=== PATIENT | female | born 1990 | race Caucasian/White ===

== ENCOUNTER → 2018-10-06 09:34 | Outpatient (CLI) | payer BC, SELFPAY ==
[2018-10-06 08:41] VITALS: BMI 18.1
[2018-10-06 10:00] LABS: Absolute Lymphocyte Count 1.51 X10^3/ul (0.83-4.51); Absolute Neutrophil Count 3.8 X10^3/uL (2.0-7.7); Basophil# 0.02 X10^3/uL; Basophil% 0.3 % (0-1); Eosinophil# 0.12 X10^3/uL; Hematocrit 39.3 % (37-47); Hemoglobin 13.3 g/dl (12.0-15.0); Lymphocyte # 1.51 X10^3/ul (4.0); Lymphocyte % 25.2 % (19-41); Mean Corp Hgb Conc 33.8 g/gl (32-36); Mean Corpuscular Hgb 31.4 pg (27.0-32.0); Mean Corpuscular Volume 92.7 fL (81-99); Mean Platelet Vol. 11.1 fl (6.2-12.0); Monocyte# 0.51 X10^3/uL; Monocyte% 8.5 % (0-10); Neutrophil # 3.82 X10^3/uL (2.7-7.7); Neutrophil % 63.8 % (47-70); Platelet Count 200 K/mm3 (150-450); RBC Distribution Width CV 13.1 % (11.6-14.6); RBC Distribution Width SD 44.1 fl (35.1-43.9); Red Blood Count 4.24 M/mm3 (4.2-5.4)
[2018-10-06 10:01] LABS: POSITIVE COUNT NO; POSITIVE DIFFERENTIAL NO; POSITIVE MORPHOLOGY NO
[2018-10-06 11:27] LABS: HIV - WCH Non-Reactive (Nonreactive); Rubella IgG 47.3 IU/mL
[2018-10-06 16:56] LABS: Chlamydia Trachomatis by PCR Negative (Negative); Neisserai gonorrhoeae by PCR Negative (Negative); Probe Check PASS; Sample Adequacy Control PASS; Specimen Processing Control PASS
[2018-10-07 11:26] LABS: HEPATITIS B SURFACE AG Negative (Negative)
[2018-10-08 13:01] LABS: HPV Reflexed? NOT INDICATED
[2018-10-09 04:55] LABS: Rapid Plasmin Reagin (RPR) NONREACTIVE (NONREACTIVE)
== END ==
PROVIDERS: Family Provider Internal Medicine; PCP Internal Medicine; Referring Provider Obstetrics & Gynecology; Visit Provider Obstetrics & Gynecology
DX: Z34.80 Encounter for supervision of other normal pregnancy, unspecified trimester (principal)
CPT/HCPCS: 36415; 85025; 86592; 86703; 86762; 86850; 86900; 87086; 87340; 87491; 87591; 87624; 88175; G0145

== ENCOUNTER → 2019-02-05 10:42 | Outpatient (CLI) | payer BC, SELFPAY ==
[2019-02-05 09:47] VITALS: BMI 19.3
[2019-02-05 11:05] LABS: Absolute Lymphocyte Count 2.01 X10^3/uL (0.83-4.51); Absolute Neutrophil Count 6.4 X10^3/uL (2.0-7.7); Basophil# 0.04 X10^3/uL; Basophil% 0.4 % (0-1); Eosinophil# 0.12 X10^3/uL; Eosinophils% 1.3 % (0-5); Hematocrit 35.2 % (37-47); Hemoglobin 12.3 g/dL (12.0-15.0); Lymphocyte # 2.01 X10^3/ul (4.0); Mean Corp Hgb Conc 34.9 g/dL (32-36); Mean Corpuscular Hgb 34.3 pg (27.0-32.0); Mean Corpuscular Volume 98.1 fL (81-99); Mean Platelet Vol. 11.9 fl (6.2-12.0); Monocyte# 0.48 X10^3/uL; Monocyte% 5.3 % (0-10); NRBC Flagged by Analyzer 0 % (0-5); Neutrophil # 6.39 X10^3/uL (2.7-7.7); Platelet Count 168 K/mm3 (150-450); RBC Distribution Width CV 12.8 % (11.6-14.6); RBC Distribution Width SD 45.3 fl (35.1-43.9); Red Blood Count 3.59 M/mm3 (4.2-5.4); White Blood Count 9.1 K/mm3 (4.4-11.0)
[2019-02-05 11:13] LABS: Glucose Challenge Gest 1H 50g 80 mg/dL (70-140)
== END ==
PROVIDERS: Family Provider Internal Medicine; PCP Internal Medicine; Referring Provider Obstetrics & Gynecology; Visit Provider Obstetrics & Gynecology
DX: Z34.92 Encounter for supervision of normal pregnancy, unspecified, second trimester (principal); Z3A.26 26 weeks gestation of pregnancy
CPT/HCPCS: 36415; 82950; 85025

== ENCOUNTER → 2019-04-16 07:50 | Outpatient (CLI) | payer BC, SELFPAY ==
[2019-04-02 09:21] VITALS: BMI 19.3
--- NOTE | 2019-04-16 07:52 | US_ITS ---
STUDY: SECOND AND THIRD TRIMESTER OBSTETRICAL ULTRASOUND REASON FOR EXAM: Female, 29 years old growth. LMP: August 03, 2018. TECHNIQUE: Transabdominal TECHNICAL QUALITY: Adequate. PRIOR ULTRASOUND: None. FINDINGS: There is a single intrauterine fetus. The fetus is in a cephalic presentation. There is demonstrated cardiac activity with a heart rate of 121 bpm. There is a normal amniotic fluid volume. The largest amniotic fluid pocket measures 4.4 cm. The amniotic fluid index (DIEGO) is 12.9 cm. The placenta is posterior and fundal in location and is not low lying. There are Grade 2 placental changes. The cervix measures 4.0 cm in length. The adnexal regions are not visualized. BIOMETRY: BPD: 9.13 cm: 37 weeks, 0 days HC: 32.19 cm: 37 weeks, 3 days AC: 34.73 cm: 38 weeks, 4 days FL: 6.49 cm: 33 weeks, 3 days CI: 84% FL/BPD: 71% FL/HC: FL/AC: 19% HC/AC: 0.95 age by current US: 36 weeks, 2 days. KATH by current US: May 12, 2019. Estimated weight: 3129 grams, +/- 463 grams, 69 %. Age by LMP: 36 weeks, 4 days. KATH by LMP: May 10, 2019. US/OB Limited With Biometrics IMPRESSION: Single live intrauterine gestation with a mean gestational age of 36 weeks and 2 days. Electronically Signed: Jerson Banda, at 9:50 EDT , Service support ,
== END ==
PROVIDERS: Family Provider Internal Medicine; PCP Internal Medicine; Referring Provider Obstetrics & Gynecology; Visit Provider Obstetrics & Gynecology
DX: Z34.93 Encounter for supervision of normal pregnancy, unspecified, third trimester (principal); Z3A.36 36 weeks gestation of pregnancy; Z87.59 Personal history of other complications of pregnancy, childbirth and the puerperium
CPT/HCPCS: 76816; 87081

== ENCOUNTER 2019-05-05 05:10 | Inpatient (IN) | payer BC, SELFPAY ==
[2019-04-23 09:05] VITALS: BMI 25.1
[2019-04-30 09:03] VITALS: BMI 25.1
--- NOTE | 2019-05-01 04:44 | HP.PCM_ITS ---
- Problem List (1) Choroid plexus cyst Status: Acute Comment: declines genetic testing (2) H/O anorexia nervosa Status: Acute Comment: discussed healthy weight gain, patient denies symptoms (3) History of shoulder dystocia in prior Status: Acute Comment: discussed risks and patient now requesting primary for delivery. schedul 05/03 (4) Influenza vaccination declined Status: Acute Comment: 04/02/2019 (5) Periurethral trauma during delivery Status: Acute Comment: discussed recurrence likelihood. (6) Status: Acute Qualifiers: Comment: Declines carrier, NT, genetic. anatomy us reviewed. 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 Required: No Accompanied by: Is patient in pain?: No Allergies No Known Allergies Allergy (Verified 04/30/19 09:03) Medications Vits [Prenatabs FA ] 1 tab PO DAILY 05/21/17 [History Confirmed 04/30/19] Last Menstral Period: 08/03/18 Zika: Zika virus screening: Negative : No PFSH PFSH Medical History History of anorexia nervosa (Resolved) Surgical History No significant past surgical history (Acute) Family History Grandfather Colon cancer Social History (Updated 04/30/19 @ 09:37 by Ira Caal MD) adopted: No household members: family housing: house number of children: 1 current occupational status: employed current occupation: [employer] current occupational exposures/hazards: No pets and animals: Yes history of recent travel: No sexually active: Yes Smoking Status: Former smoker second hand exposure: Yes (not in the house) alcohol intake: current alcohol intake frequency: a few times a month details: not while substance use type: does not use seatbelt use: always do you feel safe at home: Yes additional social history: Spouse- Bc- [employer] History 2 Elective abortions Hx Para 1 Spontaneous abortions Hx # Term Pregnancies 1 Ectopic pregnancies Hx # Pregnancies Multiple births # of living children 1 Past Pregnancies Del. Date Name GA/Weeks Outcome Route Bth Weight Infant Gen Labor Lgth Anesthesia Del Locatn Provider FOB 10/19/16 Mitchelshantier 40 live - full term 8pounds 7oz Femal e 14 hours none [facility] Celina Key/Dr. Timmy Yancey Delivery Date: 10/19/16 On 10/06/18 @ 08:56 Debbie Olmstead Shoulder dystocia, 3rd or 4th degree tear vaginal- tore up HPI 38 WEEK OB: Details: MOHIT KERN is a 29 year old who presents for routine OB visit. OB Visit KATH Calculator Estimated Delivery Date Method Current WG Current Estimate 05/10/19 LMP (Certain) 38w 4d Expected Delivery Route/Plan after discussion patient prefer ltcs for history of shoulder dystocia Labor Preferences- labor support person: Bc pain management: spinal cut cord/dad catch: yes : yes PP control planned: none discussed possible routes of delivery and associated risks: yes and plan LTCS special requests: [] Specific Issue/Plans flu vaccine: no tdap vaccine: declined rhogam: na LARC form signed: declines Problem list reviewed and updated with the most current plan of care details and appropriate orders placed. Relevant counseling for the gestational age provided. Continue routine care and follow up unless otherwise noted in visit notes/problem list details Initial Weight: 116 lb Date EGA Weight BP Urine Prot Glucose FHR FuHt Pres Mov CTX Dilation Effaced St Visit Note 11/02/18 13w 0d 123 lb 8 oz (+7 lb 8 oz) 98/62 Negative Negative 150 no vb cramping doing well, declines genetic and ntd screening 12/03/18 17w 3d 128 lb (+12 lb) 102/72 Negative Negative 153 No VB, LOF. Doing well. 01/08/19 22w 4d 136 lb (+20 lb) 118/62 Negative Negative 150 23 no vb lof cramping on right side sometimes. 02/05/19 26w 4d 140 lb (+24 lb) 94/62 Negative Negative 150 27 no vb cbc gct today declined tdap 03/05/19 30w 4d 144 lb 4 oz (+28 lb 4 oz) 100/58 Negative Negative 140 32 Active absent no vb lof 03/18/19 32w 3d 145 lb 6 oz (+29 lb 6 oz) 100/58 Negative Negative 129 32 Active absent No Vb, LOF. No issues with anxiety over food. 04/02/19 34w 4d 149 lb 4 oz (+33 lb 4 oz) 100/58 Negative Negative 140 35 no vb lof good fm no reg ctx get growth scan 04/16/19 36w 4d 151 lb (+35 lb) 94/56 Negative Negative 128 36 Cephalic 1.50 nO VB, LOF. Good FM. US for growth today. GBS 04/23/19 37w 4d 151 lb (+35 lb) 100/82 Negative Negative 120 37 Cephalic no vb lof good fm n oregular ctx- patient now wnating to proceed with primary due to shoulder dystocia history 04/30/19 38w 4d 154 lb (+38 lb) 110/72 Negative Negative 135 39 Cephalic no vb lof good fm no reg ctx Visit Notes Visit Date: 04/30/19 ??no vb lof good fm no reg ctx ??Ira Caal MD on 04/30/19 Visit Date: 04/23/19 ??no vb lof good fm n oregular ctx- patient now wnating to proceed with primary due to shoulder dystocia history ??Ira Caal MD on 04/23/19 Visit Date: 04/16/19 ??nO VB, LOF. Good FM. US for growth today. GBS ??LILLY Gillette on 04/16/19 Visit Date: 04/02/19 ??no vb lof good fm no reg ctx get growth scan ??Ira Caal MD on 04/02/19 Visit Date: 03/18/19 ??No Vb, LOF. No issues with anxiety over food. ??LILLY Gillette on 03/18/19 Visit Date: 03/05/19 ??no vb lof ??Ira Caal MD on 03/05/19 Visit Date: 02/05/19 ??no vb cbc gct today declined tdap ??Ira Caal MD on 02/05/19 Visit Date: 01/08/19 ??no vb lof cramping on right side sometimes. ??Ira Caal MD on 01/08/19 Visit Date: 12/03/18 ??No VB, LOF. Doing well. ??Ruthann You NP-Kerline on 12/03/18 Visit Date: 11/02/18 ??no vb cramping doing well, declines genetic and ntd screening ??Ira Caal MD on 11/03/18 ACOG First Trimester First Trimester: Desire for , Alcohol, Tobacco Cessation, Illicit/Recreational Drug/Substance Use, Intimate Partner Violence, Barriers to care, Unstable Housing, Communication Barriers, Environmental/Work Hazards, Anticipated Course of Care, Toxoplasmosis Precations, Use of Any medications, Sexual activity, Exercise, Dental Care, Sauna/Hot tub use, Seat Belt use, Childbirth classes/Hospital facilities, , Travel, Indications for US and Screening for Aneuploidy Second Trimester Second Trimester: Signs and Symptoms of Labor, Selecting a care provider, Reproductive Life Planning, Care Planning, Tobacco Cessation, Depression/Anxiety and Intimate Partner Violence Third Trimester Third Trimester: Pain Management Plans, Labor support person(s), Immediate Larc, Movement Monitoring and Infant Feeding Yes ; discussed Trial of Labor after Counseling or discussed Circumcision preference Diagnostics Diagnostics Diagnostics Blood Type A POSITIVE 10/06/18 Antibody Screen NEGATIVE 10/06/18 Glucose 1 Hr 50 gm 80 mg/dL (70-140) 02/05/19 HIV 1&2 Antibody Non-Reactive (Nonreactive) 10/06/18 Rubella IgG Antibody 47.3 IU/mL 10/06/18 Hgb 12.3 g/dL (12.0-15.0) 02/05/19 Hct 35.2 % (37-47) L 02/05/19 RPR NONREACTIVE (NONREACTIVE) 10/06/18 Details: HIV: Urine Culture: Sequential Screen: NIPT Screen: ROS Const Reports system reviewed and no additional complaints, except as docu Card Reports system reviewed and no additional complaints, except as docu Resp Reports system reviewed and no additional complaints, except as docu GI Reports system reviewed and no additional complaints, except as docu, Reports nausea Reports system reviewed and no additional complaints, except as docu Musc Reports system reviewed and no additional complaints, except as docu Exam Const General: cooperative, healthy appearing, comfortable, anxious HENMT Head: normal to inspection Nose: external nose normal Face and sinus: normal facial exam Neck Neck: normal visual inspection, full ROM, no lymphadenopathy Thyroid: thyroid normal Chest Chest palpation & inspection: normal inspection of the chest Resp Effort & Inspection: normal respiratory effort GI Inspection: normal to inspection Palpation: soft, other (gravid uterus) Other: vertex and appropriate size for gestational age Other: Cervical Exam: Extrem General: pedal edema Results [id number] Office Urine Glucose Negative Last Edit by Yajaira Navarrete on 04/30/19 09:02 Office Urine Protein Negative Last Edit by Yajaira Navarrete on 04/30/19 09:02 Assessment & Plan Problems 1. Influenza vaccination declined Z28.21 04/02/2019 2. Choroid plexus cyst G93.0 declines genetic testing 3. History of shoulder dystocia in prior Z87.59 discussed risks and patient now requesting primary for delivery. schedul 05/03 4. Periurethral trauma during delivery O71.89 discussed recurrence likelihood. proceed with 5. H/O anorexia nervosa Z86.59 discussed healthy weight gain, patient denies symptoms 6. Supervision of other normal Z34.80 PRR KATH 05/10/19 boy Amaris DELORES Nir Spouse Bc 7. Z34.90 Declines carrier, NT, genetic. anatomy us reviewed. Plan plan Primary LTCS Orders Orders: POC Urinalysis 2 Dip (Clinic) Today Coding Level of Care Code OB Routine Diagnoses Influenza vaccination declined Z28.21 Choroid plexus cyst G93.0 History of shoulder dystocia in prior Z87.59 Periurethral trauma during delivery O71.89 H/O anorexia nervosa Z86.59 Supervision of other normal Z34.80 Z34.90
[2019-05-05] VITALS (18 sets, daily range): BP systolic 86–103; BP diastolic 42–61; PULSE 58–79; RESP 15–18; TEMP 36.2–37.1; O2SAT 96–100; BMI 24.1
[2019-05-05] MEDS: Lactated Ringers 1,000 ML 999 ML IV (05:38)
[2019-05-05 06:03] LABS: Absolute Lymphocyte Count 2.79 X10^3/uL (0.83-4.51); Absolute Neutrophil Count 4.2 X10^3/uL (2.0-7.7); Basophil# 0.04 X10^3/uL; Basophil% 0.5 % (0-1); Eosinophil# 0.18 X10^3/uL; Eosinophils% 2.3 % (0-5); Hematocrit 35.4 % (37-47); Hemoglobin 12.2 g/dL (12.0-15.0); Lymphocyte # 2.79 X10^3/ul (4.0); Lymphocyte % 35.9 % (19-41); Mean Corp Hgb Conc 34.5 g/dL (32-36); Mean Corpuscular Hgb 33.4 pg (27.0-32.0); Monocyte# 0.55 X10^3/uL; Monocyte% 7.1 % (0-10); NRBC Flagged by Analyzer 0 % (0-5); Neutrophil # 4.15 X10^3/uL (2.7-7.7); Neutrophil % 53.4 % (47-70); Platelet Count 129 K/mm3 (150-450); RBC Distribution Width CV 12.6 % (11.6-14.6); RBC Distribution Width SD 44.6 fl (35.1-43.9); Red Blood Count 3.65 M/mm3 (4.2-5.4); White Blood Count 7.8 K/mm3 (4.4-11.0)
[2019-05-05] MEDS: Lactated Ringers 1,000 ML 150 ML IV (06:45)
[2019-05-05] MEDS: Sodium Citrate/Citric Acid 30 ML UDC PO (07:12)
[2019-05-05] MEDS: Cefazolin 2 GM in 0.9% Normal Saline 100 ML IV (07:13)
--- NOTE | 2019-05-05 07:26 | PCM.OPRPT ---
Problem List (1) Choroid plexus cyst Status: Acute Comment: declines genetic testing (2) H/O anorexia nervosa Status: Acute Comment: discussed healthy weight gain, patient denies symptoms (3) History of shoulder dystocia in prior Status: Acute Comment: discussed risks and patient now requesting primary for delivery. schedul 05/05 (4) Influenza vaccination declined Status: Acute Comment: 04/02/2019 (5) Periurethral trauma during delivery Status: Acute Comment: discussed recurrence likelihood. (6) Status: Acute Qualifiers: Comment: Declines carrier, NT, genetic. anatomy us reviewed. (7) Supervision of other normal Status: Acute Comment: PRR KATH 05/10/19 boy Amaris Loyola Spouse Bc Delivery Classification: Scheduled Final KATH: 05/10/19 Gestational age: 39 Weeks and 2 Days space studies faculty member: Bouchra Laughlin Type of Anesthesia:: Spinal Special Medications: none Implants Used: none Date of Procedure: 05/05/19 Pre-Operative Diagnosis: previous shoulder dystocia Post-Operative Diagnosis: same Description of Procedure: The patient is a 29 yo @ 39 weeks history of shoulder dystocia here for primary . Spinal anesthesia was placed without difficulty. Lance catheter was placed. The patient was placed in the dorsal supine position with leftward tilt. Patient was prepped and draped in the normal sterile fashion. Pfannenstiel skin incision was made with the scalpel and carried through to the underlying layer of fascia with the scalpel. Fascia was nicked in the midline and the incision extended laterally. The rectus bellies were dissected off superiorly and inferiorly with out complication both sharply and bluntly. The peritoneum was entered digitally. The incision was stretched and a low transverse uterine incision was made with the scalpel. The infant's head was delivered atraumatically followed by the anterior and posterior shoulders without complication the rest of the infant delivered. The cord was clamped and cut and the infant was handed off to awaiting nurse. The placenta was delivered spontaneously immediately following and was noted to be intact and have a three-vessel cord. The uterus was exteriorized cleared of all clots and debris, and the incision was closed in a double layer closure using #1 Monocryl. The ovaries and fallopian tubes were noted to be within normal limits. The uterus was returned to the maternal abdomen and gutters were cleared of all clots and debris. The peritoneum was closed with 3-0 Monocryl in a running fashion. Gloves were changed prior to fascial closure. Fascia was closed with 0 PDS in a running fashion. Subcutaneous tissue was copiously irrigated and the skin was closed with 3-0 Monocryl in a subcuticular fashion. Mepilex dressing was applied without complication. Patient was taken to recovery in stable condition. It was discussed with the patient that based on the clinical information obtained during this encounter, combined with her history, at this time I would recommend [ ] for future deliveries if further pregnancies are desired. Amniotic Membrane Rupture Type: Artificial Amniotic Fluid Description: Clear Placenta Disposition: [facility] Cord Entanglement: None Esitmated Blood Loss (ml): 900 Gender: Male Delayed cord clamping: Yes Antibiotic Given: Ancef 2 grams IV x1 Pt instructed on risks of surgery: Bleeding, Anesthesia Risks, Infection, Injury to surrounding structure(s) including bowel and bladder Complications: None - Admit VTE Documentation VTE Present on Admission: No Multi Select Codes - Urinary/Genital Urinary/Genital CPT Codes: 63930 [facility]
[2019-05-05] MEDS: Oxytocin 30 units/NS 500 ml 30 UNITS/500 ML IV.SOLN 167 UNITS IV (08:38)
[2019-05-05] MEDS: Lactated Ringers 1,000 ML 100 ML IV ×2 (12:02→17:35)
[2019-05-05] MEDS: Ondansetron 4 MG/2 ML Vial IV (12:17)
[2019-05-05] MEDS: Ketorolac 30 MG/ML Syringe IV ×2 (15:16→22:11)
[2019-05-05] MEDS: Lactated Ringers 500 ML IV (18:55)
[2019-05-06] VITALS (7 sets, daily range): BP systolic 81–96; BP diastolic 49–58; PULSE 62–71; RESP 15–16; TEMP 36.1–37.2; O2SAT 97–99
--- NOTE | 2019-05-06 05:05 | NURSING ---
Indwelling ellsworth catheter present, wnl.
[2019-05-06] MEDS: Ketorolac 30 MG/ML Syringe IV ×4 (05:12→22:41)
[2019-05-06] MEDS: 0.9% Saline Lock 10 ML Syringe IV ×4 (05:13→22:44)
[2019-05-06 05:42] LABS: Hematocrit 25.6 % (37-47); Mean Corp Hgb Conc 35.2 g/dL (32-36); Mean Corpuscular Hgb 34.6 pg (27.0-32.0); Mean Corpuscular Volume 98.5 fL (81-99); Mean Platelet Vol. 13.4 fl (6.2-12.0); POSITIVE COUNT YES; Platelet Count 96 K/mm3 (150-450); RBC Distribution Width SD 46.5 fl (35.1-43.9); White Blood Count 10.2 K/mm3 (4.4-11.0)
[2019-05-06 05:45] LABS: Scan Indicated on CBC? Y/N NO
--- NOTE | 2019-05-06 05:45 | NURSING ---
0545 Attempted to remove patient's ellsworth catheter. Only 1 mL of saline was withdrawn. Resistance felt when catheter gently tugged. Attempted to remove more saline with syringe. No other amounts of saline were able to be removed. Notified Dr. Caal that there was complications with saline removal. Ellsworth catheter in place and still draining urine to ellsworth bag. Verbal order received to cut ellsworth catheter tubing. However, to be done by oncoming shift.
--- NOTE | 2019-05-06 05:45 | NURSING ---
Patient ambulated to sit in chair. States that she had ambulated earlier as well. Tolerated well.
--- NOTE | 2019-05-06 08:13 | NURSING ---
Lance bulb will not deflate. Dr Blair called to assess.
--- NOTE | 2019-05-06 08:16 | NURSING ---
Lesley Alberto aware of blood pressure of 81/49.
--- NOTE | 2019-05-06 09:08 | CON.PCM_ITS ---
Problem List (1) Ellsworth catheter problem Status: Acute (2) Status: Acute Qualifiers: Comment: Declines carrier, NT, genetic. anatomy us reviewed. Reason for Consult Date of Consultation: 05/06/19 Reason for Consultation: ellsworth catheter stuck in bladder History of Present Illness: The patient is a 29 year old F who had a section for delivery of her baby yesterday. At that time a Ellsworth catheter had been inserted. Upon attempted removal of the Ellsworth catheter this morning, the balloon would not deflate. Instructions were given to insert a guidewire through the port site for deflation of the balloon. This did not work and I was called in for assistance. The patient is never had any urologic conditions in the past and has not seen a urologist. The urine has been clear yellow. Past Medical History Medical History: Medical History (Last Reviewed 05/06/19 @ 09:09 by Karma Ball MD) History of anorexia nervosa Z86.59 Allergies No Known Allergies Allergy (Verified 05/05/19 05:31) Home Medications: Ambulatory Orders Medication Instructions Recorded Vits [Prenatabs FA ] 1 tab PO DAILY 05/21/17 Surgical History: Surgical History (Last Reviewed 05/06/19 @ 09:09 by Karma Ball MD) No significant past surgical history Smoking Status: Former smoker Review of Systems Constitutional: Denies: Anorexia Eyes: Denies: Vision Change HEENT: Denies: Visual Changes Cardiovascular: Denies: Chest Pain Respiratory: Denies: Shortness of Breath Genitourinary: Denies: Dysuria, Hematuria Musculoskeletal: Denies: Muscle pain Skin: Denies: Skin Changes Neurological: Denies: Balance problems Patient Problems: Active and Suspected Problems (Last Reviewed 04/30/19 @ 09:03 by Yajaira Navarrete) Ellsworth catheter problem (Acute) - Physical Exam Vitals/I&O's: Vital Signs Temp Pulse Resp BP Pulse Ox 98.0 F 65 15 81/49 L 98 05/06/19 07:30 05/06/19 07:30 05/06/19 07:30 05/06/19 07:30 05/06/19 07:30 Oxygen Delivery Method Room Air Weight: 69.853 kg Body Mass Index (BMI) 24.1 Intake and Output for Last 24 Hours 05/04/19 05/05/1905/06/19 23:59 23:59 23:59 Intake Total 4900 / 4900 1415 / 1415 Output Total 1010 / 1010 2200 / 2200 Balance 3890 / 3890 -785 / -785 General: Alert, Oriented x3, Cooperative HEENT: Atraumatic, Normocephalic Oral: Moist Mucosa Neck: Supple, Trachea Midline Lungs: Normal air movement Cardiovascular: Regular rate Abdomen: Soft Skin: No rashes Neurological: Cranial nerves II-XII grossly intact Psych/Mental Status: Normal Affect, Anxious Laboratory Results 05/06/19 05:30: WBC 10.2, RBC 2.60 L, Hgb 9.0 L, Hct 25.6 L, MCV 98.5, MCH 34.6 H, MCHC 35.2, RDW Std Deviation 46.5 H, RDW Coeff of Emilio 13.0, Plt Count 96 L, MPV 13.4 H Current Medications Acetaminophen (Tylenol) 1,000 mg PO Q8H PRN PRN Reason: Pain Score 1-3/10 Bisacodyl (Dulcolax) 10 mg RECTAL UD PRN PRN Reason: If no BM Hydrocortisone (Hytone) 1 applic TOPICAL TID PRN PRN; Protocol PRN Reason: Discomfort Lactated Ringer's () 1,000 mls @ 100 mls/hr IV .Q10H [facility] Last Admin: 05/06/19 06:32 Dose: Not Given Documented by: Naloxone HCl 4 mg/ Dextrose 504 mls @ 0 mls/hr IV .Q0M PRN; Protocol PRN Reason: Respiratory depression Ketorolac Tromethamine (Toradol) 30 mg IV Q6H [facility] Stop: 05/07/19 08:01 Last Admin: 05/06/19 05:12 Dose: 30 mg Documented by: Methylergonovine Maleate (Methergine) 0.2 mg IM X1 PRN PRN Reason: Uterine Atony Nalbuphine HCl (Nubain) 5 mg IV Q3H PRN PRN PRN Reason: ITCHING Stop: 05/06/19 10:23 Naloxone HCl (Narcan) 0.02 mg IV Q1M PRN PRN Reason: RR <10 and pt unresponsive Naproxen (Naprosyn) 250 - 500 mg PO Q8H PRN PRN PRN Reason: Pain Score 1-3/10 Ondansetron HCl (Zofran) 4 mg IV Q4H PRN PRN PRN Reason: Nausea Last Admin: 05/05/19 12:17 Dose: 4 mg Documented by: Ondansetron HCl (Zofran Odt) 4 mg PO Q4H PRN PRN PRN Reason: ITCHING Stop: 05/06/19 10:23 Oxycodone HCl (Oxyir) 5 - 10 mg PO Q4H PRN PRN PRN Reason: Pain Score 4-10/10 Prochlorperazine Edisylate (Compazine Iv) 10 mg IV Q6H PRN PRN PRN Reason: NAUSEA Senna/Docusate Sodium (Senokot-S, Trang-Colace) 0 tablet PO DAILY PRN PRN Reason: Constipation Simethicone (Mylicon) 80 mg PO PCHS PRN PRN Reason: Indigestion/stomach pain Sodium Chloride () 5 - 15 ml IV UD PRN PRN Reason: SALINE FLUSH Last Admin: 05/06/19 05:13 Dose: 10 ml Documented by: Assessment/Plan All Active Problems (Last Reviewed 04/30/19 @ 09:03 by Yajaira Navarrete) Ellsworth catheter problem (Acute) Influenza vaccination declined (Acute) Choroid plexus cyst (Acute) History of shoulder dystocia in prior (Acute) Periurethral trauma during delivery (Acute) H/O anorexia nervosa (Acute) Supervision of other normal (Acute) (Acute) (spontaneous vaginal delivery) (Resolved) Shoulder dystocia, delivered (Resolved) The balloon port of the Ellsworth catheter was entered with the 0.035 Glidewire covered and lubricant and with concomitant pressure from the vagina into the balloon, the balloon deflated and the Ellsworth catheter was removed. Patient tolerated the procedure with minimal discomfort. Urine from the catheter was clear yellow. No urologic follow-up needed at this time. Thank you for consultation.
--- NOTE | 2019-05-06 09:30 | NURSING ---
Reviewed student's documentation for completeness. Student did the assessment with the primary nurse LCoe RN
[2019-05-06] MEDS: oxyCODONE 5 MG Tablet PO (09:59)
[2019-05-06] MEDS: Senna/Docusate Sodium 1 Tablet PO (09:59)
--- NOTE | 2019-05-06 10:18 | NURSING ---
Urologist visited and removed ellsworth cath. See Doctor note.
--- NOTE | 2019-05-06 14:27 | NURSING ---
Pt stated pain at 4/10. Declined needing anything for the pain.
[2019-05-06] MEDS: Bisacodyl 10 MG Suppository RECTAL (17:11)
--- NOTE | 2019-05-06 21:52 | PCM.PN.OB ---
Patient Problems: Active and Suspected Problems (Last Reviewed 05/06/19 @ 09:09 by Karma Ball MD) Ellsworth catheter problem (Acute) Subjective: doing well no complaints pain controlled no CP SOB N V ambulating well tolerating po lochia moderate, going well early today at 8 am- difficulty removing ellsworth bulb and urogyn was consulted for removal - Physical Exam Vitals/I&O's: Vital Signs Temp Pulse Resp BP Pulse Ox 99.0 F 68 16 96/54 L 97 05/06/19 19:50 05/06/19 19:50 05/06/19 19:50 05/06/19 19:50 05/06/19 14:00 Oxygen Delivery Method Room Air Weight: 154 lb Body Mass Index (BMI) 24.1 Intake and Output for Last 24 Hours 05/04/19 05/05/19 05/06/19 23:59 23:59 23:59 Intake Total 4900 / 4900 1415 / 1415 Output Total 1010 / 1010 2700 / 2700 Balance 3890 / 3890 -1285 / -1285 General: Alert, Oriented x3 Laboratory Results 05/06/19 05:30: WBC 10.2, RBC 2.60 L, Hgb 9.0 L, Hct 25.6 L, MCV 98.5, MCH 34.6 H, MCHC 35.2, RDW Std Deviation 46.5 H, RDW Coeff of Emilio 13.0, Plt Count 96 L, MPV 13.4 H Current Medications Acetaminophen (Tylenol) 1,000 mg PO Q8H PRN PRN Reason: Pain Score 1-3/10 Bisacodyl (Dulcolax) 10 mg RECTAL UD PRN PRN Reason: If no BM Last Admin: 05/06/19 17:11 Dose: 10 mg Documented by: Hydrocortisone (Hytone) 1 applic TOPICAL TID PRN PRN; Protocol PRN Reason: Discomfort Naloxone HCl 4 mg/ Dextrose 504 mls @ 0 mls/hr IV .Q0M PRN; Protocol PRN Reason: Respiratory depression Ketorolac Tromethamine (Toradol) 30 mg IV Q6H FELICIANO Stop: 05/07/19 08:01 Last Admin: 05/06/19 17:06 Dose: 30 mg Documented by: Methylergonovine Maleate (Methergine) 0.2 mg IM X1 PRN PRN Reason: Uterine Atony Naloxone HCl (Narcan) 0.02 mg IV Q1M PRN PRN Reason: RR <10 and pt unresponsive Naproxen (Naprosyn) 250 - 500 mg PO Q8H PRN PRN PRN Reason: Pain Score 1-3/10 Ondansetron HCl (Zofran) 4 mg IV Q4H PRN PRN PRN Reason: Nausea Last Admin: 05/05/19 12:17 Dose: 4 mg Documented by: Oxycodone HCl (Oxyir) 5 - 10 mg PO Q4H PRN PRN PRN Reason: Pain Score 4-10/10 Last Admin: 05/06/19 09:59 Dose: 10 mg Documented by: Prochlorperazine Edisylate (Compazine Iv) 10 mg IV Q6H PRN PRN PRN Reason: NAUSEA Senna/Docusate Sodium (Senokot-S, Trang-Colace) 0 tablet PO DAILY PRN PRN Reason: Constipation Last Admin: 05/06/19 09:59 Dose: 2 tablet Documented by: Simethicone (Mylicon) 80 mg PO PCHS PRN PRN Reason: Indigestion/stomach pain Sodium Chloride () 5 - 15 ml IV UD PRN PRN Reason: SALINE FLUSH Last Admin: 05/06/19 17:05 Dose: 10 ml Documented by: Medical Necessity - Tobacco Use Smoking Status: Former smoker Assessment/Plan All Active Problems (Last Reviewed 05/06/19 @ 09:09 by Karma Ball MD) Ellsworth catheter problem (Acute) Influenza vaccination declined (Acute) Choroid plexus cyst (Acute) History of shoulder dystocia in prior (Acute) Periurethral trauma during delivery (Acute) H/O anorexia nervosa (Acute) Supervision of other normal (Acute) (Acute) (spontaneous vaginal delivery) (Resolved) Shoulder dystocia, delivered (Resolved) s/p LTCS PPD # 1 1. routine post care 2. breast feeding- support given 3. rh positive 4. rubella immune
--- NOTE | 2019-05-06 22:26 | DCINST_ITS ---
Discharge Diet: No Restrictions Discharge Activity: May Not Drive - for 2 weeks, May not drive while taking narcotic pain medications., May Shower, May Take a Tub Bath - in 7 days May resume sexual activity in: 4-6 weeks Lifting Restrictions: 20 pounds Additional Activity Instructions:: Nothing in the vagina for 4-6 weeks. You may return to work/school in 6 weeks. Call your doctor if your incision/area has: Continuous Slow Oozing, Sudden Increased Bleeding, Increased Pain/ Swelling, Increased Redness, Foul Smelling Discharge Call your doctor if you observe: Fever of 101 or Higher, Using more than one pad per hour - for 2 hours Suture Line Care: Avoid Pulling/Pushing, Avoid Pinching/Bending Cleanse incision/area with: Keep Dressing Clean & Dry Additional Instructions: If you experience any of the following, contact your healthcare provider. * Bleeding that soaks a pad every hour for 2 hours * Fever 100.4 or higher * Unrelieved incision or abdominal pain * Swelling, redness, discharge or bleeding from your incision or episiotomy site * Your incision begins to separate * Problems urinating (including inability to urinate or burning while urinating). * Visual changes * Severe headache * Flu-like symptoms * Pain or redness in one of both of your breasts * Pain, warmth, tenderness or swelling in your legs, especially the calf area * Frequent nausea and vomiting * Symptoms of depression or anxiety If you experience any of the following, call 911 or go to the nearest Emergency Room. * Chest pain * Problems breathing * Seizure activity * Partial or complete paralysis of a body part, slurred speech, weakness or drooping of the face, or a sudden inability to walk or hold your balance Allergies/Adverse Reactions: Allergies No Known Allergies Allergy (Verified 05/05/19 05:31) Medications to take at Discharge Vits [Prenatabs FA ] 1 tab PO DAILY 05/21/17 Naproxen [Naprosyn] 250 - 500 mg PO Q8H PRN PRN #30 tab 05/06/19 Oxycodone HCl/Acetaminophen [Percocet 5-325] 1 - 2 tab PO Q6H PRN PRN 7 Days #15 tab 05/06/19 The following prescriptions were given: Naproxen [Naprosyn] 250 - 500 mg PO Q8H PRN PRN #30 tab PRN Reason: MILD PAIN Transmission Status: Sent to [facility] Oxycodone HCl/Acetaminophen [Percocet 5-325] 1 - 2 tab PO Q6H PRN PRN 7 Days #15 tab PRN Reason: Pain Transmission Status: Sent to [facility] Follow-Up: Call to make an appointment with your doctor for an incision check in 1-2 weeks. You will also need a 6 week post- follow up appointment. Test results from this visit will be discussed in further detail at your follow- up appointment, if applicable. Please Follow Up With: Ira Caal MD - Call to make an appointment for an incision check in 1-2 [phone] When: You will need a post- check in 6 weeks. Primary Care Physician: Brooke Brown DO [Primary Care Provider] -
[2019-05-07 01:10] VITALS: BP 96/47; PULSE 70; RESP 16; TEMP 36.9
[2019-05-07] MEDS: Acetaminophen 500 MG Tablet 1000 MG PO ×2 (03:20→13:14)
[2019-05-07] MEDS: Ketorolac 30 MG/ML Syringe IV (04:48)
[2019-05-07] MEDS: 0.9% Saline Lock 10 ML Syringe IV ×2 (04:51)
--- NOTE | 2019-05-07 08:24 | PCM.PN.OB ---
Patient Problems: Active and Suspected Problems (Last Reviewed 05/06/19 @ 09:09 by Karma Ball MD) Lance catheter problem (Acute) Subjective: doing well no complaints pain controlled no CP SOB N V ambulating well tolerating po lochia moderate, going well - Physical Exam Vitals/I&O's: Vital Signs Temp Pulse Resp BP Pulse Ox 98.5 F 70 16 96/47 L 97 05/07/19 01:10 05/07/19 01:10 05/07/19 01:10 05/07/19 01:10 05/06/19 14:00 Oxygen Delivery Method Room Air Weight: 154 lb Body Mass Index (BMI) 24.1 Intake and Output for Last 24 Hours 05/05/19 05/06/19 05/07/19 23:59 23:59 23:59 Intake Total 4900 / 4900 1415 / 1415 Output Total 1010 / 1010 2700 / 2700 Balance 3890 / 3890 -1285 / -1285 General: Alert, Oriented x3 Abdomen: Soft, Non-Distended, - - FF below U, dressing dry and intact Current Medications Acetaminophen (Tylenol) 1,000 mg PO Q8H PRN PRN Reason: Pain Score 1-3/10 Last Admin: 05/07/19 03:20 Dose: 1,000 mg Documented by: Bisacodyl (Dulcolax) 10 mg RECTAL UD PRN PRN Reason: If no BM Last Admin: 05/06/19 17:11 Dose: 10 mg Documented by: Hydrocortisone (Hytone) 1 applic TOPICAL TID PRN PRN; Protocol PRN Reason: Discomfort Naloxone HCl 4 mg/ Dextrose 504 mls @ 0 mls/hr IV .Q0M PRN; Protocol PRN Reason: Respiratory depression Methylergonovine Maleate (Methergine) 0.2 mg IM X1 PRN PRN Reason: Uterine Atony Naloxone HCl (Narcan) 0.02 mg IV Q1M PRN PRN Reason: RR <10 and pt unresponsive Naproxen (Naprosyn) 250 - 500 mg PO Q8H PRN PRN PRN Reason: Pain Score 1-3/10 Ondansetron HCl (Zofran) 4 mg IV Q4H PRN PRN PRN Reason: Nausea Last Admin: 05/05/19 12:17 Dose: 4 mg Documented by: Oxycodone HCl (Oxyir) 5 - 10 mg PO Q4H PRN PRN PRN Reason: Pain Score 4-10/10 Last Admin: 05/06/19 09:59 Dose: 10 mg Documented by: Prochlorperazine Edisylate (Compazine Iv) 10 mg IV Q6H PRN PRN PRN Reason: NAUSEA Senna/Docusate Sodium (Senokot-S, Trang-Colace) 0 tablet PO DAILY PRN PRN Reason: Constipation Last Admin: 05/06/19 09:59 Dose: 2 tablet Documented by: Simethicone (Mylicon) 80 mg PO PCHS PRN PRN Reason: Indigestion/stomach pain Sodium Chloride () 5 - 15 ml IV UD PRN PRN Reason: SALINE FLUSH Last Admin: 05/07/19 04:51 Dose: 10 ml Documented by: Medical Necessity - Tobacco Use Smoking Status: Former smoker Assessment/Plan All Active Problems (Last Reviewed 05/06/19 @ 09:09 by Karma Ball MD) Lance catheter problem (Acute) Influenza vaccination declined (Acute) Choroid plexus cyst (Acute) History of shoulder dystocia in prior (Acute) Periurethral trauma during delivery (Acute) H/O anorexia nervosa (Acute) Supervision of other normal (Acute) (Acute) (spontaneous vaginal delivery) (Resolved) Shoulder dystocia, delivered (Resolved) s/p LTCS PPD # 2 1. routine post care 2. breast feeding- support given 3. rh positive 4. rubella immune 5. home today
[2019-05-07 08:26] VITALS: BP 103/65; PULSE 67; RESP 18; TEMP 37.3; O2SAT 98
[2019-05-07 08:30] VITALS: BP 96/49; PULSE 84; RESP 18; TEMP 37.8; O2SAT 98
[2019-05-07] MEDS: Naproxen 250 MG Tablet PO (09:42)
== END 2019-05-07 13:55 | disposition home or self-care (01) | DRG 787 ==
PROVIDERS: Admitting Provider Obstetrics & Gynecology; Family Provider Internal Medicine; PCP Internal Medicine; Referring Provider Obstetrics & Gynecology; Visit Provider Obstetrics & Gynecology
PROC: 10D00Z1 Extraction of Products of Conception, Low, Open Approach (ICD-10-PCS; CPT 59514; principal; 2019-05-05 07:15)
DX: O75.82 Onset (spontaneous) of labor after 37 completed weeks of gestation but before 39 completed weeks gestation, with delivery by (planned) cesarean section (principal); O99.354 Diseases of the nervous system complicating childbirth; G93.0 Cerebral cysts; T83.9XXA Unspecified complication of genitourinary prosthetic device, implant and graft, initial encounter; O90.89 Other complications of the puerperium, not elsewhere classified; Z87.59 Personal history of other complications of pregnancy, childbirth and the puerperium; Z86.59 Personal history of other mental and behavioral disorders; Z28.21 Immunization not carried out because of patient refusal; Z37.0 Single live birth; Z3A.39 39 weeks gestation of pregnancy; Z87.891 Personal history of nicotine dependence
CPT/HCPCS: 85025; 85027; 86850; 86900; 86901; 99218; 99251; J7120; A4216; C1769; G0378; G0463; J2405

== ENCOUNTER → 2021-03-15 15:23 | Outpatient (CLI) | payer BC, SELFPAY ==
[2021-03-15 15:41] LABS: Amphetamine Urine VISTA NEGATIVE (<1000 ng/mL); Barbiturate Urine VISTA NEGATIVE (< 200 ng/mL); Benzodiazepine Urine VISTA NEGATIVE (< 200 ng/mL); Cocaine Urine VISTA NEGATIVE (< 300 ng/mL); Ecstacy Urine VISTA NEGATIVE (< 500 ng/mL); Methadone Urine VISTA NEGATIVE (< 300 ng/mL); PCP Urine VISTA NEGATIVE (< 25 ng/mL); THC Urine VISTA NEGATIVE (< 50 ng/mL); Vista UDS pH Range 5
[2021-03-20 03:07] LABS: Chlamydia By Nucleic Acid AMP Negative (Negative)
[2021-03-20 14:02] LABS: Gonococcus By Nucleic Acid AMP Negative (Negative)
[2021-03-20 17:38] LABS: HPV APTIMA, High Risk Negative (Negative)
== END ==
PROVIDERS: PCP Internal Medicine; Referring Provider Obstetrics & Gynecology; Visit Provider Obstetrics & Gynecology
DX: Z34.80 Encounter for supervision of other normal pregnancy, unspecified trimester (principal); Z12.4 Encounter for screening for malignant neoplasm of cervix
CPT/HCPCS: 80307; 87086; 87491; 87591; 87624; 88175; G0145

== ENCOUNTER → 2021-04-13 11:50 | Outpatient (CLI) | payer BC, SELFPAY ==
[2021-04-13 13:22] LABS: Absolute Lymphocyte Count 2.13 X10^3/uL (0.83-4.51); Basophil# 0.03 X10^3/uL; Basophil% 0.4 % (0-1); Eosinophil# 0.25 X10^3/uL; Eosinophils% 3.2 % (0-5); Hematocrit 37.3 % (37-47); Hemoglobin 12.9 g/dL (12.0-15.0); Lymphocyte # 2.13 X10^3/ul (0.83-4.51); Lymphocyte % 26.9 % (19-41); Mean Corp Hgb Conc 34.6 g/dL (32-36); Mean Corpuscular Hgb 31.8 pg (27.0-32.0); Mean Corpuscular Volume 91.9 fL (81-99); Monocyte# 0.48 X10^3/uL; Monocyte% 6.1 % (0-10); NRBC Flagged by Analyzer 0 % (0-5); Neutrophil # 4.98 X10^3/uL (2.7-7.7); Neutrophil % 62.9 % (47-70); Platelet Count 210 K/mm3 (150-450); RBC Distribution Width CV 14.2 % (11.6-14.6); RBC Distribution Width SD 48.1 fl (35.1-43.9); Red Blood Count 4.06 M/mm3 (4.2-5.4); White Blood Count 7.9 K/mm3 (4.4-11.0)
[2021-04-13 14:27] LABS: HIV - WCH Non-Reactive (Nonreactive); Hepatitis B Surface Antigen Non-Reactive (Nonreactive); Hepatitis C Antibody Non-Reactive (Nonreactive); Rubella IgG Reactive (Nonreactive); Syphilis Antibodies Non-reactive
== END ==
PROVIDERS: PCP Internal Medicine; Referring Provider Obstetrics & Gynecology; Visit Provider Obstetrics & Gynecology
DX: Z34.80 Encounter for supervision of other normal pregnancy, unspecified trimester (principal)
CPT/HCPCS: 36415; 85025; 86703; 86762; 86780; 86803; 86850; 86900; 86901; 87340

== ENCOUNTER 2021-07-04 08:02 | Outpatient (CLI) | payer BC, SELFPAY ==
[2021-07-04 08:21] LABS: Absolute Lymphocyte Count 1.88 X10^3/uL (0.83-4.51); Absolute Neutrophil Count 5.8 X10^3/uL (2.0-7.7); Basophil# 0.03 X10^3/uL; Basophil% 0.3 % (0-1); Eosinophil# 0.27 X10^3/uL; Eosinophils% 3.1 % (0-5); Hematocrit 33.6 % (37-47); Hemoglobin 11.6 g/dL (12.0-15.0); Lymphocyte # 1.88 X10^3/ul (0.83-4.51); Lymphocyte % 21.7 % (19-41); Mean Corp Hgb Conc 34.5 g/dL (32-36); Mean Corpuscular Volume 95.5 fL (81-99); Mean Platelet Vol. 11.9 fl (6.2-12.0); Monocyte# 0.61 X10^3/uL; NRBC Flagged by Analyzer 0 % (0-5); Neutrophil # 5.77 X10^3/uL (2.7-7.7); Neutrophil % 66.5 % (47-70); Platelet Count 193 K/mm3 (150-450); RBC Distribution Width CV 12.9 % (11.6-14.6); RBC Distribution Width SD 44.5 fl (35.1-43.9); Red Blood Count 3.52 M/mm3 (4.2-5.4); White Blood Count 8.7 K/mm3 (4.4-11.0)
[2021-07-04 08:33] LABS: Glucose Challenge Gest 1H 50g 57 mg/dL (70-140)
== END 2021-07-04 23:59 | disposition short-term general hospital (02) ==
LOC: PAVLAB 08:03
PROVIDERS: PCP Internal Medicine; Referring Provider Obstetrics & Gynecology; Visit Provider Obstetrics & Gynecology
DX: Z34.92 Encounter for supervision of normal pregnancy, unspecified, second trimester (principal); Z13.1 Encounter for screening for diabetes mellitus
CPT/HCPCS: 36415; 82950; 85025

== ENCOUNTER 2021-09-07 13:25 | Outpatient (CLI) | payer BC, SELFPAY | END 2021-09-07 23:59 | disposition home or self-care (01) | LOC: LABSPEC 09-25 13:25 | PROVIDERS: PCP Internal Medicine; Visit Provider Obstetrics & Gynecology | DX: Z34.93 Encounter for supervision of normal pregnancy, unspecified, third trimester (principal) | CPT/HCPCS: 87081 ==

== ENCOUNTER 2021-09-27 05:08 | Inpatient (IN) | payer BC, SELFPAY ==
[2021-09-27] VITALS (20 sets, daily range): BP systolic 86–112; BP diastolic 40–63; PULSE 56–95; RESP 10–18; TEMP 36.3–36.8; O2SAT 93–99; BMI 26.6
[2021-09-27] MEDS: Lactated Ringers 1,000 ML 999 ML IV (05:30)
[2021-09-27] MEDS: Acetaminophen 500 MG Tablet 1000 MG PO ×4 (05:49→23:48)
[2021-09-27 05:53] LABS: Absolute Lymphocyte Count 2.51 X10^3/uL (0.83-4.51); Basophil# 0.03 X10^3/uL; Basophil% 0.4 % (0-1); Eosinophils% 2.7 % (0-5); Hematocrit 33.5 % (37-47); Hemoglobin 12.2 g/dL (12.0-15.0); Lymphocyte # 2.51 X10^3/ul (0.83-4.51); Lymphocyte % 34.1 % (19-41); Mean Corp Hgb Conc 36.4 g/dL (32-36); Mean Corpuscular Hgb 34.3 pg (27.0-32.0); Mean Corpuscular Volume 94.1 fL (81-99); Mean Platelet Vol. 13.6 fl (6.2-12.0); Monocyte# 0.53 X10^3/uL; Monocyte% 7.2 % (0-10); NRBC Flagged by Analyzer 0 % (0-5); Neutrophil # 4.02 X10^3/uL (2.7-7.7); Neutrophil % 54.6 % (47-70); Platelet Count 134 K/mm3 (150-450); RBC Distribution Width CV 12.9 % (11.6-14.6); Red Blood Count 3.56 M/mm3 (4.2-5.4); White Blood Count 7.4 K/mm3 (4.4-11.0)
[2021-09-27] MEDS: Lactated Ringers 1,000 ML 150 ML IV (06:40)
[2021-09-27] MEDS: Sodium Citrate/Citric Acid 30 ML UDC PO (07:15)
[2021-09-27] MEDS: Cefazolin 2 GM in 0.9% Normal Saline 100 ML IV (07:23)
--- NOTE | 2021-09-27 08:29 | HP.PCM.OB_ITS ---
HPI - General General Date of Admission: 09/27/21 HPI Narrative MOHIT KERN, is a 31 F who presents for RLTCS. Maternal Data Information KATH Calculator Estimated Delivery Date Method Current WG Current Estimate 10/02/21 Ultrasound #1 39w 2d Other Estimates 10/12/21 LMP (Certain) 37w 6d PFSH PFSH Medical History History of anorexia nervosa Low-lying placenta in second trimester Home Medications vit,[id number] 1 tab PO DAILY 05/21/17 [History Last Taken 04/26/19 1 tab] Allergy/AdvReac Type Severity Reaction Status Date / Time No Known Allergies Allergy Verified 09/12/21 11:44 Family History Grandfather Colon cancer Surgical History H/O section No significant past surgical history Social History adopted: No household members: family housing: house number of children: 2 current occupational status: employed current occupation: [employer] current occupational exposures/hazards: No pets and animals: Yes history of recent travel: No sexually active: Yes Smoking Status: Former smoker second hand exposure: Yes (not in the house) alcohol intake: current alcohol intake frequency: a few times a month details: not while substance use type: does not use seatbelt use: always do you feel safe at home: Yes additional social history: Spouse- Bc- [employer] History 3 Elective abortions Hx Para 2 Spontaneous abortions Hx # Term Pregnancies 2 Ectopic pregnancies Hx # Pregnancies Multiple births # of living children 2 Past Pregnancies Del. Date Name GA/Weeks Outcome Route Bth Weight Infant Gen Labor Lgth Anesthesia Del Locatn Provider FOB 10/19/16 Nir 40 live - full term 8pounds 7oz Female 1 4 hours none [facility] [place]/Dr. Timmy Yancey 05/05/19 Amaris 39 live - full term 7lbs 15oz Male spinal [facility] Delivery Date: 10/19/16 Shoulder dystocia, 3rd or 4th degree tear vaginal- tore up Debbie Olmstead Delivery Date: 05/05/19 c/s d/t h/o shoulder dystocia [facility] Visit Details Expected Delivery Route/Plan RLTCS with SM Plans Covid status: non immune, counseled regarding risk of covid in vs vaccination and considering vaccination Flu vaccine: declines Tdap vaccine: decline Rhogam: na LARC form signed: yes movement and labor precautions reviewed. Problem list reviewed and updated with the most current plan of care details and appropriate orders placed. Relevant counseling for the gestational age provided. Continue routine care and follow up unless otherwise noted in visit notes/problem list details OB Flowsheet Initial Weight: 128 lb Date -?-?-?-?-?-?-?-?-?-?-?-?- EGA Weight BP Urine Prot -?-?-?-?-?-?-?-?-?-?-?-?- Glucose FHR FuHt Pres Dilation -?-?-?-?-?-?-?-?-?-?-?-?- Effaced St Visit Note 03/15/21 -?-?-?-?-?-?-?-?-?-?-?-?- 11w 2d 128 lb 4 oz (+4 oz) 100/72 -?-?-?-?-?-?-?-?-?-?-?-?- 170 -?-?-?-?-?-?-?-?-?-?-?-?- SM- CRL 4 cm con s with LMP SM- CRL 4 cm NOT cons with L MP 04/13/21 -?-?-?-?-?-?-?-?-?-?-?-?- 15w 3d 136 lb 4 oz (+8 lb 4 oz) 110/66 Negative -?-?-?-?-?-?-?-?-?-?-?-?- Negative 160 -?-?-?-?-?-?-?-?-?-?-?-?- SM- no vb lof cr amping 05/07/21 -?-?-?-?-?-?-?-?-?-?-?-?- 18w 6d 143 lb (+15 lb) 110/66 Negative -?-?-?-?-?-?-?-?-?-?-?-?- Negative 154 -?-?-?-?-?-?-?-?-?-?-?-?- -No Vb, LOF. D eclines flu vaccine. [facility] anatomy US today Boy! 06/08/21 -?-?-?-?-?-?-?-?-?-?-?-?- 23w 3d 102/64 Negative -?-?-?-?-?-?-?-?-?-?-?-?- Negative 145 -?-?-?-?-?-?-?-?-?-?-?-?- SM- no vb lof go od fm no regular ctx 07/04/21 -?-?-?-?-?-?-?-?-?-?-?-?- 27w 1d 153 lb (+25 lb) 110/70 Negative -?-?-?-?-?-?-?-?-?-?-?-?- Negative 152 27 -?-?-?-?-?-?-?-?-?-?-?-?- -No VB, LOF. G ood FM. Declines tdap. Larc signed. 28 wk labs WNL 07/25/21 -?-?-?-?-?-?-?-?-?-?-?-?- 30w 1d 158 lb (+30 lb) 120/2 -?-?-?-?-?-?-?-?-?-?-?-?- 122 31 -?-?-?-?-?-?-?-?-?-?-?-?- JV- no lof, vagi nal bleeding, or dec. fm. planning for rpt. 08/08/21 -?-?-?-?-?-?-?-?-?-?-?-?- 32w 1d 158 lb 4 oz (+30 lb 4 oz) 100/68 Negative -?-?-?-?-?-?-?-?-?-?-?-?- Negative 143 33 -?-?-?-?-?-?-?-?-?-?-?-?- JV- no lof, vagi nal bleeding or dec fm, low lying placenta resolved. rpt section scheduled for @7:30 08/22/21 -?-?-?-?-?-?-?-?-?-?-?-?- 34w 1d 161 lb 2 oz (+33 lb 2 oz) 118/72 Negative -?-?-?-?-?-?-?-?-?-?-?-?- Negative 134 35 Cephalic -?-?-?-?-?-?-?-?-?-?-?-?- JV- no lof ,vagi nal bleeding, or dec fm. no complaints 09/07/21 -?-?-?-?-?-?-?-?-?-?-?-?- 36w 3d 163 lb (+35 lb) 114/72 Negative -?-?-?-?-?-?-?-?-?-?-?-?- Negative 135 38 Cephalic -?-?-?-?-?-?-?-?-?-?-?-?- SM- no vb lof go od fm no regular ctx gbs done 09/12/21 -?-?-?-?-?-?-?-?-?-?-?-?- 37w 1d 164 lb 6 oz (+36 lb 6 oz) 128/86 Negative -?-?-?-?--?-?-?-?-?-?-?-?- Negative 133 39 Cephalic 1 -?-?-?-?-?-?-?-?-?-?-?-?- 30 -2 JV- no lof ,vaginal bleeding, or dec fm. planning for rpt section 09/17/21 -?-?-?-?-?-?-?-?-?-?-?-?- 37w 6d 166 lb (+38 lb) 102/70 Negative -?-?-?-?-?-?-?-?-?-?-?-?- Negative 120 39 Cephalic 1 -?-?-?-?-?-?-?-?-?-?-?-?- SM- no vb lof go od fm no reuglar ctx 09/25/21 -?-?-?-?-?-?-?-?-?-?-?-?- 39w 0d 166 lb (+38 lb) 108/70 Negative -?-?-?-?-?-?-?-?-?-?-?-?- Negative 120 Cephalic 1 -?-?-?-?-?-?-?-?-?-?-?-?- 70 JV- nst for dec fm was reactive. DIEGO is 23 09/27/21 -?-?-?-?--?-?-?-?-?-?-?-?- 39w 2d 170 lb 4 oz (+42 lb 4 oz) 112/61 -?-?-?-?-?-?-?-?-?-?-?-?- -?-?-?-?-?-?-?-?-?-?-?-?- NST FHR Rate Baby A Baseline: 130 ROS Constitutional Constitutional: Reports systems reviewed and no addt'l complaints, except as documented Eyes Eyes: Denies change in vision ENT HEENT: Reports systems reviewed and no addt'l complaints, except as documented; Denies headache(s) Cardiovascular Cardiovascular: Reports systems reviewed and no addt'l complaints, except as documented; Denies chest pain or dyspnea Respiratory/Chest Respiratory/Chest: Reports systems reviewed and no addt'l complaints, except as documented Gastrointestinal Gastrointestinal: Reports systems reviewed and no addt'l complaints, except as documented; Denies abdominal pain Genitourinary Genitourinary: Reports systems reviewed and no addt'l complaints, except as documented, contractions Details: present (irregular) and movement Details: present; Denies dysuria or genital lesions Musculoskeletal Musculoskeletal: Reports systems reviewed and no addt'l complaints, except as documented Neurologic Neurologic: Reports systems reviewed and no addt'l complaints, except as documented Endocrine Endocrinology: Reports systems reviewed and no addt'l complaints, except as documented Vital Signs Vital Signs Vital Signs: 09/27/21 05:34 Temperature 98.1 F Temperature Source Temporal Pulse Rate 90 Respiratory Rate 18 Blood Pressure 112/61 Blood Pressure Mean 78 Blood Pressure Source Monitor Blood Pressure Position Semi-Fowlers Blood Pressure Location Left Arm Pulse Ox 97 Oxygen Delivery Method Room Air Weight Weight: 170 lb 4 oz Body Mass Index (BMI) 26.6 Physical Exam Const alert, oriented x3, no apparent distress and healthy appearing HEENT normocephalic and moist oral mucous membranes Head and Scalp: atraumatic Neck full ROM, no lymphadenopathy, supple and thyroid normal General: trachea midline Lymph Lymphatic: no lymphadenopathy noted Chest inspection of chest normal Resp normal respiratory effort Cardio regular rate GI normal to inspection, nondistended, normoactive bowel sounds, soft to palpation and non-tender Inspection: gravid external exam normal Manual OB Exam: estimated gestational size appropriate, presentation cephalic, dilated, effaced and station Extremity normal to inspection General Extremity: Negative for edema Skin no rashes or lesions noted Neuro no focal motor deficits and deep tendon reflexes 2+ bilaterally Motor Exam: strength 5/5 throughout and clonus absent Psych mental status grossly normal Labs Labs Labs: Blood Type A POSITIVE Antibody Screen NEGATIVE Hct 33.5 % (37-47) L Hgb 12.2 g/dL (12.0-15.0) Obstetrics US Syphilis Total Ab Non-reactive Rubella IgG Antibody Reactive (Nonreactive) Hep Bs Antigen Non-Reactive (Nonreactive) Chlamydia DNA (BARB) Negative (Negative) Neisseria gonorrhoeae DNA (BARB) Negative (Negative) HIV 1&2 Antibody Non-Reactive (Nonreactive) Glucose 1 Hr 50 gm 57 mg/dL (70-140) L Rhogam given: No Assessment & Plan (1) H/O section: COMMENT: repeat c/s at 39 weeks, scheduled 09/27 @ 7:30am with (2) Supervision of other normal : COMMENT: PRR KATH: 10/02/21 deepali Lester PC: Amaris Loyola Spouse: Bc (3) : QUALIFIERS: Weeks of gestation: 39 weeks Qualified Code(s): Z3A.39 - 39 weeks gestation of COMMENT: declines genetic, carrier and NTD. GBS neg (4) Periurethral trauma during delivery: COMMENT: discussed recurrence likelihood. (5) History of shoulder dystocia in prior : COMMENT: discussed risks and patient now requesting primary for delivery. schedul 05/05 (6) H/O anorexia nervosa: COMMENT: discussed healthy weight gain, patient denies symptoms (7) delivery delivered: COMMENT: LARRY López
[2021-09-27] MEDS: Oxytocin 30 units/NS 500 ml 30 UNITS/500 ML IV.SOLN 167 UNITS IV (08:30)
--- NOTE | 2021-09-27 08:30 | OP.PCM_ITS ---
Assessment & Plan (1) H/O anorexia nervosa: COMMENT: discussed healthy weight gain, patient denies symptoms (2) History of shoulder dystocia in prior : COMMENT: discussed risks and patient now requesting primary for delivery. schedul 05/05 (3) Periurethral trauma during delivery: COMMENT: discussed recurrence likelihood. (4) : QUALIFIERS: Weeks of gestation: 39 weeks Qualified Code(s): Z3A.39 - 39 weeks gestation of COMMENT: declines genetic, carrier and NTD. GBS neg (5) Supervision of other normal : COMMENT: PRR KATH: 10/02/21 deepali Lester PC: Amaris Loyola Spouse: Bc (6) H/O section: COMMENT: repeat c/s at 39 weeks, scheduled 09/27 @ 7:30am with (7) delivery delivered: COMMENT: LARRY RLTCS deepali López Maternal Data Information KATH Calculator Estimated Delivery Date Method Current WG Current Estimate 10/02/21 Ultrasound #1 39w 2d Other Estimates 10/12/21 LMP (Certain) 37w 6d Final KATH Source: LMP Details Operative Information Date of Procedure: 09/27/21 Pre-Operative Diagnosis: Previous Post-Operative Diagnosis: same Indications for : Repeat Elective Classification: Scheduled Procedure Type: low transverse supervisor instant potato processing #1: Albert Xie Type of Anesthesia: Spinal Special Medications: none Antibiotic Given: Ancef 2 grams IV x1 Drain: Lance to straight drain Estimated Blood Loss: 600 Fluids Replaced: crystalloid Findings Description of Procedure: Spinal anesthesia was placed without difficulty. Lance catheter was placed. The patient was placed in the dorsal supine position with leftward tilt. Patient was prepped and draped in the normal sterile fashion. Pfannenstiel skin incision was made with the scalpel and carried through to the underlying layer of fascia with the scalpel. Fascia was nicked in the midline and the incision extended laterally. The rectus bellies were dissected off superiorly and inferiorly with out complication both sharply and bluntly. The peritoneum was entered digitally. The incision was stretched and a low transverse uterine incision was made with the scalpel. The 's head was delivered atraumatically followed by the anterior and posterior shoulders without complication the rest of the infant delivered. The cord was clamped and cut and the infant was handed off to awaiting nurse. The placenta was delivered spontaneously immediately following and was noted to be intact and have a three- vessel cord. The uterus was exteriorized cleared of all clots and debris, and the incision was closed in a double layer closure using #1 Monocryl. The ovaries and fallopian tubes were noted to be within normal limits. The uterus was returned to the maternal abdomen and gutters were cleared of all clots and debris. The peritoneum was closed with 3-0 Monocryl in a running fashion. Gloves were changed prior to fascial closure. Fascia was closed with 0 PDS in a running fashion. Subcutaneous tissue was copiously irrigated and the skin was closed with 3-0 Monocryl in a subcuticular fashion. Mepilex dressing was applied without complication. Patient was taken to recovery in stable condition. It was discussed with the patient that based on the clinical information obtained during this encounter, combined with her history, at this time I would recommend cesareans for future deliveries if further pregnancies are desired. Amniotic Membrane Rupture Type: Artificial Amniotic Fluid Description: Clear Placenta Disposition: [facility] Cord Vessel Description: 3 Vessels Cord Entanglement: None Delayed Cord Clamping: Yes Complications Risks of Surgery Discussed w/Patient: Bleeding, Infection, Need for Future C- Sections and Injury to surrounding structure(s) including bowel and bladder Vaginal Delivery Complication Complications: None Admit VTE Documentation VTE Present on Admission: No VTE Mechan Device Prophylaxis: SCD's Procedures Urinary/Genital [id number]: 20443 Delivery [facility]
--- NOTE | 2021-09-27 08:31 | PCM.DC ---
Discharge Instructions Diet Discharge Diet: No restrictions Activity Discharge Activity: May Not Drive (for 2 weeks or while taking narcotic pain medications.), May Shower and May Take a Tub Bath (in 7 days) May shower in (days): 0 May resume sexual activity in: 4-6 weeks Weight Bearing Status: Full weight bearing Lifting Restrictions: 20 pounds Dressing / Incision Call your doctor if your incision/area has: Continuous Slow Oozing, Sudden Increased Bleeding, Increased Pain/ Swelling, Increased Redness and Foul Smelling Discharge Call your doctor if you observe: Fever of 101 or Higher and Using more than 1 pad per hour (for 2 hours) Suture Line Care: Avoid Pulling/Pushing and Avoid Pinching/Bending Cleanse incision/area with: Soap & Water and Keep Dressing Clean & Dry Follow Up Care Please Follow Up With: Ira Caal MD When: Call [phone] to make an appointment for an incision check in 1-2 weeks. Test Results: Test results from this visit will be discussed in further detail at your follow-up appointment, if applicable. Discharge Plan Admission Admit Date/Time: 09/27/21 05:08 Attending Provider: Ira Caal Primary Care Provider: Brooke Brown Discharge Orders/Prescriptions Prescriptions: New oxycodone-acetaminophen [Percocet] 5-325 mg tablet 1 tab PO Q6H PRN (Reason: pain) 7 Days Qty: 20 RF: 0 naproxen [naproxen] 500 MG tablet 500 mg PO BID PRN PRN (Reason: Pain) Qty: 30 RF: 1 No Action vit,[id number] 1 TABLET tablet 1 tab PO DAILY RF: 0 Referrals / Follow Up: Brooke Brown DO [Primary Care Provider] - Disposition Disposition (needs filled in before D/C Order can be placed): Home, Self Care
[2021-09-27] MEDS: Ketorolac 30 MG/ML Syringe IV ×3 (09:03→20:53)
[2021-09-27] MEDS: Lactated Ringers 1,000 ML 100 ML IV ×2 (10:58→21:12)
[2021-09-27] MEDS: Ondansetron 4 MG/2 ML Vial IV (12:31)
[2021-09-27] MEDS: 0.9% Saline Lock 10 ML Syringe IV ×3 (12:31→20:53)
--- NOTE | 2021-09-27 14:26 | NURSING ---
Patient not feeling well at this time. Intermittently vomiting and has not been able to eat since delivery. Patient does not feel well enough to attempt to ambulate at this time. Will continue to monitor for opportunities to safely ambulate.
[2021-09-27] MEDS: proCHLORPERazine 10 MG/2 ML Vial IV (14:39)
--- NOTE | 2021-09-27 16:33 | NURSING ---
Patient reports feeling unwell at this time with rigors and intermittent nausea. Food ordered. patient does not feel well enough at this time to ambulate or stand bedside. SCDs remain on and functional. This RN will continue to assess for a time to safely ambulate patient.
[2021-09-27] MEDS: oxyCODONE 5 MG Tablet PO (17:11)
--- NOTE | 2021-09-27 19:02 | NURSING ---
see nursing notes. patient not feeling well with vomiting and rigors. was able to stand at bedside for short time.
--- NOTE | 2021-09-27 19:29 | NURSING ---
this RN has reviewed and agrees with charting by Edyta Flores RN
[2021-09-28] MEDS: Ketorolac 30 MG/ML Syringe IV (03:30)
[2021-09-28] MEDS: 0.9% Saline Lock 10 ML Syringe IV (03:30)
[2021-09-28 03:33] VITALS: BP 94/55; PULSE 68; RESP 16; TEMP 36.4
[2021-09-28] MEDS: Acetaminophen 500 MG Tablet 1000 MG PO ×2 (05:14→13:49)
[2021-09-28 05:22] LABS: Hematocrit 29.3 % (37-47); Hemoglobin 10.3 g/dL (12.0-15.0); Mean Corp Hgb Conc 35.2 g/dL (32-36); Mean Corpuscular Hgb 33.6 pg (27.0-32.0); Mean Corpuscular Volume 95.4 fL (81-99); Mean Platelet Vol. 13.2 fl (6.2-12.0); Platelet Count 114 K/mm3 (150-450); RBC Distribution Width CV 13.2 % (11.6-14.6); RBC Distribution Width SD 46.2 fl (35.1-43.9); Red Blood Count 3.07 M/mm3 (4.2-5.4); White Blood Count 8.9 K/mm3 (4.4-11.0)
[2021-09-28 07:59] VITALS: BP 102/61; PULSE 70; RESP 16; TEMP 36.4; O2SAT 97
--- NOTE | 2021-09-28 08:17 | PCM.PN.OB ---
Subjective Subjective Patient doing well without complaints. Tolerating PO. Ambulating and voiding without difficulty. feeding well. Denies chest pain, shortness of breath, calf pain/swelling, fevers, chills, lightheadedness. Objective Data Objective Data Vital Signs: Vital Signs Temp Pulse Resp BP Pulse Ox 97.5 F L 70 16 102/61 97 09/28/21 07:59 09/28/21 07:59 09/28/21 07:59 09/28/21 07:59 09/28/21 07:59 Oxygen Delivery Method Room Air Weight: 170 lb 4 oz Body Mass Index (BMI) 26.6 Intake & Output: Intake and Output for Last 24 Hours 09/26/21 09/27/21 09/28/21 23:59 23:59 23:59 Intake Total 3110 / 3390 280 / 280 Output Total 1650 / 1650 Balance 1460 / 1740 280 / 280 Lab / Micro Data Result Diagrams: 09/28/21 05:12 Labs: Laboratory Results - last 24 hr 09/28/21 05:12: WBC 8.9, RBC 3.07 L, Hgb 10.3 L, Hct 29.3 L, MCV 95.4, MCH 33.6 H, MCHC 35.2, RDW Std Deviation 46.2 H, RDW Coeff of Emilio 13.2, Plt Count 114 L, MPV 13.2 H Micro: Microbiology 09/27/21 05:30 Nasal Secretion SARS-CoV-2 Antigen (Rapid) - Final ROS Constitutional Constitutional: Reports systems reviewed and no addt'l complaints, except as documented Cardiovascular Cardiovascular: Reports systems reviewed and no addt'l complaints, except as documented Respiratory/Chest Respiratory/Chest: Reports systems reviewed and no addt'l complaints, except as documented Gastrointestinal Gastrointestinal: Reports systems reviewed and no addt'l complaints, except as documented Physical Exam Const alert, oriented x3 and no apparent distress HEENT Head and Scalp: atraumatic Resp normal respiratory effort GI soft to palpation and non-tender Inspection: incision intact, healing well and drainage (none) Bimanual Exam - Vag & Uterus: uterus non-tender Uterus Palpation: uterus fundus firm (below Umbilicus) Assessment & Plan (1) delivery delivered: COMMENT: LARRY López PLAN: s/p LTCS PPD # 1 1. routine post care 2. breast feeding- support given 3. rh positive 4. rubella immune
[2021-09-28] MEDS: Senna/Docusate Sodium 1 Tablet PO (11:30)
[2021-09-28] MEDS: Naproxen 500 MG Tablet PO ×2 (11:30→17:14)
[2021-09-28 13:51] VITALS: BP 101/66; PULSE 71; RESP 18; TEMP 36.9; O2SAT 97
== END 2021-09-28 17:20 | disposition home or self-care (01) | DRG 788 ==
PROVIDERS: Admitting Provider Obstetrics & Gynecology; PCP Internal Medicine; Referring Provider Obstetrics & Gynecology; Visit Provider Obstetrics & Gynecology
PROC: 10D00Z1 Extraction of Products of Conception, Low, Open Approach (ICD-10-PCS; CPT 59514; principal; 2021-09-27 07:15)
DX: O34.219 Maternal care for unspecified type scar from previous cesarean delivery (principal); Z37.0 Single live birth; Z3A.39 39 weeks gestation of pregnancy; Z87.891 Personal history of nicotine dependence; Z86.59 Personal history of other mental and behavioral disorders; Z87.59 Personal history of other complications of pregnancy, childbirth and the puerperium
CPT/HCPCS: 59025; 85025; 85027; 86850; 86900; 86901; 87426; 99218; 99251; J7120; A4216; G0378; G0463; J2405

== ENCOUNTER → 2023-10-29 | Outpatient (CLI) | payer OTHER, SELFPAY ==
[2023-10-29 13:20] LABS: Absolute Lymphocyte Count 2.41 X10^3/uL (0.83-4.51); Absolute Neutrophil Count 2.8 X10^3/uL (2.0-7.7); Basophil# 0.05 X10^3/uL; Basophil% 0.9 % (0-1); Eosinophil# 0.16 X10^3/uL; Eosinophils% 2.7 % (0-5); Hematocrit 36.9 % (37-47); Lymphocyte # 2.41 X10^3/ul (0.83-4.51); Lymphocyte % 41.3 % (19-41); Mean Corp Hgb Conc 32.5 g/dL (32-36); Mean Corpuscular Hgb 28.6 pg (27.0-32.0); Mean Corpuscular Volume 87.9 fL (81-99); Mean Platelet Vol. 11.9 fl (6.2-12.0); Monocyte# 0.39 X10^3/uL; Monocyte% 6.7 % (0-10); NRBC Flagged by Analyzer 0 % (0-5); Neutrophil # 2.82 X10^3/uL (2.7-7.7); Neutrophil % 48.2 % (47-70); Platelet Count 277 K/mm3 (150-450); RBC Distribution Width SD 44.8 fl (35.1-43.9); White Blood Count 5.8 K/mm3 (4.4-11.0)
[2023-10-29 13:53] LABS: T4 Free Direct 1.03 ng/dL (0.76-1.46); Thyroid Stim Hormone (TSH) 1.11 uIU/mL (0.358-3.74)
[2023-10-31 04:07] LABS: Thyroid Peroxidase AB 11 IU/mL (0-34)
== END | disposition home or self-care (01) ==
LOC: LAB 12:01
PROVIDERS: PCP Internal Medicine; Referring Provider Nurse Practitioner Women's Health; Visit Provider Nurse Practitioner Women's Health
DX: Z13.29 Encounter for screening for other suspected endocrine disorder (principal); N93.9 Abnormal uterine and vaginal bleeding, unspecified
CPT/HCPCS: 36415; 84439; 84443; 85025; 86376

== ENCOUNTER → 2024-10-22 | Outpatient (CLI) | payer BC, SELFPAY ==
[2024-10-22 12:16] LABS: Absolute Lymphocyte Count 2.44 X10^3/uL (0.83-4.51); Absolute Neutrophil Count 3.7 X10^3/uL (2.0-7.7); Basophil# 0.05 X10^3/uL; Basophil% 0.7 % (0-1); Eosinophil# 0.15 X10^3/uL; Eosinophils% 2.2 % (0-5); Hematocrit 35.9 % (37-47); Hemoglobin 12.3 g/dL (12.0-15.0); Lymphocyte # 2.44 X10^3/ul (0.83-4.51); Lymphocyte % 36.4 % (19-41); Mean Corp Hgb Conc 34.3 g/dL (32-36); Mean Corpuscular Hgb 30.7 pg (27.0-32.0); Mean Corpuscular Volume 89.5 fL (81-99); Monocyte# 0.34 X10^3/uL; Monocyte% 5.1 % (0-10); NRBC Flagged by Analyzer 0 % (0-5); Neutrophil # 3.71 X10^3/uL (2.7-7.7); Neutrophil % 55.3 % (47-70); Platelet Count 237 K/mm3 (150-450); RBC Distribution Width SD 45.6 fl (35.1-43.9); Red Blood Count 4.01 M/mm3 (4.2-5.4); White Blood Count 6.7 K/mm3 (4.4-11.0)
[2024-10-22 12:52] LABS: HIV Nonreactive (Nonreactive); Hepatitis B Surface Antigen Nonreactive (Nonreactive); Hepatitis C Antibody Nonreactive (Nonreactive); Syphilis Antibodies Nonreactive (Nonreactive)
[2024-10-22 12:59] LABS: Rubella IgG REAC (Nonreactive)
[2024-10-25 21:07] LABS: Chlamydia By Nucleic Acid AMP Negative (Negative); Gonococcus By Nucleic Acid AMP Negative (Negative)
== END | disposition home or self-care (01) ==
PROVIDERS: PCP Internal Medicine; Referring Provider Advanced Practice Midwife; Visit Provider Advanced Practice Midwife
DX: O09.90 Supervision of high risk pregnancy, unspecified, unspecified trimester (principal); Z3A.00 Weeks of gestation of pregnancy not specified
CPT/HCPCS: 36415; 85025; 86703; 86762; 86780; 86803; 86850; 86900; 86901; 87086; 87340; 87491; 87591; 87624; 88175; G0145

== ENCOUNTER → 2025-03-10 | Outpatient (CLI) | payer BC, SELFPAY ==
[2025-03-10 10:52] LABS: Hematocrit 32.7 % (37-47); Hemoglobin 11.4 g/dL (12.0-15.0); Immature Granulocytes Count 0.090 X10^3/uL (0.0-0.0); Mean Corp Hgb Conc 34.9 g/dL (32-36); Mean Corpuscular Volume 94.2 fL (81-99); Mean Platelet Vol. 12.3 fl (6.2-12.0); NRBC Flagged by Analyzer 0 % (0-5); Platelet Count 167 K/mm3 (150-450); RBC Distribution Width CV 13.6 % (11.6-14.6); RBC Distribution Width SD 46.6 fl (35.1-43.9); Red Blood Count 3.47 M/mm3 (4.2-5.4); White Blood Count 7.2 K/mm3 (4.4-11.0)
[2025-03-10 11:50] LABS: Glucose Challenge Gest 1H 50g 117 mg/dL (70-140); HIV Nonreactive (Nonreactive); Syphilis Antibodies Nonreactive (Nonreactive)
== END | disposition home or self-care (01) ==
LOC: BWCLAB 10:07
PROVIDERS: Advanced Practice Midwife; PCP Internal Medicine; Referring Provider Obstetrics & Gynecology; Visit Provider Obstetrics & Gynecology
DX: O09.92 Supervision of high risk pregnancy, unspecified, second trimester (principal); Z3A.24 24 weeks gestation of pregnancy
CPT/HCPCS: 36415; 82950; 85025; 86703; 86780

== ENCOUNTER → 2025-05-06 | Outpatient (CLI) | payer BC, SELFPAY | END | disposition home or self-care (01) | LOC: LABSPEC 16:22 | PROVIDERS: PCP Internal Medicine; Visit Provider Advanced Practice Midwife | DX: O09.93 Supervision of high risk pregnancy, unspecified, third trimester (principal); Z3A.00 Weeks of gestation of pregnancy not specified | CPT/HCPCS: 87081 ==

== ENCOUNTER → 2025-05-10 | Outpatient (CLI) | payer BC, SELFPAY ==
--- NOTE | 2025-05-10 16:09 | US_ITS ---
PROCEDURE: OB LIMITED WITH BIOMETRICS 05/10/2025 REASON FOR EXAM: GROWTH SCAN TECHNIQUE: Procedure Code: [id number] Modality: US Procedure: OB LIMITED WITH BIOMETRICS COMPARISON: 21 October 2024. FINDINGS Number: 1 Position: cephalic Placental Position: anterior Placental Abnormalities: Grade 3 DIMENSIONS: Biparietal Diameter: 8.8 cm / 35 weeks and 3 days Head Circumference: 32.3 cm / 36 weeks and 3 days Abdominal Circumference: 36.9 cm / 40 weeks and 6 days Femur Length: 6.4 cm / 33 weeks and 1 day ESTIMATED WEIGHT: 3425 g (7 lbs 9 oz) ESTIMATED WEIGHT PERCENTILE (24+ weeks): 82% ESTIMATED GESTATIONAL AGE: Baseline: 37 weeks and 1 day By Ultrasound: 37 weeks and 0 days ESTIMATED DATE OF DELIVERY: Baseline: May 30. 2024. By Ultrasound: May 31, 2025. BIOPHYSICAL ASSESSMENT: Amniotic Fluid Volume: adequate Amniotic Fluid Index: 19.1 cm (8-24 cm normal range) Cardiac Motion: 140 beats per minute (average) US/OB Limited With Biometrics IMPRESSION: 1. Single living intrauterine gestation at 37 weeks and 1 day in the cephalic presentation. 2. heart rate of 140 bpm. 3. Anterior placenta. Grade 3. 4. Estimated weight 3423 g. (82%) Reading Location: [id number]
--- OUTSIDE RECORDS SUMMARY | 2025-05-10 17:25 | XMS RPT_ITS | CCD ---
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 Name Role Phone VINEET HSU Unavailable Unavailable NEOSWALD CHIU, JOSE Unavailable Unavail able DAVION CHIU, JOSE Unavailable Unavail able IRA YEE Unavailable Unavailable FELICIA CRUZ (CNM) Unavailable Unavailabl FELICIA Ivey (CNM) Unavailable Unavailabl e IRA YEE Unavailable Unavailable DUNCAN, KARMON Unavailable Unavailable DUNCAN, KARMON Unavailable Unavailable DUNCAN, KARMON Unavailable Unavailable NEYHART CHIU, JOSE Unavailable Unavail able DUNCAN, KARMON Unavailable Unavailable KEY, CELINA (CNM) Unavailable Unavailable KEY, CELINA (CNM) Unavailable Unavailable KEY, CELINA (CNM) Unavailable Unavailable KEY, CELINA (CNM) Unavailable Unavailable KEY, CELINA (CNM) Unavailable Unavailable KEY, CELINA (CNM) Unavailable Unavailable KEY, CELINA (CNM) Unavailable Unavailable KEY, CELINA (CNM) Unavailable Unavailable KEY, CELINA (CNM) Unavailable Unavailable Dr. Brokoe Brown Primary Care Provider [phone] Dr. Brooke Brown Referring Provider [phone] Ira Yee Attending Provider [phone] Kenyatta LIFT ELECTRICIAN, LIFT ELECTRICIAN-C Ruthann Attending Provider [phone] Dr. Effie Petit Attending Provider [phone] Dr. Brooke Brown Primary Care Provider [phone] Dr. Brooke Brown Referring Provider [phone] JOHN Perez Attending Provider [phone] Kenyatta LIFT ELECTRICIAN, JANNETTE-C Ruthann Attending Provider [phone] JOSE LUIS PENNINGTON Attending Unavailable EFFIE JENSEN Referring Unavailab le DAI, BROOKE Primary Care Unavailable Dai DOWELL, Dr. Cox Primary Care Provider [phone] Dai DOWELL, Dr. Cox Referring Provider [phone] Chris FLORES, Mandy Attending Provider [phone] Chris FLORES, Mandy Referring Provider [phone] Nataliya Michael DO, Dr. Chou Attending Provider Afua ALVAREZ, Dr. Roth Attending Provider [phone] Dai DOWELL, Dr. Cox Primary Care Provider Dai DOWELL, Dr. Cox Referring Provider [phone] Chris FLORES, Mandy Attending Provider [phone] Kenyatta LIFT ELECTRICIAN-CRuthann Attending Provider [phone] Afua ALVAREZ, Dr. Roth Referring Provider [phone] Dai DOWELL, Dr. Cox Primary Care Physician Dai DOWELL, Dr. Cox Referring Provider [phone] Afua ALVAREZ, Dr. Roth Attending Physician Chris FLORES, Mandy Attending Physician [phone] [place] LIFT ELECTRICIAN-CRuthann Attending Physician [phone] Nataliya Michael DO, Dr. Chou Attending Physician Dai, Brooke Primary Care Unavailable Ira Yee Referring Unavailable Ira Yee Attending Unavailable Dai, Brooke Primary Care Unavailable Mandy Perez Attending Unavailable Mandy Perez Referring Unavailable Dai, Brooke Referring Unavailable Mandy Perez Attending Unavailable Dai, Brooke Primary Care Unavailable Dai, Brooke Primary Care Unavailable Dai, Brooke Referring Unavailable Effie Petit Attending Unavailabl e Dai, Brooke Primary Care Unavailable Dai, Brooke Referring Unavailable Ira Yee Attending Unavailable Dai, Brooke Primary Care Unavailable Dai, Brooke Referring Unavailable Mandy Perez Attending Unavailable Dai, Brooke Primary Care Unavailable Raciel, Yvan Attending Unavailable Dai, Brooke Primary Care Unavailable Dai, Brooke Referring Unavailable Ira Yee Attending Unavailable Dai, Brooke Primary Care Unavailable Dai, Brooke Referring Unavailable Mandy Perez Attending Unavailable Dai, Brooke Primary Care Unavailable Dai, Brooke Referring Unavailable Kenyatta BHATIA, Ruthann Attending Unavailable Dai, Brooke Primary Care Unavailable Dai, Brooke Referring Unavailable Ira Yee Attending Unavailable Dai, Brooke Referring Unavailable Dai, Brooke Primary Care Unavailable Mandy Perez Attending Unavailable Dai, Brooke Referring Unavailable Dai, Brooke Primary Care Unavailable Effie Petit Attending Unavailabl e Dai, Brooke Referring Unavailable Vande Effie Michael Attending Unavailabl e Dai, Brooke Primary Care Unavailable Dai, Brooke Primary Care Unavailable rIa Yee Attending Unavailable Ira Yee Admitting Unavailable Dai, Brooke Primary Care Unavailable Mandy Perez Attending Unavailable Dai, Brooke Primary Care Unavailable Mandy Perez Attending Unavailable Mandy Perez Referring Unavailable Dai, Brooke Attending Unavailable Dai, Brooke Primary Care Unavailable Dai, Brooke Referring Unavailable Medications Current Medications Medication Drug Class(es) Dates Sig (Normalized) Sig (Original) docosahexaenoic acid 200 mg oral capsule (6 sources) Start: 10-07-2024 Docosahexaenoic Acid (Algal Calhoun-3 Dha) 200 mg capsule Active mg PO October 07, 2024 12:00am Complies with drug therapy Magnesium (6 sources) Start: 10-07-2024 take 2 tablets by mouth once daily Magnesium 200 mg tablet Active 400 mg PO daily October 07, 2024 12:00am Complies with drug therapy Start: 10-07-2024 take 2 tablets by mo uth once daily Magnesium 200 mg tablet Active 400 mg PO daily October 07, 2024 12:00am Vit 995-Gncx-Byoeix 6 ( Pnv) 6 mg iron- 833.5 mcg DFE tablet (6 sources) Start: 10-07-2024 Vit 1 16-Zozv-Hvwlhw 6 (Maria Esther Pnv) 6 mg iron- 833.5 mcg DFE tablet Active {tbl} PO October 07, 2024 12:00am Complies with drug therapy Start: 10-07-2024 Vit 1 38-Yhah-Wouwpd 6 ( Pnv) 6 mg iron- 833.5 mcg DFE tablet Active {tbl} PO October 07, 2024 12:00am Vit,Wdrg82-Xpwy-Vdqzz (2 sources) Start: 05-21-2017 take 1 tablet by mouth once daily Vit,Pima60-Wtjq-Jyzlt Active 1 TABLET PO DAILY May 21, 2017 6:44am Start: 05-21-2017 End: 08-29-2023 take 1 tablet by mouth once daily Vit,Vddu47-Scut-Yioll Discontinued 1 TABLET PO DAILY May 21, 2017 1:00am August 29, 2023 10:22am Completed/Discontinued Medications Medication Drug Class(es) Dates Sig (Normalized) Sig (Original) acetaminophen 500 mg oral tablet (8 sources) Start: 05-23-2017 End: 10-06-2018 take 2 tablets by mouth every eight hours as needed for pain Acetaminophen 500 MG tablet Discontinued 1000 mg PO EVERY 8 HOURS NEEDED as needed for MILD PAIN (1-3/10)/Temp>99.6F 0 May 23, 2017 1:00am October 06, 2018 8:42am Start: 05-23-2017 End: 10-06-2018 take 1000 mg by mouth every eight hours as needed Acetaminophen Discontinued 1000 MG PO EVERY 8 HOURS NEEDED May 23, 2017 9:40am October 06, 2018 8:42am acetaminophen 325 mg / oxyCODONE hydrochloride 5 mg oral tablet (15 sources) Opioid Agonist Start: 09-27-2021 End: 10-11-2021 Oxycodone-Acetaminophen (Percocet) 5-325 mg tablet Discontinued 1 {tbl} PO EVERY 6 HOURS as needed for pain 20 7 0 September 27, 2021 October 11, 2021 10:59am delivery delivered Encounter for delivery without indication Start: 05-06-2019 End: 05-14-2019 Oxycodone-Acetaminophen 1 TA BLET tablet Discontinued 1 - 2 {tbl} PO EVERY 6 HOURS NEEDED as needed for Pain 15 7 0 May 06, 2019 May 12, 2019 1:00am May 14, 2019 1:09am Other acute postprocedural pain Start: 05-06-2019 End: 05-14-2019 take 1 tablet by mouth every six hours as needed Oxycodone-Acetaminophen Discontinued 1 - 2 TABLET PO EVERY 6 HOURS NEEDED 15 May 06, 2019 11:22pm May 14, 2019 1:09am naproxen 500 mg oral tablet (20 sources) Nonsteroidal Anti-inflammatory Drug Start: 09-27-2021 End: 11-12-2021 take 1 tablet by mouth twice daily as needed for pain Naproxen 500 MG tablet Discontinued 500 mg PO TWICE DAILY NEEDED as needed for Pain 30 September 27, 2021 12:00am November 12, 2021 2:04pm Start: 05-06-2019 End: 05-21-2019 take 250-500 mg by mouth every eight hours as needed for pain Naproxen 250 MG tablet Discontinued 250 - 500 mg PO EVERY 8 HOURS NEEDED as needed for MILD PAIN 30 May 06, 2019 1:00am May 21, 2019 9:42am Start: 05-23-2017 End: 10-06-2018 take 250-500 mg by mouth every eight hours as needed for pain Naproxen 250 MG tablet Discontinued 250 - 500 mg PO EVERY 8 HOURS NEEDED as needed for Mild Pain (-09/06) 0 May 23, 2017 1:00am October 06, 2018 8:42am Start: 05-21-2017 End: 10-06-2018 take 1 tablet by mouth every eight hours as needed for pain Naproxen 375 MG tablet,delayed release (DR/EC) Discontinued 375 mg PO EVERY 8 HOURS NEEDED as needed for Pain 30 0 May 21, 2017 1:00am October 06, 2018 8:42am norethindrone acetate 5 mg oral tablet (7 sources) Start: 10-29-2023 End: 10-07-2024 take 1 tablet by mouth three times daily, then take 1 tablet by mouth twice daily Norethindrone Acetate (Aygestin) 5 mg tablet Discontinued 5 mg PO .COMPLEX 45 0 October 29, 2023 12:00am October 07, 2024 9:56am 5 mg PO tid until bleeding stops X 24 hr then bid to finish Rx Vit,Nadira 51-Qdxz-Uheha 1 TABLET tablet (4 sources) Start: 05-21-2017 End: 08-29-2023 Vit,Nadira 76-Rbhv-Upbhl 1 TABLET tablet Discontinued 1 {tbl} PO DAILY May 21, 2017 1:00am August 29, 2023 10:22am Vit,Qgqs18-Mclv-Jdmvk 1 TABLET tablet (2 sources) Start: 05-21-2017 End: 08-29-2023 take 1 tablet by mouth once daily Vit,Wsfh88-Decs-Vtqrv 1 TABLET tablet Discontinued 1 {tbl} PO DAILY May 21, 2017 1:00am August 29, 2023 10:22am Problems Active Problems Problem Classification Problem Date Documented Date Episodic/Chronic Complication of device; implant or graft (8 sources) Complication of urinary catheter; Translations: [Unspecified complication of genitourinary prosthetic device, implant and graft, initial encounter] 05-21-2019 Episodic Fetopelvic disproportion; obstruction (8 sources) Shoulder dystocia - delivered; Translations: [Obstructed labor due to shoulder dystocia] 05-01-2019 Episodic Hemorrhage during ; abruptio placenta; placenta previa (14 sources) Low lying placenta; Translations: [Low lying placenta NOS or without hemorrhage, second trimester] Episodic Comment on above: resolved on 07/12 US at 28 weekshas marginal insertion OB-related trauma to perineum and vulva (1 source) Trauma to perineum during delivery; Translations: [Other specified trauma to perineum and vulva] 09-27-2021 Episodic Comment on above: discussed recurrence likelihood. Other complications of ; puerperium affecting management of mother (7 sources) Trauma to perineum and/or vulva during delivery; Translations: [Other specified obstetric trauma] 09-27-2021 Episodic Comment on above: discussed recurrence likelihood. Other complications of ; puerperium affecting management of mother (8 sources) Other specified obstetric trauma; Translations: [Other specified trauma to perineum and vulva, delivered, with or without mention of antepartum condition] Episodic Other complications of ; puerperium affecting management of mother (7 sources) Deliveries by ; Translations: [Encounter for delivery without indication] 10-02-2021 Episodic Comment on above: ALBANIA López Other complications of (20 sources) Multigravida of advanced maternal age; Translations: [Supervision of elderly multigravida, unspecified trimester] 10-22-2024 Episodic Comment on above: growth US at 36 week s Other complications of (20 sources) High risk ; Translations: [Supervision of high risk , unspecified, unspecified trimester] 01-14-2025 Episodic Comment on above: PRR , KATH 5, girl PC Sylvia López, Nir Bc Other complications of (2 sources) Supervision of elderly multigravida, third trimester; Translations: [Supervision of elderly multigravida, third trimester] Onset: 05-06-2025 Episodic Other complications of (1 source) Supervision of high risk , unspecified, third trimester; Translations: [Supervision of high risk , unspecified, third trimester] Onset: 05-06-2025 Episodic Other complications of (1 source) Supervision of high risk , unspecified, unspecified trimester; Translations: [Supervision of high risk , unspecified, unspecified trimester] Onset: 03-23-2025 Episodic Other female genital disorders (7 sources) Abnormal uterine bleeding; Translations: [Abnormal uterine and vaginal bleeding, unspecified] 10-29-2023 Chronic Comment on above: labs, aygestin Other female genital disorders (1 source) Abnormal uterine and vaginal bleeding, unspecified; Translations: [Unspecified disorders of menstruation and other abnormal bleeding from female genital tract] 10-29-2023 Chronic Residual codes; unclassified (8 sources) History of shoulder dystocia; Translations: [Personal history of other complications of , childbirth and the puerperium] 09-27-2021 Episodic Comment on above: discussed risks and patient now requesting primary for delivery. schedul 05/05 Residual codes; unclassified (9 sources) History of uterine scar from previous surgery; Translations: [Other postprocedural status] Onset: 05-06-2025 Episodic Residual codes; unclassified (8 sources) Personal history of other complications of , childbirth and the puerperium; Translations: [Personal history of other genital system and obstetric disorders] Episodic Residual codes; unclassified (1 source) 36 weeks gestation of ; Translations: [36 weeks gestation of ] Onset: 05-06-2025 Episodic Residual codes; unclassified (1 source) 30 weeks gestation of ; Translations: [30 weeks gestation of ] Onset: 03-25-2025 Episodic Residual codes; unclassified (1 source) 24 weeks gestation of ; Translations: [24 weeks gestation of ] Onset: 02-11-2025 Episodic Screening and history of mental health and substance abuse codes (16 sources) H/O: anorexia nervosa; Translations: [Personal history of other mental and behavioral disorders] Episodic Comment on above: discussed healthy we ight gain, patient denies symptoms Unclassified (5 sources) 40 weeks gestation of ; Translations: [36 weeks gestation of ] Onset: 01-27-2017 Unclassified (1 source) Unknown / UNK(Unknown) Onset: 01-02-2017 Past or Other Problems Problem Classification Problem Date Documented Da te Episodic/Chronic Normal and/or delivery (20 sources) Encounter for supervision of normal first , third trimester; Translations: [Encounter for supervision of normal first , second trimester] Onset: 01-27-2017 Episodic Comment on above: PRR KATH: 10/02/21 deepali Lester PC: Amaris Loyola Spouse: Bc SPAINMaye w gender/ashley r-declines afp declines. nl anatomy declines genetic, ca rrier and NTD. GBS neg Other complications of (1 source) Supervision of elderly multigravida, unspecified trimester; Translations: [Supervision of elderly multigravida, unspecified trimester] Onset: 12-15-2024 Episodic Other non-traumatic joint disorders (2 sources) Pain in right knee; Translations: [Pain in right knee] Onset: 05-12-2024 Episodic Other non-traumatic joint disorders (1 source) Pain in right hip; Translations: [Pain in right hip] Onset: 05-12-2024 Episodic Other screening for suspected conditions (not mental disorders or infectious disease) (1 source) Encounter for screening for malignant neoplasm of cervix; Translations: [Encounter for screening for malignant neoplasm of cervix] Onset: 10-22-2024 Episodic Residual codes; unclassified (1 source) 16 weeks gestation of ; Translations: [16 weeks gestation of ] Onset: 12-15-2024 Episodic Residual codes; unclassified (1 source) 8 weeks gestation of ; Translations: [8 weeks gestation of ] Onset: 10-22-2024 Episodic Results Test Name Value Interpretation Reference Range Facility Rule out Beta Strep (Grp. B) on 05-08-2025 FRANCO Group B Beta Streptococcus is not isolated. [facility] Comment on above: Performed By: #### L 3890.6006, L509.8002, L100.0100, L3890.6301, BTS, L509.4006, L3890.6102 #### [facility] [address] [place], [address] Custom Bow Maker Office Visit Reporton 05-06-2025 Custom Bow Maker Office Visit Report [facility] [address], [address] [place] [address] OFFICE VISIT Date of Service: 05/06/25 MR#: [id number] Acct: [id number] Name: KRUNAL KERN Rep #: [id number] 3 : 1990 Provider: JOHN Woo ams Age/Sex: 35/F Location: [facility] [place] Status: Signed Intake Vital Signs 03/25/25 11:25 04/22/25 09:41 05/06/25 11:43 Height 5 ft 6 in 5 ft 6 in 5 ft 6 in Weight: 158 lb 8 oz 163 lb 7 oz BMI 25.5 26.4 BP 99/64 114/76 Intake Visit Reasons: 36w 4d ob *csection Percolator Operator Required: No Is patient in pain?: No Allergies No Known Allergies Allergy (Verified 05/06/25 11:46) Medications ???Medication ???Instructions ???Recorded ???Confirmed ???Type docosahexaenoic acid 200 mg mg PO 10/07/24 05/06/25 History capsule (Algal Calhoun-3 DHA) magnesium 200 mg tablet 400 mg PO QDAY 10/07/24 05/06/25 H istory vit no.164-ferrous tab PO 10/07/24 05/06/25 History gluconate 6 mg-folate 833.5 mcg DFE tablet ( PNV) Last Menstrual Period: 08/23/24 Zika: Zika virus screening: Negative : No PFSH PFSH Medical History Abnormal uterine bleeding (AUB) delivery delivered Low-lying placenta in second trimester History of anorexia nervosa Surgical History H/O section No significant past surgical history Family History Grandfather Colon cancer Social History adopted: No household members: significant other and children housing: house number of children: 3 current occupational status: employed current occupation: [employer] current occupational exposures/hazards: No pets and animals: Yes (outside dog) pets and animals: dog(s) history of recent travel: No sexually active: Yes Smoking Status: Former smoker second hand exposure: No (not in the house) alcohol intake: former details: quit 2022, not while substance use type: does not use caffeine: Yes (green tea) Type: tea what type of physical activity do you participate in: walking and weight training frequency: 3-4 times per week 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 Date Name GA/Weeks Outcome Route Bth Weight Gen Labor Lgth Anesthesia Del Locatn Provider FOB 10/19/16 [place] 40 live - full term 8pounds 7oz Female 14 hours none [facility] [place]/Dr. Timmy Yancey 05/05/19 [place] 39 live - full term 7lbs 15oz Male spinal [facility] [place] 09/27/21 [facility] 39 live - full term Male [facility] M arcanthony Delivery Date: 10/19/16 Last Updated by: Debbie Olmstead Shoulder dystocia, 3rd or 4th degree tear vaginal- tore up Delivery Date: 05/05/19 Last Updated by: Holly Weaver c/s d/t h/o shoulder dystocia Delivery Date: 09/27/21 Last Updated by: Yajaira Navarrete RLTCS HPI 36w 4d ob *csection Details: KRUNAL KERN is a 35 year old who presents for routine OB visit. OB Visit KATH Calculator Estimated Delivery Date Method Current WG Current Estimate 05/30/25 LMP (Certain) 36w 4d Other Estimates 05/26/25 Ultrasound #1 37w 1d Expected Delivery Route/Plan repeat c/s with SM- patient prefers exparel injection in the facia and muscle. Specific Issue/Plans Covid status: [] Flu vaccine: [] Tdap vaccine: declines Rhogam: na LARC form signed: yes Problem list reviewed and updated with the most current plan of care details and appropriate orders placed. Relevant counseling for the gestational age provided. Continue routine care and follow up unless otherwise noted in visit notes/problem list details Initial Weight: 125 lb Date -???-???-???-???-???-??? -???-???-???-???-???-??? - EGA Weight BP Urine Prot -???-???-???-???-???-??? -???-???-???-???-???-??? - Glucose FHR FuHt Pres Dilation -???-???-???-???-???-??? -???-???-???-???-???-??? - Effaced St Visit Note 10/22/24 -???-???-???-???-???-??? -???-???-???-???-???-??? - 8w 4d 125 lb 4 oz (+4 oz) 116/74 -???-???-???-???-???-??? -???-???-???-???-???-??? - 171 -???-???-???-???-???-??? -???-???-???-???-???-??? - KW- CRL cons with dates. Declines NIPT. requesting R C/S 11/19/24 -???-???-???-???-???-??? -???-???-???-???-???-??? - 12w 4d 128 lb (+3 lb) (more content not included)... Normal [facility] Custom Bow Maker Office Visit Reporton 04-22-2025 Custom Bow Maker Office Visit Report [facility]'s [address], [address] [place] [address] OFFICE VISIT Date of Service: 04/22/25 MR#: [id number] Acct: [id number] Name: KRUNAL KERN Rep #: [id number] 6 : 1990 Provider: Dr. Effie Steven, Age/Sex: 35/F Location: [facility] [place] Status: Signed Intake Vital Signs 02/11/25 10:34 04/05/25 09:24 04/22/25 09:41 Height 5 ft 6 in 5 ft 6 in 5 ft 6 in Weight: 158 lb 8 oz BMI 25.5 BP 99/64 Intake Visit Reasons: 34 wk ob *csection Percolator Operator Required: No Is patient in pain?: No Allergies No Known Allergies Allergy (Verified 04/22/25 09:43) Medications ???Medication ???Instructions ???Recorded ???Confirmed ???Type docosahexaenoic acid 200 mg mg PO 10/07/24 04/22/25 History capsule (Algal Calhoun-3 DHA) magnesium 200 mg tablet 400 mg PO QDAY 10/07/24 04/22/25 H istory vit no.164-ferrous tab PO 10/07/24 04/22/25 History gluconate 6 mg-folate 833.5 mcg DFE tablet ( PNV) Last Menstrual Period: 08/23/24 Zika: Zika virus screening: Negative : No Have you fallen in the past year?: No PFSH PFSH Medical History Abnormal uterine bleeding (AUB) delivery delivered Low-lying placenta in second trimester History of anorexia nervosa Surgical History H/O section No significant past surgical history Family History Grandfather Colon cancer Social History adopted: No household members: significant other and children housing: house number of children: 3 current occupational status: employed current occupation: [employer] current occupational exposures/hazards: No pets and animals: Yes (outside dog) pets and animals: dog(s) history of recent travel: No sexually active: Yes Smoking Status: Former smoker second hand exposure: No (not in the house) alcohol intake: former details: quit 2022, not while substance use type: does not use caffeine: Yes (green tea) Type: tea what type of physical activity do you participate in: walking and weight training frequency: 3-4 times per week 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 Date Name GA/Weeks Outcome Route Bth Weight Gen Labor Lgth Anesthesia Del Locatn Provider FOB 10/19/16 [place] 40 live - full term 8pounds 7oz Female 14 hours none [facility] [place]/Dr. Timmy Yancey 05/05/19 [place] 39 live - full term 7lbs 15oz Male spinal [facility] [place] 09/27/21 [facility] 39 live - full term Male [facility] M arcanthony Delivery Date: 10/19/16 Last Updated by: Debbie Olmstead Shoulder dystocia, 3rd or 4th degree tear vaginal- tore up Delivery Date: 05/05/19 Last Updated by: Holly Weaver c/s d/t h/o shoulder dystocia Delivery Date: 09/27/21 Last Updated by: Yajaira Navarrete RLTCS HPI 34 wk ob *csection Details: KRUNAL KERN is a 35 year old who presents for routine OB visit. OB Visit KATH Calculator Estimated Delivery Date Method Current WG Current Estimate 05/30/25 LMP (Certain) 34w 4d Other Estimates 05/26/25 Ultrasound #1 35w 1d Expected Delivery Route/Plan repeat c/s with SM- patient prefers exparel injection in the facia and muscle. Specific Issue/Plans Covid status: [] Flu vaccine: [] Tdap vaccine: declines Rhogam: na LARC form signed: yes Problem list reviewed and updated with the most current plan of care details and appropriate orders placed. Relevant counseling for the gestational age provided. Continue routine care and follow up unless otherwise noted in visit notes/problem list details Initial Weight: 125 lb Date -???-???-???-???-???-??? -???-???-???-???-???-??? - EGA Weight BP Urine Prot -???-???-???-???-???-??? -???-???-???-???-???-??? - Glucose FHR FuHt Pres Dilation -???-???-???-???-???-??? -???-???-???-???-???-??? - Effaced St Visit Note 10/22/24 -???-???-???-???-???-??? -???-???-???-???-???-??? - 8w 4d 125 lb 4 oz (+4 oz) 116/74 -???-???-???-???-???-??? -???-???-???-???-???-??? - 171 -???-???-???-???-???-??? -???-???-???-???-???-??? - KW- CRL cons with dates. Declines NIPT. requesting R C/S 11/19/24 -???-???-???-???-???-??? -???-???-???-???-???-??? - 12w 4d 128 lb (+3 (more content not included)... Normal [facility] Custom Bow Maker Office Visit Reporton 04-05-2025 Custom Bow Maker Office Visit Report [facility] [address] [place] [address], [address] [place] [address] OFFICE VISIT Date of Service: 04/05/25 MR#: [id number] Acct: [id number] Name: KRUNAL KERN Rep #: [id number] : 1990 Provider: Dr. Effie Steven, Age/Sex: 35/F Location: [facility] [place] Status: Signed Intake Vital Signs 02/11/25 10:34 03/25/25 11:25 04/05/25 09:24 04/05/25 09:24 Height 5 ft 6 in 5 ft 6 in 5 ft 6 in 5 ft 6 in Weight: 152 lb 6 oz 157 lb 3 oz BMI 24.5 25.3 BP 103/66 116/68 Intake Visit Reasons: 32 wk ob *csection Percolator Operator Required: No Is patient in pain?: No Allergies No Known Allergies Allergy (Verified 04/05/25 09:24) Medications ???Medication ???Instructions ???Recorded ???Confirmed ???Type docosahexaenoic acid 200 mg mg PO 10/07/24 04/05/25 History capsule (Algal Calhoun-3 DHA) magnesium 200 mg tablet 400 mg PO QDAY 10/07/24 04/05/25 H istory vit no.164-ferrous tab PO 10/07/24 04/05/25 History gluconate 6 mg-folate 833.5 mcg DFE tablet ( PNV) Last Menstrual Period: 08/23/24 Zika: Zika virus screening: Negative : No PFSH PFSH Medical History Abnormal uterine bleeding (AUB) delivery delivered Low-lying placenta in second trimester History of anorexia nervosa Surgical History H/O section No significant past surgical history Family History Grandfather Colon cancer Social History adopted: No household members: significant other and children housing: house number of children: 3 current occupational status: employed current occupation: [employer] current occupational exposures/hazards: No pets and animals: Yes (outside dog) pets and animals: dog(s) history of recent travel: No sexually active: Yes Smoking Status: Former smoker second hand exposure: No (not in the house) alcohol intake: former details: quit 2022, not while substance use type: does not use caffeine: Yes (green tea) Type: tea what type of physical activity do you participate in: walking and weight training frequency: 3-4 times per week 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 Date Name GA/Weeks Outcome Route Bth Weight Gen Labor Lgth Anesthesia Del Locatn Provider FOB 10/19/16 Nir 40 live - full term 8pounds 7oz Female 14 hours none [facility] [place]/Dr. Timmy Yancey 05/05/19 Amaris 39 live - full term 7lbs 15oz Male spinal [facility] [place] 09/27/21 Maribel 39 live - full term Male [facility] M arcanthony Delivery Date: 10/19/16 Last Updated by: Debbie Olmstead Shoulder dystocia, 3rd or 4th degree tear vaginal- tore up Delivery Date: 05/05/19 Last Updated by: Holly Weaver c/s d/t h/o shoulder dystocia Delivery Date: 09/27/21 Last Updated by: Yajaira Navarrete TCS HPI 32 wk ob *csection Details: KRUNAL KERN is a 35 year old who presents for routine OB visit. OB Visit KATH Calculator Estimated Delivery Date Method Current WG Current Estimate 05/30/25 LMP (Certain) 32w 1d Other Estimates 05/26/25 Ultrasound #1 32w 5d Expected Delivery Route/Plan repeat c/s with SM- patient prefers exparel injection in the facia and muscle. Specific Issue/Plans Covid status: [] Flu vaccine: [] Tdap vaccine: declines Rhogam: na LARC form signed: yes Problem list reviewed and updated with the most current plan of care details and appropriate orders placed. Relevant counseling for the gestational age provided. Continue routine care and follow up unless otherwise noted in visit notes/problem list details Initial Weight: 125 lb Date -???-???-???-???-???-??? -???-???-???-???-???-??? - EGA Weight BP Urine Prot -???-???-???-???-???-??? -???-???-???-???-???-??? - Glucose FHR FuHt Pres Dilation -???-???-???-???-???-??? -???-???-???-???-???-??? - Effaced St Visit Note 10/22/24 -???-???-???-???-???-??? -???-???-???-???-???-??? - 8w 4d 125 lb 4 oz (+4 oz) 116/74 -???-???-???-???-???-??? -???-???-???-???-???-??? - 171 -???-???-???-???-???-??? -???-???-???-???-???-??? - KW- CRL cons with dates. Declines NIPT. requesting R C/S 11/19/24 -???-???-???-???-???-??? -???-???-???-???-??? (more content not included)... Normal [facility] - Chemistry and C hemistry - challengeOrdered By: Mandy Perez on 03-25-2025 Glucose Ql (U) Negative [facility] - UrinalysisOrder ed By: Mandy Perez on 03-25-2025 Protein Ql (U) Negative [facility] Custom Bow Maker Office Visit Reporton 03-25-2025 Custom Bow Maker Office Visit Report [facility]'[address], [address] [place] [address] OFFICE VISIT Date of Service: 03/25/25 MR#: [id number] Acct: [id number] Name: KRUNAL KERN Rep #: [id number] : 1990 Provider: JOHN Woo ams Age/Sex: 34/F Location: [facility] [place] Status: Signed Intake Vital Signs 02/11/25 10:34 03/10/25 10:11 03/25/25 11:25 Height 5 ft 6 in 5 ft 6 in 5 ft 6 in Weight: 152 lb 6 oz BMI 24.5 BP 103/66 Intake Visit Reasons: 30 wk ob Chief Complaint: 30wk OB Percolator Operator Required: No Is patient in pain?: No Allergies No Known Allergies Allergy (Verified 03/25/25 11:23) Medications ???Medication ???Instructions ???Recorded ???Confirmed ???Type docosahexaenoic acid 200 mg mg PO 10/07/24 03/25/25 History capsule (Algal Calhoun-3 DHA) magnesium 200 mg tablet 400 mg PO QDAY 10/07/24 03/25/25 H istory vit no.164-ferrous tab PO 10/07/24 03/25/25 History gluconate 6 mg-folate 833.5 mcg DFE tablet ( PNV) Last Menstrual Period: 08/23/24 PFSH PFSH Medical History Abnormal uterine bleeding (AUB) delivery delivered Low-lying placenta in second trimester History of anorexia nervosa Surgical History H/O section No significant past surgical history Family History Grandfather Colon cancer Social History adopted: No household members: significant other and children housing: house number of children: 3 current occupational status: employed current occupation: [employer] current occupational exposures/hazards: No pets and animals: Yes (outside dog) pets and animals: dog(s) history of recent travel: No sexually active: Yes Smoking Status: Former smoker second hand exposure: No (not in the house) alcohol intake: former details: quit 2022, not while substance use type: does not use caffeine: Yes (green tea) Type: tea what type of physical activity do you participate in: walking and weight training frequency: 3-4 times per week 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 Date Name GA/Weeks Outcome Route Bth Weight Infant Gen Labor Lgth Anesthesia Del Locatn Provider FOB 10/19/16 Nir 40 live - full term 8pounds 7oz Female 14 hours none [facility] [place]/Dr. Timmy Yancey 05/05/19 [place] 39 live - full term 7lbs 15oz Male spinal [facility] [place] [facility] M arcanthony Delivery Date: 10/19/16 Last Updated by: Debbie Olmstead Shoulder dystocia, 3rd or 4th degree tear vaginal- tore up Delivery Date: 05/05/19 Last Updated by: Holly Weaver c/s d/t h/o shoulder dystocia Delivery Date: 09/27/21 Last Updated by: Yajaira Navarrete RLTCS HPI 30 wk ob Details: KRUNAL KERN is a 34 year old who presents for routine OB visit. OB Visit KATH Calculator Estimated Delivery Date Method Current WG Current Estimate 05/30/25 LMP (Certain) 30w 4d Other Estimates 05/26/25 Ultrasound #1 31w 1d Expected Delivery Route/Plan repeat c/s with SM Specific Issue/Plans Covid status: [] Flu vaccine: [] Tdap vaccine: declines Rhogam: na LARC form signed: yes Problem list reviewed and updated with the most current plan of care details and appropriate orders placed. Relevant counseling for the gestational age provided. Continue routine care and follow up unless otherwise noted in visit notes/problem list details Initial Weight: 125 lb Date -???-???-???-???-???-??? -???-???-???-???-???-??? - EGA Weight BP Urine Prot -???-???-???-???-???-??? -???-???-???-???-???-??? - Glucose FHR FuHt Pres Dilation -???-???-???-???-???-??? -???-???-???-???-???-??? - Effaced St Visit Note 10/22/24 -???-???-???-???-???-??? -???-???-???-???-???-??? - 8w 4d 125 lb 4 oz (+4 oz) 116/74 -???-???-???-???-???-??? -???-???-???-???-???-??? - 171 -???-???-???-???-???-??? -???-???-???-???-???-??? - KW- CRL cons with dates. Declines NIPT. requesting R C/S 11/19/24 -???-???-???-???-???-??? -???-???-???-???-???-??? - 12w 4d 128 lb (+3 lb) 99/63 Negative -???-???-???-???-???-??? -???-???-???-???-???-??? - Negative 154 -???-???-???-???-???-??? -???-???-???-???-???-??? - JV- CRL denisse uring 13 w (more content not included)... Normal [facility] Absolute lymphocyte countOrd ered By: Mandy Perez on 03-10-2025 Lymphocytes Auto (Unsp spec) [#/Vol] 1.42 10*3/uL 0.83-4.51 [facility] Absolute neutrophil countOrd ered By: Mandy Perez on 03-10-2025 Neutrophils (Bld) [#/Vol] 5.1 10*3/uL 2.0-7.7 [facility] Automated lymphocyte count a s percentage of total leukocytesOrdered By: Mandy Chris on 03-10-2025 Lymphocytes/100 WBC Auto (Unsp spec) 19.8 % 19-41 [facility] Basophil percentageOrdered B y: Mandy Chris on 03-10-2025 Basophils/100 WBC (Bld) 0.4 % 0-1 [facility] CBC W/Diff, Automatedon 02-28 Absolute Lymph 1.42 X10 3/uL Normal 0.83-4.51 [facility] Comment on above: Performed By: #### L 501.0250, L509.8002, L3890.6006, L100.0100 #### [facility] [address] [place], [address] Absolute Neut 5.1 X10 3/uL Normal 2.0-7.7 [facility] Comment on above: Performed By: #### L 501.0250, L509.8002, L3890.6006, L100.0100 #### [facility] [address] [place], [address] Basophils/100 WBC (Bld) 0.4 % Normal 0-1 [facility] Comment on above: Performed By: #### L 501.0250, L509.8002, L3890.6006, L100.0100 #### [facility] [address] [place], [address] Eosinophils/100 WBC (Bld) 1.7 % Normal 0-5 [facility] Comment on above: Performed By: #### L 501.0250, L509.8002, L3890.6006, L100.0100 #### [facility] [address] [place], [address] Erythrocyte distribution width (RBC) [Ratio] 13.6 % Normal 11.6-14.6 [facility] Comment on above: Performed By: #### L 501.0250, L509.8002, L3890.6006, L100.0100 #### [facility] [address] [place], [address] Hematocrit (Bld) [Volume fraction] 32.7 % Low 37-47 [facility] Comment on above: Performed By: #### L 501.0250, L509.8002, L3890.6006, L100.0100 #### [facility] [address] [place], [address] Hemoglobin (Bld) [Mass/Vol] 11.4 g/dL Low 12.0-15.0 [facility] Comment on above: Performed By: #### L 501.0250, L509.8002, L3890.6006, L100.0100 #### [facility] [address] [place], [address] IG% 1.300 High 0.0-0.9 [facility] Comment on above: Result Comment: IG% - Immature Granulocytes (promyelocytes, myelocytes and metamyelocytes) > 1% indicates that a LEFT SHIFT is Present. Performed By: #### L 501.0250, L509.8002, L3890.6006, L100.0100 #### [facility] [address] [place], [address] Lymphocytes/100 WBC (Bld) 19.8 % Normal 19-41 [facility] Comment on above: Performed By: #### L 501.0250, L509.8002, L3890.6006, L100.0100 #### [facility] [address] [place], [address] MCH (RBC) [Entitic mass] 32.9 pg High 27.0-32.0 [facility] Comment on above: Performed By: #### L 501.0250, L509.8002, L3890.6006, L100.0100 #### [facility] [address] [place], [address] MCHC (RBC) [Mass/Vol] 34.9 g/dL Normal 32-36 [facility] Comment on above: Performed By: #### L 501.0250, L509.8002, L3890.6006, L100.0100 #### [facility] [address] [place], [address] MCV (RBC) [Entitic vol] 94.2 fL Normal 81-[address] [facility] Comment on above: Performed By: #### L 501.0250, L509.8002, L3890.6006, L100.0100 #### [facility] [address] [place], [address] Monocytes/100 WBC (Bld) 5.6 % Normal 0-10 [facility] Comment on above: Performed By: #### L 501.0250, L509.8002, L3890.6006, L100.0100 #### [facility] [address] [place], [address] Neutrophils/100 WBC (Bld) 71.2 % High 47-70 [facility] Comment on above: Performed By: #### L 501.0250, L509.8002, L3890.6006, L100.0100 #### [facility] [address] [place], [address] Nucleated RBC (Bld) [#/Vol] 0 10*3/uL Normal 0-5 [facility] Comment on above: Performed By: #### L 501.0250, L509.8002, L3890.6006, L100.0100 #### [facility] [address] [place], [address] Platelet mean volume (Bld) [Entitic vol] 12.3 fL High 6.2-12.0 [facility] Comment on above: Performed By: #### L 501.0250, L509.8002, L3890.6006, L100.0100 #### [facility] [address] [place], [address] Platelets (Bld) [#/Vol] 167 10*3/uL Normal 150-450 [facility] Comment on above: Performed By: #### L 501.0250, L509.8002, L3890.6006, L100.0100 #### [facility] [address] [place], [address] RBC (Bld) [#/Vol] 3.47 10*6/uL Low 4.2-5.4 [facility] Comment on above: Performed By: #### L 501.0250, L509.8002, L3890.6006, L100.0100 #### [facility] [address] [place], [address] RDW SD 46.6 fl High 35.1-43.9 [facility] Comment on above: Performed By: #### L 501.0250, L509.8002, L3890.6006, L100.0100 #### [facility] [address] [place], [address] WBC (Bld) [#/Vol] 7.2 10*3/uL Normal 4.4-11.0 [facility] Comment on above: Performed By: #### L 501.0250, L509.8002, L3890.6006, L100.0100 #### [facility] [address] [place], [place], [address] Eosinophil percentageOrdered By: Mandy Perez on 03-10-2025 Eosinophils/100 WBC (Bld) 1.7 % 0-5 [facility] Erythrocyte distribution wid th ratioOrdered By: Mandy Perez on 03-10-2025 Erythrocyte distribution width (RBC) [Ratio] 13.6 % 11.6-14.6 [facility] Erythrocyte distribution wid th standard deviationOrdered By: Mandy Perez on 03-10-2025 Erythrocyte distribution width (RBC) [Ratio] 46.6 fl High 35.1-43.9 [facility] Glucose Challenge Gest 1H 50 gallito 03-10-2025 GLU GEST 50g 1H 117 mg/dL Normal 70-140 [facility] Comment on above: Performed By: #### L 501.0250, L509.8002, L3890.6006, L100.0100 ####[facility] [address] [place], [place], [id number] Glucose measurement at 2 sabrina rs post-dose gestational glucose tolerance testOrdered By: Mandy Perez on 03-10-2025 Glucose [Mass/Vol] 117 mg/dL 70-140 [facility] HIVon 03-10-2025 HIV Non-Reactive Normal Nonreactive [facility] Comment on above: Result Comment: Non- Reactive Reactive Repeatedly reactive samples must be confirmed according to CDC recommended confirmatory algorithms. The subresults for either HIVAG or AHIV can be used as an aid in the selection of the confirmation algorithm for reactive samples. Send out specimens with Reactive results to [facility] for confirmation. Order the HIV antibody detection and differentiation: lc#[id number] Performed By: #### L 501.0250, L509.8002, L3890.6006, L100.0100 ####[facility] [address] [place], [address] Hematocrit Auto (Bld) [Volum e fraction]Ordered By: Mandy Perez on 03-10-2025 Hematocrit (Bld) [Volume fraction] 32.7 % Low 37-47 [facility] Hemoglobin measurementOrdere d By: Mandy Perez on 03-10-2025 Hemoglobin (Bld) [Mass/Vol] 11.4 g/dL Low 12.0-15.0 [facility] Immature granulocytes/100 WB C Auto (Bld)Ordered By: Mandy Perez on 03-10-2025 Immature granulocytes/100 WBC (Bld) 1.300 % High 0.0-0.9 [facility] Comment on above: IG% - Immature Granu locytes (promyelocytes, myelocytes and metamyelocytes) > 1% indicates that a LEFT SHIFT is Present. Laboratory - Chemistry and C hemistry - challengeOrdered By: Ruthann You on 03-10-2025 Glucose Ql (U) Negative [facility] - UrinalysisOrder ed By: Ruthann You on 03-10-2025 Protein Ql (U) Negative [facility] MCV (mean corpuscular volume ) determinationOrdered By: Mandy Perez on 03-10-2025 MCV (RBC) [Entitic vol] 94.2 fL 81-99 [facility] Mean corpuscular hemoglobin (MCH) determinationOrdered By: Mandy Perez on 03-10-2025 MCH (RBC) [Entitic mass] 32.9 pg High 27.0-32.0 [facility] Mean corpuscular hemoglobin concentration (MCHC) determinationOrdered By: Mandy Perez on 03-10-2025 MCHC (RBC) [Mass/Vol] 34.9 g/dL 32-36 [facility] Mean platelet volume determi nationOrdered By: Mandy Perez on 03-10-2025 Platelet mean volume (Bld) [Entitic vol] 12.3 fL High 6.2-12.0 [facility] Monocyte percentageOrdered B y: Mandy Perez on 03-10-2025 Monocytes/100 WBC (Bld) 5.6 % 0-10 [facility] Neutrophil percentageOrdered By: Mandy Perez on 03-10-2025 Neutrophils/100 WBC (Bld) 71.2 % High 47-70 [facility] No Panel InformationOrdered By: Mandy Perez on 03-10-2025 HIV (1&2) Antibody Non-Reactive Nonreactive [facility] Comment on above: Non-ReactiveReactive Repeatedly reactive samples must be confirmed according to CDC recommended confirmatory algorithms. The subresults for either HIVAG or AHIV can be used as an aid in the selection of the confirmation algorithm for reactive samples.Send out specimens with Reactive results to [facility] for confirmation.Order the HIV antibody detection and differentiation: #[id number] Nucleated red blood cell per centageOrdered By: Mandy Perez on 03-10-2025 Nucleated RBC/100 WBC (Bld) [Ratio] 0 % 0-5 [facility] Custom Bow Maker Office Visit Reporton 03-10-2025 Custom Bow Maker Office Visit Report [facility]'s [address], [address] [place] [address] OFFICE VISIT Date of Service: 03/10/25 MR#: [id number] Acct: [id number] Name: KRUNAL KERN Radha Rep #: [id number] 1 : 1990 Provider: LILLY coello Age/Sex: 34/F Location: [facility] Status: Signed Intake Vital Signs 12/15/24 10:19 02/11/25 10:34 03/10/25 10:02 03/10/25 10:11 Height 5 ft 6 in 5 ft 6 in 5 ft 6 in 5 ft 6 in Weight: 152 lb 5 oz BMI 24.5 BP 94/62 Intake Visit Reasons: 28wk ob/glucose Chief Complaint: 28 Week OB/Glucose Percolator Operator Required: No Is patient in pain?: No Allergies No Known Allergies Allergy (Verified 03/10/25 10:01) Medications ???Medication ???Instructions ???Recorded ???Confirmed ???Type docosahexaenoic acid 200 mg mg PO 10/07/24 03/10/25 History capsule (Algal Calhoun-3 DHA) magnesium 200 mg tablet 400 mg PO QDAY 10/07/24 03/10/25 H istory vit no.164-ferrous tab PO 04/10/25 09/11/25 History gluconate 6 mg-folate 833.5 mcg DFE tablet (Maria Esther PNV) Last Menstrual Period: 08/23/24 Zika: Zika virus screening: Negative : Yes [facility] Medical History Abnormal uterine bleeding (AUB) delivery delivered Low-lying placenta in second trimester History of anorexia nervosa Surgical History H/O section No significant past surgical history Family History Grandfather Colon cancer Social History adopted: No household members: significant other and children housing: house number of children: 3 current occupational status: employed current occupation: [employer] current occupational exposures/hazards: No pets and animals: Yes (outside dog) pets and animals: dog(s) history of recent travel: No sexually active: Yes Smoking Status: Former smoker second hand exposure: No (not in the house) alcohol intake: former details: quit 2022, not while substance use type: does not use caffeine: Yes (green tea) Type: tea what type of physical activity do you participate in: walking and weight training frequency: 3-4 times per week 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 Date Name GA/Weeks Outcome Route Bth Weight Infant Gen Labor Lgth Anesthesia Del Locatn Provider FOB 10/19/16 [place] 40 live - full term 8pounds 7oz Female 14 hours none [facility] [place]/Dr. Timmy Yancey 05/05/19 [place] 39 live - full term 7lbs 15oz Male spinal [facility] [place] 09/27/21 [place] 39 live - full term Male [facility] M arcanthony Delivery Date: 10/19/16 Last Updated by: Debbie Olmstead Shoulder dystocia, 3rd or 4th degree tear vaginal- tore up Delivery Date: 05/05/19 Last Updated by: Holly Weaver c/s d/t h/o shoulder dystocia Delivery Date: 09/27/21 Last Updated by: Yajaira Navarrete RLTCS HPI 28wk ob/glucose Details: KRUNAL KERN is a 34 year old who presents for routine OB visit. OB Visit KATH Calculator Estimated Delivery Date Method Current WG Current Estimate 05/30/25 LMP (Certain) 28w 3d Other Estimates 05/26/25 Ultrasound #1 29w 0d Expected Delivery Route/Plan repeat c/s with SM Specific Issue/Plans Covid status: [] Flu vaccine: [] Tdap vaccine: declines Rhogam: na LARC form signed: yes Problem list reviewed and updated with the most current plan of care details and appropriate orders placed. Relevant counseling for the gestational age provided. Continue routine care and follow up unless otherwise noted in visit notes/problem list details Initial Weight: 125 lb Date -???-???-???-???-???-??? -???-???-???-???-???-??? - EGA Weight BP Urine Prot -???-???-???-???-???-??? -???-???-???-???-???-??? - Glucose FHR FuHt Pres Dilation -???-???-???-???-???-??? -???-???-???-???-???-??? - Effaced St Visit Note 10/22/24 -???-???-???-???-???-??? -???-???-???-???-???-??? - 8w 4d 125 lb 4 oz (+4 oz) 116/74 -???-???-???-???-???-??? -???-???-???-???-???-??? - 171 -???-???-???-???-???-??? -???-???-???-???-???-??? - KW- CRL cons with dates. Declines NIPT. requesting R C/S 11/19/24 -???-???-???-???-???-??? -???-???-???-???-???-??? - 12w 4d 128 lb (+3 lb) 99/63 Negative -???-??? (more content not included)... Normal [facility] Platelet countOrdered By: Mitchel Perez on 03-10-2025 Platelets (Bld) [#/Vol] 167 10*3/uL 150-450 [facility] RBC Auto (Bld) [#/Vol]Ordere d By: Mandy Perez on 03-10-2025 RBC (Bld) [#/Vol] 3.47 10*6/uL Low 4.2-5.4 [facility] Syphilis Antibodieson 2024 Syphilis Abs Non-Reactive Normal Nonreactive [facility] Comment on above: Performed By: #### L 501.0250, L509.8002, L3890.6006, L100.0100 ####[facility] [id number] [place], [address] White blood cell (WBC) count Ordered By: Mandy Perez on 03-10-2025 WBC (Bld) [#/Vol] 7.2 10*3/uL 4.4-11.0 [facility] Laboratory - Chemistry and C hemistry - challengeOrdered By: Mandy Perez on 02-11-2025 Glucose Ql (U) Negative [facility] Laboratory - UrinalysisOrder ed By: Mandy Perez on 02-11-2025 Protein Ql (U) Negative [facility] Office Visit Reporton 02-11-2025 Custom Bow Maker Office Visit Report [facility]'s [address], [address] [place] [address] OFFICE VISIT Date of Service: 02/11/25 MR#: [id number] Acct: [id number] Name: KRUNAL KERN Rep #: [id number] 7 : 1990 Provider: JOHN Woo ams Age/Sex: 34/F Location: [facility] Status: Signed Intake Vital Signs 12/15/24 10:19 01/14/25 08:51 02/11/25 10:34 Height 5 ft 6 in 5 ft 6 in 5 ft 6 in Weight: 145 lb 5 oz BMI 23.4 BP 101/67 Intake Visit Reasons: 24wk ob Chief Complaint: 24wk OB Percolator Operator Required: No Is patient in pain?: No Allergies No Known Allergies Allergy (Verified 02/11/25 10:32) Medications ???Medication ???Instructions ???Recorded ???Confirmed ???Type docosahexaenoic acid 200 mg mg PO 10/07/24 02/11/25 History capsule (Algal Calhoun-3 DHA) magnesium 200 mg tablet 400 mg PO QDAY 10/07/24 02/11/25 H istory vit no.164-ferrous tab PO 10/07/24 02/11/25 History gluconate 6 mg-folate 833.5 mcg DFE tablet (Maria Esther PNV) Last Menstrual Period: 08/23/24 : No PFSH PFSH Medical History Abnormal uterine bleeding (AUB) delivery delivered Low-lying placenta in second trimester History of anorexia nervosa Surgical History H/O section No significant past surgical history Family History Grandfather Colon cancer Social History adopted: No household members: significant other and children housing: house number of children: 3 current occupational status: employed current occupation: [employer] current occupational exposures/hazards: No pets and animals: Yes (outside dog) pets and animals: dog(s) history of recent travel: No sexually active: Yes Smoking Status: Former smoker second hand exposure: No (not in the house) alcohol intake: former details: quit 2022, not while substance use type: does not use caffeine: Yes (green tea) Type: tea what type of physical activity do you participate in: walking and weight training frequency: 3-4 times per week 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 Date Name GA/Weeks Outcome Route Bth Weight Gen Labor Lgth Anesthesia Del Locatn Provider FOB 10/19/16 Nir 40 live - full term 8pounds 7oz Female 14 hours none [facility] [place]/Dr. Timmy Yancey 05/05/19 Am[place] 39 live - full term 7lbs 15oz Male spinal [facility] [place] 09/27/21 Maribel 39 live - full term Male [facility] M arcanthony Delivery Date: 10/19/16 Last Updated by: Debbie Olmstead Shoulder dystocia, 3rd or 4th degree tear vaginal- tore up Delivery Date: 05/05/19 Last Updated by: Holly Weaver c/s d/t h/o shoulder dystocia Delivery Date: 09/27/21 Last Updated by: Yajaira Navarrete RLTCS HPI 24wk ob Details: KRUNAL KERN is a 34 year old who presents for routine OB visit. OB Visit KATH Calculator Estimated Delivery Date Method Current WG Current Estimate 05/30/25 LMP (Certain) 24w 4d Other Estimates 05/26/25 Ultrasound #1 25w 1d Expected Delivery Route/Plan repeat c/s with Specific Issue/Plans Covid status: [] Flu vaccine: [] Tdap vaccine: [] Rhogam: [] LARC form signed: [] Problem list reviewed and updated with the most current plan of care details and appropriate orders placed. Relevant counseling for the gestational age provided. Continue routine care and follow up unless otherwise noted in visit notes/problem list details Initial Weight: 125 lb Date -???-???-???-???-???-??? -???-???-???-???-???-??? - EGA Weight BP Urine Prot -???-???-???-???-???-??? -???-???-???-???-???-??? - Glucose FHR FuHt Pres Dilation -???-???-???-???-???-??? -???-???-???-???-???-??? - Effaced St Visit Note 10/22/24 -???-???-???-???-???-??? -???-???-???-???-???-??? - 8w 4d 125 lb 4 oz (+4 oz) 116/74 -???-???-???-???-???-??? -???-???-???-???-???-??? - 171 -???-???-???-???-???-??? -???-???-???-???-???-??? - KW- CRL cons with dates. Declines NIPT. requesting R C/S 11/19/24 -???-???-???-???-???-??? -???-???-???-???-???-??? - 12w 4d 128 lb (+3 lb) 99/63 Negative -???-???-???-???-???-??? -???-???-???-???-???-??? - Negative 154 -???-???-???-???-???-??? -???-???-???-???-???-??? - JV- CRL denisse (more content not included)... Normal [facility] - Chemistry and C hemistry - challengeOrdered By: Ira Yee on 01-14-2025 Glucose Ql (U) Negative [facility] Laboratory - UrinalysisOrder ed By: Ira Yee on 01-14-2025 Protein Ql (U) Negative [facility] Custom Bow Maker Office Visit Reporton 01-14-2025 Custom Bow Maker Office Visit Report [facility]'s [address], [address] [place] [address] OFFICE VISIT Date of Service: 01/14/25 MR#: [id number] Acct: [id number] Name: KRUNAL KERN Rep #: [id number] 1 : 1990 Provider: Dr. Ira ruelas MD Age/Sex: 34/F Location: [facility] Status: Signed Intake Vital Signs 11/19/24 10:24 12/15/24 10:19 01/14/25 08:51 Height 5 ft 6 in 5 ft 6 in 5 ft 6 in Weight: 136 lb 138 lb 6 oz BMI 21.9 22.3 BP 112/71 103/67 Intake Visit Reasons: 20wk ob Percolator Operator Required: No Is patient in pain?: No Feel stressed/tense/nervous/a nxious/difficulty sleeping: not at all Allergies No Known Allergies Allergy (Verified 01/14/25 08:55) Medications ???Medication ???Instructions ???Recorded ???Confirmed ???Type docosahexaenoic acid 200 mg mg PO 10/07/24 01/14/25 History capsule (Algal Calhoun-3 DHA) magnesium 200 mg tablet 400 mg PO QDAY 10/07/24 01/14/25 H istory vit no.164-ferrous tab PO 10/07/24 01/14/25 History gluconate 6 mg-folate 833.5 mcg DFE tablet ( PNV) Last Menstrual Period: 08/23/24 Zika: Zika virus screening: Negative : No PFSH PFSH Medical History Abnormal uterine bleeding (AUB) delivery delivered Low-lying placenta in second trimester History of anorexia nervosa Surgical History H/O section No significant past surgical history Family History Grandfather Colon cancer Social History adopted: No household members: significant other and children housing: house number of children: 3 current occupational status: employed current occupation: [employer] current occupational exposures/hazards: No pets and animals: Yes (outside dog) pets and animals: dog(s) history of recent travel: No sexually active: Yes Smoking Status: Former smoker second hand exposure: No (not in the house) alcohol intake: former details: quit 2022, not while substance use type: does not use caffeine: Yes (green tea) Type: tea what type of physical activity do you participate in: walking and weight training frequency: 3-4 times per week 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 Date Name GA/Weeks Outcome Route Bth Weight Infant Gen Labor Lgth Anesthesia Del Locatn Provider FOB 10/19/16 Nir 40 live - full term 8pounds 7oz Female 14 hours none [facility] [place]/Dr. Timmy Yancey 05/05/19 [place] 39 live - full term 7lbs 15oz Male spinal [facility] [facility] Male [facility] M arcanthony Delivery Date: 10/19/16 Last Updated by: Debbie Olmstead Shoulder dystocia, 3rd or 4th degree tear vaginal- tore up Delivery Date: 05/05/19 Last Updated by: Holly Weaver c/s d/t h/o shoulder dystocia Delivery Date: 09/27/21 Last Updated by: Yajaira Navarrete TCS HPI 20wk ob Details: KRUNAL KERN is a 34 year old who presents for routine OB visit. OB Visit KATH Calculator Estimated Delivery Date Method Current WG Current Estimate 05/30/25 LMP (Certain) 20w 4d Other Estimates 05/26/25 Ultrasound #1 21w 1d Expected Delivery Route/Plan repeat c/s with Specific Issue/Plans Covid status: [] Flu vaccine: [] Tdap vaccine: [] Rhogam: [] LARC form signed: [] Problem list reviewed and updated with the most current plan of care details and appropriate orders placed. Relevant counseling for the gestational age provided. Continue routine care and follow up unless otherwise noted in visit notes/problem list details Initial Weight: 125 lb Date -???-???-???-???-???-??? -???-???-???-???-???-??? - EGA Weight BP Urine Prot -???-???-???-???-???-??? -???-???-???-???-???-??? - Glucose FHR FuHt Pres Dilation -???-???-???-???-???-??? -???-???-???-???-???-??? - Effaced St Visit Note 10/22/24 -???-???-???-???-???-??? -???-???-???-???-???-??? - 8w 4d 125 lb 4 oz (+4 oz) 116/74 -???-???-???-???-???-??? -???-???-???-???-???-??? - 171 -???-???-???-???-???-??? -???-???-???-???-???-??? - KW- CRL cons with dates. Declines NIPT. requesting R C/S 11/19/24 -???-???-???-???-???-??? -???-???-???-???-???-??? - 12w 4d 128 lb (+3 lb) 99/63 Negative -???-???-??? (more content not included)... Normal [facility] - Chemistry and C hemistry - challengeOrdered By: Ira Brittneyhansa on 12-15-2024 Glucose Ql (U) Negative [facility] Laboratory - UrinalysisOrder ed By: Ira Yee on 12-15-2024 Protein Ql (U) Negative [facility] Custom Bow Maker Office Visit Reporton 12-15-2024 Custom Bow Maker Office Visit Report [facility]'s [address], [address] [place] [address] OFFICE VISIT Date of Service: 12/15/24 MR#: [id number] Acct: [id number] Name: KRUNAL KERN Rep #: [id number] 0 : 1990 Provider: Dr. Ira ruelas MD Age/Sex: 34/F Location: [facility] Status: Signed Intake Vital Signs 10/22/24 10:45 11/19/24 10:24 12/15/24 10:19 Height 5 ft 6 in 5 ft 6 in 5 ft 6 in Weight: 136 lb BMI 21.9 BP 112/71 Intake Visit Reasons: 16 wk ob Percolator Operator Required: No Is patient in pain?: No Allergies No Known Allergies Allergy (Verified 12/15/24 10:22) Medications ???Medication ???Instructions ???Recorded ???Confirmed ???Type docosahexaenoic acid 200 mg mg PO 10/07/24 12/15/24 History capsule (Algal Calhoun-3 DHA) magnesium 200 mg tablet 400 mg PO QDAY 10/07/24 12/15/24 H istory vit no.164-ferrous tab PO 10/07/24 12/15/24 History gluconate 6 mg-folate 833.5 mcg DFE tablet ( PNV) Last Menstrual Period: 08/23/24 Zika: Zika virus screening: Negative : No PFSH PFSH Medical History Abnormal uterine bleeding (AUB) delivery delivered Low-lying placenta in second trimester History of anorexia nervosa Surgical History H/O section No significant past surgical history Family History Grandfather Colon cancer Social History adopted: No household members: significant other and children housing: house number of children: 3 current occupational status: employed current occupation: [employer] current occupational exposures/hazards: No pets and animals: Yes (outside dog) pets and animals: dog(s) history of recent travel: No sexually active: Yes Smoking Status: Former smoker second hand exposure: No (not in the house) alcohol intake: former details: quit 2022, not while substance use type: does not use caffeine: Yes (green tea) Type: tea what type of physical activity do you participate in: walking and weight training frequency: 3-4 times per week 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 Date Name GA/Weeks Outcome Route Bth Weight Infant Gen Labor Lgth Anesthesia Del Locatn Provider FOB 10/19/16 Nir 40 live - full term 8pounds 7oz Female 14 hours none [facility] [place]/Dr. Timmy Yancey 05/05/19 [place] 39 live - full term 7lbs 15oz Male spinal [facility] [place] 09/27/21 Maribel 39 live - full term Male [facility] M arcanthony Delivery Date: 10/19/16 Last Updated by: Debbie Olmstead Shoulder dystocia, 3rd or 4th degree tear vaginal- tore up Delivery Date: 05/05/19 Last Updated by: Holly Weaver c/s d/t h/o shoulder dystocia Delivery Date: 09/27/21 Last Updated by: Yajaira Navarrete RLTCS HPI 16 wk ob Details: KRUNAL KERN is a 34 year old who presents for routine OB visit. OB Visit KATH Calculator Estimated Delivery Date Method Current WG Current Estimate 05/30/25 LMP (Certain) 16w 2d Other Estimates 05/26/25 Ultrasound #1 16w 6d Expected Delivery Route/Plan repeat c/s with Specific Issue/Plans Covid status: [] Flu vaccine: [] Tdap vaccine: [] Rhogam: [] LARC form signed: [] Problem list reviewed and updated with the most current plan of care details and appropriate orders placed. Relevant counseling for the gestational age provided. Continue routine care and follow up unless otherwise noted in visit notes/problem list details Initial Weight: 125 lb Date -???-???-???-???-???-??? -???-???-???-???-???-??? - EGA Weight BP Urine Prot -???-???-???-???-???-??? -???-???-???-???-???-??? - Glucose FHR FuHt Pres Dilation -???-???-???-???-???-??? -???-???-???-???-???-??? - Effaced St Visit Note 10/22/24 -???-???-???-???-???-??? -???-???-???-???-???-??? - 8w 4d 125 lb 4 oz (+4 oz) 116/74 -???-???-???-???-???-??? -???-???-???-???-???-??? - 171 -???-???-???-???-???-??? -???-???-???-???-???-??? - KW- CRL cons with dates. Declines NIPT. requesting R C/S 11/19/24 -???-???-???-???-???-??? -???-???-???-???-???-??? - 12w 4d 128 lb (+3 lb) 99/63 Negative -???-???-???-???-???-??? -???-???-???-???-???-??? - Negative 154 -???-???-???-???-???-??? -???-???-???- (more content not included)... Normal [facility] - Chemistry and C hemistry - challengeOrdered By: Effie Michael on 11-19-2024 Glucose Ql (U) Negative [facility] Laboratory - UrinalysisOrder ed By: Effie Michael on 11-19-2024 Protein Ql (U) Negative [facility] Custom Bow Maker Office Visit Reporton 11-19-2024 Custom Bow Maker Office Visit Report [facility]'s [address], [address] [place] [address] OFFICE VISIT Date of Service: 11/19/24 MR#: [id number] Acct: [id number] Name: KRUNAL KERN Rep #: [id number] 7 : 1990 Provider: Dr. Effie Steven DO Age/Sex: 34/F Location: [facility] Status: Signed Intake Vital Signs 09/27/24 08:12 10/22/24 10:45 11/19/24 10:24 11/19/24 10:24 Height 5 ft 6 in 5 ft 6 in 5 ft 6 in 5 ft 6 in Weight: 128 lb BMI 20.6 BP 99/63 Intake Visit Reasons: 12WK OB Percolator Operator Required: No Is patient in pain?: No Allergies No Known Allergies Allergy (Verified 11/19/24 10:23) Medications ???Medication ???Instructions ???Recorded ???Confirmed ???Type docosahexaenoic acid 200 mg mg PO 10/07/24 11/19/24 History capsule (Algal Calhoun-3 DHA) magnesium 200 mg tablet 400 mg PO QDAY 10/07/24 11/19/24 H istory vit no.164-ferrous tab PO 10/07/24 11/19/24 History gluconate 6 mg-folate 833.5 mcg DFE tablet (Maria Esther PNV) Last Menstrual Period: 08/23/24 Zika: Zika virus screening: Negative : No PFSH [facility] Medical History Abnormal uterine bleeding (AUB) delivery delivered Low-lying placenta in second trimester History of anorexia nervosa Surgical History H/O section No significant past surgical history Family History Grandfather Colon cancer Social History adopted: No household members: significant other and children housing: house number of children: 3 current occupational status: employed current occupation: [employer] current occupational exposures/hazards: No pets and animals: Yes (outside dog) pets and animals: dog(s) history of recent travel: No sexually active: Yes Smoking Status: Former smoker second hand exposure: No (not in the house) alcohol intake: former details: quit 2022, not while substance use type: does not use caffeine: Yes (green tea) Type: tea what type of physical activity do you participate in: walking and weight training frequency: 3-4 times per week 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 Date Name GA/Weeks Outcome Route Bth Weight Infant Gen Labor Lgth Anesthesia Del Locatn Provider FOB 10/19/16 Nir 40 live - full term 8pounds 7oz Female 14 hours none [facility] [place]/Dr. Timmy Yancey 05/05/19 [place] 39 live - full term 7lbs 15oz Male spinal [facility] [place] 09/27/21 [facility] 39 live - full term Male [facility] M arcanthony Delivery Date: 10/19/16 Last Updated by: Debbie Olmstead Shoulder dystocia, 3rd or 4th degree tear vaginal- tore up Delivery Date: 05/05/19 Last Updated by: Holly Weaver c/s d/t h/o shoulder dystocia Delivery Date: 09/27/21 Last Updated by: Yajaira Navarrete RLTCS HPI 12WK OB Details: KRUNAL KERN is a 34 year old who presents for routine OB visit. OB Visit KATH Calculator Estimated Delivery Date Method Current WG Current Estimate 05/30/25 LMP (Certain) 12w 4d Other Estimates 05/26/25 Ultrasound #1 13w 1d Expected Delivery Route/Plan repeat c/s Specific Issue/Plans Covid status: [] Flu vaccine: [] Tdap vaccine: [] Rhogam: [] LARC form signed: [] Problem list reviewed and updated with the most current plan of care details and appropriate orders placed. Relevant counseling for the gestational age provided. Continue routine care and follow up unless otherwise noted in visit notes/problem list details Initial Weight: 125 lb Date -???-???-???-???-???-??? -???-???-???-???-???-??? - EGA Weight BP Urine Prot -???-???-???-???-???-??? -???-???-???-???-???-??? - Glucose FHR FuHt Pres Dilation -???-???-???-???-???-??? -???-???-???-???-???-??? - Effaced St Visit Note 10/22/24 -???-???-???-???-???-??? -???-???-???-???-???-??? - 8w 4d 125 lb 4 oz (+4 oz) 116/74 -???-???-???-???-???-??? -???-???-???-???-???-??? - 171 -???-???-???-???-???-??? -???-???-???-???-???-??? - KW- CRL cons with dates. Declines NIPT. requesting R C/S 11/19/24 -???-???-???-???-???-??? -???-???-???-???-???-??? - 12w 4d 128 lb (+3 lb) 99/63 -???-???-???-???-???-??? -???-???-???-???-???-??? - 154 -???-???-???-???-???-??? -???- (more content not included)... Normal [facility] PAP IG HPV APTIMA 16/18,45on 10-27-2024 ADEQ Comment Normal . [facility] Comment on above: Order Comment: Tonya charlton Comment: [id number] Comment: Source.............Cervix;EndocervixSpecimen Comment: Other..............Specimen Comment: No. of containers..01 ThinPrep Vial Result Comment: Sati sfactory for evaluation. No endocervical component is identified. An endocervical component is not commonly seen in the patient. Performed By: #### L 3890.6006, L509.8002, L100.0100, L3890.6301, BTS, L509.4006, L3890.6102 #### [facility] [address] [place], [address] COMM . Normal . [facility] Comment on above: Order Comment: Tonya charlton Comment: [id number] Comment: Source.............Cervix;EndocervixSpecimen Comment: Other..............Specimen Comment: No. of containers..01 ThinPrep Vial Performed By: #### L 3890.6006, L509.8002, L100.0100, L3890.6301, BTS, L509.4006, L3890.6102 #### [facility] [address] [place], [place], [id number] COMMENT Comment Normal . [facility] Comment on above: Order Comment: Speci men Comment: [id number] Comment: Source.............Cervix;EndocervixSpecimen Comment: Other..............Specimen Comment: No. of containers..01 ThinPrep Vial Result Comment: This liquid based ThinPrep(R) pap test was screened with the use of an image guided system. Performed By: #### L 3890.6006, L509.8002, L100.0100, L3890.6301, BTS, L509.4006, L3890.6102 #### [facility] [address] [place], [place], [id number] DIAG Comment Normal . [facility] Comment on above: Order Comment: Speci men Comment: [id number] Comment: Source.............Cervix;EndocervixSpecimen Comment: Other..............Specimen Comment: No. of containers..01 ThinPrep Vial Result Comment: NEGA TIVE FOR INTRAEPITHELIAL LESION OR MALIGNANCY. Performed By: #### L 3890.6006, L509.8002, L100.0100, L3890.6301, BTS, L509.4006, L3890.6102 #### [facility] [address] [place], [place], [address] HPV APTIMA, HR Negative Normal Negative [facility] Comment on above: Order Comment: Speci men Comment: [id number] Comment: Source.............Cervix;EndocervixSpecimen Comment: Other..............Specimen Comment: No. of containers..01 ThinPrep Vial Result Comment: This nucleic acid amplification test detects fourteen high- risk HPV types (16,18,31,33,35,39,45,51,52,56,58,59,66,68) without differentiation. Performed By: #### L 3890.6006, L509.8002, L100.0100, L3890.6301, BTS, L509.4006, L3890.6102 #### [facility] [address] [place], [address] HPV Asya Rfx Comment Normal . [facility] Comment on above: Order Comment: Speci men Comment: [id number] Comment: Source.............Cervix;EndocervixSpecimen Comment: Other..............Specimen Comment: No. of containers..01 ThinPrep Vial Result Comment: Crit eria not met, HPV Genotype not performed. Performed at: [address] [id number] Supply Chain Buyer: Abbi Vee MD, Phone: [phone] Performed at: [address] [id number] Supply Chain Buyer: Jaquelin Celis MD, Phone: [phone] Performed at: =[address] [id number] Supply Chain Buyer: Jaquelin Celis MD, Phone: [phone] Performed By: #### L 3890.6006, L509.8002, L100.0100, L3890.6301, BTS, L509.4006, L3890.6102 #### [facility] [address] [place], [place], [id number] PAPSMR Comment Normal . [facility] Comment on above: Order Comment: Speci men Comment: [id number] Comment: Source.............Cervix;EndocervixSpecimen Comment: Other..............Specimen Comment: No. of containers..01 ThinPrep Vial Result Comment: The Pap smear is a screening test designed to aid in the detection of premalignant and malignant conditions of the uterine cervix. It is not a diagnostic procedure and should not be used as the sole means of detecting cervical cancer. Both false-positive and false-negative reports do occur. Performed By: #### L 3890.6006, L509.8002, L100.0100, L3890.6301, BTS, L509.4006, L3890.6102 #### [facility] [address] [place], [place], [id number] PERFORM Comment Normal . [facility] Comment on above: Order Comment: Speci men Comment: [id number] Comment: Source.............Cervix;EndocervixSpecimen Comment: Other..............Specimen Comment: No. of containers..01 ThinPrep Vial Result Comment: Radu Campbell, Supervisory Motor Polarizer (ASCP) Performed By: #### L 3890.6006, L509.8002, L100.0100, L3890.6301, BTS, L509.4006, L3890.6102 #### [facility] [address] [place], [address] Chlamydia/GC BARB aptimaon CHLAMY,NUC ACID Negative Normal Negative [facility] Comment on above: Performed By: #### L 3890.6006, L509.8002, L100.0100, L3890.6301, BTS, L509.4006, L3890.6102 #### [facility] [address] [place], [address] GC BY NUC ACID Negative Normal Negative [facility] Comment on above: Result Comment: Perf ormed at: =G - [facility] [address] [id number] Supply Chain Buyer: Jaquelin Celis MD, Phone: [phone] Performed By: #### L 3890.6006, L509.8002, L100.0100, L3890.6301, BTS, L509.4006, L3890.6102 #### [facility] [address] [place], [place], [id number] Urine Cultureon 10-23-2024 URC Culture exhibits no growth. Normal [facility] Comment on above: Performed By: #### L 3890.6006, L509.8002, L100.0100, L3890.6301, BTS, L509.4006, L3890.6102 #### [facility] [address] [place], [address] Absolute lymphocyte countOrd ered By: Mandy Perez on 10-22-2024 Lymphocytes Auto (Unsp spec) [#/Vol] 2.44 10*3/uL 0.83-4.51 [facility] Absolute neutrophil countOrd ered By: Mandy Perez on 10-22-2024 Neutrophils (Bld) [#/Vol] 3.7 10*3/uL 2.0-7.7 [facility] Automated lymphocyte count a s percentage of total leukocytesOrdered By: Mandy Perez on 10-22-2024 Lymphocytes/100 WBC Auto (Unsp spec) 36.4 % 19-41 [facility] Basophil percentageOrdered B y: Mandy Perez on 10-22-2024 Basophils/100 WBC (Bld) 0.7 % 0-1 [facility] CBC W/Diff, Automatedon 09-295 Absolute Lymph 2.44 X10 3/uL Normal 0.83-4.51 [facility] Comment on above: Performed By: #### L 3890.6006, L509.8002, L100.0100, L3890.6301, BTS, L509.4006, L3890.6102 #### [facility] [address] [place], [address] Absolute Neut 3.7 X10 3/uL Normal 2.0-7.7 [facility] Comment on above: Performed By: #### L 3890.6006, L509.8002, L100.0100, L3890.6301, BTS, L509.4006, L3890.6102 #### [facility] [address] [place], [address] Basophils/100 WBC (Bld) 0.7 % Normal 0-1 [facility] Comment on above: Performed By: #### L 3890.6006, L509.8002, L100.0100, L3890.6301, BTS, L509.4006, L3890.6102 #### [facility] [address] [place], [address] Eosinophils/100 WBC (Bld) 2.2 % Normal 0-5 [facility] Comment on above: Performed By: #### L 3890.6006, L509.8002, L100.0100, L3890.6301, BTS, L509.4006, L3890.6102 #### [facility] [address] [place], [address] Erythrocyte distribution width (RBC) [Ratio] 14.0 % Normal 11.6-14.6 [facility] Comment on above: Performed By: #### L 3890.6006, L509.8002, L100.0100, L3890.6301, BTS, L509.4006, L3890.6102 #### [facility] [address] [place], [address] Hematocrit (Bld) [Volume fraction] 35.9 % Low 37-47 [facility] Comment on above: Performed By: #### L 3890.6006, L509.8002, L100.0100, L3890.6301, BTS, L509.4006, L3890.6102 #### [facility] [address] [place], [address] Hemoglobin (Bld) [Mass/Vol] 12.3 g/dL Normal 12.0-15.0 [facility] Comment on above: Performed By: #### L 3890.6006, L509.8002, L100.0100, L3890.6301, BTS, L509.4006, L3890.6102 #### [facility] [address] [place], [address] IG% 0.300 Normal 0.0-0.9 [facility] Comment on above: Result Comment: IG% - Immature Granulocytes (promyelocytes, myelocytes and metamyelocytes) > 1% indicates that a LEFT SHIFT is Present. Performed By: #### L 3890.6006, L509.8002, L100.0100, L3890.6301, BTS, L509.4006, L3890.6102 #### [facility] [address] [place], [address] Lymphocytes/100 WBC (Bld) 36.4 % Normal 19-41 [facility] Comment on above: Performed By: #### L 3890.6006, L509.8002, L100.0100, L3890.6301, BTS, L509.4006, L3890.6102 #### [facility] [address] [place], [address] MCH (RBC) [Entitic mass] 30.7 pg Normal 27.0-32.0 [facility] Comment on above: Performed By: #### L 3890.6006, L509.8002, L100.0100, L3890.6301, BTS, L509.4006, L3890.6102 #### [facility] [address] [place], [address] MCHC (RBC) [Mass/Vol] 34.3 g/dL Normal 32-36 [facility] Comment on above: Performed By: #### L 3890.6006, L509.8002, L100.0100, L3890.6301, BTS, L509.4006, L3890.6102 #### [facility] [address] [place], [address] MCV (RBC) [Entitic vol] 89.5 fL Normal 81-99 [facility] Comment on above: Performed By: #### L 3890.6006, L509.8002, L100.0100, L3890.6301, BTS, L509.4006, L3890.6102 #### [facility] [address] [place], [address] Monocytes/100 WBC (Bld) 5.1 % Normal 0-[address] [facility] Comment on above: Performed By: #### L 3890.6006, L509.8002, L100.0100, L3890.6301, BTS, L509.4006, L3890.6102 #### [facility] [address] [place], [address] Neutrophils/100 WBC (Bld) 55.3 % Normal 47-70 [facility] Comment on above: Performed By: #### L 3890.6006, L509.8002, L100.0100, L3890.6301, BTS, L509.4006, L3890.6102 #### [facility] [address] [place], [address] Nucleated RBC (Bld) [#/Vol] 0 10*3/uL Normal 0-5 [facility] Comment on above: Performed By: #### L 3890.6006, L509.8002, L100.0100, L3890.6301, BTS, L509.4006, L3890.6102 #### [facility] [address] [place], [address] Platelet mean volume (Bld) [Entitic vol] 12.0 fL Normal 6.2-12.0 [facility] Comment on above: Performed By: #### L 3890.6006, L509.8002, L100.0100, L3890.6301, BTS, L509.4006, L3890.6102 #### [facility] [address] [place], [address] Platelets (Bld) [#/Vol] 237 10*3/uL Normal 150-450 [facility] Comment on above: Performed By: #### L 3890.6006, L509.8002, L100.0100, L3890.6301, BTS, L509.4006, L3890.6102 #### [facility] [address] [place], [address] RBC (Bld) [#/Vol] 4.01 10*6/uL Low 4.2-5.4 [facility] Comment on above: Performed By: #### L 3890.6006, L509.8002, L100.0100, L3890.6301, BTS, L509.4006, L3890.6102 #### [facility] [address] [place], [address] RDW SD 45.6 fl High 35.1-43.9 [facility] Comment on above: Performed By: #### L 3890.6006, L509.8002, L100.0100, L3890.6301, BTS, L509.4006, L3890.6102 #### [facility] [address] [place], [address] WBC (Bld) [#/Vol] 6.7 10*3/uL Normal 4.4-11.0 [facility] Comment on above: Performed By: #### L 3890.6006, L509.8002, L100.0100, L3890.6301, BTS, L509.4006, L3890.6102 #### [facility] [address] [place], [address] Cervical or vaginal specimen microscopic examination by liquid based cytology (reportOrdered By: Mandy Perez on 10-22-2024 Cytology report Cyto stain.thin prep Doc (Cvx/Vag) Comment . [facility] Comment on above: Criteria not met, HP V Genotype not performed.Performed at: [address] [id number] Director: Abbi Vee MD, Phone: [phone] at: [address] [id number] Director: Jaquelin Celis MD, Phone: [phone] at: [address] [id number] Director: Jaquelin Celis MD, Phone: [phone] Cervical or vagninal specime n microscopic examination by cytology stain (reported asOrdered By: Mandy Perez on 10-22-2024 Cytology report Cyto stain Doc (Cvx/Vag) Comment . [facility] Comment on above: The Pap smear is a s creening test designed to aid in thedetection of premalignant and malignant conditions of theuterine cervix. It is not a diagnostic procedure andshould not be used as the sole means of detecting cervicalcancer. Both false-positive and false-negative reports dooccur. Chlamydia trachomatis rRNA d etection by probe and target amplification methodOrdered By: Mandy Perez on 10-22-2024 C. trachomatis rRNA BARB+probe Ql (Unsp spec) Negative Negative [facility] Detection in cervical specim en of any of human papilloma virus (HPV) 16, 18, 31, 33,Ordered By: Mandy Perez on 10-22-2024 HPV 16+18+31+33+35+39+45+51 +52+56+58+59+66+68 DNA Probe+sig amp Ql (Cvx) Negative Negative [facility] Comment on above: This nucleic acid am plification test detects fourteen high-risk HPV types (16,18,31,33,35,39,45,51,52,56,58,59,66,68)without differentiation. Eosinophil percentageOrdered By: Mandy Perez on 10-22-2024 Eosinophils/100 WBC (Bld) 2.2 % 0-5 [facility] Erythrocyte distribution wid th ratioOrdered By: Mandy Perez on 10-22-2024 Erythrocyte distribution width (RBC) [Ratio] 14.0 % 11.6-14.6 [facility] Erythrocyte distribution wid th standard deviationOrdered By: Mandy Perez on 10-22-2024 Erythrocyte distribution width (RBC) [Ratio] 45.6 fl High 35.1-43.9 [facility] HIVon 10-22-2024 HIV Non-Reactive Normal Nonreactive [facility] Comment on above: Result Comment: Non- Reactive Reactive Repeatedly reactive samples must be confirmed according to CDC recommended confirmatory algorithms. The subresults for either HIVAG or AHIV can be used as an aid in the selection of the confirmation algorithm for reactive samples. Send out specimens with Reactive results to [facility] for confirmation. Order the HIV antibody detection and differentiation: lc#[id number] Performed By: #### L 3890.6006, L509.8002, L100.0100, L3890.6301, BTS, L509.4006, L3890.6102 #### [facility] [address] [place], [address] Hematocrit Auto (Bld) [Volum e fraction]Ordered By: Mandy Perez on 10-22-2024 Hematocrit (Bld) [Volume fraction] 35.9 % Low 37-47 [facility] Hemoglobin measurementOrdere d By: Mandy Perez on 10-22-2024 Hemoglobin (Bld) [Mass/Vol] 12.3 g/dL 12.0-15.0 [facility] Hepatitis C Antibodyon 10-22 Hepatitis C Ab Non-Reactive Normal Nonreactive [facility] Comment on above: Result Comment: Reac tive: Presumptive evidence of antibodies to HCV. Follow CDC recommendations for supplemental testing. Non-Reactive: Antibodies to HCV were not detected; does not exclude the possibility of exposure to HCV Reactive Results are presumptive evidence of antibodies to HCV. Follow CDC recommendations for supplemental testing. Order confirmation testing: HCV Quant by PCR testing - HCVPCR #[id number] Non Reactive: < 0.8 Equivocal: >/= 0.8 to < 1.0 Reactive: >/= 1.0 The [facility] requires that a reactive/equivocal HCV antibody result be sent out for confirmation. HCV Quant by PCR testing. Performed By: #### L 3890.6006, L509.8002, L100.0100, L3890.6301, BTS, L509.4006, L3890.6102 #### [facility] [address] [place], [place], [address] Immature granulocytes/100 WB C Auto (Bld)Ordered By: Mandy Perez on 10-22-2024 Immature granulocytes/100 WBC (Bld) 0.300 % 0.0-0.9 [facility] Comment on above: IG% - Immature Granu locytes (promyelocytes, myelocytes and metamyelocytes) > 1% indicates that a LEFT SHIFT is Present. L3890.6102on 10-22-2024 HEP B Surf Ag Non-Reactive Normal Nonreactive [facility] Comment on above: Result Comment: Reac tive: Presumptive evidence of HBV. Repeatedly reactive samples must be confirmed using a neutralization test ([employer] HBsAg Confirmatory Test) Non-Reactive: HBsAg not detected; does not exclude the possibility of exposure to HBV Performed By: #### L 3890.6006, L509.8002, L100.0100, L3890.6301, BTS, L509.4006, L3890.6102 #### [facility] [address] [place], [place], [address] L509.4006on 10-22-2024 Rubella IgG REAC Normal Nonreactive [facility] Comment on above: Result Comment: Anti body Result: Interpretation Non-Reactive: Non-Immune Reactive: Immune The following results were obtained with the [employer] Rubella IgG assay. Results from assays of other manufacturers cannot be used interchangeably. Performed By: #### L 3890.6006, L509.8002, L100.0100, L3890.6301, BTS, L509.4006, L3890.6102 #### [facility] [address] [place], [address] Laboratory - CytologyOrdered By: Mandy Perez on 10-22-2024 Motor Polarizer Cyto stain Nom (Cvx/Vag) [ID] Comment . [facility] Comment on above: Horacio Mack Motor Polarizer (ASCP) Laboratory - Microbiology an d Antimicrobial susceptibilityOrdered By: Mandy Perez on 10-22-2024 HBV surface Ag Ql (S) Non-Reactive Nonreactive [facility] Comment on above: Reactive: Presumptiv e evidence of HBV. Repeatedly reactive samples must be confirmed using a neutralization test ([employer] HBsAg Confirmatory Test)Non-Reactive: HBsAg not detected; does not exclude the possibility of exposure to HBV Laboratory - Miscellaneous t estsOrdered By: Mandy Perez on 10-22-2024 Service comment (Unsp spec) [Interp] . . [facility] MCV (mean corpuscular volume ) determinationOrdered By: Mandy Perez on 10-22-2024 MCV (RBC) [Entitic vol] 89.5 fL 81-99 [facility] Mean corpuscular hemoglobin (MCH) determinationOrdered By: Mandy Perez on 10-22-2024 MCH (RBC) [Entitic mass] 30.7 pg 27.0-32.0 [facility] Mean corpuscular hemoglobin concentration (MCHC) determinationOrdered By: Mandy Perez on 10-22-2024 MCHC (RBC) [Mass/Vol] 34.3 g/dL 32-36 [facility] Mean platelet volume determi nationOrdered By: Mandy Perez on 10-22-2024 Platelet mean volume (Bld) [Entitic vol] 12.0 fL 6.2-12.0 [facility] Monocyte percentageOrdered B y: Mandy Perez on 10-22-2024 Monocytes/100 WBC (Bld) 5.1 % 0-10 [facility] Neisseria gonorrhoeae nuclei c acid detection by amplified probe techniqueOrdered By: Mandy Perez on 10-22-2024 N. gonorrhoeae DNA BARB+probe Ql (Unsp spec) Negative Negative [facility] Comment on above: Performed at: =[address] [id number] Director: Jaquelin Celis MD, Phone: [phone] Neutrophil percentageOrdered By: Mandy Perez on 10-22-2024 Neutrophils/100 WBC (Bld) 55.3 % 47-70 [facility] No Panel InformationOrdered By: Mandy Perez on 10-22-2024 Pap Smear Specimen Adequacy Comment . [facility] Comment on above: Satisfactory for ken luation. No endocervical component is identified.An endocervical component is not commonly seen in the patient. HIV (1&2) Antibody Non-Reactive Nonreactive [facility] Comment on above: Non-ReactiveReactive Repeatedly reactive samples must be confirmed according to CDC recommended confirmatory algorithms. The subresults for either HIVAG or AHIV can be used as an aid in the selection of the confirmation algorithm for reactive samples.Send out specimens with Reactive results to [facility] for confirmation.Order the HIV antibody detection and differentiation: #[id number] Nucleated red blood cell per centageOrdered By: Mandy Perez on 10-22-2024 Nucleated RBC/100 WBC (Bld) [Ratio] 0 % 0-5 [facility] Custom Bow Maker Office Visit Reporton 10-22-2024 Custom Bow Maker Office Visit Report [facility] [address], [address] [place] [address] OFFICE VISIT Date of Service: 10/22/24 MR#: [id number] Acct: [id number] Name: ERLINMITCHELCLEO Garcia Rep #: [id number] : 1990 Provider: JOHN Woo ams Age/Sex: 34/F Location: [facility] [place] Status: Signed Intake Vital Signs 10/29/23 11:39 09/27/24 08:12 10/22/24 10:45 Height 5 ft 6 in 5 ft 6 in 5 ft 6 in Weight: 125 lb 4 oz BMI 20.2 BP 116/74 Intake Visit Reasons: 8WK NOB LMP 08/23 KATH 05/30 Chief Complaint: New OB Percolator Operator Required: No Is patient in pain?: No Allergies No Known Allergies Allergy (Verified 10/22/24 10:44) Medications ???Medication ???Instructions ???Recorded ???Confirmed ???Type docosahexaenoic acid 200 mg mg PO 10/07/24 10/22/24 History capsule (Algal Calhoun-3 DHA) magnesium 200 mg tablet 400 mg PO QDAY 10/07/24 10/22/24 H istory vit no.164-ferrous tab PO 10/07/24 10/22/24 History gluconate 6 mg-folate 833.5 mcg DFE tablet (Maria Esther PNV) Last Menstrual Period: 08/23/24 : No PFSH PFSH Medical History (Updated 10/22/24 @ 11:06 by Mandy Perez CNM) Abnormal uterine bleeding (AUB) delivery delivered Low-lying placenta in second trimester History of anorexia nervosa Surgical History (Updated 10/22/24 @ 11:06 by Mandy Perez CNM) H/O section No significant past surgical history Family History Grandfather Colon cancer Social History adopted: No household members: significant other and children housing: house number of children: 3 service: No current occupational status: employed current occupation: [employer] current occupational exposures/hazards: No pets and animals: Yes (outside dog) pets and animals: dog(s) history of recent travel: No sexually active: Yes Smoking Status: Former smoker smoking status stop date: 06/30/16 second hand exposure: No (not in the house) alcohol intake: former details: quit 2022, not while substance use type: does not use caffeine: Yes (green tea) Type: tea what type of physical activity do you participate in: walking and weight training frequency: 3-4 times per week 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 Date Name GA/Weeks Outcome Route Bth Weight Gen Labor Lgth Anesthesia Del Locatn Provider FOB 10/19/16 Nir 40 live - full term 8pounds 7oz Female 14 hours none [facility] Celina Key/Dr. Warner Bc 05/05/19 Amaris 39 live - full term 7lbs 15oz Male spinal [facility] [place] 09/27/21 Maribel 39 live - full term Male [facility] M arcanthony Delivery Date: 10/19/16 Last Updated by: Debbie Olmstead Shoulder dystocia, 3rd or 4th degree tear vaginal- tore up Delivery Date: 05/05/19 Last Updated by: Holly Weaver c/s d/t h/o shoulder dystocia Delivery Date: 09/27/21 Last Updated by: Yajaira Navarrete RLTCS HPI 8WK NOB LMP 08/23 KATH 05/30 Details: KRUNAL KERN is a 34 year old who presents for New OB visit. OB Visit KATH Calculator Estimated Delivery Date Method Current WG Current Estimate 05/30/25 LMP (Certain) 8w 4d Other Estimates 05/26/25 Ultrasound #1 9w 1d Comments: HIV: Urine Culture: Sequential Screen: NIPT Screen: Estimated Due Date: 05/30/22 Expected Delivery Route/Plan repeat c/s Specific Issue/Plans Covid status: [] Flu vaccine: [] Tdap vaccine: [] Rhogam: [] LARC form signed: [] Problem list reviewed and updated with the most current plan of care details and appropriate orders placed. Relevant counseling for the gestational age provided. Continue routine care and follow up unless otherwise noted in visit notes/problem list details Initial Weight: 125 lb Date -???-???-???-???-???-??? -???-???-???-???-???-??? - EGA Weight BP Urine Prot -???-???-???-???-???-??? -???-???-???-???-???-??? - Glucose FHR FuHt Pres Dilation -???-???-???-???-???-??? -???-???-???-???-???-??? - Effaced St Visit Note 10/22/24 -???-???-???-???-???-??? -???-???-???-???-???-??? - 8w 4d 125 lb 4 oz (+4 oz) 116/74 -???-???-???-???-???-??? -???-???-???-???-???-??? - 171 -???-???-???-???-???-??? -???-???-???-???-???-??? - KW- CRL cons with dates. Declines NIPT. requesting R C/S Menstrual History Last Menstrual (more content not included)... Normal [facility] Platelet countOrdered By: Mitchel Perez on 10-22-2024 Platelets (Bld) [#/Vol] 237 10*3/uL 150-450 [facility] RBC Auto (Bld) [#/Vol]Ordere d By: Mandy Perez on 10-22-2024 RBC (Bld) [#/Vol] 4.01 10*6/uL Low 4.2-5.4 [facility] Syphilis Antibodieson 2024 Syphilis Abs Non-Reactive Normal Nonreactive [facility] Comment on above: Performed By: #### L 3890.6006, L509.8002, L100.0100, L3890.6301, BTS, L509.4006, L3890.6102 #### [facility] [address] [place], [place], [id number] Type AND Screenon 10-22-2024 ABO and Rh group Nom (Bld) Blood group A Rh(D) positive Normal [facility] Comment on above: Order Comment: PN Performed By: #### L 3890.6006, L509.8002, L100.0100, L3890.6301, BTS, L509.4006, L3890.6102 #### [facility] [address] [place], [address] Urine cultureOrdered By: Dilan Perez on 10-22-2024 Bacteria identified Cx Nom (U) Culture exhibits no growth. [facility] White blood cell (WBC) count Ordered By: Mandy Perez on 10-22-2024 WBC (Bld) [#/Vol] 6.7 10*3/uL 4.4-11.0 [facility] HIP, UNI W/ Pelvis 2-3 Views on 05-12-2024 HIP, UNI W/ Pelvis 2-3 Views [facility] [address] [place] [address] HIP, UNI W/ Pelvis 2-3 Views MR#: [id number] Acct: [id number] Name: KRUNAL KERN Rep #: [id number] : 1990 F 34 From: Jun Guadalupe MD PCP: Dr. Brooke Brown, Status: DEP AMB Study: HIP, UNI W/ Pelvis 2-3 Views Date of Exam: Exam# [id number] Ordering Dr: Brooke Brown DO [id number] STUDY: X-RAY - PELVIS AND RIGHT HIP REASON FOR EXAM: Female, 34 years old. HIP PAIN TECHNIQUE: 3 views of the pelvis and right hip. COMPARISON: None. FINDINGS: There is a non-specific bowel gas pattern. Normal visualized soft tissue structures. Normal bilateral iliac wings, sacroiliac joints and visualized sacrum. Normal bilateral superior and inferior pubic rami. Normal pubic symphysis. Normal bilateral ischial tuberosities. There are mild osteoarthritic changes of the femoral head with suspected small subchondral cysts and tiny marginal osteophyte formation. Normal acetabulum. Intact right hip joint. There is no demonstrated acute fracture. RAD/HIP, UNI W/ Pelvis 2-3 Views IMPRESSION: Mild degenerative arthrosis of the right hip joint. No demonstrated acute fracture. Electronically Signed: Jun Guadalupe MD at 14:48 EST Reading Location ID and State: [address] [place] [address] , Service support , CC: Dr. Brooke Brown DO Surfacing Machine Operator: Signed Normal [facility] Knee 3 Viewson 05-12-2024 Knee 3 Views [facility] [address] [place] [address] Knee 3 Views MR#: [id number] Acct: [id number] Name: KRUNAL KERN Rep #: [id number] : 1990 F 34 From: Jun Guadalupe MD PCP: Dr. Brooke Brown DO Status: DEP AMB Study: Knee 3 Views Date of Exam: 05/12/24 Exam# [id number] Ordering Dr: Brooke Brown DO [id number] STUDY: X-RAY - RIGHT KNEE REASON FOR EXAM: Female, 34 years old. Knee pain, right. TECHNIQUE: 3 views of the right knee. COMPARISON: None. FINDINGS: Normal visualized distal femur. Normal visualized proximal tibia and fibula. Normal proximal tibiofibular articulation. There is no demonstrated fracture. Normal medial femorotibial compartment. Normal lateral femorotibial compartment. Normal patellofemoral articulation. There is no significant demonstrated joint effusion. The soft tissue structures are unremarkable. RAD/Knee 3 Views IMPRESSION: Normal x-ray examination of the right knee. Electronically Signed: Jun Guadalupe MD at 15:08 EST , CC: Dr. Brooke Brown, Surfacing Machine Operator: Signed Normal [facility] Absolute lymphocyte countOrd ered By: Ruthannchloe You on 10-29-2023 Lymphocytes Auto (Unsp spec) [#/Vol] 2.41 10*3/uL 0.83-4.51 [facility] Automated lymphocyte count a s percentage of total leukocytesOrdered By: Ruthann You on 10-29-2023 Lymphocytes/100 WBC Auto (Unsp spec) 41.3 % 19-41 [facility] Basophil percentageOrdered B y: Ruthannchloe You on 10-29-2023 Basophils/100 WBC (Bld) 0.9 % 0-1 [facility] Eosinophils/100 WBC (Bld) 2.7 % 0-5 [facility] Hemoglobin (Bld) [Mass/Vol] 12.0 g/dL 12.0-15.0 [facility] Monocytes/100 WBC (Bld) 6.7 % 0-[address] [facility] Neutrophils (Bld) [#/Vol] 2.8 10*3/uL 2.0-7.7 [facility] Neutrophils/100 WBC (Bld) 48.2 % 47-70 [facility] WBC (Bld) [#/Vol] 5.8 10*3/uL 4.4-11.0 [facility] Determination of erythrocyte mean corpuscular volume (MCV)Ordered By: Ruthann You on 10-29-2023 MCV (RBC) [Entitic vol] 87.9 fL 81-[address] [facility] Erythrocyte distribution wid th ratioOrdered By: Ruthannchloe You on 10-29-2023 Erythrocyte distribution width (RBC) [Ratio] 14.0 % 11.6-14.6 [facility] Erythrocyte distribution wid th standard deviationOrdered By: Ruthannchloe You on 10-29-2023 Erythrocyte distribution width (RBC) [Entitic vol] 44.8 fL 35.1-43.9 [facility] Hematocrit Auto (Bld) [Volum e fraction]Ordered By: Ruthann You on 10-29-2023 Hematocrit (Bld) [Volume fraction] 36.9 % 37-47 [facility] Immature granulocytes/100 WB C Auto (Bld)Ordered By: Ruthann You on 10-29-2023 Immature granulocytes/100 WBC (Bld) 0.200 % 0.0-0.9 [facility] Comment on above: IG% - Immature Granu locytes (promyelocytes, myelocytes and metamyelocytes) > 1% indicates that a LEFT SHIFT is Present. Laboratory - Chemistry and C hemistry - challengeon 10-29-2023 HCG ( test) Ql (U) Negative [facility] Laboratory - Hematology and Cell countsOrdered By: Ruthann You on 10-29-2023 MCH (RBC) [Entitic mass] 28.6 pg 27.0-32.0 [facility] MCHC (RBC) [Mass/Vol] 32.5 g/dL 32-36 [facility] Nucleated RBC/100 WBC (Bld) [Ratio] 0 % 0-5 [facility] Platelet mean volume (Bld) [Entitic vol] 11.9 fL 6.2-12.0 [facility] Platelets (Bld) [#/Vol] 277 10*3/uL 150-450 [facility] RBC Auto (Bld) [#/Vol]Ordere d By: Ruthann You on 10-29-2023 RBC (Bld) [#/Vol] 4.20 10*6/uL 4.2-5.4 [facility] Serum or plasma thyroid stim ulating hormone (TSH) measurement (units/volume)Ordered By: Ruthann You on 10-29-2023 TSH Qn 1.11 uIU/mL 0.358-3.74 [facility] Serum or plasma thyroperoxid ase antibody assay (units/volume)Ordered By: Ruthann You on 10-29-2023 TPO Ab Qn 11 [IU]/mL 0-34 [facility] Comment on above: Performed at: [address] [id number] Director: Manuel Mcintyre PhD, Phone: [phone] Thin prep Papanicolaou smear with manual screeningOrdered By: Ruthann You on 10-29-2023 Thin prep Papanicolaou smear with manual screening 1.03 ng/dL 0.76-1.46 [facility] Laboratory - Chemistry and C hemistry - challengeon 09-25-2021 Glucose Ql (U) Negative [facility] Work Phone: Laboratory - Urinalysison Protein Ql (U) Negative [facility] Work Phone: Laboratory - Chemistry and C hemistry - challengeon 09-17-2021 Glucose Ql (U) Negative [facility] Work Phone: Laboratory - Urinalysison Protein Ql (U) Negative [facility] Work Phone: Laboratory - Chemistry and C hemistry - challengeon 09-12-2021 Glucose Ql (U) Negative [facility] Work Phone: Laboratory - Urinalysison Protein Ql (U) Negative [facility] Work Phone: Laboratory - Chemistry and C hemistry - challengeon 09-07-2021 Glucose Ql (U) Negative [facility] Work Phone: Laboratory - Urinalysison Protein Ql (U) Negative [facility] Work Phone: No Panel Informationon 09-07 Group B Streptococcus Culture Group B Beta Streptococcus is not isolated. [facility] Work Phone: Laboratory - Chemistry and C hemistry - challengeon 08-22-2021 Glucose Ql (U) Negative [facility] Work Phone: Laboratory - Urinalysison Protein Ql (U) Negative [facility] Work Phone: Laboratory - Chemistry and C hemistry - challengeon 08-08-2021 Glucose Ql (U) Negative [facility] Work Phone: Laboratory - Urinalysison Protein Ql (U) Negative [facility] Work Phone: Absolute lymphocyte counton 07-04-2021 Lymphocytes Auto (Unsp spec) [#/Vol] 1.88 10*3/uL 0.83-4.51 [facility] Work Phone: Basophil percentageon 2021 Basophils/100 WBC (Bld) 0.3 % 0-1 [facility] Work Phone: Eosinophils/100 WBC (Bld) 3.1 % 0-5 [facility] Work Phone: Neutrophils (Bld) [#/Vol] 5.8 10*3/uL 2.0-7.7 [facility] Work Phone: Neutrophils/100 WBC (Bld) 66.5 % 47-70 [facility] Work Phone: WBC (Bld) [#/Vol] 8.7 10*3/uL 4.4-11.0 [facility] Work Phone: Blood erythrocytes count (nu mber/volume)on 07-04-2021 RBC (Bld) [#/Vol] 3.52 10*6/uL 4.2-5.4 [facility] Work Phone: Blood hemoglobin measurement (mass/volume)on 07-04-2021 Hemoglobin (Bld) [Mass/Vol] 11.6 g/dL 12.0-15.0 [facility] Work Phone: Blood lymphocytes/100 leukoc yteson 07-04-2021 Lymphocytes/100 WBC (Bld) 21.7 % 19-41 [facility] Work Phone: Blood monocytes/100 leukocyt eson 07-04-2021 Monocytes/100 WBC (Bld) 7.0 % 0-10 [facility] Work Phone: Blood platelet mean volumeon 07-04-2021 Platelet mean volume (Bld) [Entitic vol] 11.9 fL 6.2-12.0 [facility] Work Phone: Determination of erythrocyte mean corpuscular volume (MCV)on 07-04-2021 MCV (RBC) [Entitic vol] 95.5 fL 81-99 [facility] Work Phone: Gestational diabetes screen 1-hour screen with 50g oral glucose loadon 07-04-2021 Glucose 1 Hr post 50 g glucose PO [Mass/Vol] 57 mg/dL 70-140 [facility] Work Phone: Hematocrit Auto (Bld) [Volum e fraction]on 07-04-2021 Hematocrit (Bld) [Volume fraction] 33.6 % 37-47 [facility] Work Phone: Laboratory - Chemistry and C hemistry - challengeon 07-04-2021 Glucose Ql (U) Negative [facility] Work Phone: Laboratory - Hematology and Cell countson 07-04-2021 Erythrocyte distribution width (RBC) [Entitic vol] 44.5 fL 35.1-43.9 [facility] Work Phone: Erythrocyte distribution width (RBC) [Ratio] 12.9 % 11.6-14.6 [facility] Work Phone: Immature granulocytes/100 WBC (Bld) 1.400 % 0.0-0.9 [facility] Work Phone: Comment on above: IG% - Immature Granu locytes (promyelocytes, myelocytes and metamyelocytes) > 1% indicates that a LEFT SHIFT is Present. MCH (RBC) [Entitic mass] 33.0 pg 27.0-32.0 [facility] Work Phone: Nucleated RBC/100 WBC (Bld) [Ratio] 0 % 0-5 [facility] Work Phone: Laboratory - Urinalysison Protein Ql (U) Negative [facility] Work Phone: MCHC Auto (RBC) [Mass/Vol]on 07-04-2021 MCHC (RBC) [Mass/Vol] 34.5 g/dL 32-36 [facility] Work Phone: Platelets bldon 07-04-2021 Platelets (Bld) [#/Vol] 193 10*3/uL 150-450 [facility] Work Phone: Laboratory - Chemistry and C hemistry - challengeon 06-08-2021 Glucose Ql (U) Negative [facility] Work Phone: Laboratory - Urinalysison Protein Ql (U) Negative [facility] Work Phone: PROGRESSon 07-21-2017 PROGRESS HNO ID: [id number] Author: Kathleen Wolff Psr Service: (none) Author Type: (none) Type: Progress Notes Filed: 07/21/2017 9:10 AM Note Text: pap logged. letter sent. Kathleen Wolff Psr Normal [facility] CYTOLOGYon 07-09-2017 [facility]Y [facility]: [id number] Physician: ARMANDO CROCKERPECIMEPratik SUBMITTEDA: CERVICAL, DIAGNOSTIC, FLUID FINAL DIAGNOSISA. CERVICAL, DIAGNOSTIC, FLUIDSatisfactory for interpretation.Negative for intraepithelial lesion or malignancy.This specimen has been analyzed by the ThinPrep Imaging System, anautPlaceFulled imaging and review system, which assists the laboratory inevaluating cells on ThinPrep Pap tests. Following automated imaging,selected santos from every slide are reviewed by a biopsychologist.Suhail David M.D. (Electronic Signature) CLINI NADIRA DATA ABNORMAL PAP, HPV Testing: Yes, Reflex HPV for ASCUSDate of Last Menstrual Period:PostpartumClinica l History:H/O LGSIL: 02/2016Additional Testing:Reflex HPV testing for ASCUSSTAINSA: CERVICAL, DIAGNOSTIC, FLUID THIN PREP GYNPatient ID #: [id number] of Report: 07/18/2017Date of Procedure: 07/09/2017Date of Receipt: 07/11/2017Submitted by: SARAH CROCKERocation: WOREFDiagnostic interpretation performed at [facility], [address] [place] [id number].The Pap Smear is a screening test for cervical cancer. False negativeresults occur with all screening tests, emphasizing the need forrescreening at recommended intervals, and clinical correlation. Normal [facility] HOSPon 07-09-2017 HOSP Office Vi sit (WOOB) FERNANDOKELI PHILLIP ([id number]) 1990 FDate Time Provider Department07/09/17 3:15 PM CELINA KEY (JOHN) WOOB During your visit today, we recorded the following information about you: Blood pressure Weight 110/70 64 kgCelina Key CNM 07/09/2017 4:39 PM SignedPOSTPARTUM VISITKrunal Alcantar is a 27 year old year old here for visit.Delivery Summary: of female un medicated. Nitrous used throughoutlabor. Shoulder dystocia.05/21/2017Postp artum Recovery:Feeding: Breast feedingBreastfeeding problems: NoneMenses since delivery: Not resumedMenstrual pattern prior to : Irregular periodsIntercourse since delivery: Not resumedDepression: denies symptoms of depression. See depression screeningtab.Emotional support: Yes, Good supportBowel symptoms: Negative for abdominal discomfort, blood in stools or blackstools and change in bowel habitsBladder symptoms: No dysuria, gross hematuria, urinary frequency, urinaryurgency, or incontinenceLast Pap: 2016 abnormal, LGSIL HPV: N/APAST MEDICAL HISTORYDiagnosis Date- NEGATIVE MEDICAL HISTORYPAST SURGICAL HISTORYProcedure Laterality Date- EXTRACTION ERUPTED TOOTH/EXR wisdom teeth- PAST SURGICAL HISTORY OF 03/29/16 oral surgery on gumsFAMILY HISTORYProblem Relation Age of Onset- Cancer Paternal Grandfather colon cancerSOCIAL HISTORY Social History Marital status: Single Spouse name: Years of education: Number of children:Social History Main Topics Smoking status: Former Smoker Packs/day: 0.25 Years: 6.00 Smokeless status: Never Used Alcohol use: Yes Comment: weekly Drug use: No Sexual activity: Yes Partners with: Male control/protection: NonePHYSICAL EXAMINATION:BP 110/70 Wt 141 lb (64.0kg)GENERAL: pleasant, female in no apparent distressHEENT: Normocephalic, atraumatic, mucus membranes moist and no lesionsNECK: Supple, full range of motion, no adenopathy and thyroid normalDERMATOLOGY: Normal, without lesions, non-icteric and non-hirsuteBREAST: soft, non-tender, symmetric, no dominant mass, normal nipple-areolarcomplex, no lymphadenopathy and no nipple dischargeCHEST: Clear to auscultation Normal inspiratory effort Regular rate and rhythmNo murmurs, clicks, rubs or gallopsABDOMEN: soft, non-tender and no masses.PELVIC: external genitalia normal, normal Bartholin's glands, urethra, Bienville'sglands, no vulvar lesions, no cervical lesions, good vaginal support,physiologic discharge present, normal appearing perineal body and perianalregionBIMANUAL: uterus normal size, shape and consistency, no adnexal masses andnon-tenderNEURO: alert and oriented x3,exam grossly non-focalEXTREMITIES: normalASSESSMENT AND PLAN:27 year old status post with normal course.Contraception plan: withdrawal and condoms . Reviewed different controloptions.Follow up: Pap smear done - will notify patient of results, RTC for annualexams and PRTi Mensah Psr 07/21/2017 9:10 AM Signedpap logged. letter sent. 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 #:[id number] List As Of Date 07/09/2017 Noted Resolved Anorexia nervosa, binge eating/purging type [F5*INVALID FOR* Left breast mass [N63.20] INVALID FOR*12/05/2016 Encounter for supervision of normal first pregn*INVALID FOR*Medications Discontinued During This Encounter DOCOSAHEXANOIC ACID ( DHA OR* 07/09/2017 Class: Historical Med Route: ORAL Sig: Take by mouth. Disc: Reason for discontinue is not on file.Disposition: Return in about 1 year (around 07/09/2018) for Annual or PRN.Follow-up and Disposition History RecordedLetter [facility] [place] [id number]: [phone] [address] [address]/21/2017CCF: [id number] Hector,We are pleased to inform you that your recent Pap Test was within normallimits.Because Pap tests are so effective in the early detection of cervical cancer,you are encouraged to continue having the test at regular intervals.You will be due for a 1 year Gynecological Exam after this date 07/09/2018.If you have any questions regarding the above information, do not hesitate tocall our office at between the hours of 8:00 a.m. and 5:00p.m.Sincerely,Cynthia SUTTONMEncounter Number: [id number] Status:Closed by CELINA KEY on 07/09/17 [facility] PRO[facility]ESSon 07-09-2017 PROGRESS HNO ID: [id number]: Celina ([facility]) Mack: (none)Author Type: MidwifeType: Progress NotesFiled: 07/09/2017 4:39 PMNote Text: VISITKrunal Alcantar is a 27 year old year old here for postpartumvisit.Delivery Summary: of female un medicated. Nitrous usedthroughout labor. Shoulder dystocia.05/21/2017Postp artum Recovery:Feeding: Breast feedingBreastfeeding problems: NoneMenses since delivery: Not resumedMenstrual pattern prior to : Irregular periodsIntercourse since delivery: Not resumedDepression: denies symptoms of depression. See depressionscreening tab.Emotional support: Yes, Good supportBowel symptoms: Negative for abdominal discomfort, blood in stools orblack stools and change in bowel habitsBladder symptoms: No dysuria, gross hematuria, urinary frequency, urinaryurgency, or incontinenceLast Pap: 2016 abnormal, LGSIL HPV: N/APAST MEDICAL HISTORYDiagnosis Date- NEGATIVE MEDICAL HISTORYPAST SURGICAL HISTORYProcedure Laterality Date- EXTRACTION ERUPTED TOOTH/EXR wisdom teeth- PAST SURGICAL HISTORY OF 03/29/16 oral surgery on gumsFAMILY HISTORYProblem Relation Age of Onset- Cancer Paternal Grandfather colon cancerSOCIAL HISTORY Social History Marital status: Single Spouse name: Years of education: Number of children:Social History Main Topics Smoking status: Former Smoker Packs/day: 0.25 Years: 6.00 Smokeless status: Never Used Alcohol use: Yes Comment: weekly Drug use: No Sexual activity: Yes Partners with: Male control/protection: NonePHYSICAL EXAMINATION:BP 110/70 Wt 141 lb (64.0kg)GENERAL: pleasant, female in no apparent distressHEENT: Normocephalic, atraumatic, mucus membranes moist and no lesionsNECK: Supple, full range of motion, no adenopathy and thyroid normalDERMATOLOGY: Normal, without lesions, non-icteric and non-hirsuteBREAST: soft, non-tender, symmetric, no dominant mass, normalnipple-areolar complex, no lymphadenopathy and no nipple dischargeCHEST: Clear to auscultation Normal inspiratory effort Regular rate andrhythm No murmurs, clicks, rubs or gallopsABDOMEN: soft, non-tender and no masses.PELVIC: external genitalia normal, normal Bartholin's glands, urethra,Bienville's glands, no vulvar lesions, no cervical lesions, good vaginalsupport, physiologic discharge present, normal appearing perineal body andperianal regionBIMANUAL: uterus normal size, shape and consistency, no adnexal masses andnon-tenderNEURO: alert and oriented x3,exam grossly non-focalEXTREMITIES: normalASSESSMENT AND PLAN:27 year old status post with normal course.Contraception plan: withdrawal and condoms . Reviewed different birthcontrol options.Follow up: Pap smear done - will notify patient of results, RTC for annualexams and PRNCelina Key CNM Normal [facility] HOSPon 05-23-2017 HOSP Patient Update (WOOB) KELI ALCANTAR ([id number]) 1990 FDate Time Provider Fwycdkjkez01/24/17 CELINA KEY (JOHN) WOOB During your visit today, we recorded the following information about you:Kathleen Yousif LPN 05/23/2017 11:49 AM SignedPt delivered via at [facility] on 05/21[facility]17 per Celina Key CNM. See OB Outcomenote. Kathleen Yousif LPNAllergies As of Date: 05/23/2017(No Known Allergies)Date Reviewed: 05/19/2017Reviewed by: Mary Alice Geiger Ma - Fully AssessedPrescriptions as of 05/23/2017 Sig: DHA ORAL Take by mouth.Problem List As Of Date 05/23/2017 Noted Resolved Anorexia nervosa, binge eating/purging type [F5*INVALID FOR* Left breast mass [N63.20] INVALID FOR*12/05/2016 Encounter for supervision of normal first pregn*INVALID FOR* Status:Closed by KATHLEEN YOUSIF LPN on 05/23/17 Normal [facility] PROGRESSon 05-23-2017 PROGRESS HNO ID: [id number] Author: Kathleen Yousif LPN Service: (none) Author Type: (none) Type: Progress Notes Filed: 05/23/2017 11:49 AM Note Text: Pt delivered via at [facility] on 05/21/17 per Celina Key CNM. See OB Outcome note. Kathleen Yousif LPN Normal [facility] HOSPon 05-19-2017 HOSP Routine Off ice Visit (WOOB) KELI ALCANTAR ([id number]) 1990 FDate Time Provider Vihvhachqk03/20/17 2:30 PM CELINA KEY (JOHN) WOOB During your visit today, we recorded the following information about you: Blood pressure Weight 110/64 78 kgMary Alice Geiger In 05/19/2017 2:44 PM SignedSEQUENTIAL SCREENINGSThe [facility] offers sequential screenings for women who are interestedin screenings for chromosomal abnormalities and certain defects during apregnancy. The sequential screen combines ultrasound and blood tests todetermine the risk of chromosomal abnormalities, including Down's Syndrome(Trisomy 21) and Trisomy 18, as well as open neural tube defects includingspina bifida. Ultrasound examination is performed between 11 weeks and 13 weeksgestational age. Blood tests are drawn after the ultrasound and again later inthe between 15 and 21 weeks gestational age. Please let yourphysician know if you are interested in this testing. It will require anappointment with our digital cartographic technician. This is not an ultrasound performedby a physician in our office during a routine visit.SIGNS AND SYMPTOMS OF LABOR1. Contractions every 10 minutes or more often2. Clear, pink, or brownish fluid (water) leaking from vagina3. Feeling that baby is pushing down, pressure4. Low, dull backache5. Cramps that feel like a period6. Cramps with or without diarrheaIf you notice any of the above symptoms, contact our office at [phone] andask to speak with a nurse.After hours, you can call doctors registry at [phone] OR [facility] at [phone] and ask to have the doctor donkey engine firer/fireman paged.If you consider this an emergency, dial 9-7 or go to your nearest emergencydepartment.NEED HELP? Are you dealing with a violent or abusive relationship? Are you avictim of rape or sexual assult? Call [facility] ([place]) 24 hourCrisis Hotline: 276.203.6642 or 151-643-7665. MANUALYour Guide to a Healthy manual is now on-line. [email or web address] to download your free copyReferring Provider: SELF [200]Allergies As of Date: 05/19/2017(No Known Allergies)Date Reviewed: 05/19/2017Reviewed by: Mary Alice Geiger Ma - Fully AssessedReason for Visit: Care [86]Primary Visit Diagnosis:Encounter for supervision of normal first in third trimester [Z34.03] Other Visit Diagnoses:40 weeks gestation of [Z3A.40] Post-term , 40-42 weeks of gestation [O48.0]Order(s):URINE OB DIP B/O [[id number]] Order #: [id number] OBSTETRIC ULTRASOUND WHI [[id number]] Order #: [id number]: 1 NON-STRESS TEST [[id number]] Order #: [id number] as of 05/19/2017 Sig: DHA ORAL Take by mouth.Problem List As Of Date 05/19/2017 Noted Resolved Anorexia nervosa, binge eating/purging type [F5*INVALID FOR* Left breast mass [N63.20] INVALID FOR*12/05/2016 Encounter for supervision of normal first pregn*INVALID FOR* Other instructions from your clinician: SEQUENTIAL SCREENINGS The [facility] offers sequential screenings for women who are interested in screenings for chromosomal abnormalities and certain defects during a . The sequential screen combines ultrasound and blood tests to determine the risk of chromosomal abnormalities, including Down's Syndrome (Trisomy 21) and Trisomy 18, as well as open neural tube defects including spina bifida. Ultrasound examination is performed between 11 weeks and 13 weeks gestational age. Blood tests are drawn after the ultrasound and again later in the between 15 and 21 weeks gestational age. Please let your physician know if you are interested in this testing. It will require an appointment with our digital cartographic technician. This is not an ultrasound performed by a physician in our office during a routine visit. SIGNS AND SYMPTOMS OF LABOR 1. Contractions every 10 minutes or more often 2. Clear, pink, or brownish fluid (water) leaking from vagina 3. Feeling that baby is pushing down, pressure 4. Low, dull backache 5. Cramps that feel like a period 6. Cramps with or without diarrhea If you notice any of the above symptoms, contact our office at [phone] and ask to speak with a nurse. After hours, you can call doctors registry at [phone] OR call [facility] at [phone] and ask to have the doctor donkey engine firer/fireman paged. If you consider this an emergency, dial 7-1-3 or go to your nearest emergency department. NEED HELP? Are you dealing with a violent or abusive relationship? Are you a victim of rape or sexual assult? Call [facility] ([place]) 24 hour Crisis Hotline: 517.614.2633 or 461-576-3775. MANUAL Your Guide to a Healthy manual is now on-line. Visit [email or web address] thyPregnancyGuide to download your free copyDisposition: Return if symptoms worsen or fail to improve, for Appointment with CM.Follow-up and Disposition History RecordedEncounter Number: [id number] Status:Closed by CELINA KEY on 05/19/17 [facility] 05-16-2017 [facility] Routine Off ice Visit (WOOB) KELI ALCANTAR ([id number]) 1990 [facility] Rcqvqrrene23/17/17 1:00 PM CELINA KEY (JOHN) ROSELINE During your visit today, we recorded the following information about you: Blood pressure Weight 110/64 77.7 kgHayley Piotr Velez 05/16/2017 1:01 PM SignedSEQUENTIAL SCREENINGSThe [facility] offers sequential screenings for women who are interestedin screenings for chromosomal abnormalities and certain defects during apregnancy. The sequential screen combines ultrasound and blood tests todetermine the risk of chromosomal abnormalities, including Down's Syndrome(Trisomy 21) and Trisomy 18, as well as open neural tube defects includingspina bifida. Ultrasound examination is performed between 11 weeks and 13 weeksgestational age. Blood tests are drawn after the ultrasound and again later inthe between 15 and 21 weeks gestational age. Please let yourphysician know if you are interested in this testing. It will require anappointment with our digital cartographic technician. This is not an ultrasound performedby a physician in our office during a routine visit.SIGNS AND SYMPTOMS OF LABOR1. Contractions every 10 minutes or more often2. Clear, pink, or brownish fluid (water) leaking from vagina3. Feeling that baby is pushing down, pressure4. Low, dull backache5. Cramps that feel like a period6. Cramps with or without diarrheaIf you notice any of the above symptoms, contact our office at [phone] andask to speak with a nurse.After hours, you can call doctors registry at [phone] OR call [facility] at [phone] and ask to have the doctor donkey engine firer/fireman paged.If you consider this an emergency, dial 0-2-9 or go to your nearest emergencydepartment.NEED HELP? Are you dealing with a violent or abusive relationship? Are you avictim of rape or sexual assult? Call [facility] ([place]) 24 hourCrisis Hotline: 655.475.8630 or 926-555-3231. MANUALYour Guide to a Healthy manual is now on-line. [email or web address] /HealthyPregnancyGuide to download your free copyReferring Provider: SELF [200]Allergies As of Date: 05/16/2017(No Known Allergies)Date Reviewed: 05/16/2017Reviewed by: Anjelica Saldaña Ma - Fully AssessedReason for Visit: Care [86]Primary Visit Diagnosis:Encounter for supervision of normal first in third trimester [Z34.03] Other Visit Diagnosis:39 weeks gestation of [Z3A.39]Order(s):URINE OB DIP B/O [[id number]] Order #: [id number] as of 05/16/2017 Sig: DHA ORAL Take by mouth.Problem List As Of Date 05/16/2017 Noted Resolved Anorexia nervosa, binge eating/purging type [F5*INVALID FOR* Left breast mass [N63.20] INVALID FOR*12/05/2016 Encounter for supervision of normal first pregn*INVALID FOR* Other instructions from your clinician: SEQUENTIAL SCREENINGS The [facility] offers sequential screenings for women who are interested in screenings for chromosomal abnormalities and certain defects during a . The sequential screen combines ultrasound and blood tests to determine the risk of chromosomal abnormalities, including Down's Syndrome (Trisomy 21) and Trisomy 18, as well as open neural tube defects including spina bifida. Ultrasound examination is performed between 11 weeks and 13 weeks gestational age. Blood tests are drawn after the ultrasound and again later in the between 15 and 21 weeks gestational age. Please let your physician know if you are interested in this testing. It will require an appointment with our digital cartographic technician. This is not an ultrasound performed by a physician in our office during a routine visit. SIGNS AND SYMPTOMS OF LABOR 1. Contractions every 10 minutes or more often 2. Clear, pink, or brownish fluid (water) leaking from vagina 3. Feeling that baby is pushing down, pressure 4. Low, dull backache 5. Cramps that feel like a period 6. Cramps with or without diarrhea If you notice any of the above symptoms, contact our office at [phone] and ask to speak with a nurse. After hours, you can call [employer] [facility] at [phone] OR call [facility] at [phone] and ask to have the doctor donkey engine firer/fireman paged. If you consider this an emergency, dial 9-1-2 or go to your nearest emergency department. NEED HELP? Are you dealing with a violent or abusive relationship? Are you a victim of rape or sexual assult? Call [facility] ([place]) 24 hour Crisis Hotline: 528.380.5819 or 912-380-8934. MANUAL Your Guide to a Healthy manual is now on-line. Visit [email or web address]/Heal thyPregnancyGuide to download your free copyDisposition: Return in about 1 week (around 05/23/2017), or if symptoms worsen or fail to improve, for FRANCO.Follow-up and Disposition History RecordedEncounter Number: [id number] Status:Closed by CELINA KEY on 05/16/17 [facility] 05-07-2017 [facility] Routine Off ice Visit (WOOB) KELI ALCANTAR ([id number]) 1990 [facility] Time Provider Mbsqimwymy27/8/17 8:15 AM CELINA KEY ([facility]) WOOB During your visit today, we recorded the following information about you: Blood pressure Weight 102/66 77.1 kgPoloy [facility] 8:23 AM SignedSEQUENTIAL SCREENINGSThe [facility] offers sequential screenings for women who are interestedin screenings for chromosomal abnormalities and certain defects during apregnancy. The sequential screen combines ultrasound and blood tests todetermine the risk of chromosomal abnormalities, including Down's Syndrome(Trisomy 21) and Trisomy 18, as well as open neural tube defects includingspina bifida. Ultrasound examination is performed between 11 weeks and 13 weeksgestational age. Blood tests are drawn after the ultrasound and again later inthe between 15 and 21 weeks gestational age. Please let yourphysician know if you are interested in this testing. It will require anappointment with our digital cartographic technician. This is not an ultrasound performedby a physician in our office during a routine visit.SIGNS AND SYMPTOMS OF LABOR1. Contractions every 10 minutes or more often2. Clear, pink, or brownish fluid (water) leaking from vagina3. Feeling that baby is pushing down, pressure4. Low, dull backache5. Cramps that feel like a period6. Cramps with or without diarrheaIf you notice any of the above symptoms, contact our office at [phone] andask to speak with a nurse.After hours, you can call doctors registry at [phone] OR [facility] at [phone] and ask to have the doctor donkey engine firer/fireman paged.If you consider this an emergency, dial 5-6-5 or go to your nearest emergencydepartment.NEED HELP? Are you dealing with a violent or abusive relationship? Are you avictim of rape or sexual assult? Call [facility] ([place]) 24 hourCrisis Hotline: 461.729.4568 or 179-918-9730. MANUALYour Guide to a Healthy manual is now on-line. [email or web address] /HealthyPregnancyGuide to download your free copyReferring Provider: SELF [200]Allergies As of Date: 05/07/2017(No Known Allergies)Date Reviewed: 05/07/2017Reviewed by: Celina JamesEmerson Key - Fully AssessedReason for Visit: Care [86]Primary Visit Diagnosis:Encounter for supervision of normal first in third trimester [Z34.03] Other Visit Diagnosis:38 weeks gestation of [Z3A.38]Order(s):URINE OB DIP B/O [[id number]] Order #: [id number] as of 05/07/2017 Sig: DHA ORAL Take by mouth.Problem List As Of Date 05/07/2017 Noted Resolved Anorexia nervosa, binge eating/purging type [F5*INVALID FOR* Left breast mass [N63.20] INVALID FOR*12/05/2016 Encounter for supervision of normal first pregn*INVALID FOR* Other instructions from your clinician: SEQUENTIAL SCREENINGS The [facility] offers sequential screenings for women who are interested in screenings for chromosomal abnormalities and certain defects during a . The sequential screen combines ultrasound and blood tests to determine the risk of chromosomal abnormalities, including Down's Syndrome (Trisomy 21) and Trisomy 18, as well as open neural tube defects including spina bifida. Ultrasound examination is performed between 11 weeks and 13 weeks gestational age. Blood tests are drawn after the ultrasound and again later in the between 15 and 21 weeks gestational age. Please let your physician know if you are interested in this testing. It will require an appointment with our digital cartographic technician. This is not an ultrasound performed by a physician in our office during a routine visit. SIGNS AND SYMPTOMS OF LABOR 1. Contractions every 10 minutes or more often 2. Clear, pink, or brownish fluid (water) leaking from vagina 3. Feeling that baby is pushing down, pressure 4. Low, dull backache 5. Cramps that feel like a period 6. Cramps with or without diarrhea If you notice any of the above symptoms, contact our office at [phone] and ask to speak with a nurse. After hours, you can call doctors registry at [phone] OR call [facility] at [phone] and ask to have the doctor donkey engine firer/fireman paged. If you consider this an emergency, dial 3-1-6 or go to your nearest emergency department. NEED HELP? Are you dealing with a violent or abusive relationship? Are you a victim of rape or sexual assult? Call [facility] ([place]) 24 hour Crisis Hotline: 301.600.6454 or 378-070-9416. MANUAL Your Guide to a Healthy manual is now on-line. Visit [email or web address] thyPregnancyGuide to download your free copyDisposition: Return in about 1 week (around 05/14/2017), or if symptoms worsen or fail to improve, for FRANCO.Follow-up and Disposition History RecordedEncounter Number: [id number] Status:Closed by CELINA KEY on 05/07/17 Normal [facility] Jerel 05-02-2017 Alanine aminotransferase (ALT) 12 U/L Normal 7-38 [facility] Comment on above: Performed By: #### C BC, ALT, AST, BUN, CRET1, URIC ####[facility] [place], [place] [phone] Nabeel 05-02-2017 Aspartate aminotransferase (AST) 23 U/L Normal 13-35 [facility] Comment on above: Performed By: #### C BC, ALT, AST, BUN, CRET1, URIC ####[place] [id number], [place] [phone] BUNon 05-02-2017 Urea nitrogen 14 mg/dL Normal 7-21 [facility] Comment on above: Performed By: #### C BC, ALT, AST, BUN, CRET1, URIC ####[place] [address] [address], [place] [phone] CBCon 05-02-2017 Erythrocyte distribution width Auto Ratio (RBC) 12.9 % Normal 11.5-15.0 [facility] Comment on above: Performed By: #### C BC, ALT, AST, BUN, CRET1, URIC ####[place] [address] [address], [place] [phone] Erythrocytes (RBC) 10*6/uL Normal <0.01 [facility] Comment on above: Performed By: #### C BC, ALT, AST, BUN, CRET1, URIC ####[place] [address] [address], [place] [phone] Erythrocytes (RBC) 3.76 10*6/uL Low 3.90-5.20 [facility] [place] [facility] Comment on above: Performed By: #### C BC, ALT, AST, BUN, CRET1, URIC ####[place] [address] [address], [place] [phone] Hematocrit (HCT) 36.3 % Normal 36.0-46.0 [facility] Comment on above: Performed By: #### C BC, ALT, AST, BUN, CRET1, URIC ####[place] [address] [address], [place] [phone] Hemoglobin mass conc (Bld) 11.9 g/dL Normal 11.5-15.5 [facility] Comment on above: Performed By: #### C BC, ALT, AST, BUN, CRET1, URIC ####[place] [address] [address] [place] [phone] MCH 31.6 pG Normal 26.0-34.0 [facility] Comment on above: Performed By: #### C BC, ALT, AST, BUN, CRET1, URIC ####[address] [place] [phone] MCHC mass conc (RBC) 32.8 g/dL Normal 30.5-36.0 [facility] [place] [facility] Comment on above: Performed By: #### C BC, ALT, AST, BUN, CRET1, URIC ####[place] [phone] MCV 96.5 fL Normal 80.0-100.0 [facility] Comment on above: Performed By: #### C BC, ALT, AST, BUN, CRET1, URIC ####[place] [phone] Platelet mean volume (PMV) 13.9 fL High 9.0-12.7 [facility] Comment on above: Performed By: #### C BC, ALT, AST, BUN, CRET1, URIC ####[place] [phone] Platelets 163 10*3/uL Normal 150-400 [facility] Comment on above: Result Comment: Resu lt checked and verifiedNo clot detected. Performed By: #### C BC, ALT, AST, BUN, CRET1, URIC ####[place] [phone] WBC (Leukocytes) 8.65 10*3/uL Normal 3.70-11.00 [facility] Comment on above: Performed By: #### C BC, ALT, AST, BUN, CRET1, URIC ####[address] [place], [place] [phone] Creatinineon 05-02-2017 Creatinine 0.74 mg/dL Normal 0.58-0.96 [facility] Comment on above: Performed By: #### C BC, ALT, AST, BUN, CRET1, URIC ####[facility] [place], [place] [phone] eGFR (non-black) mL/min/{1.73_m2} Normal [facility] Comment on above: Result Comment: eGFR (Estimated GFR) Units of measure: mL/min/1.73 meters squaredeGFR is derived from the reexpressed MDRD Study equation using the following parameters: serum creatinine, age, gender and race. The creatinine assay has been calibrated to be traceable to IDMS.An eGFR <60 mL/min/1.73m2 for >3 months is consistent with chronic kidney disease. Refer to KDOQI guidelines for clinical interpretation.In patients with unstable renal function, e.g. those with acute kidney injury, the eGFR may not accurately reflect actual GFR. Performed By: #### C BC, ALT, AST, BUN, CRET1, URIC ####[facility] [address] [place], [place] [phone] HOSPon 05-02-2017 HOSP Routine Off ice Visit (WOOB) [facility]CANTAR ([id number]) [facility] Rmnprxkvnn12/3/17 11:00 AM CELINA KEY ([facility]) WOOB During your visit today, we recorded the following information about you: Blood pressure Weight 100/62 76.2 kgShellmike Naik TAILOR HELPER 05/02/2017 11:00 AM SignedSEQUENTIAL SCREENINGSThe [facility] offers sequential screenings for women who are interestedin screenings for chromosomal abnormalities and certain defects during apregnancy. The sequential screen combines ultrasound and blood tests todetermine the risk of chromosomal abnormalities, including Down's Syndrome(Trisomy 21) and Trisomy 18, as well as open neural tube defects includingspina bifida. Ultrasound examination is performed between 11 weeks and 13 weeksgestational age. Blood tests are drawn after the ultrasound and again later inthe between 15 and 21 weeks gestational age. Please let yourphysician know if you are interested in this testing. It will require anappointment with our digital cartographic technician. This is not an ultrasound performedby a physician in our office during a routine visit.SIGNS AND SYMPTOMS OF LABOR1. Contractions every 10 minutes or more often2. Clear, pink, or brownish fluid (water) leaking from vagina3. Feeling that baby is pushing down, pressure4. Low, dull backache5. Cramps that feel like a period6. Cramps with or without diarrheaIf you notice any of the above symptoms, contact our office at [phone] andask to speak with a nurse.After hours, you can call doctors registry at [phone] OR call [facility] at [phone] and ask to have the doctor donkey engine firer/fireman paged.If you consider this an emergency, dial 9-1- or go to your nearest emergencydepartment.NEED HELP? Are you dealing with a violent or abusive relationship? Are you avictim of rape or sexual assult? Call [facility] ([place]) 24 hourCrisis Hotline: 296.626.9562 or 905-088-7632. MANUALYour Guide to a Healthy manual is now on-line. [email or web address] /HealthyPregnancyGuide to download your free copyReferring Provider: SELF [200]Allergies As of Date: 05/02/2017(No Known Allergies)Date Reviewed: 05/02/2017Reviewed by: Zena Naik LPN - Fully AssessedReason for Visit: Care [86]Primary Visit Diagnosis:Encounter for supervision of normal first in third trimester [Z34.03]Order(s):URINE OB DIP B/O [[id number]] Order #: [id number] ALT/SGPT [SQALT] Order #: [id number] FUTURE AST/SGOT BLD [SQAST] Order #: [id number] FUTURE BUN BLOOD [SQBUN] Order #: [id number] FUTURE URIC ACID BLOOD [SQURIC] Order #: [id number] FUTURE CREATININE BLD [SQCRET] Order #: [id number] FUTURE CBC [SQCBC] Order #: [id number] FUTURE PROTEIN CREATININE RATIO [SQPRATIO] Order #: [id number] FUTUREPrescriptions as of 05/02/2017 Sig: DHA ORAL Take by mouth.Problem List As Of Date 05/02/2017 Noted Resolved Anorexia nervosa, binge eating/purging type [F5*INVALID FOR* Left breast mass [N63.20] INVALID FOR*12/05/2016 Encounter for supervision of normal first pregn*INVALID FOR* Other instructions from your clinician: SEQUENTIAL SCREENINGS The [facility] offers sequential screenings for women who are interested in screenings for chromosomal abnormalities and certain defects during a . The sequential screen combines ultrasound and blood tests to determine the risk of chromosomal abnormalities, including Down's Syndrome (Trisomy 21) and Trisomy 18, as well as open neural tube defects including spina bifida. Ultrasound examination is performed between 11 weeks and 13 weeks gestational age. Blood tests are drawn after the ultrasound and again later in the between 15 and 21 weeks gestational age. Please let your physician know if you are interested in this testing. It will require an appointment with our digital cartographic technician. This is not an ultrasound performed by a physician in our office during a routine visit. SIGNS AND SYMPTOMS OF LABOR 1. Contractions every 10 minutes or more often 2. Clear, pink, or brownish fluid (water) leaking from vagina 3. Feeling that baby is pushing down, pressure 4. Low, dull backache 5. Cramps that feel like a period 6. Cramps with or without diarrhea If you notice any of the above symptoms, contact our office at [phone] and ask to speak with a nurse. After hours, you can call doctors registry at [phone] OR call [facility] at [phone] and ask to have the doctor donkey engine firer/fireman paged. If you consider this an emergency, dial 02-28- or go to your nearest emergency department. NEED HELP? Are you dealing with a violent or abusive relationship? Are you a victim of rape or sexual assult? Call [facility] ([place]) 24 hour Crisis Hotline: 960.404.3156 or 684-117-4994. MANUAL Your Guide to a Healthy manual is now on-line. Visit [email or web address] thyPregnancyGuide to download your free copyDisposition: Return in about 1 week (around 05/09/2017), or if symptoms worsen or fail to improve.Follow-up and Disposition History RecordedEncounter Number: [id number] Status:Closed by CELINA KEY on 05/02/17 Normal [facility] Protein/Creatinine Ratioon 1 07-02-2016 Creatinine,Urine,Ran 79.9 mg/dL Normal 20-300 [facility] [place] [facility] Comment on above: Performed By: #### P RATIO ####[address] [phone] Protein Urine Random 21 mg/dL High 0-20 [facility] [place] [facility] Comment on above: Performed By: #### P RATIO ####[address] [phone] Protein/Creatinine Ratio 0.3 High <0.2 [facility] Comment on above: Performed By: #### P RATIO ####[address] [phone] Uric Acidon 05-02-2017 Urate 3.7 mg/dL Normal 2.5-6.6 [facility] Comment on above: Performed By: #### C BC, ALT, AST, BUN, CRET1, URIC ####[address] [phone] HIV 12 Combo (Ag/Ab)on 04-24 HIV 12 Ag/Ab Non Reactive Normal Non Reactive [facility] Comment on above: Result Comment: (NOT E)HIV Information: [place] Rev. Code 3701.243(E):This information has been disclosed to you from confidential recordsprotected from disclosure by state law. You shall make no furtherdisclosure of this information without the specific, written, andinformed release of the individual to whom it pertains, or asotherwise permitted by state law. A general authorization for therelease of medical or other information is not sufficient for thepurpose of the release of HIV test results or diagnoses. Performed By: #### S YPHGX, RUBIGG, HBSAG, HIV12C ####[place] [phone] Hepatitis B Surf. Agon 04-24 Hepatitis B Surf. Ag Negative Normal Negative [facility] [place] [facility] Comment on above: Performed By: #### S YPHGX, RUBIGG, HBSAG, HIV12C ####[place] [phone] Rubella IgG Antibodyon 04-24 Rubella IgG Ab 1.54 Index Value Normal [facility] [place] [facility] Comment on above: Result Comment: Inde x values are interpreted as follows:Negative specimens <0.90Equivocol specimens 0.90 to 0.99Positive specimens >0.99The magnitude of the measured result is not indicative of the amount of antibody present. Performed By: #### S YPHGX, RUBIGG, HBSAG, HIV12C ####[place] [phone] Rubella IgG Ab, Qual Positive Critically abnormal Negative [facility] Comment on above: Result Comment: [facility] positive for IgG antibodies to rubella virus.A positive result indicates previous exposure to Rubella virus or vaccination. Performed By: #### S YPHGX, RUBIGG, HBSAG, HIV12C ####[place] [phone] Syphilis IgG with Confon Syphilis IgG <0.2 Normal [facility] Comment on above: Result Comment: Anti body index is interpreted as follows:Non reactive SPECIMENS <=0.8Weak reactive SPECIMENS 0.9 to 5.9Reactive SPECIMENS >=6.0 Performed By: #### S YPHGX, RUBIGG, HBSAG, HIV12C ####[facility] [address] [place], [place] [phone] Syphilis IgG, Qual Nonreactive Normal Nonreactive [facility] [place] [facility] Comment on above: Result Comment: In c onjunction with this result, the immune status of the patient should be evaluated based on their clinical status, related risk factors, and other diagnostic test results. Performed By: #### S YPHGX, RUBIGG, HBSAG, HIV12C ####[facility] [address] [place], [place] [phone] HOSPon 04-23-2017 [facility] Routine Off ice Visit (WOOB) KELI ALCANTAR ([id number]) [facility] Uiboygabmm29/25/17 9:45 AM CELINA KEY (JOHN) WOOB During your visit today, we recorded the following information about you: Blood pressure Weight 102/60 76.8 kgMary Alice Geiger Ma 04/23/2017 9:14 AM SignedSEQUENTIAL SCREENINGSThe [facility] offers sequential screenings for women who are interestedin screenings for chromosomal abnormalities and certain defects during apregnancy. The sequential screen combines ultrasound and blood tests todetermine the risk of chromosomal abnormalities, including Down's Syndrome(Trisomy 21) and Trisomy 18, as well as open neural tube defects includingspina bifida. Ultrasound examination is performed between 11 weeks and 13 weeksgestational age. Blood tests are drawn after the ultrasound and again later inthe between 15 and 21 weeks gestational age. Please let yourphysician know if you are interested in this testing. It will require anappointment with our digital cartographic technician. This is not an ultrasound performedby a physician in our office during a routine visit.SIGNS AND SYMPTOMS OF LABOR1. Contractions every 10 minutes or more often2. Clear, pink, or brownish fluid (water) leaking from vagina3. Feeling that baby is pushing down, pressure4. Low, dull backache5. Cramps that feel like a period6. Cramps with or without diarrheaIf you notice any of the above symptoms, contact our office at [phone] andask to speak with a nurse.After hours, you can call doctors registry at [phone] OR [facility] at [phone] and ask to have the doctor donkey engine firer/fireman paged.If you consider this an emergency, dial 9-1-5 or go to your nearest emergencydepartment.NEED HELP? Are you dealing with a violent or abusive relationship? Are you avictim of rape or sexual assult? Call [facility] ([place]) 24 hourCrisis Hotline: 610.342.8681 or 351-679-7563. MANUALYour Guide to a Healthy manual is now on-line. [email or web address] /[email or web address] to download your free copyReferring Provider: SELF [200]Allergies As of Date: 04/23/2017(No Known Allergies)Date Reviewed: 04/23/2017Reviewed by: Celina (Jessica) Shahid - Fully AssessedReason for Visit: Care [86]Primary Visit Diagnosis:Encounter for supervision of normal first in third trimester [Z34.03] Other Visit Diagnosis:36 weeks gestation of [Z3A.36]Order(s):SYPHILI S IGG WITH CONF [SQSYPHGX] Order #: [id number] FUTURE RUBELLA IGG AB [SQRUBQNT] Order #: [id number] FUTURE HEP B SURF AG SCRN [SQHBSAG] Order #: [id number] FUTURE HIV 1,2 COMBO (AG/AB) [SQHIV12] Order #: [id number] FUTURE URINE OB DIP B/O [[id number]] Order #: [id number] as of 04/23/2017 Sig: DHA ORAL Take by mouth.Problem List As Of Date 04/23/2017 Noted Resolved Anorexia nervosa, binge eating/purging type [F5*INVALID FOR* Left breast mass [N63.20] INVALID FOR*12/05/2016 Encounter for supervision of normal first pregn*INVALID FOR* Other instructions from your clinician: SEQUENTIAL SCREENINGS The [facility] offers sequential screenings for women who are interested in screenings for chromosomal abnormalities and certain defects during a . The sequential screen combines ultrasound and blood tests to determine the risk of chromosomal abnormalities, including Down's Syndrome (Trisomy 21) and Trisomy 18, as well as open neural tube defects including spina bifida. Ultrasound examination is performed between 11 weeks and 13 weeks gestational age. Blood tests are drawn after the ultrasound and again later in the between 15 and 21 weeks gestational age. Please let your physician know if you are interested in this testing. It will require an appointment with our digital cartographic technician. This is not an ultrasound performed by a physician in our office during a routine visit. SIGNS AND SYMPTOMS OF LABOR 1. Contractions every 10 minutes or more often 2. Clear, pink, or brownish fluid (water) leaking from vagina 3. Feeling that baby is pushing down, pressure 4. Low, dull backache 5. Cramps that feel like a period 6. Cramps with or without diarrhea If you notice any of the above symptoms, contact our office at [phone] and ask to speak with a nurse. After hours, you can call doctors registry at [phone] OR call [facility] at [phone] and ask to have the doctor donkey engine firer/fireman paged. If you consider this an emergency, dial 3-3-6 or go to your nearest emergency department. NEED HELP? Are you dealing with a violent or abusive relationship? Are you a victim of rape or sexual assult? Call [facility] ([place]) 24 hour Crisis Hotline: 123.938.2522 or 372-801-4488. MANUAL Your Guide to a Healthy manual is now on-line. Visit [email or web address] thyPregnancyGuide to download your free copyDisposition: Return in about 1 week (around 04/30/2017), or if symptoms worsen or fail to improve, for FRANCO.Follow-up and Disposition History RecordedEncounter Number: [id number] Status:Closed by CELINA KEY on 04/23/17 Normal [facility] GROUP B STREP PCRon 04-18-20 GROUP B STREP PCR Negative Normal [facility] Comment on above: Performed By: #### [facility] ####[facility] [address] [place], [place] [id number] HOSPon 04-18-2017 [facility] Routine Off ice Visit (WOOB) KELI ALCANTAR ([id number]) 1990 FDate Time Provider Epfuksopan55/20/17 8:15 AM CELINA KEY (JOHN) WOOB During your visit today, we recorded the following information about you: Blood pressure Weight 94/58 75.3 kgMary Alice Geiger In 04/18/2017 8:04 AM SignedSEQUENTIAL SCREENINGSThe [facility] offers sequential screenings for women who are interestedin screenings for chromosomal abnormalities and certain defects during apregnancy. The sequential screen combines ultrasound and blood tests todetermine the risk of chromosomal abnormalities, including Down's Syndrome(Trisomy 21) and Trisomy 18, as well as open neural tube defects includingspina bifida. Ultrasound examination is performed between 11 weeks and 13 weeksgestational age. Blood tests are drawn after the ultrasound and again later inthe between 15 and 21 weeks gestational age. Please let yourphysician know if you are interested in this testing. It will require anappointment with our digital cartographic technician. This is not an ultrasound performedby a physician in our office during a routine visit.SIGNS AND SYMPTOMS OF LABOR1. Contractions every 10 minutes or more often2. Clear, pink, or brownish fluid (water) leaking from vagina3. Feeling that baby is pushing down, pressure4. Low, dull backache5. Cramps that feel like a period6. Cramps with or without diarrheaIf you notice any of the above symptoms, contact our office at [phone] andask to speak with a nurse.After hours, you can call [employer] [facility] at [phone] OR call [facility] at [phone] and ask to have the doctor donkey engine firer/fireman paged.If you consider this an emergency, dial 9-1-9 or go to your nearest emergencydepartment.NEED HELP? Are you dealing with a violent or abusive relationship? Are you avictim of rape or sexual assult? Call [facility] ([place]) 24 hourCrisis Hotline: 198.247.7999 or 955-814-3229. MANUALYour Guide to a Healthy manual is now on-line. [email or web address] /HealthyPregnancyGuide to download your free copyReferring Provider: SELF [200]Allergies As of Date: 04/18/2017(No Known Allergies)Date Reviewed: 04/18/2017Reviewed by: Mary Alice Geiger Ma - Fully AssessedReason for Visit: Care [86]Primary Visit Diagnosis:Encounter for supervision of normal first in third trimester [Z34.03] Other Visit Diagnosis:35 weeks gestation of [Z3A.35]Order(s):URINE OB DIP B/O [[id number]] Order #: [id number] STREPTOCOCCUS B PCR [SQGBSPCR] Order #: [id number]. #:[id number] as of 04/18/2017 Sig: DHA ORAL Take by mouth.Problem List As Of Date 04/18/2017 Noted Resolved Anorexia nervosa, binge eating/purging type [F5*INVALID FOR* Left breast mass [N63.20] INVALID FOR*12/05/2016 Encounter for supervision of normal first pregn*INVALID FOR* Other instructions from your clinician: SEQUENTIAL SCREENINGS The [facility] offers sequential screenings for women who are interested in screenings for chromosomal abnormalities and certain defects during a . The sequential screen combines ultrasound and blood tests to determine the risk of chromosomal abnormalities, including Down's Syndrome (Trisomy 21) and Trisomy 18, as well as open neural tube defects including spina bifida. Ultrasound examination is performed between 11 weeks and 13 weeks gestational age. Blood tests are drawn after the ultrasound and again later in the between 15 and 21 weeks gestational age. Please let your physician know if you are interested in this testing. It will require an appointment with our digital cartographic technician. This is not an ultrasound performed by a physician in our office during a routine visit. SIGNS AND SYMPTOMS OF LABOR 1. Contractions every 10 minutes or more often 2. Clear, pink, or brownish fluid (water) leaking from vagina 3. Feeling that baby is pushing down, pressure 4. Low, dull backache 5. Cramps that feel like a period 6. Cramps with or without diarrhea If you notice any of the above symptoms, contact our office at [phone] and ask to speak with a nurse. After hours, you can call doctors registry at [phone] OR call [facility] at [phone] and ask to have the doctor donkey engine firer/fireman paged. If you consider this an emergency, dial 9-6 or go to your nearest emergency department. NEED HELP? Are you dealing with a violent or abusive relationship? Are you a victim of rape or sexual assult? Call [facility] ([place]) 24 hour Crisis Hotline: 996.542.6767 or 806-044-4422. MANUAL Your Guide to a Healthy manual is now on-line. Visit [email or web address] thyPregnancyGuide to download your free copyDisposition: Return in about 1 week (around 04/25/2017), or if symptoms worsen or fail to improve, for FRANCO.Follow-up and Disposition History RecordedEncounter Number: [id number] Status:Closed by CELINA KEY on 04/18/17 [facility] 04-03-2017 [facility] Routine Off ice Visit (WOOB) KELI ALCANTAR ([id number]) 1990 [facility] Time Provider Pwfbciknlg81/5/17 11:10 AM RAMY SONG During your visit today, we recorded the following information about you: Blood pressure Weight 90/64 73.4 kgHeather Marcelino Velez 04/03/2017 11:15 AM SignedSEQUENTIAL SCREENINGSThe [facility] offers sequential screenings for women who are interestedin screenings for chromosomal abnormalities and certain defects during apregnancy. The sequential screen combines ultrasound and blood tests todetermine the risk of chromosomal abnormalities, including Down's Syndrome(Trisomy 21) and Trisomy 18, as well as open neural tube defects includingspina bifida. Ultrasound examination is performed between 11 weeks and 13 weeksgestational age. Blood tests are drawn after the ultrasound and again later inthe between 15 and 21 weeks gestational age. Please let yourphysician know if you are interested in this testing. It will require anappointment with our digital cartographic technician. This is not an ultrasound performedby a physician in our office during a routine visit.SIGNS AND SYMPTOMS OF LABOR1. Contractions every 10 minutes or more often2. Clear, pink, or brownish fluid (water) leaking from vagina3. Feeling that baby is pushing down, pressure4. Low, dull backache5. Cramps that feel like a period6. Cramps with or without diarrheaIf you notice any of the above symptoms, contact our office at [phone] andask to speak with a nurse.After hours, you can call doctors registry at [phone] OR call [facility] at [phone] and ask to have the doctor donkey engine firer/fireman paged.If you consider this an emergency, dial 6-9-8 or go to your nearest emergencydepartment.NEED HELP? Are you dealing with a violent or abusive relationship? Are you avictim of rape or sexual assult? Call [facility] ([place]) 24 hourCrisis Hotline: 862.274.1520 or 576-934-2409. MANUALYour Guide to a Healthy manual is now on-line. [email or web address] /HealthyPregnancyGuide to download your free copyReferring Provider: SELF [200]Allergies As of Date: 04/03/2017(No Known Allergies)Date Reviewed: 04/03/2017Reviewed by: Marisela Benson Ma - Fully AssessedReason for Visit: Care [86]Primary Visit Diagnosis:Encounter for supervision of normal first in third trimester [Z34.03] Other Visit Diagnosis:33 weeks gestation of [Z3A.33]Order(s):URINE OB DIP B/O [[id number]] Order #: [id number] as of 04/03/2017 Sig: DHA ORAL Take by mouth.Problem List As Of Date 04/03/2017 Noted Resolved Anorexia nervosa, binge eating/purging type [F5*INVALID FOR* Left breast mass [N63.20] INVALID FOR*12/05/2016 Encounter for supervision of normal first pregn*INVALID FOR* Other instructions from your clinician: SEQUENTIAL SCREENINGS The [facility] offers sequential screenings for women who are interested in screenings for chromosomal abnormalities and certain defects during a . The sequential screen combines ultrasound and blood tests to determine the risk of chromosomal abnormalities, including Down's Syndrome (Trisomy 21) and Trisomy 18, as well as open neural tube defects including spina bifida. Ultrasound examination is performed between 11 weeks and 13 weeks gestational age. Blood tests are drawn after the ultrasound and again later in the between 15 and 21 weeks gestational age. Please let your physician know if you are interested in this testing. It will require an appointment with our digital cartographic technician. This is not an ultrasound performed by a physician in our office during a routine visit. SIGNS AND SYMPTOMS OF LABOR 1. Contractions every 10 minutes or more often 2. Clear, pink, or brownish fluid (water) leaking from vagina 3. Feeling that baby is pushing down, pressure 4. Low, dull backache 5. Cramps that feel like a period 6. Cramps with or without diarrhea If you notice any of the above symptoms, contact our office at [phone] and ask to speak with a nurse. After hours, you can call doctors registry at [phone] OR call [facility] at [phone] and ask to have the doctor donkey engine firer/fireman paged. If you consider this an emergency, dial 1-1-8 or go to your nearest emergency department. NEED HELP? Are you dealing with a violent or abusive relationship? Are you a victim of rape or sexual assult? Call [facility] ([facility] 24 hour Crisis Hotline: 679.692.7231 or 100-819-9801. MANUAL Your Guide to a Healthy manual is now on-line. Visit [email or web address]/Heal thyPregnancyGuide to download your free copyEncounter Number: [id number] Status:Closed by RAMY SONG MD on 04/03/17 [facility] 03-20-2017 [facility] Routine Off ice Visit (WOOB) KELI ALCANTAR ([id number]) 1990 FDate Time Provider Department03/20/17 2:50 PM RAMY SONG During your visit today, we recorded the following information about you: Blood pressure Weight 100/60 71.2 kgRamónankur Arvin Yusufk Agustin 03/20/2017 2:58 PM SignedSEQUENTIAL SCREENINGSThe [facility] offers sequential screenings for women who are interestedin screenings for chromosomal abnormalities and certain defects during apregnancy. The sequential screen combines ultrasound and blood tests todetermine the risk of chromosomal abnormalities, including Down's Syndrome(Trisomy 21) and Trisomy 18, as well as open neural tube defects includingspina bifida. Ultrasound examination is performed between 11 weeks and 13 weeksgestational age. Blood tests are drawn after the ultrasound and again later inthe between 15 and 21 weeks gestational age. Please let yourphysician know if you are interested in this testing. It will require anappointment with our digital cartographic technician. This is not an ultrasound performedby a physician in our office during a routine visit.SIGNS AND SYMPTOMS OF LABOR1. Contractions every 10 minutes or more often2. Clear, pink, or brownish fluid (water) leaking from vagina3. Feeling that baby is pushing down, pressure4. Low, dull backache5. Cramps that feel like a period6. Cramps with or without diarrheaIf you notice any of the above symptoms, contact our office at [phone] andask to speak with a nurse.After hours, you can call [employer] registry at [phone] OR call [facility] at [phone] and ask to have the doctor donkey engine firer/fireman paged.If you consider this an emergency, dial [phone] or go to your nearest emergencydepartment.NEED HELP? Are you dealing with a violent or abusive relationship? Are you avictim of rape or sexual assult? Call [facility] ([place]) 24 hourCrisis Hotline: 811.634.3919 or 379-678-3112. MANUALYour Guide to a Healthy manual is now on-line. [email or web address] /HealthyPregnancyGuide to download your free copyReferring Provider: SELF [200]Allergies As of Date: 03/20/2017(No Known Allergies)Date Reviewed: 03/20/2017Reviewed by: Belkis Gray Slip Dumper - Fully AssessedReason for Visit: Care [86]Primary Visit Diagnosis:Encounter for supervision of normal first in third trimester [Z34.03] Other Visit Diagnosis:31 weeks gestation of [Z3A.31]Order(s):URINE OB DIP B/O [[id number]] Order #: [id number] as of 03/20/2017 Sig: DHA ORAL Take by mouth.Problem List As Of Date 03/20/2017 Noted Resolved Anorexia nervosa, binge eating/purging type [F5*INVALID FOR* Left breast mass [N63] INVALID FOR*12/05/2016 Encounter for supervision of normal first pregn*INVALID FOR* Other instructions from your clinician: SEQUENTIAL SCREENINGS The [facility] offers sequential screenings for women who are interested in screenings for chromosomal abnormalities and certain defects during a . The sequential screen combines ultrasound and blood tests to determine the risk of chromosomal abnormalities, including Down's Syndrome (Trisomy 21) and Trisomy 18, as well as open neural tube defects including spina bifida. Ultrasound examination is performed between 11 weeks and 13 weeks gestational age. Blood tests are drawn after the ultrasound and again later in the between 15 and 21 weeks gestational age. Please let your physician know if you are interested in this testing. It will require an appointment with our digital cartographic technician. This is not an ultrasound performed by a physician in our office during a routine visit. SIGNS AND SYMPTOMS OF LABOR 1. Contractions every 10 minutes or more often 2. Clear, pink, or brownish fluid (water) leaking from vagina 3. Feeling that baby is pushing down, pressure 4. Low, dull backache 5. Cramps that feel like a period 6. Cramps with or without diarrhea If you notice any of the above symptoms, contact our office at [phone] and ask to speak with a nurse. After hours, you can call doctors registry at [phone] OR call [facility] at [phone] and ask to have the doctor donkey engine firer/fireman paged. If you consider this an emergency, dial 9--1 or go to your nearest emergency department. NEED HELP? Are you dealing with a violent or abusive relationship? Are you a victim of rape or sexual assult? Call [facility] ([place]) 24 hour Crisis Hotline: 900.553.3676 or 427-286-7666. MANUAL Your Guide to a Healthy manual is now on-line. Visit [email or web address]/Heal thyPregnancyGuide to download your free copyEncounter Number: [id number] Status:Closed by RAMY SONG MD on 03/20/17 [facility] CNCNPATEDon 03-11-2017 CNCNPATED Education (WOOB) KELI ALCANTAR ([id number]) 1990 FDate Time Provider Department03/11/17 NURSE PNOB [facility] WSTR WOOBReason for Visit: Class [4072]Visit Notes:>> Aldo Zhang Mar 11, 2017 9:20 AM Status: Signed CLASS Date Attended: March 10, 2017Introduction Credentials Expectations of a 4-hour class 1. Review of handouts 2. Hospital tour info 3. Baby care classStages of labor videoStages to call the doctor 1. SROM 2. Cervical changes 3. Bleeding vs. bloody show 4. Decreased movementHospital Procedures 1. Internal/external monitors 2. IV therapy 3. AROM 4. PitocinPain Management 1. Epidural 2. Other pain medications 3. No medicinal comfort measures 4. Breathing/pushingDeliver y methods 1. 2. Forceps 3. Vacuum extractorPhysician presentations 1. OB-soda room operator 2. PediatricianPostpartum 1. Mom's first hour 2. baby's first hour 3. baby's discharge protocolCompleted childbirth education class. Aldo Hahn RN During your visit today, we recorded the following information about you:Allergies As of Date: 03/11/2017(No Known Allergies)Date Reviewed: 03/06/2017Reviewed by: Marisela Benson Ma - Fully AssessedPrescriptions as of 03/11/2017 Sig: DHA ORAL Take by mouth. Status:Closed by ALDO HAHN RN on 03/11/17 [facility] 03-06-2017 [facility] Routine Off ice Visit (WOOB) KELI ALCANTAR ([id number]) 1990 [facility] Time Provider Department03/06/17 11:00 AM RAMY SONG During your visit today, we recorded the following information about you: Blood pressure Weight 88/56 71.2 kgMarisela Benson Ma 03/06/2017 11:05 AM SignedSEQUENTIAL SCREENINGSThe [facility] offers sequential screenings for women who are interestedin screenings for chromosomal abnormalities and certain defects during apregnancy. The sequential screen combines ultrasound and blood tests todetermine the risk of chromosomal abnormalities, including Down's Syndrome(Trisomy 21) and Trisomy 18, as well as open neural tube defects includingspina bifida. Ultrasound examination is performed between 11 weeks and 13 weeksgestational age. Blood tests are drawn after the ultrasound and again later inthe between 15 and 21 weeks gestational age. Please let yourphysician know if you are interested in this testing. It will require anappointment with our digital cartographic technician. This is not an ultrasound performedby a physician in our office during a routine visit.SIGNS AND SYMPTOMS OF LABOR1. Contractions every 10 minutes or more often2. Clear, pink, or brownish fluid (water) leaking from vagina3. Feeling that baby is pushing down, pressure4. Low, dull backache5. Cramps that feel like a period6. Cramps with or without diarrheaIf you notice any of the above symptoms, contact our office at [phone] andask to speak with a nurse.After hours, you can call doctors registry at [phone] OR [facility] at [phone] and ask to have the doctor donkey engine firer/fireman paged.If you consider this an emergency, dial 9-5 or go to your nearest emergencydepartment.NEED HELP? Are you dealing with a violent or abusive relationship? Are you avictim of rape or sexual assult? Call [facility] ([place]) 24 hourCrisis Hotline: 451.311.5922 or 428-090-4441. MANUALYour Guide to a Healthy manual is now on-line. [email or web address] /HealthyPregnancyGuide to download your free copyReferring Provider: SELF [200]Allergies As of Date: 03/06/2017(No Known Allergies)Date Reviewed: 03/06/2017Reviewed by: Marisela Benson Ma - Fully AssessedReason for Visit: Care [86]Primary Visit Diagnosis:Encounter for supervision of other normal , third trimester [Z34.83] Other Visit Diagnosis:29 weeks gestation of [Z3A.29]Order(s):URINE OB DIP B/O [[id number]] Order #: [id number] as of 03/06/2017 Sig: DHA ORAL Take by mouth.Problem List As Of Date 03/06/2017 Noted Resolved Anorexia nervosa, binge eating/purging type [F5*INVALID FOR* Left breast mass [N63] INVALID FOR*12/05/2016 Encounter for supervision of normal first pregn*INVALID FOR* Other instructions from your clinician: SEQUENTIAL SCREENINGS The [facility] offers sequential screenings for women who are interested in screenings for chromosomal abnormalities and certain defects during a . The sequential screen combines ultrasound and blood tests to determine the risk of chromosomal abnormalities, including Down's Syndrome (Trisomy 21) and Trisomy 18, as well as open neural tube defects including spina bifida. Ultrasound examination is performed between 11 weeks and 13 weeks gestational age. Blood tests are drawn after the ultrasound and again later in the between 15 and 21 weeks gestational age. Please let your physician know if you are interested in this testing. It will require an appointment with our digital cartographic technician. This is not an ultrasound performed by a physician in our office during a routine visit. SIGNS AND SYMPTOMS OF LABOR 1. Contractions every 10 minutes or more often 2. Clear, pink, or brownish fluid (water) leaking from vagina 3. Feeling that baby is pushing down, pressure 4. Low, dull backache 5. Cramps that feel like a period 6. Cramps with or without diarrhea If you notice any of the above symptoms, contact our office at [phone] and ask to speak with a nurse. After hours, you can call doctors registry at [phone] OR call [facility] at [phone] and ask to have the doctor donkey engine firer/fireman paged. If you consider this an emergency, dial 9-1-2 or go to your nearest emergency department. NEED HELP? Are you dealing with a violent or abusive relationship? Are you a victim of rape or sexual assult? Call [facility] ([place]) 24 hour Crisis Hotline: 809.483.7564 or 936-695-3697. MANUAL Your Guide to a Healthy manual is now on-line. Visit [email or web address]/Heal thyPregnancyGuide to download your free copyEncounter Number: [id number] Status:Closed by RAMY SONG MD on 03/06/17 Normal [facility] 50g, 1hr gest. GSCRNon 02-20 Glucose mass conc 118 mg/dL Normal <135 [facility] Comment on above: Performed By: #### G LTGST ####[facility] [address] [place], [place] [phone] CBC and Differentialon 02-20 Abs Baso 0.02 k/uL Normal 0.00-0.10 [facility] Comment on above: Performed By: #### C BCDIF ####[place] [address] [address], [place] [phone] Abs Acadia 0.61 k/uL Normal 0.00-0.86 [facility] Comment on above: Performed By: #### C BCDIF ####[place] [address] [address], [place] [phone] Abs Neut 5.35 k/uL Normal 1.45-7.50 [facility] Comment on above: Performed By: #### C BCDIF ####[place] [address] [address] [place] [phone] Basophils/100 WBC Auto (Bld) 0.2 % Normal [facility] Comment on above: Performed By: #### C BCDIF ####[place] [phone] DTYPE Auto Diff Normal [facility] Comment on above: Performed By: #### C BCDIF ####[place] [address] [address] [place] [phone] Eosinophils 0.06 10*3/uL Normal 0.00-0.45 [facility] Comment on above: Performed By: #### C BCDIF ####[place] [address] [address] [place] [phone] Eosinophils/100 leukocytes 0.7 % Normal [facility] Comment on above: Performed By: #### C BCDIF ####[place] [address] [address] [place] [phone] Erythrocyte distribution width Auto Ratio (RBC) 13.2 % Normal 11.5-15.0 [facility] Comment on above: Performed By: #### C BCDIF ####[place] [address] [address], [place] [phone] Erythrocytes (RBC) 0.00 10*6/uL Normal [facility] [place] [facility] Comment on above: Performed By: #### C BCDIF ####[place] [address] [address], [place] [phone] Erythrocytes (RBC) 3.56 10*6/uL Low 3.90-5.20 [facility] [place] [facility] Comment on above: Performed By: #### C BCDIF ####[place] [address] [address], [place] [phone] Erythrocytes (RBC) 0.0 /100 WBC Normal 0 [facility] [place] [facility] Comment on above: Performed By: #### C BCDIF ####[place] [address] [address], [place] [phone] Hematocrit (HCT) 36.4 % Normal 36.0-46.0 [facility] Comment on above: Performed By: #### C BCDIF ####[place] [address] [address], [place] [phone] Hemoglobin mass conc (Bld) 11.8 g/dL Normal 11.5-15.5 [facility] Comment on above: Performed By: #### C BCDIF ####[place] [address] [address], [place] [phone] Lymphocytes 2.08 10*3/uL Normal 1.00-4.00 [facility] Comment on above: Performed By: #### C BCDIF ####[place] [address] [address], [place] [phone] Lymphocytes/100 leukocytes 25.6 % Normal [facility] Comment on above: Performed By: #### C BCDIF ####[place] [address] [address], [place] [phone] MCH 33.1 pG Normal 26.0-34.0 [facility] Comment on above: Performed By: #### C BCDIF ####[place] [address] [address], [place] [phone] MCHC mass conc (RBC) 32.4 g/dL Normal 30.5-36.0 [facility] [place] [facility] Comment on above: Performed By: #### C BCDIF ####[place] [address], [place] [phone] MCV 102.2 fL High 80.0-100.0 [facility] Comment on above: Performed By: #### C BCDIF ####[place] [address] [address], [place] [phone] Monocytes/100 leukocytes 7.5 % Normal [facility] Comment on above: Performed By: #### C BCDIF ####[place] [id number], [place] [phone] Neutrophils/100 WBC Auto (Bld) 66.0 % Normal [facility] Comment on above: Performed By: #### C BCDIF ####[address] [phone] Platelet mean volume (PMV) 13.3 fL High 9.0-12.7 [facility] Comment on above: Performed By: #### C BCDIF ####[place] [address] [address], [place] [phone] Platelets 178 10*3/uL Normal 150-400 [facility] Comment on above: Result Comment: Resu lt checked and verifiedNo clot detected. Performed By: #### C BCDIF ####[facility] [place], [place] [address]radha [place], [place] [phone] WBC (Leukocytes) 8.12 10*3/uL Normal 3.70-11.00 [facility] Comment on above: Performed By: #### C BCDIF ####[facility], [place] [phone] HOSPon 02-20-2017 HOSP Routine Off ice Visit (WOOB) KELI ALCANTAR ([id number]) 1990 FDate Time Provider Department02/20/17 3:00 PM RAMY SONG During your visit today, we recorded the following information about you: Blood pressure Weight 98/62 69 kgHayley Piotr Velez 02/20/2017 3:07 PM SignedSEQUENTIAL SCREENINGSThe [facility] offers sequential screenings for women who are interestedin screenings for chromosomal abnormalities and certain defects during apregnancy. The sequential screen combines ultrasound and blood tests todetermine the risk of chromosomal abnormalities, including Down's Syndrome(Trisomy 21) and Trisomy 18, as well as open neural tube defects includingspina bifida. Ultrasound examination is performed between 11 weeks and 13 weeksgestational age. Blood tests are drawn after the ultrasound and again later inthe between 15 and 21 weeks gestational age. Please let yourphysician know if you are interested in this testing. It will require anappointment with our digital cartographic technician. This is not an ultrasound performedby a physician in our office during a routine visit.SIGNS AND SYMPTOMS OF LABOR1. Contractions every 10 minutes or more often2. Clear, pink, or brownish fluid (water) leaking from vagina3. Feeling that baby is pushing down, pressure4. Low, dull backache5. Cramps that feel like a period6. Cramps with or without diarrheaIf you notice any of the above symptoms, contact our office at [phone] andask to speak with a nurse.After hours, you can call doctors registry at [phone] OR call [facility] at [phone] and ask to have the doctor donkey engine firer/fireman paged.If you consider this an emergency, dial 06-30 or go to your nearest emergencydepartment.NEED HELP? Are you dealing with a violent or abusive relationship? Are you avictim of rape or sexual assult? Call [facility] ([place]) 24 hourCrisis Hotline: 704.148.2996 or 388-845-6036. MANUALYour Guide to a Healthy manual is now on-line. [email or web address] /HealthyPregnancyGuide to download your free copyAnjelica Saldaña Ma 02/20/2017 3:42 PM SignedPatient identified by name and date of .Krunal Alcantar presents today for a vaccination of Tdap.Patient denies an allergy to latex: yesPatient denies a severe (life-threatening) allergy to a previous dose of Tdap,DTP, DTaP, DT or Td vaccine. YesPatient denies history of epilepsy or neurological problems: YesPatient is afebrile and denies being moderately or severely ill: YesPatient denies history of Guillain-Hector Syndrome (a severe paralytic illness): YesTdap Adacel injection was given without incident.See immunizations for details of immunizations administered today.VIS sheet provided: YesProviGary was present in office at time of injection.Anjelica Saldaña MaRefjackie Provider: SELF [200]Allergies As of Date: 02/20/2017(No Known Allergies)Date Reviewed: 02/20/2017Reviewed by: Anjelica Saldaña Ma - Fully AssessedReason for Visit: Care [86]Primary Visit Diagnosis:Encounter for supervision of normal first in second trimester [Z34.02] Other Visit Diagnoses:27 weeks gestation of [Z3A.27] Need for vaccination [Z23]Order(s):URINE OB DIP B/O [1847379] Order #: [id number] GEST GLUC SCREEN, 1-HR, 50 GM, NON-FASTING [SQGLTGST] Order #: [id number] FUTURE CBC + DIFF [SQCBCDIF] Order #: [id number] FUTURE TDAP VACCINE AGE 7+ IM [40372OVB] Order #: [id number] as of 02/20/2017 Sig: DHA ORAL Take by mouth.Problem List As Of Date 02/20/2017 Noted Resolved Anorexia nervosa, binge eating/purging type [F5*INVALID FOR* Left breast mass [N63] INVALID FOR*12/05/2016 Encounter for supervision of normal first pregn*INVALID FOR* Other instructions from your clinician: SEQUENTIAL SCREENINGS The [facility] offers sequential screenings for women who are interested in screenings for chromosomal abnormalities and certain defects during a . The sequential screen combines ultrasound and blood tests to determine the risk of chromosomal abnormalities, including Down's Syndrome (Trisomy 21) and Trisomy 18, as well as open neural tube defects including spina bifida. Ultrasound examination is performed between 11 weeks and 13 weeks gestational age. Blood tests are drawn after the ultrasound and again later in the between 15 and 21 weeks gestational age. Please let your physician know if you are interested in this testing. It will require an appointment with our digital cartographic technician. This is not an ultrasound performed by a physician in our office during a routine visit. SIGNS AND SYMPTOMS OF LABOR 1. Contractions every 10 minutes or more often 2. Clear, pink, or brownish fluid (water) leaking from vagina 3. Feeling that baby is pushing down, pressure 4. Low, dull backache 5. Cramps that feel like a period 6. Cramps with or without diarrhea If you notice any of the above symptoms, contact our office at [phone] and ask to speak with a nurse. After hours, you can call doctors registry at [phone] OR call [facility] at [phone] and ask to have the doctor donkey engine firer/fireman paged. If you consider this an emergency, dial 8-3-3 or go to your nearest emergency department. NEED HELP? Are you dealing with a violent or abusive relationship? Are you a victim of rape or sexual assult? Call [facility] ([place]) 24 hour Crisis Hotline: 800.600.5725 or 179-329-2089. MANUAL Your Guide to a Healthy manual is now on-line. Visit [email or web address]/Heal thyPregnancyGuide to download your free copyEncounter Number: [id number] Status:Closed by HANNAH SÁNCHEZ MA on 02/20/17 [facility] PROGRESSon 02-20-2017 PROGRESS HNO ID: [id number]: Anjelica Saldaña MaService: (none)Author Type: (none)Type: Progress NotesFiled: 02/20/2017 3:42 PMNote Text:Patient identified by name and date of .Krunal Alcantar presents today for a vaccination of Tdap.Patient denies an allergy to latex: yesPatient denies a severe (life-threatening) allergy to a previous dose ofTdap, DTP, DTaP, DT or Td vaccine. YesPatient denies history of epilepsy or neurological problems: YesPatient is afebrile and denies being moderately or severely ill: YesPatient denies history of Guillain-Hector Syndrome (a severe paralyticillness): YesTdap Adacel injection was given without incident.See immunizations for details of immunizations administered today.VIS sheet provided: YesProaltaf Song was present in office at time of injection.Anjelica Saldaña Ma [facility] 01-27-2017 [facility] Routine Off ice Visit (WOOB) [facility]ELI ALCANTAR ([id number]) 1990 [facility] Department01/27/17 8:15 AM FELICIA CRUZ ([facility] WOOB During your visit today, we recorded the following information about you: Blood pressure Weight 96/60 67.6 kgPolochloe Juanjo Velez 01/27/2017 8:15 AM SignedSEQUENTIAL SCREENINGSThe [facility] offers sequential screenings for women who are interestedin screenings for chromosomal abnormalities and certain defects during apregnancy. The sequential screen combines ultrasound and blood tests todetermine the risk of chromosomal abnormalities, including Down's Syndrome(Trisomy 21) and Trisomy 18, as well as open neural tube defects includingspina bifida. Ultrasound examination is performed between 11 weeks and 13 weeksgestational age. Blood tests are drawn after the ultrasound and again later inthe between 15 and 21 weeks gestational age. Please let yourphysician know if you are interested in this testing. It will require anappointment with our digital cartographic technician. This is not an ultrasound performedby a physician in our office during a routine visit.SIGNS AND SYMPTOMS OF LABOR1. Contractions every 10 minutes or more often2. Clear, pink, or brownish fluid (water) leaking from vagina3. Feeling that baby is pushing down, pressure4. Low, dull backache5. Cramps that feel like a period6. Cramps with or without diarrheaIf you notice any of the above symptoms, contact our office at [phone] andask to speak with a nurse.After hours, you can call doctors registry at [phone] OR [facility] at [phone] and ask to have the doctor donkey engine firer/fireman paged.If you consider this an emergency, dial 9-1-0 or go to your nearest emergencydepartment.NEED HELP? Are you dealing with a violent or abusive relationship? Are you avictim of rape or sexual assult? Call [facility] ([place]) 24 hourCrisis Hotline: 565.877.4039 or 820-868-4154. MANUALYour Guide to a Healthy manual is now on-line. [email or web address] /HealthyPregnancyGuide to download your free copyFelicia Cruz CNM 01/27/2017 5:50 PM SignedS: Krunal Alcantar presents for a routine OB visit at 24w2d. She denies LOF,VB, DFM or cramping/contractions. U/S done and normalO: See flow sheetA/P: 24w2d IUP. RTO 4 Weeks for follow up. Call with LOF, VB, DFM orcramping/contractions. 1. Encounter for supervision of normal first in second trimester- URINE OB DIP B/O(aka UA CHEMSTRIP) [[id number]]2. 24 weeks gestation of - URINE OB DIP B/O(aka UA CHEMSTRIP) [[id number]]BETHEL Resendizeferring Provider: SELF [200]Allergies As of Date: 01/27/2017(No Known Allergies)Date Reviewed: 01/27/2017Reviewed by: Mary Alice Geiger Ma - Fully AssessedReason for Visit: Care [86]Primary Visit Diagnosis:Encounter for supervision of normal first in second trimester [Z34.02] Other Visit Diagnosis:24 weeks gestation of [Z3A.24]Order(s):URINE OB DIP B/O [[id number]] Order #: [id number] as of 01/27/2017 Sig: DHA ORAL Take by mouth.Problem List As Of Date 01/27/2017 Noted Resolved Anorexia nervosa, binge eating/purging type [F5*INVALID FOR* Left breast mass [N63] INVALID FOR*12/05/2016 Encounter for supervision of normal first pregn*INVALID FOR* Other instructions from your clinician: SEQUENTIAL SCREENINGS The [facility] offers sequential screenings for women who are interested in screenings for chromosomal abnormalities and certain defects during a . The sequential screen combines ultrasound and blood tests to determine the risk of chromosomal abnormalities, including Down's Syndrome (Trisomy 21) and Trisomy 18, as well as open neural tube defects including spina bifida. Ultrasound examination is performed between 11 weeks and 13 weeks gestational age. Blood tests are drawn after the ultrasound and again later in the between 15 and 21 weeks gestational age. Please let your physician know if you are interested in this testing. It will require an appointment with our digital cartographic technician. This is not an ultrasound performed by a physician in our office during a routine visit. SIGNS AND SYMPTOMS OF LABOR 1. Contractions every 10 minutes or more often 2. Clear, pink, or brownish fluid (water) leaking from vagina 3. Feeling that baby is pushing down, pressure 4. Low, dull backache 5. Cramps that feel like a period 6. Cramps with or without diarrhea If you notice any of the above symptoms, contact our office at [phone] and ask to speak with a nurse. After hours, you can call doctors registry at [phone] OR call [facility] at [phone] and ask to have the doctor donkey engine firer/fireman paged. If you consider this an emergency, dial 3-6-2 or go to your nearest emergency department. NEED HELP? Are you dealing with a violent or abusive relationship? Are you a victim of rape or sexual assult? Call [facility] ([place]) 24 hour Crisis Hotline: 203.205.5510 or 893-609-3336. MANUAL Your Guide to a Healthy manual is now on-line. Visit [email or web address]/Heal thyPregnancyGuide to download your free copyDisposition: Return in about 4 weeks (around 02/24/2017), or if symptoms worsen or fail to improve, for OB visit.Follow-up and Disposition History RecordedEncounter Number: [id number] Status:Closed by FELICIA CRUZ CNM on 01/27/17 Normal [facility] PROGRESSon 01-27-2017 PROGRESS HNO ID: [id number]: Felicia Baird (John) Shawn: (none)Author Type: MidwifeType: Progress NotesFiled: 01/27/2017 5:50 PMNote Text:S: Krunal Alcantar presents for a routine OB visit at 24w2d. She deniesLOF, VB, DFM or cramping/contractions. U/S done and normalO: See flow sheetA/P: 24w2d IUP. RTO 4 Weeks for follow up. Call with LOF, VB, DFM orcramping/contractions. 1. Encounter for supervision of normal first in second trimester- URINE OB DIP B/O(aka UA CHEMSTRIP) [[id number]]2. 24 weeks gestation of - URINE OB DIP B/O(aka UA CHEMSTRIP) [[id number]]Felicia Cruz CNM [facility] HOSPon 01-02-2017 [facility] Routine Off ice Visit (WOOB) [facility]ELI ALCANTAR ([id number]) 1990 [facility] Department01/02/17 2:40 PM JOSE ESPARZA WOOB During your visit today, we recorded the following information about you: Blood pressure Weight 92/60 66.7 kgUyen Andrew Ma 01/02/2017 2:43 PM SignedSEQUENTIAL SCREENINGSThe [facility] offers sequential screenings for women who are interestedin screenings for chromosomal abnormalities and certain defects during apregnancy. The sequential screen combines ultrasound and blood tests todetermine the risk of chromosomal abnormalities, including Down's Syndrome(Trisomy 21) and Trisomy 18, as well as open neural tube defects includingspina bifida. Ultrasound examination is performed between 11 weeks and 13 weeksgestational age. Blood tests are drawn after the ultrasound and again later inthe between 15 and 21 weeks gestational age. Please let yourphysician know if you are interested in this testing. It will require anappointment with our digital cartographic technician. This is not an ultrasound performedby a physician in our office during a routine visit.SIGNS AND SYMPTOMS OF LABOR1. Contractions every 10 minutes or more often2. Clear, pink, or brownish fluid (water) leaking from vagina3. Feeling that baby is pushing down, pressure4. Low, dull backache5. Cramps that feel like a period6. Cramps with or without diarrheaIf you notice any of the above symptoms, contact our office at [phone] andask to speak with a nurse.After hours, you can call doctors registry at [phone] OR [facility] at [phone] and ask to have the doctor donkey engine firer/fireman paged.If you consider this an emergency, dial 4-3-7 or go to your nearest emergencydepartment.NEED HELP? Are you dealing with a violent or abusive relationship? Are you avictim of rape or sexual assult? Call [facility] ([place]) 24 hourCrisis Hotline: 283.897.8095 or 596-127-1014. MANUALYour Guide to a Healthy manual is now on-line. [email or web address] /HealthyPregnancyGuide to download your free copyReferring Provider: IRA YEE [[id number]]Allergies As of Date: 01/02/2017(No Known Allergies)Date Reviewed: 01/02/2017Reviewed by: Uyen Andrew Ma - Fully AssessedReason for Visit: Care [86]Primary Visit Diagnosis:Encounter for supervision of normal first in second trimester [Z34.02] Other Visit Diagnosis:20 weeks gestation of [Z3A.20]Order(s):URINE OB DIP B/O [[id number]] Order #: [id number] as of 01/02/2017 Sig: DHA ORAL Take by mouth.Problem List As Of Date 01/02/2017 Noted Resolved Anorexia nervosa, binge eating/purging type [F5*INVALID FOR* Left breast mass [N63] INVALID FOR*12/05/2016 Encounter for supervision of normal first pregn*INVALID FOR* Other instructions from your clinician: SEQUENTIAL SCREENINGS The [facility] offers sequential screenings for women who are interested in screenings for chromosomal abnormalities and certain defects during a . The sequential screen combines ultrasound and blood tests to determine the risk of chromosomal abnormalities, including Down's Syndrome (Trisomy 21) and Trisomy 18, as well as open neural tube defects including spina bifida. Ultrasound examination is performed between 11 weeks and 13 weeks gestational age. Blood tests are drawn after the ultrasound and again later in the between 15 and 21 weeks gestational age. Please let your physician know if you are interested in this testing. It will require an appointment with our digital cartographic technician. This is not an ultrasound performed by a physician in our office during a routine visit. SIGNS AND SYMPTOMS OF LABOR 1. Contractions every 10 minutes or more often 2. Clear, pink, or brownish fluid (water) leaking from vagina 3. Feeling that baby is pushing down, pressure 4. Low, dull backache 5. Cramps that feel like a period 6. Cramps with or without diarrhea If you notice any of the above symptoms, contact our office at [phone] and ask to speak with a nurse. After hours, you can call doctors registry at [phone] OR call [facility] at [phone] and ask to have the doctor donkey engine firer/fireman paged. If you consider this an emergency, dial 9-1-9 or go to your nearest emergency department. NEED HELP? Are you dealing with a violent or abusive relationship? Are you a victim of rape or sexual assult? Call [facility] [place] ([facility] 24 hour Crisis Hotline: 398.637.8272 or 566-158-5206. MANUAL Your Guide to a Healthy manual is now on-line. Visit [email or web address]/Heal thyPregnancyGuide to download your free copyDisposition: Return in about 4 weeks (around 01/30/2017).Follow-up and Disposition History RecordedEncounter Number: [id number] Status:Closed by JOSE CHIU MD on 01/02/17 Normal [facility] PROGRESSon 12-30-2016 PROGRESS HNO ID: [id number] Author: Vineet Hsu Service: (none) Author Type: Physician Type: Progress Notes Filed: 12/30/2016 7:23 AM Note Text: Please see ultrasound report for details of this visit. Vineet Hsu M.D. Normal [facility] 12-27-2016 [facility] Routine Off ice Visit (WOOB) KELI ALCANTAR ([id number]) 1990 FDate Time Provider Department12/27/16 2:30 PM VINEET HSU WOOB During your visit today, we recorded the following information about you:Vineet Hsu MD 12/30/2016 7:23 AM SignedPlease see ultrasound report for details of this visit.Vineet Hsu M.D.Referring Provider: JOSE ESPARZA [[id number]]Allergies As of Date: 12/27/2016(No Known Allergies)Date Reviewed: 12/05/2016Reviewed by: Hannah Sánchez Ma - Fully AssessedPrimary Visit Diagnosis:19 weeks gestation of [Z3A.19] Other Visit Diagnosis:Encounter for routine screening for malformation using ultrasonics [Z36]Prescriptions as of 12/27/2016 Sig: DHA ORAL Take by mouth.Problem List As Of Date 12/27/2016 Noted Resolved Anorexia nervosa, binge eating/purging type [F5*INVALID FOR* Left breast mass [N63] INVALID FOR*12/05/2016 Encounter for supervision of normal first pregn*INVALID FOR* Status:Closed by VINEET HSU MD on 12/30/16 Normal [facility] Vital Signs Date Time Vital Sign Value Performing Clinician Faci samina 04-05-2025 09:24-0400 Body height 167.[address] Brooke Brown DO Work Phone: [facility] 04-05-2025 09:24-0400 Body mass index (BMI) [Ratio] 25.3 kg/m2 Dr. Brooke Brown DO Work Phone: [facility] 04-05-2025 09:24-0400 Body weight 71.[address] Brooke Brown DO Work Phone: [facility] 04-05-2025 09:24-0400 Diastolic blood pressure 68 mm[Hg] Dr. Brooke Brown DO Work Phone: [facility] 04-05-2025 09:24-0400 Systolic blood pressure 116 mm[Hg] Dr. Brooke Brown DO Work Phone: [facility] 03-25-2025 11:25-0400 Body height 167.[address] Brooke Brown DO Work Phone: [facility] 03-25-2025 11:25-0400 Body mass index (BMI) [Ratio] 24.5 kg/m2 Dr. Brooke Brown DO Work Phone: [facility] 03-25-2025 11:25-0400 Body weight 69.[address] Brooke Brown DO Work Phone: [facility] 03-25-2025 11:25-0400 Diastolic blood pressure 66 mm[Hg] Dr. Brooke Brown DO Work Phone: [facility] 03-25-2025 11:25-0400 Systolic blood pressure 103 mm[Hg] Dr. Brooke Brown DO Work Phone: [facility] 03-10-2025 10:11-0400 Body height 167.[address] Brooke Brown DO Work Phone: [facility] 03-10-2025 10:02-0400 Body mass index (BMI) [Ratio] 24.5 kg/m2 Dr. Brooke Brown DO Work Phone: [facility] 03-10-2025 10:02-0400 Body weight 69.[address] Brooke Brown DO Work Phone: [facility] 03-10-2025 10:02-0400 Diastolic blood pressure 62 mm[Hg] Dr. Brooke Brown DO Work Phone: [facility] 03-10-2025 10:02-0400 Systolic blood pressure 94 mm[Hg] Dr. Brooke Brown DO Work Phone: [facility] 02-11-2025 10:34-0400 Body height 167.[address] Brooke Brown DO Work Phone: [facility] 02-11-2025 10:34-0400 Body mass index (BMI) [Ratio] 23.4 kg/m2 Dr. Brooke Brown DO Work Phone: [facility] 02-11-2025 10:34-0400 Body weight 65.[address] Brooke Brown DO Work Phone: [facility] 02-11-2025 10:34-0400 Diastolic blood pressure 67 mm[Hg] Dr. Brooke Brown DO Work Phone: [facility] 02-11-2025 10:34-0400 Systolic blood pressure 101 mm[Hg] Dr. Brooke Brown DO Work Phone: [facility] 01-14-2025 08:51-0400 Body height 167.[address] Brooke Brown DO Work Phone: [facility] 01-14-2025 08:51-0400 Body mass index (BMI) [Ratio] 22.3 kg/m2 Dr. Brooke Brown DO Work Phone: [facility] 01-14-2025 08:51-0400 Body weight 62.[address] Brooke Brown DO Work Phone: [facility] 01-14-2025 08:51-0400 Diastolic blood pressure 67 mm[Hg] Dr. Brooke Brown DO Work Phone: [facility] 01-14-2025 08:51-0400 Systolic blood pressure 103 mm[Hg] Dr. Brooke Brown DO Work Phone: [facility] 12-15-2024 10:19-0400 Body mass index (BMI) [Ratio] 21.9 kg/m2 Dr. Brooke Brown DO Work Phone: [facility] 12-15-2024 10:19-0400 Body weight 61.[address] Brooke Brown DO Work Phone: [facility] 12-15-2024 10:19-0400 Diastolic blood pressure 71 mm[Hg] Dr. Brooke Brown DO Work Phone: [facility] 12-15-2024 10:19-0400 Systolic blood pressure 112 mm[Hg] Dr. Brooke Brown DO Work Phone: [facility] 11-19-2024 10:24-0400 Body mass index (BMI) [Ratio] 20.6 kg/m2 Dr. Brooke Brown DO Work Phone: [facility] 11-19-2024 10:24-0400 Body weight 58.[address] Brooke Brown DO Work Phone: [facility] 11-19-2024 10:24-0400 Diastolic blood pressure 63 mm[Hg] Dr. Brooke Brown DO Work Phone: [facility] 11-19-2024 10:24-0400 Systolic blood pressure 99 mm[Hg] Dr. Brooke Brown DO Work Phone: [facility] 10-22-2024 10:45-0400 Body mass index (BMI) [Ratio] 20.2 kg/m2 Dr. Brooke Brown DO Work Phone: [facility] 10-22-2024 10:45-0400 Body weight 56.[address] Brooke Brown DO Work Phone: [facility] 10-22-2024 10:45-0400 Diastolic blood pressure 74 mm[Hg] Dr. Brooke Brown DO Work Phone: [facility] 10-22-2024 10:45-0400 Systolic blood pressure 116 mm[Hg] Dr. Brooke Brown DO Work Phone: [facility] 10-29-2023 11:39-0400 Body height 167.[address] Brooke Brown Work Phone: [facility] 10-29-2023 11:31-0400 Body mass index (BMI) [Ratio] 18.6 kg/m2 Dr. Brooke Brown Work Phone: [facility] 10-29-2023 11:31-0400 Body weight 52.[address] Brooke Brown Work Phone: [facility] 10-29-2023 11:31-0400 Diastolic blood pressure 66 mm[Hg] Dr. Brooke Brown Work Phone: [facility] 10-29-2023 11:31-0400 Systolic blood pressure 100 mm[Hg] Dr. Brooke Brown Work Phone: [facility] 08-29-2023 09:18-0500 Body mass index (BMI) [Ratio] 18.7 kg/m2 Dr. Brooke Brown Work Phone: [facility] 08-29-2023 09:18-0500 Body weight 52.[address] Brooke Brown Work Phone: [facility] 08-29-2023 09:18-0500 Diastolic blood pressure 78 mm[Hg] Dr. Brooke Brown Work Phone: [facility] 08-29-2023 09:18-0500 Systolic blood pressure 115 mm[Hg] Dr. Brooke Brown Work Phone: [facility] 09-25-2021 13:23-0400 Body height 168.[address] Brooke Brown Work Phone: [facility] Work Phone: 09-25-2021 13:23-0400 Body mass index (BMI) [Ratio] 26.4 kg/m2 Dr. Brooke Brown Work Phone: [facility] Work Phone: 09-25-2021 13:23-0400 Body weight 75.[address] Brooke Brown Work Phone: [facility] Work Phone: 09-25-2021 13:23-0400 Diastolic blood pressure 70 mm[Hg] Dr. Brooke Brown Work Phone: [facility] Work Phone: 09-25-2021 13:23-0400 Systolic blood pressure 108 mm[Hg] Dr. Brooke Brown Work Phone: [facility] Work Phone: 09-17-2021 14:08-0400 Body mass index (BMI) [Ratio] 26.4 kg/m2 Dr. Brooke Brown Work Phone: [facility] Work Phone: 09-17-2021 14:08-0400 Body weight 75.[address] Brooke Brown Work Phone: [facility] Work Phone: 09-17-2021 14:08-0400 Diastolic blood pressure 70 mm[Hg] Dr. Brooke Brown Work Phone: [facility] Work Phone: 09-17-2021 14:08-0400 Systolic blood pressure 102 mm[Hg] Dr. Brooke Brown Work Phone: [facility] Work Phone: 09-12-2021 11:45-0400 Body mass index (BMI) [Ratio] 26.1 kg/m2 Dr. Brooke Brown Work Phone: [facility] Work Phone: 09-12-2021 11:45-0400 Body weight 74.[address] Brooke Brown Work Phone: [facility] Work Phone: 09-12-2021 11:45-0400 Diastolic blood pressure 86 mm[Hg] Dr. Brooke Brown Work Phone: [facility] Work Phone: 09-12-2021 11:45-0400 Systolic blood pressure 128 mm[Hg] Dr. Brooke Brown Work Phone: [facility] Work Phone: 09-07-2021 08:45-0500 Body mass index (BMI) [Ratio] 25.9 kg/m2 Dr. Brooke Brown Work Phone: [facility] Work Phone: 09-07-2021 08:45-0500 Body weight 73.[address] Brooke Brown Work Phone: [facility] Work Phone: 09-07-2021 08:45-0500 Diastolic blood pressure 72 mm[Hg] Dr. Brooke Brown Work Phone: [facility] Work Phone: 09-07-2021 08:45-0500 Systolic blood pressure 114 mm[Hg] Dr. Brooke Brown Work Phone: [facility] Work Phone: 08-22-2021 07:59-0500 Body mass index (BMI) [Ratio] 25.6 kg/m2 Dr. Brooke Brown Work Phone: [facility] Work Phone: 08-22-2021 07:59-0500 Body weight 73.[address] Brooke Brown Work Phone: [facility] Work Phone: 08-22-2021 07:59-0500 Diastolic blood pressure 72 mm[Hg] Dr. Brooke Brown Work Phone: [facility] Work Phone: 08-22-2021 07:59-0500 Systolic blood pressure 118 mm[Hg] Dr. Brooke Brown Work Phone: [facility] Work Phone: 08-08-2021 07:08-0500 Body mass index (BMI) [Ratio] 25.1 kg/m2 Dr. Brooke Brown Work Phone: [facility] Work Phone: 08-08-2021 07:08-0500 Body weight 71.[address] Brooke Brown Work Phone: [facility] Work Phone: 08-08-2021 07:08-0500 Diastolic blood pressure 68 mm[Hg] Dr. Brooke Brown Work Phone: [facility] Work Phone: 08-08-2021 07:08-0500 Systolic blood pressure 100 mm[Hg] Dr. Brooke Brown Work Phone: [facility] Work Phone: 07-25-2021 09:30-0500 Body mass index (BMI) [Ratio] 25.1 kg/m2 Dr. Brooke Brown Work Phone: [facility] Work Phone: 07-25-2021 09:30-0500 Body weight 71.[address] Brooke Brown Work Phone: [facility] Work Phone: 07-25-2021 09:30-0500 Diastolic blood pressure 2 mm[Hg] Dr. Brooke Brown Work Phone: [facility] Work Phone: 07-25-2021 09:30-0500 Systolic blood pressure 120 mm[Hg] Dr. Brooke Brown Work Phone: [facility] Work Phone: 07-04-2021 07:23-0500 Body mass index (BMI) [Ratio] 24.3 kg/m2 Dr. Brooke Brown Work Phone: [facility] Work Phone: 07-04-2021 07:23-0500 Body weight 69.[address] Brooke Brown Work Phone: [facility] Work Phone: 07-04-2021 07:23-0500 Diastolic blood pressure 70 mm[Hg] Dr. Brooke Brown Work Phone: [facility] Work Phone: 07-04-2021 07:23-0500 Systolic blood pressure 110 mm[Hg] Dr. Brooke Brown Work Phone: [facility] Work Phone: 06-08-2021 09:11-0500 Diastolic blood pressure 64 mm[Hg] Dr. Brooke Brown Work Phone: [facility] Work Phone: 06-08-2021 09:11-0500 Systolic blood pressure 102 mm[Hg] Dr. Brooke Brown Work Phone: [facility] Work Phone: Encounters Encounter Date Encounter Type Care Provider Facility Start: 05-23-2025 ambulatory Brooke Dai Facilit y:[facility] Start: 05-12-2025 ambulatory Brooke Dai Facilit y:[facility] Start: 05-10-2025 ambulatory Brooke Dai Facilit y:[facility] Start: 05-06-2025 ambulatory Brooke Dai Facilit y:[facility] Start: 05-06-2025 End: 05-06-2025 ambulatory Brooke Dai Facility:[facility] Start: 04-22-2025 End: 04-22-2025 ambulatory Brooke Dai Facility:[facility] Start: 04-05-2025 End: 04-05-[address] Effie Petit DO -[facility] Work Phone: Start: 04-05-2025 End: 04-05-[address] Brooke Brown DO Work Phone: -[facility] Start: 03-25-2025 End: 03-25-2025 Patient encounter procedure Mandy Perez CN -[facility] Work Phone: Start: 03-25-2025 End: 03-25-[address] Brooke Brown DO Work Phone: [facility] Start: 03-10-2025 End: 03-10-2025 Patient encounter procedure Ruthann CARR -[facility] Work Phone: Start: 03-10-2025 End: 03-10-[address] Brooke Brown DO Work Phone: [facility] Start: 03-10-2025 End: 03-10-2025 ambulatory Brooke Brown Facility:[facility] Start: 02-11-2025 End: 02-11-2025 Patient encounter procedure Mandy Perez [facility] -[facility] Work Phone: Start: 02-11-2025 End: 02-11-[address] Brooke Brown DO Work Phone: [facility] Start: 01-14-2025 End: 01-14-[address] Ira Yee MD -[facility] Work Phone: Start: 01-14-2025 End: 01-14-[address] Brooke Brown DO Work Phone: [facility] Start: 01-04-2025 End: 01-04-[address] [facility] Start: 12-15-2024 End: 12-15-[address] Ira Yee MD -[facility] Work Phone: Start: 12-15-2024 End: 12-15-2024 ambulatory Brooke Brown Facility:[facility] Start: 11-19-2024 End: 11-19-[address] Effie Petit DO -[facility] Work Phone: Start: 11-19-2024 End: 11-19-2024 ambulatory Brooke Dai Facility:[facility] Start: 10-22-2024 End: 10-22-2024 Patient encounter procedure Mandy Perez CNM -[facility] Work Phone: Start: 10-22-2024 End: 10-22-2024 ambulatory Brooke Dai Facility:[facility] Start: 10-22-2024 End: 10-22-2024 ambulatory Brooke Dai Facility:[facility] Start: 05-12-2024 End: 05-12-2024 ambulatory Brooke Dai Facility:[facility] Start: 05-12-2024 ambulatory Brooke Dai Facilit y:[facility] Start: 10-29-2023 End: 10-29-[address] Brooke Brown Work Phone: [facility] Work Phone: Start: 10-29-2023 End: 10-29-[address] Brooke Brown Work Phone: [facility] Work Phone: Start: 08-29-2023 End: 08-29-[address] Brooke Brown Work Phone: [facility] Work Phone: Start: 09-25-2021 End: 09-25-[address] Brooke Brown Work Phone: [facility] Start: 09-17-2021 End: 09-17-[address] Brooke Brown Work Phone: [facility] Start: 09-12-2021 End: 09-12-[address] Brooke Brown Work Phone: [facility] Start: 09-07-2021 End: 09-07-[address] [facility] Start: 09-07-2021 End: 09-07-[address] Brooke Brown Work Phone: [facility] Start: 08-22-2021 End: 08-22-[address] Brooke Brown Work Phone: [facility] Start: 08-08-2021 End: 08-08-[address] Brooke Brown Work Phone: [facility] Start: 07-25-2021 End: 07-25-[address] Brooke Brown Work Phone: [facility] Start: 07-04-2021 End: 07-04-[address] [facility] Start: 06-08-2021 End: 06-08-[address] Brooke Brown Work Phone: [facility] Start: 07-09-2017 End: 07-10-2017 Ambulatory CELINA (CNM) [facility] Start: 05-19-2017 End: 05-20-2017 Ambulatory CELINA (CNM) [facility] Start: 05-16-2017 End: 05-19-2017 Ambulatory CELINA (CNM) [facility] Start: 05-07-2017 End: 05-08-2017 Ambulatory CELINA (CNM) [facility] Start: 05-02-2017 End: 05-05-2017 Ambulatory CELINA (CNM) [facility] Start: 04-24-2017 End: 04-24-2017 Ambulatory CELINA (CNM) [facility] Start: 04-23-2017 End: 04-24-2017 Ambulatory CELINA (CNM) [facility] Start: 04-18-2017 End: 04-18-2017 Ambulatory CELINA (CNM) [facility] Start: 04-03-2017 End: 04-04-2017 Ambulatory RAMY SONG [facility] Start: 03-20-2017 End: 03-21-2017 [facility]: 03-10-2017 End: 03-11-2017 Ambulatory VINEET HSU [facility] Start: 03-06-2017 End: 03-10-2017 Ambulatory RAMY SONG [facility] Start: 02-20-2017 End: 02-21-2017 Ambulatory RAMY SONG [facility] Start: 01-27-2017 End: 01-29-2017 Ambulatory FELICIA Oli (CNM) ALEX [facility] Start: 01-02-2017 End: 01-03-2017 Ambulatory JOSE CHIU [facility] Start: 12-27-2016 End: 01-06-2017 Ambulatory VINEET Weinstein [facility] Procedures Date Procedure Procedure Detail Performing Clinician Start: 03-10-2025 Serologic test for syphilis Dr. Brooke Brown DO Work Phone: Start: 10-22-2024 Liquid based cervica l cytology screening Dr. Brooke Brown DO Work Phone: Comment on above: NEGATIVE FOR INTRAEP ITHELIAL LESION OR MALIGNANCY. This liquid based Th inPrep(R) pap test was screened withthe use of an image guided system. Start: 10-22-[address] Huang Brown DO Work Phone: Start: 10-22-2024 Hepatitis C antibody measurement Dr. Brooke Brown DO Work Phone: Comment on above: Reactive: Presumptiv e evidence of antibodies to HCV. Follow CDC recommendations for supplemental testing.Non-Reactive: Antibodies to HCV were not detected; does not exclude the possibility of exposure to HCVReactive Results are presumptive evidence of antibodies to HCV. Follow CDC recommendations for supplemental testing.Order confirmation testing: HCV Quant by PCR testing - HCVPCR #[id number] Non Reactive: < 0.8 Equivocal: >/= 0.8 to < 1.0 Reactive: >/= 1.0The CDC requires that a reactive/equivocal HCV antibody result be sent out for confirmation. HCV Quant by PCR testing. Start: 10-22-[address] Brooke Brown DO Work Phone: Comment on above: Antibody Result: Int erpretationNon-Reactive: Non- ImmuneReactive: ImmuneThe following results were obtained with the [employer] Rubella IgG assay. Results from assays of other manufacturers cannot be used interchangeably. Start: 10-22-2024 Serologic test for syphilis Dr. Brooke Brown DO Work Phone: Start: 09-07-2021 Group B Streptococcu s Culture Dr. Brooke Brown Work Phone: H/O: section H/O sectio n Dr. Brooke Brown Work Phone: Comment on above: plans repeat c/s wit h SM H/O: section H/O sectio n Mandy Perez CNM H/O: section H/O sectio n Dr. Effie Petit DO H/O: section H/O sectio n Dr. Ira Yee MD H/O: section H/O sectio n Dr. Ira Yee MD H/O: section H/O sectio n Mandy Perez CNM H/O: section H/O sectio n Ruthann You [employer] H/O: section H/O sectio n Mandy Perez CNM H/O: section H/O sectio n Dr. Effie Petit DO Plan of Treatment Date Care Activity Detail Author Start: 03-10-2025 CBC W Auto Different ial panel - Blood [facility] Start: 03-10-2025 Measurement of gluco se 2 hours after glucose challenge for glucose tolerance test [facility] Start: 03-10-2025 Serologic test for syphilis [facility] Start: 03-10-2025 [facility] CBC W Auto Different ial panel - Blood [facility] Erythrocyte mean cor puscular volume determination [facility] Hematocrit [Volume F raction] of Blood [facility] Hemoglobin [Mass/volume] in Blood [facility] Leukocytes [#/volume] in Blood [facility] Mean corpuscular hem oglobin concentration determination [facility] Mean corpuscular hem oglobin determination [facility] Measurement of gluco se 2 hours after glucose challenge for glucose tolerance test [facility] Neutrophil count [facility] Neutrophil percent d ifferential count [facility] Platelets [#/volume] in Blood [facility] Red blood cell count [facility] Red cell distributio n width determination [facility] Serologic test for syphilis [facility] Ultrasound scan for growth [facility] Immunizations Immunization Date Immunization Notes Care Provider Fa cility 02-05-2019 diphtheria, tetanus toxoids and acellular pertussis vaccine, unspecified formulation Dr. Brooke Brown Work Phone: [facility] Work Phone: 02-20-2017 tetanus toxoid, redu ranjan diphtheria toxoid, and acellular pertussis vaccine, adsorbed Dr. Brooke Brown Work Phone: [facility] Payers Date Payer Category Payer Unknown [id number] 2024 Unknown [id number] 2024 Private Health Insurance [facility] [id number] 2024 Self-pay [id number] 2016 Unknown [id number] 1990 Unknown [id number] 2.16. [id number] Unknown [id number] Unknown [id number] 2.16.8 [id number] Unknown [id number] 2.16.8 [id number] Unknown [id number] 2.16.8 [id number] Unknown [id number] 2.16.8 [id number] Unknown [id number] 2.16.8 [id number] Unknown [id number] 2.16.8 [id number] Unknown [id number] 2.16.8 [id number] Unknown [id number] 2.16.8 [id number] Unknown [id number] 2.16.8 [id number] Unknown [id number] 2.16.8 [id number] Unknown [id number] 2.16.8 [id number] Unknown [id number] 2.16.8 [id number] Unknown [id number] 2.16.8 [id number] Unknown [id number] 2.16.8 [id number] Unknown [id number] 2.16.8 [id number] Unknown [id number] 2.16.8 [id number] Unknown [id number] 2.16.8 [id number] Unknown [id number] 2.16.8 [id number] Social History Date Type Detail Facility Start: 09-25-2021 End: 08-29-2023 Tobacco smoking status NHIS Unknown if ever smoked [facility] Start: 05-21-2017 None [facility] Start: 1990 Sex Assigned At Female W [facility] Start: 10-07-2024 [facility] Sex Female [facility] Clinical Notes 10-22-2024 to 03-25-2025 Note Date & Type Note Facility 03-25-2025 Progress note [facility] 02-11-2025 Progress note [facility] 01-14-2025 Progress note [facility] 12-15-2024 Evaluation note Diagnosis Onset Date Resolution AMA (advanced maternal age) multigravida 35+ acute December 15, 2024 10:16am H/O section acute December 15, 2024 10:16am acute December 15 10:16am Supervision of high-risk acute December 15 10:16am AMA (advanced maternal age) multigravida 35+ acute January 14, 2025 8:44am H/O section acute January 14, 2025 8:44am acute January 14 8:44am Supervision of high-risk acute January 14 8:44am AMA (advanced maternal age) multigravida 35+ acute January 10:31am H/O section acute 2024 10:31am acute February 11 10:31am Supervision of high-risk acute February 11, 2025 10:31am AMA (advanced maternal age) multigravida 35+ acute March 10, 2025 9:55am H/O section acute Feb 9:55am acute February 9:55am Supervision of high-risk acute March 102024 9:55am AMA (advanced maternal age) multigravida 35+ acute March 25, 2025 11:15am H/O section acute Feb 11:15am acute February 11:15am Supervision of high-risk acute March 252024 11:15am [facility] Work Phone: 1(857) 926-419506-18-2025 Evaluation note* Diagnosis Onset Date Resolution Status Admit Date AMA (advanced maternal age) multigravida 35+ acute December 15, 2024 10:16am H/O section acute December 15, 2024 10:16am acute December 15 10:16am Supervision of high-risk acute December 15, 2024 10:16am AMA (advanced maternal age) multigravida 35+ acute January 14, 2025 8:44am H/O section acute January 14, 2025 8:44am acute January 14 8:44am Supervision of high-risk acute January 14, 2025 8:44am AMA (advanced maternal age) multigravida 35+ acute February 11 10:31am H/O section acute 2024 10:31am acute February 11, 025 10:31am Supervision of high-risk acute February 11 10:31am AMA (advanced maternal age) multigravida 35+ acute March 10, 2025 9:55am H/O section acute Feb 9:55am acute February 9:55am Supervision of high-risk acute March 10, 2025 9:55am AMA (advanced maternal age) multigravida 35+ acute March 25, 2025 11:15am H/O section acute Feb 11:15am acute February 11:15am Supervision of high-risk acute March 25, 2025 11:15am AMA (advanced maternal age) multigravida 35+ acute April 05 9:23am H/O section acute 2024 9:23am acute April 05, 2 025 9:23am Supervision of high-risk acute April 05 9:23am [facility] Work Phone: 1(780) 351-737105-23-2025 Evaluation note* Diagnosis Onset Date Resolution Status Admit Date AMA (advanced maternal age) multigravida 35+ acute November 19, 2024 10:19am H/O section acute November 19, 2024 10:19am acute November 19, 2024 10:19am Supervision of high-risk acute November 19, 2024 1 0:19am AMA (advanced maternal age) multigravida 35+ acute December 15, 2024 10:16am H/O section acute December 15, 2024 10:16am acute December 15 10:16am Supervision of high-risk acute December 15, 2024 10:16am AMA (advanced maternal age) multigravida 35+ acute January 14, 2025 8:44am H/O section acute January 14, 2025 8:44am acute January 14 8:44am Supervision of high-risk acute January 14, 2025 8:44am AMA (advanced maternal age) multigravida 35+ acute February 11 10:31am H/O section acute 2024 10:31am acute February 11, 025 10:31am Supervision of high-risk acute February 11 10:31am AMA (advanced maternal age) multigravida 35+ acute March 10, 2025 9:55am H/O section acute Feb 9:55am acute February 9:55am Supervision of high-risk acute March 10, 2025 9:55am [facility] [place] [facility] Work Phone: 1(246) 359-291304-25-2025 Evaluation note* Diagnosis Onset Date Resolution Status Admit Date AMA (advanced maternal age) multigravida 35+ acute October 22 10:34am H/O section acute Apri l 2024 10:34am acute October 22 10:34am Supervision of high-risk acute October 22, 2024 10:34am AMA (advanced maternal age) multigravida 35+ acute November 19, 2024 10:19am H/O section acute November 19, 2024 10:19am acute November 19, 2024 10:19am Supervision of high-risk acute November 19, 2024 1 0:19am AMA (advanced maternal age) multigravida 35+ acute December 15, 2024 10:16am H/O section acute December 15, 2024 10:16am acute December 15 10:16am Supervision of high-risk acute December 15, 2024 10:16am AMA (advanced maternal age) multigravida 35+ acute January 14, 2025 8:44am H/O section acute January 14, 2025 8:44am acute January 14 8:44am Supervision of high-risk acute January 14, 2025 8:44am [facility] [employer] [facility] Work Phone: 1(929) 778-240604-25-2025 Evaluation note* Diagnosis Onset Date Resolution Status Admit Date AMA (advanced maternal age) multigravida 35+ acute October 22 10:34am H/O section acute Apr l 2024 10:34am acute October 22 10:34am Supervision of high-risk acute October 22, 2024 10:34am AMA (advanced maternal age) multigravida 35+ acute November 19, 2024 10:19am H/O section acute November 19, 2024 10:19am acute November 19, 2024 10:19am Supervision of high-risk acute November 19, 2024 1 0:19am AMA (advanced maternal age) multigravida 35+ acute December 15, 2024 10:16am H/O section acute December 15, 2024 10:16am acute December 15 10:16am Supervision of high-risk acute December 15, 2024 10:16am AMA (advanced maternal age) multigravida 35+ acute January 14, 2025 8:44am H/O section acute January 14, 2025 8:44am acute January 14 8:44am Supervision of high-risk acute January 14, 2025 8:44am AMA (advanced maternal age) multigravida 35+ acute February 11 10:31am H/O section acute Augu 2024 10:31am acute February 11, 025 10:31am Supervision of high-risk acute February 11 10:31am [facility] Work Phone: Evaluation note* Diagnosis Onset Date Resolution Status H/O anorexia nervosa acute H/O section acute History of shoulder dystocia in prior acute acute Supervision of other normal acute Periurethral trauma during delivery chronic Low-lying placenta in second trimester resolved H/O anorexia nervosa acute H/O section acute History of shoulder dystocia in prior acute acute Supervision of other normal acute Periurethral trauma during delivery chronic Low-lying placenta in second trimester resolved H/O anorexia nervosa acute H/O section acute History of shoulder dystocia in prior acute acute Supervision of other normal acute Periurethral trauma during delivery chronic Low-lying placenta in second trimester resolved H/O anorexia nervosa acute H/O section acute History of shoulder dystocia in prior acute acute Supervision of other normal acute Periurethral trauma during delivery chronic Low-lying placenta in second trimester resolved H/O anorexia nervosa acute H/O section acute History of shoulder dystocia in prior acute acute Supervision of other normal acute Periurethral trauma during delivery chronic Low-lying placenta in second trimester resolved H/O anorexia nervosa acute H/O section acute History of shoulder dystocia in prior acute acute Supervision of other normal acute Periurethral trauma during delivery chronic Low-lying placenta in second trimester resolved H/O anorexia nervosa acute H/O section acute History of shoulder dystocia in prior acute acute Supervision of other normal acute Periurethral trauma during delivery chronic H/O anorexia nervosa acute H/O section acute History of shoulder dystocia in prior acute acute Supervision of other normal acute Periurethral trauma during delivery [facility] Work Phone: Evaluation note* Diagnosis Onset Date Resolution Status Encounter for routine gynecological examination noneactive Abnormal uterine bleeding (AUB) acute [facility] Work Phone: Progress note Author Ira Yee [facility] Note Date/Time January 14, 2025 9:06 am [facility] [address] [place] [address], [address] [place] [address] OFFICE VISIT Date of Service: 01/14/25 MR#: [id number] Acct: [id number] Name: KRUNAL KERN Rep #: [id number] : 1990 Provider: Dr. Munir Yee MD Age/Sex: 34/F Location: [facility] [place] Status: Signed Intake Vital Signs 11/19/24 10:24 12/15/24 10:19 01/14/25 08:51 Height 5 ft 6 in 5 ft 6 in 5 ft 6 in Weight: 136 lb 138 lb 6 oz BMI 21.9 22.3 BP 112/71 103/67 Intake Visit Reasons: 20wk ob Percolator Operator Required: No Is patient in pain?: No Feel stressed/tense/nervous/anxious/difficulty sleeping: not at all Allergies No Known Allergies Allergy (Verified 01/14/25 08:55) Medications ?Medication ?Instructions ?Recorded ?Confirmed ?Type docosahexaenoic acid 200 mg mg PO 10/07/24 01/14/25 Hi story capsule (Algal Calhoun-3 DHA) magnesium 200 mg tablet 400 mg PO QDAY 10/07/2412/28 History vit no.164-ferrous tab PO 10/07/24 01/14/25 H istory gluconate 6 mg-folate 833.5 mcg DFE tablet ( PNV) Last Menstrual Period: 08/23/24 Zika: Zika virus screening: Negative : No PFSH PFSH Medical History Abnormal uterine bleeding (AUB) delivery delivered Low-lying placenta in second trimester History of anorexia nervosa Surgical History H/O section No significant past surgical history Family History Grandfather Colon cancer Social History adopted: No household members: significant other and children housing: house number of children: 3 current occupational status: employed current occupation: [employer] current occupational exposures/hazards: No pets and animals: Yes (outside dog) pets and animals: dog(s) history of recent travel: No sexually active: Yes Smoking Status: Former smoker second hand exposure: No (not in the house) alcohol intake: former details: quit 2022, not while substance use type: does not use caffeine: Yes (green tea) Type: tea what type of physical activity do you participate in: walking and weight training frequency: 3-4 times per week 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 Date Name GA/Weeks Outcome Route Bth Weight [facility] 10/[facility] [place] 40 live - full term 8pounds 7oz Female 1 4 hours none [facility] [place]/Dr. Timmy Yancey 05/05/19 [place] 39 live - full term 7lbs 15oz Male spinal [facility] [place] 09/27/21 [facility] 39 live - full term Male [facility] Marc[place]ony Delivery Date: 10/19/16 Last Updated by: Debbie Olmstead Shoulder dystocia, 3rd or 4th degree tear vaginal- tore up Delivery Date: 05/05/19 Last Updated by: Holly Weaver c/s d/t h/o shoulder dystocia Delivery Date: 09/27/21 Last Updated by: Yajaira Navarrete RLTCS HPI 20wk ob Details: KRUNAL KERN is a 34 year old who presents for routine OB visit. OB Visit KATH Calculator Estimated Delivery Date Method Current WG Current Estimate 05/30/25 LMP (Certain) 20w 4d Other Estimates 05/26/25 Ultrasound #1 21w 1d Expected Delivery Route/Plan repeat c/s with Specific Issue/Plans Covid status: [] Flu vaccine: [] Tdap vaccine: [] Rhogam: [] LARC form signed: [] Problem list reviewed and updated with the most current plan of care details and appropriate orders placed. Relevant counseling for the gestational age provided. Continue routine care and follow up unless otherwise noted in visit notes/problem list details Initial Weight: 125 lb Date -?-?-?-?-?-?-?-?-?-?-?-?- EGA Weight BP Urine Prot -?-?-?-?-?-?-?-?-?-?-?-?- Glucose FHR FuHt Pres Dilation -?-?-?-?-?-?-?-?-?-?-?-?- Effaced St Visit Note 10/22/24 -?-?-?-?-?-?-?-?-?-?-?-?- 8w 4d 125 lb 4 oz (+4 oz) 116/74 -?-?-?-?-?-?-?-?-?-?-?-?- 171 -?-?-?-?-?-?-?-?-?-?-?-?- KW- CRL cons wit h dates. Declines NIPT. requesting R C/S 11/19/24 -?-?-?-?-?-?-?-?-?-?-?-?- 12w 4d 128 lb (+3 lb) 99/63 Negative -?-?-?-?-?-?-?-?-?-?-?-?- Negative 154 -?-?-?-?-?-?-?-?-?-?-?-?- JV- CRL measurin g 13 weeks 1 day today. heart tones audible and movement present. will check with insurance about coverage with [facility] for anatomy scN 12/15/24 -?-?-?-?-?-?-?-?-?-?-?-?- 16w 2d 136 lb (+11 lb) 112/71 Negative -?-?-?-?-?-?-?-?-?-?-?-?- Negative 140 -?-?-?-?-?-?-?-?-?-?--?-?- SM- no vb lof no regular ctx 01/14/25 -?-?-?-?-?-?-?-?-?-?-?-?- 20w 4d 138 lb 6 oz (+13 lb 6 oz) 103/67 Negative -?-?-?-?-?-?-?-?-?-?-?-?- Negative 140 -?-?-?-?-?-?-?-?-?-?-?-?- SM- no vb lof go od fm nor euglar ctx ACOG First Trimester First Trimester: Desire for , Alcohol, Tobacco Cessation, Illicit/Recreational Drug/Substance Use, Intimate Partner Violence, Barriers to care, Unstable Housing, Communication Barriers, Environmental/Work Hazards, Anticipated Course of Care, Toxoplasmosis Precations, Use of Any medications, Sexual activity, Exercise, Dental Care, Sauna/Hot tub use, Seat Belt use, Childbirth classes/Hospital facilities, Travel, Indications for Ultrasound and Screening for Aneuploidy; Discussed Second Trimester Second Trimester: Signs and Symptoms of Labor, Selecting a care provider, Reproductive Life Planning & Contreception, Care Planning, Depression/Anxiety and Intimate Partner Violence; Discussed Tobacco Cessation Third Trimester Third Trimester: Pain Management Plans, Labor support person(s), Immediate Larc, Movement Monitoring and Feeding No ; Discussed Trial of Labor after Counseling and Discussed Circumcision preference Results POC Urinalysis 2 Dip (Clinic) Office Urine Glucose Negative Last Edit by Ruthann Marmolejo on 01/14/25 08:57 Office Urine Protein Negative Last Edit by Ruthann Marmolejo on 01/14/25 08:57 Coding Level of Care Code OB Routine Diagnoses AMA (advanced maternal age) multigravida 35+ O09.529 H/O section Z98.891 Supervision of high-risk O09.90 20 weeks gestation of Z3A.20 Weeks of gestation: 20 weeks Assessment and Plan Assessment and Plan (1) AMA (advanced maternal age) multigravida 35+: Status: Acute Comment: growth US at 36 weeks (2) H/O section: Status: Acute Comment: plans repeat c/s with SM (3) Supervision of high-risk : Status: Acute Comment: PRR , KATH 05/30/25, girl PC Sylvia López, Nir Bc (4) : Status: Acute Qualifiers: Weeks of gestation: 20 weeks Qualified Code(s): Z3A.20 - 20 weeks gestation of Comment: NIPT w gender/carrier-declines afp declines. nl anatomy Orders: Orders POC Urinalysis 2 Dip (Clinic) Today 01/14/25 09 <Electronically signed by Ira goodwin MD> Date _ Ira Yee MD Cosigner Signature: Date (if applicable) CC: ~ [facility] Work Phone: Progress note Author Mandy Perez [facility] Note Date/Time February 11, 2025 10 :57am [facility] [address], [address] [place] [address] OFFICE VISIT Date of Service: 02/11/25 MR#: [id number] Acct: [id number] Name: KRUNAL KERN Rep #: [id number] : 1990 Provider: JOHN Perez Age/Sex: 34/F Location: [facility] Status: Signed Intake Vital Signs 12/15/24 10:19 01/14/25 08:51 02/11/25 10:34 Height 5 ft 6 in 5 ft 6 in 5 ft 6 in Weight: 145 lb 5 oz BMI 23.4 BP 101/67 Intake Visit Reasons: 24wk ob Chief Complaint: 24wk OB Percolator Operator Required: No Is patient in pain?: No Allergies No Known Allergies Allergy (Verified 02/11/25 10:32) Medications ?Medication ?Instructions ?Recorded ?Confirmed ?Type docosahexaenoic acid 200 mg mg PO 10/07/24 02/11/25 Hi story capsule (Algal Calhoun-3 DHA) magnesium 200 mg tablet 400 mg PO QDAY 10/07/2401/28 History vit no.164-ferrous tab PO 10/07/24 02/11/25 H istory gluconate 6 mg-folate 833.5 mcg DFE tablet (Maria Esther PNV) Last Menstrual Period: 08/23/24 : No PFSH PFSH Medical History Abnormal uterine bleeding (AUB) delivery delivered Low-lying placenta in second trimester History of anorexia nervosa Surgical History H/O section No significant past surgical history Family History Grandfather Colon cancer Social History adopted: No household members: significant other and children housing: house number of children: 3 current occupational status: employed current occupation: [employer] current occupational exposures/hazards: No pets and animals: Yes (outside dog) pets and animals: dog(s) history of recent travel: No sexually active: Yes Smoking Status: Former smoker second hand exposure: No (not in the house) alcohol intake: former details: quit 2022, not while substance use type: does not use caffeine: Yes (green tea) Type: tea what type of physical activity do you participate in: walking and weight training frequency: 3-4 times per week 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 Date Name GA/Weeks Outcome Route Bth Weight Infant Gen Labor Lgth Anesthesia Del Locatn Provider FOB 10/19/16 [place] 40 live - full term 8pounds 7oz Female 1 4 hours none [facility] [place]/Dr. Timmy Yancey 05/05/19 [place] 39 live - full term 7lbs 15oz Male spinal [facility] [place] 09/27/21 [place] 39 live - full term Male [facility] Marcanthony Delivery Date: 10/19/16 Last Updated by: Debbie Olmstead Shoulder dystocia, 3rd or 4th degree tear vaginal- tore up Delivery Date: 05/05/19 Last Updated by: Holly Weaver c/s d/t h/o shoulder dystocia Delivery Date: 09/27/21 Last Updated by: Yajaira Navarrete RLTCS HPI 24wk ob Details: KRUNAL KERN is a 34 year old who presents for routine OB visit. OB Visit KATH Calculator Estimated Delivery Date Method Current WG Current Estimate 05/30/25 LMP (Certain) 24w 4d Other Estimates 05/26/25 Ultrasound #1 25w 1d Expected Delivery Route/Plan repeat c/s with Specific Issue/Plans Covid status: [] Flu vaccine: [] Tdap vaccine: [] Rhogam: [] LARC form signed: [] Problem list reviewed and updated with the most current plan of care details and appropriate orders placed. Relevant counseling for the gestational age provided. Continue routine care and follow up unless otherwise noted in visit notes/problem list details Initial Weight: 125 lb Date -?-?-?-?-?-?-?-?-?-?-?-?- EGA Weight BP Urine Prot -?-?-?-?-?-?-?-?-?-?-?-?- Glucose FHR FuHt Pres Dilation -?-?-?-?-?-?-?-?-?-?-?-?- Effaced St Visit Note 10/22/24 -?-?-?-?-?-?-?-?-?-?-?-?- 8w 4d 125 lb 4 oz (+4 oz) 116/74 -?-?-?-?-?-?-?-?-?-?-?-?- 171 -?-?-?-?-?-?-?-?-?-?-?-?- KW- CRL cons wit h dates. Declines NIPT. requesting R C/S 11/19/24 -?-?-?-?-?-?-?-?-?-?-?-?- 12w 4d 128 lb (+3 lb) 99/63 Negative -?-?-?-?-?-?-?-?-?-?-?-?- Negative 154 -?-?-?-?-?-?-?-?-?-?-?-?- JV- CRL measurin g 13 weeks 1 day today. heart tones audible and movement present. will check with insurance about coverage with [facility] for anatomy scN 12/15/24 -?-?-?-?-?-?-?-?-?-?-?-?- 16w 2d 136 lb (+11 lb) 112/71 Negative -?-?-?-?-?-?-?-?-?-?-?-?- Negative 140 -?-?-?-?-?-?-?-?-?-?-?-?- SM- no vb lof no regular ctx 01/14/25 -?-?-?-?-?-?-?-?-?-?-?-?- 20w 4d 138 lb 6 oz (+13 lb 6 oz) 103/67 Negative -?-?-?-?-?-?-?-?-?-?-?-?- Negative 140 -?-?-?-?-?-?-?-?-?-?-?-?- SM- no vb lof go od fm nor euglar ctx 02/11/25 -?-?-?-?-?-?-?-?-?-?-?-?- 24w 4d 145 lb 5 oz (+20 lb 5 oz) 101/67 Negative -?-?-?-?-?-?-?-?-?-?-?-?- Negative 160 25 -?-?-?-?-?-?-?-?-?-?-?-?- KW- no vb/crampi ng. chely fm. glucose discussed ACOG First Trimester First Trimester: Desire for , Alcohol, Tobacco Cessation, Illicit/Recreational Drug/Substance Use, Intimate Partner Violence, Barriers to care, Unstable Housing, Communication Barriers, Environmental/Work Hazards, Anticipated Course of Care, Toxoplasmosis Precations, Use of Any medications, Sexual activity, Exercise, Dental Care, Sauna/Hot tub use, Seat Belt use, Childbirth classes/Hospital facilities, Travel, Indications for Ultrasound and Screening for Aneuploidy; Discussed Second Trimester Second Trimester: Signs and Symptoms of Labor, Selecting a care provider, Reproductive Life Planning & Contreception, Care Planning, Depression/Anxiety and Intimate Partner Violence; Discussed Tobacco Cessation Third Trimester Third Trimester: Pain Management Plans, Labor support person(s), Immediate Larc, Movement Monitoring and Infant Feeding No ; Discussed Trial of Labor after Counseling and Discussed Circumcision preference ROS Const Reports system reviewed and no additional complaints, except as documented Eyes Reports system reviewed and no additional complaints, except as documented ENT Reports system reviewed and no additional complaints, except as documented Card Reports system reviewed and no additional complaints, except as documented Resp Reports system reviewed and no additional complaints, except as documented GI Reports system reviewed and no additional complaints, except as documented, Denies nausea and Denies vomiting Reports system reviewed and no additional complaints, except as documented Musc Reports system reviewed and no additional complaints, except as documented Skin/Breast Reports system reviewed and no additional complaints, except as documented Neuro Yes system reviewed and no additional complaints, except as documented Psych Reports system reviewed and no additional complaints, except as documented Endo Reports system reviewed and no additional complaints, except as documented Lenard/Lymph Reports system reviewed and no additional complaints, except as documented Aller/Immun Reports system reviewed and no additional complaints, except as documented Exam Const General: cooperative, healthy appearing and no acute distress Orientation: alert, awake and oriented x3 Neck Neck: normal visual inspection and full ROM Resp Effort & Inspection: normal respiratory effort, able to speak in complete sentences and symmetric chest movement GI Inspection: normal to inspection Palpation: soft and other Other: gravid Skin General: no rashes or lesions noted Neuro General: patient alert, patient awake and patient oriented x3 Cognition: normal cognition Speech: speech normal Gait: normal gait Motor: muscle tone normal throughout Extrem General: normal to inspection and full ROM Psych Appearance: grossly normal Mental Status: mental status grossly normal Mood: congruent mood Affect: normal affect Speech and Movement: speech and movement normal Attitude: cooperative Thought Process: normal Thought Content: normal Judgment: judgment good Results POC Urinalysis 2 Dip (Clinic) Office Urine Glucose Negative Last Edit by Latha Ruiz on 02/11/25 10:40 Office Urine Protein Negative Last Edit by Latha Ruiz on 02/11/25 10:40 Coding Level of Care Code OB Routine Diagnoses AMA (advanced maternal age) multigravida 35+ O09.529 H/O section Z98.891 Supervision of high-risk O09.90 24 weeks gestation of Z3A.24 Weeks of gestation: 24 weeks Assessment and Plan Assessment and Plan (1) AMA (advanced maternal age) multigravida 35+: Status: Acute Comment: growth US at 36 weeks (2) H/O section: Status: Acute Comment: plans repeat c/s with SM (3) Supervision of high-risk : Status: Acute Comment: PRR , KATH 05/30/25, girl PC Sylvia López, Nir Bc (4) : Status: Acute Qualifiers: Weeks of gestation: 24 weeks Qualified Code(s): Z3A.24 - 24 weeks gestation of Comment: NIPT w gender/carrier-declines afp declines. nl anatomy Orders: Orders POC Urinalysis 2 Dip (Clinic) Today O09.90 - Supervision of high risk , unspecified, unspecified trimester, Z3A.24 - 24 weeks gestation of CBC W/Diff, Automated Today O09.90 - Supervision of high risk , unspecified, unspecified trimester, Z3A.24 - 24 weeks gestation of Glucose Challenge Gest 1H 50g Today O09.90 - Supervision of high risk , unspecified, unspecified trimester, Z3A.24 - 24 weeks gestation of Syphilis Antibodies Today O09.90 - Supervision of high risk , unspecified, unspecified trimester, Z3A.24 - 24 weeks gestation of HIV Today O09.90 - Supervision of high risk , unspecified, unspecified trimester, Z3A.24 - 24 weeks gestation of Plan Details Additional Comments: ACOG trimester education reviewed and updated. see problem list details for updated plan management information and see below for orders placed at this visit. GA appropriate handout given. 02/11/25 1906 <Electronically signed by Mandy gabriel CNM> Date _ Mandy Perez CNM Cosigner Signature: Date (if applicable) CC: ~ [facility] Work Phone: Progress note Author Mandy Perez [facility] Note Date/Time March 25, 2025 11:56am [facility] [address] [place] [address], [address] [place] [address] OFFICE VISIT Date of Service: 03/25/25 MR#: [id number] Acct: [id number] Name: KRUNAL KERN Rep #: [id number] : 1990 Provider: JOHN Perez Age/Sex: 34/F Location: [facility] Status: Signed Intake Vital Signs 02/11/25 10:34 03/10/25 10:11 03/25/25 11:25 Height 5 ft 6 in 5 ft 6 in 5 ft 6 in Weight: 152 lb 6 oz BMI 24.5 BP 103/66 Intake Visit Reasons: 30 wk ob Chief Complaint: 30wk OB 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 Operator Required: No Is patient in pain?: No Allergies No Known Allergies Allergy (Verified 03/25/25 11:23) Medications ?Medication ?Instructions ?Recorded ?Confirmed ?Type docosahexaenoic acid 200 mg mg PO 10/07/24 03/25/25 Hi story capsule (Algal Calhoun-3 DHA) magnesium 200 mg tablet 400 mg PO QDAY 10/07/2403/01 History vit no.164-ferrous tab PO 10/07/24 03/25/25 H istory gluconate 6 mg-folate 833.5 mcg DFE tablet ( PNV) Last Menstrual Period: 08/23/24 PFSH PFSH Medical History Abnormal uterine bleeding (AUB) delivery delivered Low-lying placenta in second trimester History of anorexia nervosa Surgical History H/O section No significant past surgical history Family History Grandfather Colon cancer Social History adopted: No household members: significant other and children housing: house number of children: 3 current occupational status: employed current occupation: [employer] current occupational exposures/hazards: No pets and animals: Yes (outside dog) pets and animals: dog(s) history of recent travel: No sexually active: Yes Smoking Status: Former smoker second hand exposure: No (not in the house) alcohol intake: former details: quit 2022, not while substance use type: does not use caffeine: Yes (green tea) Type: tea what type of physical activity do you participate in: walking and weight training frequency: 3-4 times per week 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 Date Name GA/Weeks Outcome Route Bth Weight Gen Labor Lgth Anesthesia Del Locatn Provider FOB 10/19/16 [place] 40 live - full term 8pounds 7oz Female 1 4 hours none [facility] [place]/Dr. Timmy Yancey 05/05/19 [place] 39 live - full term 7lbs 15oz Male spinal [facility] [place] 09/27/21 [facility] 39 live - full term Male [facility] [place] Delivery Date: 10/19/16 Last Updated by: Debbie Olmstead Shoulder dystocia, 3rd or 4th degree tear vaginal- tore up Delivery Date: 05/05/19 Last Updated by: Holly Weaver c/s d/t h/o shoulder dystocia Delivery Date: 09/27/21 Last Updated by: Yajaira Navarrete RLTCS HPI 30 wk ob Details: KRUNAL KERN is a 34 year old who presents for routine OB visit. OB Visit KATH Calculator Estimated Delivery Date Method Current WG Current Estimate 05/30/25 LMP (Certain) 30w 4d Other Estimates 05/26/25 Ultrasound #1 31w 1d Expected Delivery Route/Plan repeat c/s with Specific Issue/Plans Covid status: [] Flu vaccine: [] Tdap vaccine: declines Rhogam: na LARC form signed: yes Problem list reviewed and updated with the most current plan of care details and appropriate orders placed. Relevant counseling for the gestational age provided. Continue routine care and follow up unless otherwise noted in visit notes/problem list details Initial Weight: 125 lb Date -?-?-?-?-?-?-?-?-?-?-?-?- EGA Weight BP Urine Prot -?--?-?-?-?-?-?-?-?-?-?-?- Glucose FHR FuHt Pres Dilation -?-?-?-?-?-?-?--?-?-?-?-?- Effaced St Visit Note 10/22/24 -?-?-?-?-?-?-?-?-?-?-?-?- 8w 4d 125 lb 4 oz (+4 oz) 116/74 -?-?-?-?-?-?-?-?-?-?-?-?- 171 -?-?-?-?-?-?-?-?-?-?-?-?- KW- CRL cons wit h dates. Declines NIPT. requesting R C/S 11/19/24 -?-?-?-?-?-?-?-?-?-?-?-?- 12w 4d 128 lb (+3 lb) 99/63 Negative -?-?-?-?-?-?-?-?-?-?-?-?- Negative 154 -?-?-?-?-?-?-?-?-?-?-?-?- JV- CRL measurin g 13 weeks 1 day today. heart tones audible and movement present. will check with insurance about coverage with [facility] for anatomy scN 12/15/24 -?-?-?-?-?-?-?-?-?-?-?-?- 16w 2d 136 lb (+11 lb) 112/71 Negative -?-?-?-?-?-?-?-?-?-?-?-?- Negative 140 -?-?-?-?-?-?-?-?-?-?-?-?- SM- no vb lof no regular ctx 01/14/25 -?-?-?-?-?-?-?-?-?-?-?-?- 20w 4d 138 lb 6 oz (+13 lb 6 oz) 103/67 Negative -?-?-?-?-?-?-?-?-?-?-?-?- Negative 140 -?-?-?-?-?-?-?-?-?-?-?-?- SM- no vb lof go od fm nor euglar ctx 02/11/25 -?-?-?-?-?-?-?-?-?-?--?-?- 24w 4d 145 lb 5 oz (+20 lb 5 oz) 101/67 Negative -?-?-?-?-?-?-?-?-?-?-?-?- Negative 160 25 -?-?-?-?-?-?-?-?-?-?-?-?- KW- no vb/crampi ng. good fm. glucose discussed 03/10/25 -?-?-?-?-?-?-?-?-?-?-?-?- 28w 3d 152 lb 5 oz (+27 lb 5 oz) 94/62 Negative -?-?-?-?-?-?-?-?-?-?-?-?- Negative 142 28 -?-?-?-?-?-?-?-?-?-?-?-?- MH-No vb,lof. Go od fm. Larc. 28 wk labs pending. Declines tdap 03/25/25 -?-?-?-?-?-?-?-?-?-?-?-?- 30w 4d 152 lb 6 oz (+27 lb 6 oz) 103/66 Negative -?-?-?-?-?-?-?-?-?-?-?-?- Negative 130 30 -?-?-?-?-?--?-?-?-?-?-?-?- KW- no vb/lof/ct x. good fm. no concerns ACOG First Trimester First Trimester: Desire for , Alcohol, Tobacco Cessation, Illicit/Recreational Drug/Substance Use, Intimate Partner Violence, Barriers to care, Unstable Housing, Communication Barriers, Environmental/Work Hazards, Anticipated Course of Care, Toxoplasmosis Precations, Use of Any medications, Sexual activity, Exercise, Dental Care, Sauna/Hot tub use, Seat Belt use, Childbirth classes/Hospital facilities, Travel, Indications for Ultrasound and Screening for Aneuploidy Second Trimester Second Trimester: Signs and Symptoms of Labor, Selecting a care provider, Reproductive Life Planning & Contreception, Care Planning, Depression/Anxiety and Intimate Partner Violence; Discussed Tobacco Cessation Third Trimester Third Trimester: Pain Management Plans, Labor support person(s), Immediate Larc, Movement Monitoring, Infant Feeding and Family Medical Leave or Disability Forms; Discussed Trial of Labor after Counseling and Discussed Circumcision preference ROS Const Reports system reviewed and no additional complaints, except as documented Eyes Reports system reviewed and no additional complaints, except as documented ENT Reports system reviewed and no additional complaints, except as documented Card Reports system reviewed and no additional complaints, except as documented Resp Reports system reviewed and no additional complaints, except as documented GI Reports system reviewed and no additional complaints, except as documented, Denies nausea and Denies vomiting Reports system reviewed and no additional complaints, except as documented Musc Reports system reviewed and no additional complaints, except as documented Skin/Breast Reports system reviewed and no additional complaints, except as documented Neuro Yes system reviewed and no additional complaints, except as documented Psych Reports system reviewed and no additional complaints, except as documented Endo Reports system reviewed and no additional complaints, except as documented Lenard/Lymph Reports system reviewed and no additional complaints, except as documented Aller/Immun Reports system reviewed and no additional complaints, except as documented Exam Const General: cooperative, healthy appearing and no acute distress Orientation: alert, awake and oriented x3 Neck Neck: normal visual inspection and full ROM Resp Effort & Inspection: normal respiratory effort, able to speak in complete sentences and symmetric chest movement GI Inspection: normal to inspection Palpation: soft and other Other: gravid Skin General: no rashes or lesions noted Neuro General: patient alert, patient awake and patient oriented x3 Cognition: normal cognition Speech: speech normal Gait: normal gait Motor: muscle tone normal throughout Extrem General: normal to inspection and full ROM Psych Appearance: grossly normal Mental Status: mental status grossly normal Mood: congruent mood Affect: normal affect Speech and Movement: speech and movement normal Attitude: cooperative Thought Process: normal Thought Content: normal Judgment: judgment good Results POC Urinalysis 2 Dip (Clinic) Office Urine Glucose Negative Last Edit by Latha Ruiz on 03/25/25 11:28 Office Urine Protein Negative Last Edit by Latha Ruiz on 03/25/25 11:28 Coding Level of Care Code OB Routine Diagnoses Multigravida of advanced maternal age in third trimester O09.523 Trimester: third trimester H/O section Z98.891 Supervision of high risk in third trimester O09.93 Trimester: third trimester 30 weeks gestation of Z3A.30 Weeks of gestation: 30 weeks Assessment and Plan Assessment and Plan (1) AMA (advanced maternal age) multigravida 35+: Status: Acute Qualifiers: Trimester: third trimester Qualified Code(s): O09.523 - Supervision of elderly multigravida, third trimester Comment: growth US at 36 weeks (2) H/O section: Status: Acute Comment: plans repeat c/s with SM (3) Supervision of high-risk : Status: Acute Qualifiers: Trimester: third trimester Qualified Code(s): O09.93 - Supervision of high risk , unspecified, third trimester Comment: PRR , KATH 05/30/25, girl PC Sylvia López, Nir Bc (4) : Status: Acute Qualifiers: Weeks of gestation: 30 weeks Qualified Code(s): Z3A.30 - 30 weeks gestation of Comment: NIPT w gender/carrier-declines afp declines. nl anatomy Orders: Orders POC Urinalysis 2 Dip (Clinic) Today Plan Details Additional Comments: ACOG trimester education reviewed and updated. see problem list details for updated plan management information and see below for orders placed at this visit. GA appropriate handout given. 03/25/25 1156 <Electronically signed by Mandy gabriel CNM> Date _ Mandy Perez CNM Cosigner Signature: Date (if applicable) CC: ~ [facility] Work Phone: Reason for referral (narrative)No reason for referral information availableBlMonrovia Community [facility] Work Phone: Summary Purpose Family History No Family History Records Found Relationship Condition Age at Onset Recorded Date/T boo grandfather Malignant neoplasm of colon Unknown Advance Directives No Advanced Directives Records Found Advance Directive Response Recorded Date/ Time Living Will No July 04 9:42am Power of Retread Technician No July 04 022 9:42am Advance Directive Response Recorded Date/ Time Living Will No September 27, 2021 5:20am Power of Retread Technician No September 27 5:20am Chief Complaint and Reason for Visit Chief Complaint 23WK OB 27WK OB / GLUCOSE 30 WK OB 32 WK OB 34 WK OB 36 WK OB 37WK OB 37WK OB NST ONLY DFM Reason for Visit H/O anorexia nervosa H/O section History of shoulder dystocia in prior Supervision of other normal Periurethral trauma during delivery Low-lying placenta in second trimester H/O anorexia nervosa H/O section History of shoulder dystocia in prior Supervision of other normal Periurethral trauma during delivery Low-lying placenta in second trimester H/O anorexia nervosa H/O section History of shoulder dystocia in prior Supervision of other normal Periurethral trauma during delivery Low-lying placenta in second trimester H/O anorexia nervosa H/O section History of shoulder dystocia in prior Supervision of other normal Periurethral trauma during delivery Low-lying placenta in second trimester H/O anorexia nervosa H/O section History of shoulder dystocia in prior Supervision of other normal Periurethral trauma during delivery Low-lying placenta in second trimester H/O anorexia nervosa H/O section History of shoulder dystocia in prior Supervision of other normal Periurethral trauma during delivery Low-lying placenta in second trimester H/O anorexia nervosa H/O section History of shoulder dystocia in prior Supervision of other normal Periurethral trauma during delivery H/O anorexia nervosa H/O section History of shoulder dystocia in prior Supervision of other normal Periurethral trauma during delivery 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 Reason for Visit Encounter for routin e gynecological examination Abnormal uterine bleeding (AUB) Chief Complaint Admit Date 8WK NOB LMP 08/23 KATH 05/30October 22 10:34am 12WK OB November 19, 2024 10:19 am 16 wk ob December 15, 2024 10:1 6am 20wk ob January 14, 2025 8:44 am Reason for Visit Admit Date AMA (advanced maternal age) multigravida 35+ October 22, 2024 10:34am H/O section October 22, 2024 10 :34am October 22, 2024 10: 34am Supervision of high-risk October 22, 2024 10:34am AMA (advanced maternal age) multigravida 35+ November 19, 2024 10:19am H/O section November 19, 2024 10:1 9am November 19, 2024 10:19 am Supervision of high-risk October [id number] 10:19am AMA (advanced maternal age) multigravida 35+ December 15, 2024 10:16am H/O section December 15, 2024 10: 16am December 15, 2024 10:1 6am Supervision of high-risk December 15, 2024 10:16am AMA (advanced maternal age) multigravida 35+ January 14, 2025 8:44am H/O section January 14, 2025 8:4 4am January 14, 2025 8:44 am Supervision of high-risk January 14, 2025 8:44am Chief Complaint Admit Date 8WK NOB LMP 08/23 KATH 05/30October 22 10:34am 12WK OB November 19, 2024 10:19 am 16 wk ob December 15, 2024 10:1 6am 20wk ob January 14, 2025 8:44 am 24wk ob February 11, 2025 10 :31am Reason for Visit Admit Date AMA (advanced maternal age) multigravida 35+ October 22, 2024 10:34am H/O section October 22, 2024 10 :34am October 22, 2024 10: 34am Supervision of high-risk October 22, 2024 10:34am AMA (advanced maternal age) multigravida 35+ November 19, 2024 10:19am H/O section November 19, 2024 10:1 9am November 19, 2024 10:19 am Supervision of high-risk October 292024 10:19am AMA (advanced maternal age) multigravida 35+ December 15, 2024 10:16am H/O section December 15, 2024 10: 16am December 15, 2024 10:1 6am Supervision of high-risk December 15, 2024 10:16am AMA (advanced maternal age) multigravida 35+ January 14, 2025 8:44am H/O section January 14, 2025 8:4 4am January 14, 2025 8:44 am Supervision of high-risk January 14, 2025 8:44am AMA (advanced maternal age) multigravida 35+ February 11, 2025 10:31am H/O section February 11, 2025 1 0:31am February 11, 2025 10 :31am Supervision of high-risk Augus t 2024 10:31am Chief Complaint Admit Date 12WK OB November 19, 2024 10:19 am 16 wk ob December 15, 2024 10:1 6am 20wk ob January 14, 2025 8:44 am 24wk ob February 11, 2025 10 :31am 28wk ob/glucose March 10, 2025 9:55am Reason for Visit Admit Date AMA (advanced maternal age) multigravida 35+ November 19, 2024 10:19am H/O section November 19, 2024 10:1 9am November 19, 2024 10:19 am Supervision of high-risk October [id number] 10:19am AMA (advanced maternal age) multigravida 35+ December 15, 2024 10:16am H/O section December 15, 2024 10: 16am December 15, 2024 10:1 6am Supervision of high-risk December 15, 2024 10:16am AMA (advanced maternal age) multigravida 35+ January 14, 2025 8:44am H/O section January 14, 2025 8:4 4am January 14, 2025 8:44 am Supervision of high-risk January 14, 2025 8:44am AMA (advanced maternal age) multigravida 35+ February 11, 2025 10:31am H/O section February 11, 2025 1 0:31am February 11, 2025 10 :31am Supervision of high-risk Augus t 2024 10:31am AMA (advanced maternal age) multigravida 35+ March 10, 2025 9:55am H/O section March 10 9:55am March 10, 2025 9:55am Supervision of high-risk Septe [facility] 2024 9:55am Chief Complaint Admit Date 16 wk ob December 15, 2024 10:1 6am 20wk ob January 14, 2025 8:44 am 24wk ob February 11, 2025 10 :31am 28wk ob/glucose March 10, 2025 9:55am 30 wk ob March 25, 2025 11:15am Reason for Visit Admit Date AMA (advanced maternal age) multigravida 35+ December 15, 2024 10:16am H/O section December 15, 2024 10: 16am December 15, 2024 10:1 6am Supervision of high-risk December 15, 2024 10:16am AMA (advanced maternal age) multigravida 35+ January 14, 2025 8:44am H/O section January 14, 2025 8:4 4am January 14, 2025 8:44 am Supervision of high-risk January 14, 2025 8:44am AMA (advanced maternal age) multigravida 35+ February 11, 2025 10:31am H/O section February 11, 2025 1 0:31am February 11, 2025 10 :31am Supervision of high-risk Augus t 2024 10:31am AMA (advanced maternal age) multigravida 35+ March 10, 2025 9:55am H/O section March 10 9:55am March 10, 2025 9:55am Supervision of high-risk Septe mb 2024 9:55am AMA (advanced maternal age) multigravida 35+ March 25, 2025 11:15am H/O section March 25 11:15am March 25, 2025 11:15am Supervision of high-risk Marisae [facility] 2024 11:15am Chief Complaint Admit Date 16 wk ob December 15, 2024 10:1 6am 20wk ob January 14, 2025 8:44 am 24wk ob February 11, 2025 10 :31am 28wk ob/glucose March 10, 2025 9:55am 30 wk ob March 25, 2025 11:15am 32 wk ob *csection April 05, 2025 9: 23am Reason for Visit Admit Date AMA (advanced maternal age) multigravida 35+ December 15, 2024 10:16am H/O section December 15, 2024 10: 16am December 15, 2024 10:1 6am Supervision of high-risk December 15, 2024 10:16am AMA (advanced maternal age) multigravida 35+ January 14, 2025 8:44am H/O section January 14, 2025 8:4 4am January 14, 2025 8:44 am Supervision of high-risk January 14, 2025 8:44am AMA (advanced maternal age) multigravida 35+ February 11, 2025 10:31am H/O section February 11, 2025 1 0:31am February 11, 2025 10 :31am Supervision of high-risk Augus t 2024 10:31am AMA (advanced maternal age) multigravida 35+ March 10, 2025 9:55am H/O section March 10 9:55am March 10, 2025 9:55am Supervision of high-risk Septe [facility] 2024 9:55am AMA (advanced maternal age) multigravida 35+ March 25, 2025 11:15am H/O section March 25 11:15am March 25, 2025 11:15am Supervision of high-risk Septe [facility] 2024 11:15am AMA (advanced maternal age) multigravida 35+ April 05, 2025 9:23am H/O section April 05, 2025 9 :23am April 05, 2025 9: 23am Supervision of high-risk Octob 2024 9:23am Additional Source Comments INFORMATION SOURCE (unrecogn ized section and content) DATE CREATED AUTHOR 12/22/2017 [facility] DATE CREATED AUTHOR AUTHOR'S ORGANIZ ATION 01/08/2025 [facility] DATE CREATED AUTHOR AUTHOR'S ORGANIZ ATION 05/09/2025 [facility] Goals (unrecognized section and content) Type Care Experience after discussion pat ient prefer ltcs for history of shoulder dystociaLabor Preferences-labor support person: Jarodpain management: spinalcut cord/dad catch: yesbreastfeeding: yesPP control planned: nonediscussed possible routes of delivery and associated risks: yes and plan LTCSspecial requests: [] Care Experience RLTCS with SM Care Experience repeat c/s with SM Type Detail Care Experience after discussion pat ient prefer ltcs for history of shoulder dystociaLabor Preferences-labor support person: Jarodpain management: spinalcut cord/dad catch: yesbreastfeeding: yesPP control planned: nonediscussed possible routes of delivery and associated risks: yes and plan LTCSspecial requests: [] Care Experience RLTCS with SM Care Experience repeat c/s with SM- patient prefers exparel injection in the facia and muscle. Care Teams (unrecognized sec tion and content) Team Status: Active Member Role Status Dates Dr. Brooke Brown , DO Family Provider Active Dr. Brooke Brown , DO Primary Care Provider Active Team Status: Inactive Member Role Status Dates Dr. Brooke Brown DO Primary Care Provider, Referr ing Provider Active Mandy Perez CNM Attending Provider Active Team Status: Inactive Member Role Status Dates Dr. Brooke Brown , DO Primary Care Provider, Referr ing Provider Active Ruthann You LIFT ELECTRICIAN, LIFT ELECTRICIAN-C Attending Provider Active Team Status: Inactive Member Role Status Dates Dr. Brooke Brown , DO Primary Care Provider Active Ruthann You LIFT ELECTRICIAN, LIFT ELECTRICIAN-C Attending Provider, Referring Provider Active Team Status: Active Member Role/Relationship Status Dates Dr. Brooke Brown , DO Primary Care Provider Active Team Status: Inactive Member Role/Relationship Status Dates Dr. Brooke Brown DO Primary Care Provider Active Start: October 22, 2024 End: October 22, 2024 Dr. Brooke Brown DO Referring Provider Active Start: October 22, 2024 End: October 22, 2024 Mandy Perez CNM Attending Provider Active S tart: October 22, 2024 End: October 22, 2024 Team Status: Inactive Member Role/Relationship Status Dates Dr. Brooke Brown DO Primary Care Provider Active Start: October 22, 2024 End: October 22, 2024 Mandy Perez CNM Attending Provider Active S tart: October 22, 2024 End: October 22, 2024 Mandy Perez CNM Referring Provider Active S tart: October 22, 2024 End: October 22, 2024 Team Status: Inactive Member Role/Relationship Status Dates Dr. Brooke Brown DO Primary Care Provider Active Start: November 19, 2024 End: November 19, 2024 Dr. Brooke Brown DO Referring Provider Active Start: November 19, 2024 End: November 19, 2024 Dr. Effie Petit DO Attending Provider Activ e Start: November 19, 2024 End: November 19, 2024 Team Status: Inactive Member Role/Relationship Status Dates Dr. Brooke Brown DO Primary Care Provider Active Start: December 15, 2024 End: December 15, 2024 Dr. Brooke Brown DO Referring Provider Active Start: December 15, 2024 End: December 15, 2024 Dr. Ira Yee MD Attending Provider Active Start: December 15, 2024 End: December 15, 2024 Team Status: Inactive Member Role/Relationship Status Dates Dr. Brooke Brown DO Primary Care Provider Active Start: January 14, 2025 End: January 14, 2025 Dr. Brooke Brown DO Referring Provider Active Start: January 14, 2025 End: January 14, 2025 Dr. Ira Yee MD Attending Provider Active Start: January 14, 2025 End: January 14, 2025 Team Status: Inactive Member Role/Relationship Status Dates Dr. Brooke Brown DO Primary Care Provider Active Start: February 11, 2025 End: February 11, 2025 Dr. Brooke Brown DO Referring Provider Active Start: February 11, 2025 End: February 11, 2025 Mandy Perez CNM Attending Provider Active S tart: February 11, 2025 End: February 11, 2025 Team Status: Inactive Member Role/Relationship Status Dates Dr. Brooke Brown DO Primary Care Provider Active Start: November 19, 2024 End: November 19, 2024 Dr. Brooke Brown DO Referring Provider Active Start: November 19, 2024 End: November 19, 2024 Dr. Effie Petit DO Attending Provider Activ e Start: November 19, 2024 End: November 19, 2024 Team Status: Inactive Member Role/Relationship Status Dates Dr. Brooke Brown DO Primary Care Provider Active Start: December 15, 2024 End: December 15, 2024 Dr. Brooke Brown DO Referring Provider Active Start: December 15, 2024 End: December 15, 2024 Dr. Ira Yee MD Attending Provider Active Start: December 15, 2024 End: December 15, 2024 Team Status: Inactive Member Role/Relationship Status Dates Dr. Brooke Brown DO Primary Care Provider Active Start: January 14, 2025 End: January 14, 2025 Dr. Brooke Brown DO Referring Provider Active Start: January 14, 2025 End: January 14, 2025 Dr. Ira Yee MD Attending Provider Active Start: January 14, 2025 End: January 14, 2025 Team Status: Inactive Member Role/Relationship Status Dates Dr. Brooke Brown DO Primary Care Provider Active Start: February 11, 2025 End: February 11, 2025 Dr. Brooke Brown DO Referring Provider Active Start: February 11, 2025 End: February 11, 2025 Mandy Perez CNM Attending Provider Active S tart: February 11, 2025 End: February 11, 2025 Team Status: Inactive Member Role/Relationship Status Dates Dr. Brooke Brown DO Primary Care Provider Active Start: March 10, 2025 End: March 10, 2025 Dr. Brooke Brown DO Referring Provider Active Start: March 10, 2025 End: March 10, 2025 Ruthann You LIFT ELECTRICIAN, LIFT ELECTRICIAN-C Attending Provider Active Start: March 10, 2025 End: March 10, 2025 Team Status: Active Member Role/Relationship Status Dates Dr. Brooke Brown DO Primary Care Provider Active Start: March 10, 2025 Dr. Ira Yee MD Attending Provider Active Start: March 10, 2025 Dr. Ira Yee MD Referring Provider Active Start: March 10, 2025 Team Status: Active Member Role/Relationship Status Dates Dr. Brooke Brown DO Primary care physician Active Team Status: Inactive Member Role/Relationship Status Dates Dr. Brooke Brown DO Primary care physician Active Start: December 15, 2024 End: December 15, 2024 Dr. Brooke Brown DO Referring Provider Active Start: December 15, 2024 End: December 15, 2024 Dr. Ira Yee MD Attending physician Active Start: December 15, 2024 End: December 15, 2024 Team Status: Inactive Member Role/Relationship Status Dates Dr. Brooke Brown DO Primary care physician Active Start: January 14, 2025 End: January 14, 2025 Dr. Brooke Brown DO Referring Provider Active Start: January 14, 2025 End: January 14, 2025 Dr. Ira Yee MD Attending physician Active Start: January 14, 2025 End: January 14, 2025 Team Status: Inactive Member Role/Relationship Status Dates Dr. Brooke Brown DO Primary care physician Active Start: February 11, 2025 End: February 11, 2025 Dr. Brooke Brown DO Referring Provider Active Start: February 11, 2025 End: February 11, 2025 Mandy Perez CNM Attending physician Active Start: February 11, 2025 End: February 11, 2025 Team Status: Inactive Member Role/Relationship Status Dates Dr. Brooke Brown DO Primary care physician Active Start: March 10, 2025 End: March 10, 2025 Dr. Brooke Brown DO Referring Provider Active Start: March 10, 2025 End: March 10, 2025 Ruthann You LIFT ELECTRICIAN, LIFT ELECTRICIAN-C Attending physician Active Start: March 10, 2025 End: March 10, 2025 Team Status: Inactive Member Role/Relationship Status Dates Dr. Brooke Brown DO Primary care physician Active Start: March 10, 2025 End: March 10, 2025 Dr. Ira Yee MD Attending physician Active Start: March 10, 2025 End: March 10, 2025 Dr. Ira Yee MD Referring Provider Active Start: March 10, 2025 End: March 10, 2025 Team Status: Inactive Member Role/Relationship Status Dates Dr. Brooke Brown DO Primary care physician Active Start: March 25, 2025 End: March 25, 2025 Dr. Brooke Brown DO Referring Provider Active Start: March 25, 2025 End: March 25, 2025 Mandy Perez CNM Attending physician Active Start: March 25, 2025 End: March 25, 2025 Team Status: Inactive Member Role/Relationship Status Dates Dr. Brooke Brown DO Primary care physician Active Start: April 05, 2025 End: April 05, 2025 Dr. Brooke Brown DO Referring Provider Active Start: April 05, 2025 End: April 05, 2025 Dr. Effie Petit DO Attending physician Acti ve Start: April 05, 2025 End: April 05, 2025 FOR RECORDS PERTAINING TO PATIENTS WHO ARE OR HAVE BEEN ENROLLED IN A CHEMICAL DEPENDENCY/SUBSTANCEABUSE PROGRAM, SOME INFORMATION MAY BE OMITTED. This clinical summary was aggregated from multiple sources. Caution should be exercised in using it in the provision of clinical care. This summary normalizes information from multiple sources, and as a consequence, information in this document may materially change the coding, format and clinical context of patient data. In addition, data may be omitted in some cases. CLINICAL DECISIONS SHOULD BE BASED ON THE PRIMARY CLINICAL RECORDS. [employer] provides no warranty or guarantee of the accuracy or completeness of information in this document.
== END | disposition home or self-care (01) ==
LOC: US 16:08
PROVIDERS: PCP Internal Medicine; Referring Provider Advanced Practice Midwife; Visit Provider Advanced Practice Midwife
DX: O09.523 Supervision of elderly multigravida, third trimester (principal); Z3A.00 Weeks of gestation of pregnancy not specified
CPT/HCPCS: 76816

== ENCOUNTER → 2025-05-16 | Outpatient (CLI) | payer BC, SELFPAY ==
[2025-05-16 13:08] LABS: Glucose Challenge Gest 1H 50g 94 mg/dL (70-140)
== END | disposition home or self-care (01) ==
PROVIDERS: Advanced Practice Midwife; PCP Internal Medicine; Visit Provider Obstetrics & Gynecology
DX: Z13.1 Encounter for screening for diabetes mellitus (principal)
CPT/HCPCS: 36415; 82950

== ENCOUNTER 2025-05-23 05:13 | Inpatient (IN) | payer BC, SELFPAY ==
--- NOTE | 2025-05-22 10:25 | HP.PCM_ITS ---
History and Physical Date of Admission: 05/23/25 Intake Vital Signs 03/25/2511:25 04/05/2509:24 05/12/2510:58 05/18/2508:42 05/18/2508:43 Height 5 ft 6 in 5 ft 6 in 5 ft 6 in 5 ft 6 in 5 ft 6 in Weight: 159 lb 6 oz BMI 25.7 BP 115/77 Intake Visit Reasons: 38w 3d ob *csection It Risk And Assurance Manager Required: No Is patient in pain?: No Allergies No Known Allergies Allergy (Verified 05/18/25 08:42) Medications ?Medication ?Instructions ?Recorded ?Confirmed ?Type docosahexaenoic acid 200 mg mg PO 10/07/24 05/18/25 History capsule (Algal Lawai-3 DHA) magnesium 200 mg tablet 400 mg PO QDAY 10/07/24 05/18/25 History vit no.164-ferrous tab PO 10/07/24 05/18/25 History gluconate 6 mg-folate 833.5 mcg DFE tablet ( PNV) Last Menstrual Period: 08/23/24 Zika: Zika virus screening: Negative : No PFSH PFSH Medical History Abnormal uterine bleeding (AUB) delivery delivered Low-lying placenta in second trimester History of anorexia nervosa Surgical History H/O section No significant past surgical history Family History Grandfather Colon cancer Social History adopted: No household members: significant other and children housing: house number of children: 3 current occupational status: employed current occupation: [employer] current occupational exposures/hazards: No pets and animals: Yes (outside dog) pets and animals: dog(s) history of recent travel: No sexually active: Yes Smoking Status: Former smoker second hand exposure: No (not in the house) alcohol intake: former details: quit 2022, not while substance use type: does not use caffeine: Yes (green tea) Type: tea what type of physical activity do you participate in: walking and weight training frequency: 3-4 times per week george/mu-ism: Islam seatbelt use: always do you feel safe at home: Yes additional social history: Spouse- Bc, [employer] History 4 Elective abortions Hx Para 3 Spontaneous abortions Hx # Term Pregnancies 3 Ectopic pregnancies Hx # Pregnancies Multiple births # of living children 3 Past Pregnancies Del. Date Name GA/Weeks Outcome Route Bth Weight Infant Gen Labor Lgth Anesthesia Del Locatn Provider FOB 10/19/16 Nir 40 live - full term 8pounds 7oz Femal e 14 hours none [facility] [place]/Dr. Timmy Yancey 05/05/19 Amaris 39 live - full term 7lbs 15oz Male spinal [facility] NORMA 09/27/21 Maribel 39 live - full term C- section Male [facility] Marcanthony Delivery Date: 10/19/16 Last Updated by: Debbie Olmstead Shoulder dystocia, 3rd or 4th degree tear vaginal- tore up Delivery Date: 05/05/19 Last Updated by: Holly Weaver c/s d/t h/o shoulder dystocia Delivery Date: 09/27/21 Last Updated by: Yajaira Navarrete RLTCS HPI 38w 3d ob *csection Details: MOHIT KERN is a 35 year old who presents for routine OB visit. OB Visit KATH Calculator Estimated Delivery Date Method Current WG Current Estimate 05/30/25 LMP (Certain) 38w 2d Other Estimates 05/26/25 Ultrasound #1 38w 6d Expected Delivery Route/Plan repeat c/s with SM- patient prefers exparel injection in the facia and muscle. Specific Issue/Plans Covid status: [] Flu vaccine: [] Tdap vaccine: declines Rhogam: na LARC form signed: yes Problem list reviewed and updated with the most current plan of care details and appropriate orders placed. Relevant counseling for the gestational age provided. Continue routine care and follow up unless otherwise noted in visit notes/problem list details Initial Weight: 125 lb Date -?-?-?-?-?-?-?-?-?-?-?-?- EGA Weight BP Urine Prot -?-?-?-?-?-?-?-?-?-?-?-?- Glucose FHR FuHt Pres Dilation -?-?-?-?-?-?-?-?-?-?-?-?- Effaced St Visit Note 10/22/24-?--?-?-?-?-?-?-?-?-?-?-?- 8w 4d 125 lb 4 oz(+4 oz) 116/74 -?-?-?-?-?-?-?-?-?-?-?-?- 171 -?-?-?-?-?-?-?-?-?-?-?-?- KW- CRL cons with dates. Fredis NIPT. requesting R C/S 11/19/24-?-?-?-?-?-?-?-?-?-?-?-?- 12w 4d 128 lb(+3 lb) 99/63 Negative -?-?-?-?-?-?-?-?-?-?-?-?- Negative 154 -?-?-?-?-?-?-?-?-?-?-?-?- JV- CRL measuring 13 weeks 1 day today. heart tones audible and movement present. will check with insurance about coverage with [facility] for anatomy scN 12/15/24-?-?-?-?-?-?-?-?-?-?-?-?- 16w 2d 136 lb(+11 lb) 112/71 Negative -?-?-?-?-?-?-?-?-?-?-?-?- Negative 140 -?-?-?-?-?-?-?-?-?-?-?-?- SM- no vb lof no regular ctx 01/14/25-?-?-?-?-?-?-?-?--?-?-?-?- 20w 4d 138 lb 6 oz(+13 lb 6 oz) 103/67 Negative -?-?-?-?-?-?-?-?-?-?-?-?- Negative 140 -?-?-?-?-?-?-?-?-?-?-?-?- SM- no vb lof good fm nor euglar ctx 02/11/25-?-?-?-?-?-?-?-?-?-?-?-?- 24w 4d 145 lb 5 oz(+20 lb 5 oz) 101/67 Negative -?-?-?-?-?-?-?-?-?-?-?-?- Negative 160 25 -?-?-?-?-?-?-?-?-?-?-?-?- KW- no vb/cramping. good fm. glucose discussed 03/10/25-?-?-?-?-?-?--?-?-?-?-?-?- 28w 3d 152 lb 5 oz(+27 lb 5 oz) 94/62 Negative -?-?-?-?-?-?-?-?-?-?-?-?- Negative 142 28 -?-?-?-?-?-?-?-?-?-?--?-?- MH-No vb,lof. Good fm. Larc. 28 wk labs pending. Declines tdap 03/25/25-?-?-?-?-?-?-?-?-?-?-?-?- 30w 4d 152 lb 6 oz(+27 lb 6 oz) 103/66 Negative -?-?-?-?-?-?-?-?-?-?-?-?- Negative 130 30 -?-?-?-?-?-?-?-?-?-?-?-?- KW- no vb/lof/ctx. good fm. no concerns 04/05/25-?-?-?-?-?-?-?-?-?-?-?-?- 32w 1d 157 lb 3 oz(+32 lb 3 oz) 116/68 Negative -?-?-?-?-?-?-?-?-?-?-?-?- Negative 154 33.5 -?-?-?-?-?-?-?-?-?-?-?-?- JV- lots of questions about exparel injection at time of , wants to decline 36 week ultrasound unless absolutely needed. no complaints today. 04/22/25-?-?-?-?-?-?-?-?-?-?-?-?- 34w 4d 158 lb 8 oz(+33 lb 8 oz) 99/64 Negative -?-?-?-?-?-?-?-?-?-?-?-?- Negative 146 36 -?-?-?-?-?-?-?-?-?-?-?-?- JV- no lof, vaginal bleeding, or dec fm. 05/06/25-?-?-?-?-?-?-?-?-?-?-?-?- 36w 4d 163 lb 7 oz(+38 lb 7 oz) 114/76 Negative -?-?-?-?-?-?-?-?-?-?-?-?- Negative 130 41 -?-?-?-?-?-?-?-?-?-?-?-?- KW- work in for JV. no vb/lof/ctx. good fm. pepcid for acid reflux. gbs today. declines cervical exam. agrees to US for S>D 05/12/25-?-?-?-?-?-?-?-?-?-?-?-?- 37w 3d 161 lb 2 oz(+36 lb 2 oz) 116/70 Negative -?-?-?-?-?-?-?-?-?-?-?-?- Negative 125 40 -?-?-?-?-?-?-?-?-?-?-?-?- SM- no vb lof good fm overall no regualr ctx SM- no vb lof good fm overall but decreased, get nst no regualr ctx 05/18/25-?-?-?-?-?-?-?-?-?-?-?-?- 38w 2d 159 lb 6 oz(+34 lb 6 oz) 115/77 Negative -?-?-?-?-?-?-?-?-?-?-?-?- Negative 130 40 -?-?-?-?-?-?-?-?-?-?-?-?- SM- no vb lof good fm no regular ctx discussed TL patient to decide ACOG First Trimester First Trimester: Desire for , Alcohol, Tobacco Cessation, Illicit/Recreational Drug/Substance Use, Intimate Partner Violence, Barriers to care, Unstable Housing, Communication Barriers, Environmental/Work Hazards, Anticipated Course of Care, Toxoplasmosis Precations, Use of Any medications, Sexual activity, Exercise, Dental Care, Sauna/Hot tub use, Seat Belt use, Childbirth classes/Hospital facilities, Travel, Indications for Ultrasound and Screening for Aneuploidy; Discussed Second Trimester Second Trimester: Signs and Symptoms of Labor, Selecting a care provider, Reproductive Life Planning & Contreception, Care Planning, Depression/Anxiety and Intimate Partner Violence; Discussed Tobacco Cessation Third Trimester Third Trimester: Pain Management Plans, Labor support person(s), Immediate Larc, Movement Monitoring, Infant Feeding No and Family Medical Leave or Disability Forms; Discussed Trial of Labor after Counseling and Discussed Circumcision preference ROS Const Reports system reviewed and no additional complaints, except as documented Card Reports system reviewed and no additional complaints, except as documented Resp Reports system reviewed and no additional complaints, except as documented GI Reports system reviewed and no additional complaints, except as documented and Reports nausea Reports system reviewed and no additional complaints, except as documented Musc Reports system reviewed and no additional complaints, except as documented Exam Const General: cooperative, healthy appearing, comfortable and anxious HENMT Head: normal to inspection Nose: external nose normal Face and sinus: normal facial exam Neck Neck: normal visual inspection, full ROM and no lymphadenopathy Thyroid: thyroid normal Chest Chest palpation & inspection: normal inspection of the chest Resp Effort & Inspection: normal respiratory effort GI Inspection: normal to inspection Palpation: soft and other (gravid uterus) Other: vertex and appropriate size for gestational age Other: Cervical Exam: Extrem General: pedal edema Results POC Urinalysis 2 Dip (Clinic) Office Urine Glucose Negative Last Edit by Ruthann Marmolejo on 05/18/25 08:45 Office Urine Protein Negative Last Edit by Ruthann Marmolejo on 05/18/25 08:45 Coding Level of Care Code OB Routine Diagnoses Multigravida of advanced maternal age in third trimester O09.523 Trimester: third trimester H/O section Z98.891 Supervision of high risk in third trimester O09.93 Trimester: third trimester 38 weeks gestation of Z3A.38 Weeks of gestation: 38 weeks Assessment and Plan Assessment and Plan (1) AMA (advanced maternal age) multigravida 35+: Status: Acute Qualifiers: Trimester: third trimester Qualified Code(s): O09.523 - Supervision of elderly multigravida, third trimester Comment: growth US at 36 weeks (2) H/O section: Status: Acute Comment: repeat c/s with SM 05/23. (3) Supervision of high-risk : Status: Acute Qualifiers: Trimester: third trimester Qualified Code(s): O09.93 - Supervision of high risk , unspecified, third trimester Comment: PRR , KATH 05/30/25, girl PC Sylvia López, [facility] B[facility] (4) : Status: Acute Qualifiers: Weeks of gestation: 38 weeks Qualified Code(s): Z3A.38 - 38 weeks gestation of Comment: GBS neg, NIPT w gender/carrier-declines afp declines. nl anatomy Orders: Orders POC Urinalysis 2 Dip (Clinic) Today plan RLTCS and BS 05/18/25 0905 <Electronically signed by Ira Caal MD> Date Ira Caal MD Cosign Signature: Date (if applicable) CC: ~
[2025-05-23] VITALS (18 sets, daily range): BP systolic 92–115; BP diastolic 62–82; PULSE 59–95; RESP 12–20; TEMP 36.3–36.9; O2SAT 95–100; BMI 25.8
--- OUTSIDE RECORDS SUMMARY | 2025-05-23 05:13 | XMS RPT_ITS | CCD ---
Author Organization [facility] CliniSynh Care Team Providers Care Hospitality House Supervisor Name Role Phone VINEET HSU Unavailable Unavailable [...] Unavailable KEY, CELINA (CNM) Unavailable Unavailable Dr. Brooke Brown Primary Care Provider [phone] Dr. Brooke Brown Referring Provider [phone] Ira Yee Attending Provider [phone] Kenyatta RETAIL SALES CLERK, RETAIL SALES CLERK-C Ruthann Attending Provider [phone] Dr. Effie Petit Attending Provider [phone] Dr. Brooke Brown Primary Care Provider [phone] Dr. Brooke Brown Referring Provider [phone] JOHN Perez Attending Provider [phone] Kenyatta RETAIL SALES CLERK, JANNETTE-C Ruthann Attending Provider [phone] JOSE LUIS PENNINGTON Attending Unavailable EFFIE JENSEN Referring Unavailab le DAI BROOKE Primary Care Unavailable Dai DOWELL, Dr. Cox Primary Care Provider Dai DOWELL, Dr. Cox Referring Provider [phone] Chris FLORES, Mandy Attending Provider [phone] Chris SUTTONM, Mandy Referring Provider [phone] Nataliya Michael DO, Dr. Chou Attending Provider Afua ALVAREZ, Dr. Roth Attending Provider Dai DOWELL, Dr. Cox Primary Care Provider [phone] Dai DOWELL, Dr. Cox Referring Provider [phone] Chris FLORES, Mandy Attending Provider [phone] Loyall RETAIL SALES CLERK-C, Ruthann Attending Provider [phone] Afua ALVAREZ, Dr. Roth Referring Provider Dai DOWELL, Dr. Cox Primary Care Physician Dai DOWELL, Dr. Cox Referring Provider [phone] Afua ALVAREZ, Dr. Roth Attending Physician Chris FLORES, Mandy Attending Physician [phone] [place] RETAIL SALES CLERK-CRuthann Attending Physician [phone] Nataliya Michael DO, Dr. Chou Attending Physician Dai, Brooke Primary Care Unavailable Mandy Perez Attending Unavailable Mandy Perez Referring Unavailable Mandy Perez Attending Unavailable Dai, Brooke Primary Care Unavailable Dai, Brooke Primary Care Unavailable Mandy Perez Attending Unavailable Mandy Perez Referring Unavailable Dai, Brooke Primary Care Unavailable Ira Yee Referring Unavailable Ira Yee Attending Unavailable Dai, Brooke Primary Care Unavailable Dai, Brooke Referring Unavailable Ira Yee Attending Unavailable Dai, Brooke Primary Care Unavailable Dai, Brooke Referring Unavailable Mandy Perez Attending Unavailable Dai, Brooke Primary Care Unavailable Dai, Brooke Referring Unavailable Kenyatta RETAIL SALES CLERK, Ruthann Attending Unavailable Dai, Brooke Primary Care Unavailable Dai, Brooke Referring Unavailable rIa Yee Attending Unavailable Dai, Brooke Primary Care Unavailable Dai, Brooke Referring Unavailable Mandy Perez Attending Unavailable Dai, Brooke Primary Care Unavailable Effie Petit Attending Unavailabl e Dai, Brooke Referring Unavailable Dai, Brooke Primary Care Unavailable Effie Petit Attending Unavailabl e Dai, Brooke Referring Unavailable Dai, Brooke Referring Unavailable Dai, Brooke Primary Care Unavailable Mandy Perez Attending Unavailable Dai, Brooke Referring Unavailable Dai, Brooke Primary Care Unavailable Ira Yee Attending Unavailable Dai, Brooke Primary Care Unavailable Dai, Brooke Referring Unavailable aMndy Perez Attending Unavailable Dai, Brooke Primary Care Unavailable Dai, Brooke Referring Unavailable Effie Petit Attending Unavailabl e Dai, Brooke Primary Care Unavailable Ira Yee Attending Unavailable Ira Yee Admitting Unavailable Medications Current Medications Medication Drug Class(es) Dates Sig (Normalized) Sig (Original) docosahexaenoic acid 200 mg oral capsule (6 sources) Start: 10-07-2024 Docosahexaenoic Acid (Algal [place]-3 Dha) 200 mg capsule Active mg PO [...] PO daily October 07, 2024 12:00am Vit 046-Gwsc-Dbpsoi 6 (Maria Esther Pnv) 6 mg iron- 833.5 mcg DFE tablet (6 sources) Start: 10-07-2024 Vit 1 53-Cmof-Soypcs 6 ( Pnv) 6 mg iron- 833.5 mcg DFE tablet Active {tbl} PO October 07, 2024 12:00am Complies with drug therapy Start: 10-07-2024 Vit 1 20-Cyvt-Krmwrq 6 ( Pnv) 6 mg iron- 833.5 mcg DFE tablet Active {tbl} PO October 07, 2024 12:00am Vit,Ulpe52-Zjkh-Xnyzb (2 sources) Start: 05-21-2017 take 1 tablet by mouth once daily Vit,Tbgs71-Fzqs-Ymzsi Active 1 TABLET PO DAILY May 21, 2017 6:44am Start: 05-21-2017 End: 08-29-2023 take 1 tablet by mouth once daily Vit,Bvlo28-Kmcx-Aurij Discontinued 1 TABLET PO DAILY May 21, [...] TABLET PO EVERY 6 HOURS NEEDED 15 7 May 06, 2019 11:22pm May 14, 2019 [...] HOURS NEEDED as needed for Mild Pain (1-10) 0 May 23, 2017 1:00am October 06, [...] hr then bid to finish Rx Vit,Nadira 02-Fuch-Wsmig 1 TABLET tablet (4 sources) Start: 05-21-2017 End: 08-29-2023 Vit,Nadira 24-Eshf-Tsbyk 1 TABLET tablet Discontinued 1 {tbl} PO DAILY May 21, 2017 1:00am August 29, 2023 10:22am Vit,Svtj56-Hjpr-Rqjll 1 TABLET tablet (2 sources) Start: 05-21-2017 End: 08-29-2023 take 1 tablet by mouth once daily Vit,Hnzd46-Kuya-Fxqoy 1 TABLET tablet Discontinued 1 {tbl} PO [...] without indication] 10-02-2021 Episodic Comment on above: SM ALBANIA López Other complications of (20 sources) [...] Sylvia López, Nir Bc Other complications of (1 source) Decreased movements, third trimester, not applicable or unspecified; Translations: [Decreased movements, third trimester, not applicable or unspecified] Onset: 05-12-2025 Episodic Other complications of (2 sources) Supervision of [...] deepali Lester PC: Amaris Loyola Spouse: Bc NIPT w gender/ashley r-declines afp declines. nl anatomy declines genetic, ca rrier and NTD. GBS neg Other complications of (1 source) Supervision of elderly multigravida, unspecified trimester; Translations: [Supervision of elderly multigravida, unspecified trimester] Onset: 12-15-2024 Episodic Other screening for suspected conditions (not [...] Test Name Value Interpretation Reference Range Facility Dental Practitioner Office Visit Reporton 05-12-2025 Dental Practitioner Office Visit Report [facility] [address], [address] [place] [address] OFFICE VISIT Date of Service: 05/12/25 MR#: [id number] Acct: [id number] Name: KRUNAL KERN Rep #: [id number] : 1990 Provider: Dr. Ira ruelas MD Age/Sex: 35/F Location[place] [facility] [place] Status: Signed Intake Vital Signs 03/25/25 11:25 04/22/25 09:41 05/06/25 11:43 05/12/25 10:58 Height 5 ft 6 in 5 ft 6 in 5 ft 6 in 5 ft 6 in Weight: 163 lb 7 oz 161 lb 2 oz BMI 26.4 25.9 BP 114/76 116/70 Intake Visit Reasons: 37w 3d ob *csection Rotary Peel Oven Tender Required: No Is patient in pain?: No Allergies No Known Allergies Allergy (Verified 05/12/25 10:57) Medications ???Medication ???Instructions ???Recorded ???Confirmed ???Type docosahexaenoic acid 200 mg mg PO 10/07/24 05/12/25 History capsule (Algal [place]-3 DHA) magnesium 200 mg tablet 400 mg PO QDAY 10/07/24 05/12/25 H istory vit no.164-ferrous tab PO 10/07/24 05/12/25 History gluconate 6 mg-folate 833.5 mcg DFE [...] weight training frequency: 3-4 times per week george/gnosticism: Restoration seatbelt use: always do you feel safe [...] term 8pounds 7oz Female 14 hours none [facility] [place]/Dr. Timmy Yancey 05/05/19 Amaris 39 live - full term 7lbs 15oz Male spinal [facility] [place] 09/27/21 Maribel 39 live - full term Male [facility] M arcanthony Delivery Date: 10/19/16 Last Updated by: Debbie Olmstead Shoulder dystocia, 3rd or 4th degree tear vaginal- tore up Delivery Date: 05/05/19 Last Updated by: Holly Weaver c/s d/t h/o shoulder dystocia Delivery Date: 09/27/21 Last Updated by: Yajaira Navarrete RLTCS HPI 37w 3d ob *csection Details: KRUNAL KERN is a 35 year old who presents for routine OB visit. OB Visit KATH Calculator Estimated Delivery Date Method Current WG Current Estimate 05/30/25 LMP (Certain) 37w 3d Other Estimates 05/26/25 Ultrasound #1 38w 0d Expected Delivery Route/Plan repeat c/s with SM- [...] requesting R C/S 11/19/24 -???-???-???-???-???-??? -???-???-???-???-???-??? - (more content not included)... Normal [facility] OB Limited With Biometricson 05-10-2025 OB Limited With Biometrics [facility] Services [address] [place] [address] OB Limited With Biometrics MR#: [id number] Acct: [id number] Name: ERLINMITCHELCLEO Garcia Rep #: [id number] : 1990 F 35 From: Kavon Romero DO PCP: Dr. Brooke Brown, DO Status: REG CLI Study: OB Limited With Biometrics Date of Exam: 05/10 Exam# [id number] Ordering Dr: Mandy Perez CNM PROCEDURE: OB LIMITED WITH BIOMETRICS 05/10/2025 REASON FOR EXAM: GROWTH SCAN TECHNIQUE: Procedure Code: [id number] Modality: US Procedure: OB LIMITED WITH BIOMETRICS COMPARISON: 21 October 2024. FINDINGS Number: 1 Position: cephalic Placental Position: anterior Placental Abnormalities: Grade 3 DIMENSIONS: Biparietal Diameter: 8.8 cm / 35 weeks and 3 days Head Circumference: 32.3 cm / 36 weeks and 3 days Abdominal Circumference: 36.9 cm / 40 weeks and 6 days Femur Length: 6.4 cm / 33 weeks and 1 day ESTIMATED WEIGHT: 3425 g (7 lbs 9 oz) ESTIMATED WEIGHT PERCENTILE (24+ weeks): 82% ESTIMATED GESTATIONAL AGE: Baseline: 37 weeks and 1 day By Ultrasound: 37 weeks and 0 days ESTIMATED DATE OF DELIVERY: Baseline: May 302024. By Ultrasound: May 31, 2025. BIOPHYSICAL ASSESSMENT: Amniotic Fluid Volume: adequate Amniotic Fluid Index: 19.1 cm (8-24 cm normal range) Cardiac Motion: 140 beats per minute (average) US/OB Limited With Biometrics IMPRESSION: 1. Single living intrauterine gestation at 37 weeks and 1 day in the cephalic presentation. 2. heart rate of 140 bpm. 3. Anterior placenta. Grade 3. 4. Estimated weight 3423 g. (82%) Reading Location: [id number] CC: JOHN Perez; Dr. Brooke Brown DO [employer]sembler [employer] Trailer: Signed Normal [facility] Rule out Beta Strep (Grp. B) on 05-08-2025 FRANCO Group B Beta Streptococcus is not isolated. Normal [facility] Comment on above: Performed By: #### L 3890.6006, L509.8002, L100.0100, L3890.6301, BTS, L509.4006, L3890.6102 #### [facility] Laboratory [facility] [place], [address] Dental Practitioner Office Visit Reporton 05-06-2025 Dental Practitioner Office Visit Report [facility] [address], [address] [place] [address] OFFICE VISIT Date of Service: 05/06/25 MR#: [id number] Acct: [id number] Name: KRUNAL KERN Rep #: [id number] : 1990 Provider: JOHN Woo ams Age/Sex: 35/F Location: [facility] [place] Status: Signed Intake Vital Signs 03/25/25 11:25 04/22/25 09:41 05/06/25 11:43 Height 5 ft 6 in 5 ft 6 in 5 ft 6 in Weight: 158 lb 8 oz 163 lb 7 oz BMI 25.5 26.4 BP 99/64 114/76 Intake Visit Reasons: 36w 4d ob *csection Rotary Peel Oven Tender Required: No Is patient in pain?: No Allergies No Known Allergies Allergy (Verified 05/06/25 11:46) Medications ???Medication ???Instructions ???Recorded ???Confirmed ???Type docosahexaenoic acid 200 mg mg PO 10/07/24 05/06/25 History capsule (Algal [place]-3 DHA) magnesium 200 mg tablet 400 mg [...] weight training frequency: 3-4 times per week george/gnosticism: Restoration seatbelt use: always do you feel safe [...] term 8pounds 7oz Female 14 hours none [facility] [place]/Dr. Timmy Yancey 05/05/19 [place] 39 live - full term 7lbs 15oz Male spinal [facility] [place] 09/27/21 [facility] 39 live - full term Male [facility] M arcanthony Delivery Date: 10/19/16 Last [...] (+3 lb) (more content not included)... Normal [facility] Dental Practitioner Office Visit Reporton 04-22-2025 Dental Practitioner Office Visit Report [facility] [address], [address] [place] [address] OFFICE VISIT Date of Service: 04/22/25 MR#: [id number] Acct: [id number] Name: KRUNAL KERN Rep #: [id number] : 1990 Provider: Dr. Effie Steven DO Age/Sex: 35/F Location: [facility] [place] Status: Signed Intake Vital Signs 02/11/25 10:34 04/05/25 09:24 04/22/25 09:41 Height 5 ft 6 in 5 ft 6 in 5 ft 6 in Weight: 158 lb 8 oz BMI 25.5 BP 99/64 Intake Visit Reasons: 34 wk ob *csection Rotary Peel Oven Tender Required: No Is patient in pain?: No Allergies No Known Allergies Allergy (Verified 04/22/25 09:43) Medications ???Medication ???Instructions ???Recorded ???Confirmed ???Type docosahexaenoic acid 200 mg mg PO 10/07/24 04/22/25 History capsule (Algal [place]-3 DHA) magnesium 200 mg tablet 400 mg [...] weight training frequency: 3-4 times per week george/gnosticism: Restoration seatbelt use: always do you feel safe [...] term 8pounds 7oz Female 14 hours none [facility] [place]/Dr. Timmy Yancey 05/05/19 [place] 39 live - full term 7lbs 15oz Male spinal [facility] [place] 09/27/21 [facility] 39 live - full term Male [facility] M arcanthony Delivery Date: 10/19/16 Last [...] lb (+3 (more content not included)... Normal [facility] Dental Practitioner Office Visit Reporton 04-05-2025 Dental Practitioner Office Visit Report [facility] [address] [facility] [facility], [address] [place] [address] OFFICE VISIT Date of Service: 04/05/25 MR#: [id number] Acct: [id number] Name: KURNAL KERN Rep #: [id number] : 1990 Provider: Dr. Effie Steven DO Age/Sex: 35/F Location: [facility] Status: Signed Intake Vital Signs 02/11/25 10:34 03/25/25 11:25 04/05/25 09:24 04/05/25 09:24 Height 5 ft 6 in 5 ft 6 in 5 ft 6 in 5 ft 6 in Weight: 152 lb 6 oz 157 lb 3 oz BMI 24.5 25.3 BP 103/66 116/68 Intake Visit Reasons: 32 wk ob *csection Rotary Peel Oven Tender Required: No Is patient in pain?: No Allergies No Known Allergies Allergy (Verified 04/05/25 09:24) Medications ???Medication ???Instructions ???Recorded ???Confirmed ???Type docosahexaenoic acid 200 mg mg PO 10/07/24 04/05/25 History capsule (Algal [place]-3 DHA) magnesium 200 mg tablet 400 mg [...] weight training frequency: 3-4 times per week george/gnosticism: Restoration seatbelt use: always do you feel safe [...] term 8pounds 7oz Female 14 hours none [facility] [place]/Dr. Timmy Yancey 05/05/19 [place] 39 live - full term 7lbs 15oz Male spinal [facility] [place] 09/27/21 [facility] 39 live - full term Male [facility] M arcanthony Delivery Date: 10/19/16 Last Updated by: Debbie Olmstead Shoulder dystocia, 3rd or 4th degree tear vaginal- tore up Delivery Date: 05/05/19 Last Updated by: Holly Weaver c/s d/t h/o shoulder dystocia Delivery Date: 09/27/21 Last Updated by: Yajaira Navarrete RLTCS HPI 32 wk ob *csection Details: KRUNAL [...] -???-???-???-???-???-??? -???-???-???-???-??? (more content not included)... Normal [facility] Laboratory - Chemistry and C hemistry - challengeOrdered By: Mandy Perez on 03-25-2025 Glucose Ql (U) Negative [facility] - UrinalysisOrder ed By: Mandy Perez on 03-25-2025 Protein Ql (U) Negative [facility] Dental Practitioner Office Visit Reporton 03-25-2025 Dental Practitioner Office Visit Report [facility], [address] [place] [address] OFFICE VISIT Date of Service: 03/25/25 MR#: [id number] Acct: [id number] Name: KRUNAL KERN Rep #: [id number] : 1990 Provider: JOHN Woo ams Age/Sex: 34/F Location: [facility] Status: Signed Intake Vital Signs 02/11/25 10:34 03/10/25 10:11 03/25/25 11:25 Height 5 ft 6 in 5 ft 6 in 5 ft 6 in Weight: 152 lb 6 oz BMI 24.5 BP 103/66 Intake Visit Reasons: 30 wk ob Chief Complaint: 30wk OB Rotary Peel Oven Tender Required: No Is patient in pain?: No Allergies No Known Allergies Allergy (Verified 03/25/25 11:23) Medications ???Medication ???Instructions ???Recorded ???Confirmed ???Type docosahexaenoic acid 200 mg mg PO 10/07/24 03/25/25 History capsule (Algal [place]-3 DHA) magnesium 200 mg tablet 400 mg PO QDAY 10/07/24 03/25/25 H istory vit no.164-ferrous tab PO 10/07/24 03/25/25 History gluconate 6 mg-folate 833.5 mcg DFE tablet (Maria Esther PNV) Last Menstrual Period: 08/23/24 PFSH PFSH [...] weight training frequency: 3-4 times per week george/gnosticism: Restoration seatbelt use: always do you feel safe [...] term 8pounds 7oz Female 14 hours none [facility] [place]/Dr. Timmy Yancey 05/05/19 [place] 39 live - full term 7lbs 15oz Male spinal [facility] 09/27/21 [facility] live - full term Male [facility] M arcanthony Delivery Date: 10/19/16 Last [...] 13 w (more content not included)... Normal [facility] Absolute lymphocyte countOrd ered By: Mandy Perez on 03-10-2025 Lymphocytes Auto (Unsp spec) [#/Vol] 1.42 10*3/uL 0.83-4.51 [facility] Absolute neutrophil countOrd ered By: Mandy Perez on 03-10-2025 Neutrophils (Bld) [#/Vol] 5.1 10*3/uL 2.0-7.7 [facility] Automated lymphocyte count a s percentage of total leukocytesOrdered By: Mandy Perez on 03-10-2025 Lymphocytes/100 WBC Auto (Unsp spec) 19.8 % 19-41 [facility] Basophil percentageOrdered B y: Mandy Perez on 03-10-2025 Basophils/100 WBC (Bld) 0.4 % 0-1 [facility] CBC W/Diff, Automatedon 02-28 Absolute Lymph 1.42 X10 3/uL Normal 0.83-4.51 [facility] Comment on above: Performed By: #### L 501.0250, L509.8002, L3890.6006, L100.0100 #### [facility] [address] [place], [address] Absolute Neut 5.1 X10 3/uL Normal 2.0-7.7 [facility] Comment on above: Performed By: #### L 501.0250, L509.8002, L3890.6006, L100.0100 #### [facility] [address] [place], [address] Basophils/100 WBC (Bld) 0.4 % Normal 0-1 [facility] Comment on above: Performed By: #### L 501.0250, L509.8002, L3890.6006, L100.0100 #### [facility] [address] [place], [address] Eosinophils/100 WBC (Bld) 1.7 % Normal 0-5 [facility] Comment on above: Performed By: #### L 501.0250, L509.8002, L3890.6006, L100.0100 #### [facility] [address] [place], [address] Erythrocyte distribution width (RBC) [Ratio] 13.6 % Normal 11.6-14.6 [facility] Comment on above: Performed By: #### L 501.0250, L509.8002, L3890.6006, L100.0100 #### [facility] [address] [place], [address] Hematocrit (Bld) [Volume fraction] 32.7 % Low 37-47 [facility] Comment on above: Performed By: #### L 501.0250, L509.8002, L3890.6006, L100.0100 #### [facility] [address] [place], [address] Hemoglobin (Bld) [Mass/Vol] 11.4 g/dL Low 12.0-15.0 [facility] Comment on above: Performed By: #### L 501.0250, L509.8002, L3890.6006, L100.0100 #### [facility] [address] [place], [address] IG% 1.300 High 0.0-0.9 [facility] Comment on above: Result Comment: IG% - Immature Granulocytes (promyelocytes, myelocytes and metamyelocytes) > 1% indicates that a LEFT SHIFT is Present. Performed By: #### L 501.0250, L509.8002, L3890.6006, L100.0100 #### [facility] [address] [place], [address] Lymphocytes/100 WBC (Bld) 19.8 % Normal 19-41 [facility] Comment on above: Performed By: #### L 501.0250, L509.8002, L3890.6006, L100.0100 #### [facility] [address] [place], [address] MCH (RBC) [Entitic mass] 32.9 pg High 27.0-32.0 [facility] Comment on above: Performed By: #### L 501.0250, L509.8002, L3890.6006, L100.0100 #### [facility] [address] [place], [address] MCHC (RBC) [Mass/Vol] 34.9 g/dL Normal 32-36 [facility] Comment on above: Performed By: #### L 501.0250, L509.8002, L3890.6006, L100.0100 #### [facility] [address] [place], [address] MCV (RBC) [Entitic vol] 94.2 fL Normal 81-99 [facility] Comment on above: Performed By: #### L 501.0250, L509.8002, L3890.6006, L100.0100 #### [facility] [address] [place], [address] Monocytes/100 WBC (Bld) 5.6 % Normal 0-10 [facility] Comment on above: Performed By: #### L 501.0250, L509.8002, L3890.6006, L100.0100 #### [facility] [address] [place], [address] Neutrophils/100 WBC (Bld) 71.2 % High 47-70 [facility] Comment on above: Performed By: #### L 501.0250, L509.8002, L3890.6006, L100.0100 #### [facility] [address] [place], [address] Nucleated RBC (Bld) [#/Vol] 0 10*3/uL Normal 0-5 [facility] Comment on above: Performed By: #### L 501.0250, L509.8002, L3890.6006, L100.0100 #### [facility] [address] [place], [address] Platelet mean volume (Bld) [Entitic vol] 12.3 fL High 6.2-12.0 [facility] Comment on above: Performed By: #### L 501.0250, L509.8002, L3890.6006, L100.0100 #### [facility] [address] [place], [address] Platelets (Bld) [#/Vol] 167 10*3/uL Normal 150-450 [facility] Comment on above: Performed By: #### L 501.0250, L509.8002, L3890.6006, L100.0100 #### [facility] [address] [place], [address] RBC (Bld) [#/Vol] 3.47 10*6/uL Low 4.2-5.4 [facility] Comment on above: Performed By: #### L 501.0250, L509.8002, L3890.6006, L100.0100 #### [facility] [address] [place], [address] RDW SD 46.6 fl High 35.1-43.9 [facility] Comment on above: Performed By: #### L 501.0250, L509.8002, L3890.6006, L100.0100 #### [facility] [address] [place], [address] WBC (Bld) [#/Vol] 7.2 10*3/uL Normal 4.4-11.0 [facility] Comment on above: Performed By: #### L 501.0250, L509.8002, L3890.6006, L100.0100 #### [facility] [address] [place], [address] Eosinophil percentageOrdered By: Mandy Perez on 03-10-2025 Eosinophils/100 WBC (Bld) 1.7 % 0-5 [facility] Erythrocyte distribution wid th ratioOrdered By: Mandy Perez on 03-10-2025 Erythrocyte distribution width (RBC) [Ratio] 13.6 % 11.6-14.6 [facility] Erythrocyte distribution wid th standard deviationOrdered By: Mandy Perez on 03-10-2025 Erythrocyte distribution width (RBC) [Ratio] 46.6 fl High 35.1-43.9 [facility] Glucose Challenge Gest 1H 50 gallito 03-10-2025 GLU GEST 50g 1H 117 mg/dL Normal 70-140 [facility] Comment on above: Performed By: #### L 501.0250, L509.8002, L3890.6006, L100.0100 #### [facility] [address] [place], [address] Glucose measurement at 2 sabrina rs post-dose gestational glucose tolerance testOrdered By: Mandy Perez on 03-10-2025 Glucose [Mass/Vol] 117 mg/dL 70-140 [facility] HIVon 03-10-2025 HIV Non-Reactive Normal Nonreactive [facility] Comment on above: Result Comment: Non- Reactive Reactive Repeatedly reactive samples must be confirmed according to CDC recommended confirmatory algorithms. The subresults for either HIVAG or AHIV can be used as an aid in the selection of the confirmation algorithm for reactive samples. Send out specimens with Reactive results to [facility] for confirmation. Order the HIV antibody detection and differentiation: lc#[id number] Performed By: #### L 3890.6006, L509.8002, L100.0100, L3890.6301, BTS, L509.4006, L3890.6102 #### [facility] [address] [place], [address] Hematocrit Auto (Bld) [Volum e fraction]Ordered By: Mandy Perez on 03-10-2025 Hematocrit (Bld) [Volume fraction] 32.7 % Low 37-47 [facility] Hemoglobin measurementOrdere d By: Mandy Perez on 03-10-2025 Hemoglobin (Bld) [Mass/Vol] 11.4 g/dL Low 12.0-15.0 [facility] Immature granulocytes/100 WB C Auto (Bld)Ordered By: Mandy Perez on 03-10-2025 Immature granulocytes/100 WBC (Bld) 1.300 % High 0.0-0.9 [facility] Comment on above: IG% - Immature Granu locytes (promyelocytes, myelocytes and metamyelocytes) > 1% indicates that a LEFT SHIFT is Present. Laboratory - Chemistry and C hemistry - challengeOrdered By: Ruthann You on 03-10-2025 Glucose Ql (U) Negative [facility] - UrinalysisOrder ed By: Ruthann You on 03-10-2025 Protein Ql (U) Negative [facility] MCV (mean corpuscular volume ) determinationOrdered By: Mandy Perez on 03-10-2025 MCV (RBC) [Entitic vol] 94.2 fL 81-99 [facility] Mean corpuscular hemoglobin (MCH) determinationOrdered By: Mandy Perez on 03-10-2025 MCH (RBC) [Entitic mass] 32.9 pg High 27.0-32.0 [facility] Mean corpuscular hemoglobin concentration (MCHC) determinationOrdered By: Mandy Perez on 03-10-2025 MCHC (RBC) [Mass/Vol] 34.9 g/dL 32-36 [facility] Mean platelet volume determi nationOrdered By: Mandy Perez on 03-10-2025 Platelet mean volume (Bld) [Entitic vol] 12.3 fL High 6.2-12.0 [facility] Monocyte percentageOrdered B y: Mandy Perez on 03-10-2025 Monocytes/100 WBC (Bld) 5.6 % 0-10 [facility] Neutrophil percentageOrdered By: Mandy Perez on 03-10-2025 Neutrophils/100 WBC (Bld) 71.2 % High 47-70 [facility] No Panel InformationOrdered By: Mandy Perez on 03-10-2025 HIV (1&2) Antibody Non-Reactive Nonreactive [facility] Comment on above: Non-ReactiveReactive Repeatedly reactive samples must be confirmed according to CDC recommended confirmatory algorithms. The subresults for either HIVAG or AHIV can be used as an aid in the selection of the confirmation algorithm for reactive samples.Send out specimens with Reactive results to [facility] for confirmation.Order the HIV antibody detection and differentiation: #[id number] Nucleated red blood cell per centageOrdered By: Mandy Perez on 03-10-2025 Nucleated RBC/100 WBC (Bld) [Ratio] 0 % 0-5 [facility] Dental Practitioner Office Visit Reporton 03-10-2025 Dental Practitioner Office Visit Report [facility] [address], [address] [place] [address] OFFICE VISIT Date of Service: 03/10/25 MR#: [id number] Acct: [id number] Name: KRUNAL KERN Rep #: [id number] 1 : 1990 Provider: LILLY coello Age/Sex: 34/F Location: [facility] [place] Status: Signed Intake Vital Signs 12/15/24 10:19 02/11/25 10:34 03/10/25 10:02 03/10/25 10:11 Height 5 ft 6 in 5 ft 6 in 5 ft 6 in 5 ft 6 in Weight: 152 lb 5 oz BMI 24.5 BP 94/62 Intake Visit Reasons: 28wk ob/glucose Chief Complaint: 28 Week OB/Glucose Rotary Peel Oven Tender Required: No Is patient in pain?: No Allergies No Known Allergies Allergy (Verified 03/10/25 10:01) Medications ???Medication ???Instructions ???Recorded ???Confirmed ???Type docosahexaenoic acid 200 mg mg PO 10/07/24 03/10/25 History capsule (Algal [place]-3 DHA) magnesium 200 mg tablet 400 mg PO QDAY 10/07/24 03/10/25 H istory vit no.164-ferrous tab PO 10/07/24 03/10/25 History gluconate 6 mg-folate 833.5 mcg DFE tablet ( PNV) Last Menstrual Period: 08/23/24 Zika: Zika virus screening: Negative : Yes PFSH PFSH Medical History Abnormal uterine bleeding [...] weight training frequency: 3-4 times per week george/gnosticism: Restoration seatbelt use: always do you feel safe [...] term 8pounds 7oz Female 14 hours none [facility] [place]/Dr. Timmy Yancey 05/05/19 [place] 39 live - full term 7lbs 15oz Male spinal [facility] [place] 09/27/21 [facility] 39 live - full term Male [facility] M arcanthony Delivery Date: 10/19/16 Last [...] Negative -???-??? (more content not included)... Normal [facility] Platelet countOrdered By: Mitchel Perez on 03-10-2025 Platelets (Bld) [#/Vol] 167 10*3/uL 150-450 [facility] RBC Auto (Bld) [#/Vol]Ordere d By: Mandy Perez on 03-10-2025 RBC (Bld) [#/Vol] 3.47 10*6/uL Low 4.2-5.4 [facility] Syphilis Antibodieson 2024 Syphilis Abs Non-Reactive Normal Nonreactive [facility] Comment on above: Performed By: #### L 3890.6006, L509.8002, L100.0100, L3890.6301, BTS, L509.4006, L3890.6102 #### [facility] [address] [place], [address] White blood cell (WBC) count Ordered By: Mandy Perez on 03-10-2025 WBC (Bld) [#/Vol] 7.2 10*3/uL 4.4-11.0 [facility] Laboratory - Chemistry and C hemistry - challengeOrdered By: Mandy Perez on 02-11-2025 Glucose Ql (U) Negative [facility] - UrinalysisOrder ed By: Mandy Perez on 02-11-2025 Protein Ql (U) Negative [facility] Dental Practitioner Office Visit Reporton 02-11-2025 Dental Practitioner Office Visit Report [facility] [address], [address] [place] [address] OFFICE VISIT Date of Service: 02/11/25 MR#: [id number] Acct: [id number] Name: KERN,KECLEO Garcia Rep #: [id number] : 1990 Provider: JOHN Woo ams Age/Sex: 34/F Location[place] [facility] [place] Status: Signed Intake Vital Signs 06/18/25 10:19 01/14/25 08:51 02/11/25 10:34 Height 5 ft 6 in 5 ft 6 in 5 ft 6 in Weight: 145 lb 5 oz BMI 23.4 BP 101/67 Intake Visit Reasons: 24wk ob Chief Complaint: 24wk OB Rotary Peel Oven Tender Required: No Is patient in pain?: No Allergies No Known Allergies Allergy (Verified 02/11/25 10:32) Medications ???Medication ???Instructions ???Recorded ???Confirmed ???Type docosahexaenoic acid 200 mg mg PO 10/07/24 02/11/25 History capsule (Algal [place]-3 DHA) magnesium 200 mg tablet 400 mg PO QDAY 10/07/24 02/11/25 H istory vit no.164-ferrous tab PO 10/07/24 02/11/25 History gluconate 6 mg-folate 833.5 mcg DFE tablet ( PNV) Last Menstrual Period: 08/23/24 : No [...] weight training frequency: 3-4 times per week george/gnosticism: Restoration seatbelt use: always do you feel safe [...] term 8pounds 7oz Female 14 hours none [facility] [place]/Dr. Timmy Yancey 05/05/19 [place] 39 live - full term 7lbs 15oz Male spinal [facility] 09/27/21 [place] 39 live - full term Male [facility] M arcanthony Delivery Date: 10/19/16 Last [...] CRL denisse (more content not included)... Normal [facility] - Chemistry and C hemistry - challengeOrdered By: Ira Yee on 01-14-2025 Glucose Ql (U) Negative [facility] - UrinalysisOrder ed By: Ira Yee on 01-14-2025 Protein Ql (U) Negative [facility] Dental Practitioner Office Visit Reporton 01-14-2025 Dental Practitioner Office Visit Report [facility] [address], [address] [place] [address] OFFICE VISIT Date of Service: 01/14/25 MR#: [id number] Acct: [id number] Name: KRUNAL KERN Rep #: [id number] 1 : 1990 Provider: Dr. Ira ruelas MD Age/Sex: 34/F Location: [facility] [place] Status: Signed Intake Vital Signs 11/19/24 10:24 12/15/24 10:19 01/14/25 08:51 Height 5 ft 6 in 5 ft 6 in 5 ft 6 in Weight: 136 lb 138 lb 6 oz BMI 21.9 22.3 BP 112/71 103/67 Intake Visit Reasons: 20wk ob Rotary Peel Oven Tender Required: No Is patient in pain?: No Feel stressed/tense/nervous/a nxious/difficulty sleeping: not at all Allergies No Known Allergies Allergy (Verified 01/14/25 08:55) Medications ???Medication ???Instructions ???Recorded ???Confirmed ???Type docosahexaenoic acid 200 mg mg PO 10/07/24 01/14/25 History capsule (Algal [place]-3 DHA) magnesium 200 mg tablet 400 mg [...] weight training frequency: 3-4 times per week george/gnosticism: Restoration seatbelt use: always do you feel safe [...] term 8pounds 7oz Female 14 hours none [facility] [place]/Dr. Timmy Yancey 05/05/19 [place] 39 live - full term 7lbs 15oz Male spinal [facility] 09/27/21 [facility] 39 live - full term Male [facility] M arcanthony Delivery Date: 10/19/16 Last [...] Negative -???-???-??? (more content not included)... Normal [facility] - Chemistry and C hemistry - challengeOrdered By: Ira Yee on 12-15-2024 Glucose Ql (U) Negative [facility] - UrinalysisOrder ed By: Ira Yee on 12-15-2024 Protein Ql (U) Negative [facility] Dental Practitioner Office Visit Reporton 12-15-2024 Dental Practitioner Office Visit Report [facility] [address] [place] [address], [address] [place] [address] OFFICE VISIT Date of Service: 12/15/24 MR#: [id number] Acct: [id number] Name: KRUNAL KERN Rep #: [id number] 0 : 1990 Provider: Dr. Ira ruelas MD Age/Sex: 34/F Location: [facility] [place] Status: Signed Intake Vital Signs 10/22/24 10:45 11/19/24 10:24 12/15/24 10:19 Height 5 ft 6 in 5 ft 6 in 5 ft 6 in Weight: 136 lb BMI 21.9 BP 112/71 Intake Visit Reasons: 16 wk ob Rotary Peel Oven Tender Required: No Is patient in pain?: No Allergies No Known Allergies Allergy (Verified 12/15/24 10:22) Medications ???Medication ???Instructions ???Recorded ???Confirmed ???Type docosahexaenoic acid 200 mg mg PO 10/07/24 12/15/24 History capsule (Algal [place]-3 DHA) magnesium 200 mg tablet 400 mg [...] weight training frequency: 3-4 times per week george/gnosticism: Restoration seatbelt use: always do you feel safe [...] term 8pounds 7oz Female 14 hours none [facility] [place]/Dr. Timmy Yancey 05/05/19 [place] 39 live - full term 7lbs 15oz Male spinal [facility] 09/27/21 [facility] Male [facility] M arcanthony Delivery Date: 10/19/16 Last Updated by: Debbie Olmstead Shoulder dystocia, 3rd or 4th degree tear vaginal- tore up Delivery Date: 05/05/19 Last Updated by: Holly Weaver c/s d/t h/o shoulder dystocia Delivery Date: 09/27/21 Last Updated by: Yajaira Navarrete RLTCS HPI 16 wk ob Details: KRUNAL KERN is a 34 year old who presents for routine OB visit. OB Visit KTAH Calculator Estimated Delivery Date Method Current WG [...] -???-???-???-???-???-??? -???-???-???- (more content not included)... Normal [facility] - Chemistry and C hemistry - challengeOrdered By: Effie Michael on 11-19-2024 Glucose Ql (U) Negative [facility] - UrinalysisOrder ed By: Effie Michael on 11-19-2024 Protein Ql (U) Negative [facility] Dental Practitioner Office Visit Reporton 11-19-2024 Dental Practitioner Office Visit Report [facility] [address], [address] [place] [address] OFFICE VISIT Date of Service: 11/19/24 MR#: [id number] Acct: [id number] Name: KRUNAL KERN Radha Rep #: [id number] 7 : 1990 Provider: Dr. Effie Steven DO Age/Sex: 34/F Location: [facility] [place] Status: Signed Intake Vital Signs 09/27/24 08:12 10/22/24 10:45 11/19/24 10:24 11/19/24 10:24 Height 5 ft 6 in 5 ft 6 in 5 ft 6 in 5 ft 6 in Weight: 128 lb BMI 20.6 BP 99/63 Intake Visit Reasons: 12WK OB Rotary Peel Oven Tender Required: No Is patient in pain?: No Allergies No Known Allergies Allergy (Verified 11/19/24 10:23) Medications ???Medication ???Instructions ???Recorded ???Confirmed ???Type docosahexaenoic acid 200 mg mg PO 10/07/24 11/19/24 History capsule (Algal [place]-3 DHA) magnesium 200 mg tablet 400 mg PO QDAY 10/07/24 11/19/24 H istory vit no.164-ferrous tab PO 10/07/24 11/19/24 History gluconate 6 mg-folate 833.5 mcg DFE tablet ( PNV) Last Menstrual Period: 08/23/24 Zika: Zika virus screening: Negative : No [facility] Medical History Abnormal uterine bleeding (AUB) [...] weight training frequency: 3-4 times per week george/gnosticism: Restoration seatbelt use: always do you feel safe [...] term 8pounds 7oz Female 14 hours none [facility] [place]/Dr. Timmy Yancey 05/05/19 [place] 39 live - full term 7lbs 15oz Male spinal [facility] 09/27/21 [place] 39 live - full term Male [facility] M arcanthony Delivery Date: 10/19/16 Last Updated by: Debbie Olmstead Shoulder dystocia, 3rd or 4th degree tear vaginal- tore up Delivery Date: 05/05/19 Last Updated by: Holly Weaver c/s d/t h/o shoulder dystocia Delivery Date: 09/27/21 Last Updated by: Yajairaadrián Navarrete RLTCS HPI 12WK OB Details: KRUNAL [...] -???-???-???-???-???-??? -???- (more content not included)... Normal [facility] PAP IG HPV APTIMA 16/18,45on 10-27-2024 ADEQ Comment Normal . [facility] Comment on above: Order Comment: Tonya charlton Comment: [id number] Comment: Source.............Cervix;EndocervixSpecimen Comment: Other..............Specimen Comment: No. of containers..01 ThinPrep Vial Result Comment: Sati sfactory for evaluation. No endocervical component is identified. An endocervical component is not commonly seen in the patient. Performed By: #### L 3890.6006, L509.8002, L100.0100, L3890.6301, BTS, L509.4006, L3890.6102 #### [facility] [address] [place], [address] COMM . Normal . [facility] Comment on above: Order Comment: Tonya charlton Comment: [id number] Comment: Source.............Cervix;EndocervixSpecimen Comment: Other..............Specimen Comment: No. of containers..01 ThinPrep Vial Performed By: #### L 3890.6006, L509.8002, L100.0100, L3890.6301, BTS, L509.4006, L3890.6102 #### [facility] [address] [place], [address] COMMENT Comment Normal . [facility] Comment on above: Order Comment: Speci men Comment: [id number] Comment: Source.............Cervix;EndocervixSpecimen Comment: Other..............Specimen Comment: No. of containers..01 ThinPrep Vial Result Comment: This liquid based ThinPrep(R) pap test was screened with the use of an image guided system. Performed By: #### L 3890.6006, L509.8002, L100.0100, L3890.6301, BTS, L509.4006, L3890.6102 #### [facility] [address] [place], [place], [id number] DIAG Comment Normal . [facility] Comment on above: Order Comment: Speci men Comment: [id number] Comment: Source.............Cervix;EndocervixSpecimen Comment: Other..............Specimen Comment: No. of containers..01 ThinPrep Vial Result Comment: NEGA TIVE FOR INTRAEPITHELIAL LESION OR MALIGNANCY. Performed By: #### L 3890.6006, L509.8002, L100.0100, L3890.6301, BTS, L509.4006, L3890.6102 #### [facility] [address] [place], [place], [address] HPV APTIMA, HR Negative Normal Negative [facility] Comment on above: Order Comment: Speci men Comment: [id number] Comment: Source.............Cervix;EndocervixSpecimen Comment: Other..............Specimen Comment: No. of containers..01 ThinPrep Vial Result Comment: This nucleic acid amplification test detects fourteen high- risk HPV types (16,18,31,33,35,39,45,51,52,56,58,59,66,68) without differentiation. Performed By: #### L 3890.6006, L509.8002, L100.0100, L3890.6301, BTS, L509.4006, L3890.6102 #### [facility] [address] [place], [address] HPV Asya Rfx Comment Normal . [facility] Comment on above: Order Comment: Speci men Comment: [id number] Comment: Source.............Cervix;EndocervixSpecimen Comment: Other..............Specimen Comment: No. of containers..01 ThinPrep Vial Result Comment: Crit eria not met, HPV Genotype not performed. Performed at: [address] [id number] Manager Service Desk: Abbi Vee MD, Phone: [phone] Performed at: [address] [id number] Manager Service Desk: Jaquelin Celis MD, Phone: [phone] Performed at: =[address] [id number] Manager Service Desk: Jaquelin Celis MD, Phone: [phone] Performed By: #### L 3890.6006, L509.8002, L100.0100, L3890.6301, BTS, L509.4006, L3890.6102 #### [facility] [address] [place], [address] PAPSMR Comment Normal . [facility] Comment on above: Order Comment: Speci men Comment: [id number] Comment: Source.............Cervix;EndocervixSpecimen Comment: Other..............Specimen Comment: No. of [...] L509.8002, L100.0100, L3890.6301, BTS, L509.4006, L3890.6102 #### [facility] [address] [place], [place], [id number] PERFORM Comment Normal . [facility] Comment on above: Order Comment: Speci men Comment: [id number] Comment: Source.............Cervix;EndocervixSpecimen Comment: Other..............Specimen Comment: No. of containers..01 ThinPrep Vial Result Comment: Radu Campbell, Supervisory Bus Transportation Manager (ASCP) Performed By: #### L 3890.6006, L509.8002, L100.0100, L3890.6301, BTS, L509.4006, L3890.6102 #### [facility] [address] [place], [place], [id number] Chlamydia/GC BARB aptimaon CHLAMY,NUC ACID Negative Normal Negative [facility] Comment on above: Performed By: #### L 3890.6006, L509.8002, L100.0100, L3890.6301, BTS, L509.4006, L3890.6102 #### [facility] [address] [place], [place], [address] GC BY NUC ACID Negative Normal Negative [facility] Comment on above: Result Comment: Perf ormed at: =G - [facility] [address] [place] [id number] Manager Service Desk: Jaquelin Celis MD, Phone: [phone] Performed By: #### L 3890.6006, L509.8002, L100.0100, L3890.6301, BTS, L509.4006, L3890.6102 #### [facility] [address] [place], [place], [address] Urine Cultureon 10-23-2024 URC Culture exhibits no growth. Normal [facility] Comment on above: Performed By: #### L 3890.6006, L509.8002, L100.0100, L3890.6301, BTS, L509.4006, L3890.6102 #### [facility] [address] [place], [address] Absolute lymphocyte countOrd ered By: Mandy Perez on 10-22-2024 Lymphocytes Auto (Unsp spec) [#/Vol] 2.44 10*3/uL 0.83-4.51 [facility] Absolute neutrophil countOrd ered By: Mandy Perez on 10-22-2024 Neutrophils (Bld) [#/Vol] 3.7 10*3/uL 2.0-7.7 [facility] Automated lymphocyte count a s percentage of total leukocytesOrdered By: Mandy Perez on 10-22-2024 Lymphocytes/100 WBC Auto (Unsp spec) 36.4 % 19-41 [facility] Basophil percentageOrdered B y: Mandy Perez on 10-22-2024 Basophils/100 WBC (Bld) 0.7 % 0-1 [facility] CBC W/Diff, Automatedon 09-29 Absolute Lymph 2.44 X10 3/uL Normal 0.83-4.51 [facility] Comment on above: Performed By: #### L 3890.6006, L509.8002, L100.0100, L3890.6301, BTS, L509.4006, L3890.6102 #### [facility] [address] [place], [address] Absolute Neut 3.7 X10 3/uL Normal 2.0-7.7 [facility] Comment on above: Performed By: #### L 3890.6006, L509.8002, L100.0100, L3890.6301, BTS, L509.4006, L3890.6102 #### [facility] [address] [place], [address] Basophils/100 WBC (Bld) 0.7 % Normal 0-1 [facility] Comment on above: Performed By: #### L 3890.6006, L509.8002, L100.0100, L3890.6301, BTS, L509.4006, L3890.6102 #### [facility] [address] [place], [address] Eosinophils/100 WBC (Bld) 2.2 % Normal 0-5 [facility] Comment on above: Performed By: #### L 3890.6006, L509.8002, L100.0100, L3890.6301, BTS, L509.4006, L3890.6102 #### [facility] [address] [place], [address] Erythrocyte distribution width (RBC) [Ratio] 14.0 % Normal 11.6-14.6 [facility] Comment on above: Performed By: #### L 3890.6006, L509.8002, L100.0100, L3890.6301, BTS, L509.4006, L3890.6102 #### [facility] [address] [place], [address] Hematocrit (Bld) [Volume fraction] 35.9 % Low 37-47 [facility] Comment on above: Performed By: #### L 3890.6006, L509.8002, L100.0100, L3890.6301, BTS, L509.4006, L3890.6102 #### [facility] [address] [place], [address] Hemoglobin (Bld) [Mass/Vol] 12.3 g/dL Normal 12.0-15.0 [facility] Comment on above: Performed By: #### L 3890.6006, L509.8002, L100.0100, L3890.6301, BTS, L509.4006, L3890.6102 #### [facility] [address] [place], [address] IG% 0.300 Normal 0.0-0.9 [facility] Comment on above: Result Comment: IG% - Immature Granulocytes (promyelocytes, myelocytes and metamyelocytes) > 1% indicates that a LEFT SHIFT is Present. Performed By: #### L 3890.6006, L509.8002, L100.0100, L3890.6301, BTS, L509.4006, L3890.6102 #### [facility] [address] [place], [address] Lymphocytes/100 WBC (Bld) 36.4 % Normal 19-41 [facility] Comment on above: Performed By: #### L 3890.6006, L509.8002, L100.0100, L3890.6301, BTS, L509.4006, L3890.6102 #### [facility] [address] [place], [address] MCH (RBC) [Entitic mass] 30.7 pg Normal 27.0-32.0 [facility] Comment on above: Performed By: #### L 3890.6006, L509.8002, L100.0100, L3890.6301, BTS, L509.4006, L3890.6102 #### [facility] [address] [place], [address] MCHC (RBC) [Mass/Vol] 34.3 g/dL Normal 32-36 [facility] Comment on above: Performed By: #### L 3890.6006, L509.8002, L100.0100, L3890.6301, BTS, L509.4006, L3890.6102 #### [facility] [address] [place], [address] MCV (RBC) [Entitic vol] 89.5 fL Normal 81-99 [facility] Comment on above: Performed By: #### L 3890.6006, L509.8002, L100.0100, L3890.6301, BTS, L509.4006, L3890.6102 #### [facility] [address] [place], [address] Monocytes/100 WBC (Bld) 5.1 % Normal 0-10 [facility] Comment on above: Performed By: #### L 3890.6006, L509.8002, L100.0100, L3890.6301, BTS, L509.4006, L3890.6102 #### [facility] [address] [place], [address] Neutrophils/100 WBC (Bld) 55.3 % Normal 47-70 [facility] Comment on above: Performed By: #### L 3890.6006, L509.8002, L100.0100, L3890.6301, BTS, L509.4006, L3890.6102 #### [facility] [address] [place], [address] Nucleated RBC (Bld) [#/Vol] 0 10*3/uL Normal 0-5 [facility] Comment on above: Performed By: #### L 3890.6006, L509.8002, L100.0100, L3890.6301, BTS, L509.4006, L3890.6102 #### [facility] [address] [place], [address] Platelet mean volume (Bld) [Entitic vol] 12.0 fL Normal 6.2-12.0 [facility] Comment on above: Performed By: #### L 3890.6006, L509.8002, L100.0100, L3890.6301, BTS, L509.4006, L3890.6102 #### [facility] [address] [place], [address] Platelets (Bld) [#/Vol] 237 10*3/uL Normal 150-450 [facility] Comment on above: Performed By: #### L 3890.6006, L509.8002, L100.0100, L3890.6301, BTS, L509.4006, L3890.6102 #### [facility] [address] [place], [address] RBC (Bld) [#/Vol] 4.01 10*6/uL Low 4.2-5.4 [facility] Comment on above: Performed By: #### L 3890.6006, L509.8002, L100.0100, L3890.6301, BTS, L509.4006, L3890.6102 #### [facility] [address] [place], [address] RDW SD 45.6 fl High 35.1-43.9 [facility] Comment on above: Performed By: #### L 3890.6006, L509.8002, L100.0100, L3890.6301, BTS, L509.4006, L3890.6102 #### [facility] [address] [place], [address] WBC (Bld) [#/Vol] 6.7 10*3/uL Normal 4.4-11.0 [facility] Comment on above: Performed By: #### L 3890.6006, L509.8002, L100.0100, L3890.6301, BTS, L509.4006, L3890.6102 #### [facility] [address] [place], [place], [address] Cervical or vaginal specimen microscopic examination by liquid based cytology (reportOrdered By: Mandy Perez on 10-22-2024 Cytology report Cyto stain.thin prep Doc (Cvx/Vag) Comment . [facility] Comment on above: Criteria not met, HP V Genotype not performed.Performed at: [facility] [employer] [id number] Director: Abbi Vee MD, Phone: [phone] at: [facility] [id number] Director: Jaquelin Celis MD, Phone: [phone] at: =[address] [id number] Director: Jaquelin Celis MD, Phone: [phone] Cervical or vagninal specime n microscopic examination by cytology stain (reported asOrdered By: Mandy Perez on 10-22-2024 Cytology report Cyto stain Doc (Cvx/Vag) Comment . [facility] Comment on above: The Pap smear is [...] rRNA BARB+probe Ql (Unsp spec) Negative Negative [facility] Detection in cervical specim en of any of human papilloma virus (HPV) 16, 18, 31, 33,Ordered By: Mandy Perez on 10-22-2024 HPV 16+18+31+33+35+39+45+51 +52+56+58+59+66+68 DNA Probe+sig amp Ql (Cvx) Negative Negative [facility] Comment on above: This nucleic acid am plification test detects fourteen high-risk HPV types (16,18,31,33,35,39,45,51,52,56,58,59,66,68)without differentiation. Eosinophil percentageOrdered By: Mandy Perez on 10-22-2024 Eosinophils/100 WBC (Bld) 2.2 % 0-5 [facility] Erythrocyte distribution wid th ratioOrdered By: Mandy Perez on 10-22-2024 Erythrocyte distribution width (RBC) [Ratio] 14.0 % 11.6-14.6 [facility] Erythrocyte distribution wid th standard deviationOrdered By: Mandy Perez on 10-22-2024 Erythrocyte distribution width (RBC) [Ratio] 45.6 fl High 35.1-43.9 [facility] HIVon 10-22-2024 HIV Non-Reactive Normal Nonreactive [facility] Comment on above: Result Comment: Non- Reactive Reactive Repeatedly reactive samples must be confirmed according to CDC recommended confirmatory algorithms. The subresults for either HIVAG or AHIV can be used as an aid in the selection of the confirmation algorithm for reactive samples. Send out specimens with Reactive results to [facility] for confirmation. Order the HIV antibody detection and differentiation: lc#[id number] Performed By: #### L 3890.6006, L509.8002, L100.0100, L3890.6301, BTS, L509.4006, L3890.6102 #### [facility] [address] [place], [address] Hematocrit Auto (Bld) [Volum e fraction]Ordered By: Mandy Perez on 10-22-2024 Hematocrit (Bld) [Volume fraction] 35.9 % Low 37-47 [facility] Hemoglobin measurementOrdere d By: Mandy Perez on 10-22-2024 Hemoglobin (Bld) [Mass/Vol] 12.3 g/dL 12.0-15.0 [facility] Hepatitis C Antibodyon 10-22 Hepatitis C Ab Non-Reactive Normal Nonreactive [facility] Comment on above: Result Comment: Reac tive: Presumptive evidence of antibodies to HCV. Follow CDC recommendations for supplemental testing. Non-Reactive: Antibodies to HCV were not detected; does not exclude the possibility of exposure to HCV Reactive Results are presumptive evidence of antibodies to HCV. Follow CDC recommendations for supplemental testing. Order confirmation testing: HCV Quant by PCR testing - HCVPCR #[id number] Non Reactive: < 0.8 Equivocal: >/= 0.8 to < 1.0 Reactive: >/= 1.0 The [facility] requires that a reactive/equivocal HCV antibody result be sent out for confirmation. HCV Quant by PCR testing. Performed By: #### L 3890.6006, L509.8002, L100.0100, L3890.6301, BTS, L509.4006, L3890.6102 #### [facility] [address] [place], [address] Immature granulocytes/100 WB C Auto (Bld)Ordered By: Mandy Perez on 10-22-2024 Immature granulocytes/100 WBC (Bld) 0.300 % 0.0-0.9 [facility] Comment on above: IG% - Immature Granu locytes (promyelocytes, myelocytes and metamyelocytes) > 1% indicates that a LEFT SHIFT is Present. L3890.6102on 10-22-2024 HEP B Surf Ag Non-Reactive Normal Nonreactive [facility] Comment on above: Result Comment: Reac tive: Presumptive evidence of HBV. Repeatedly reactive samples must be confirmed using a neutralization test (Elecsys HBsAg Confirmatory Test) Non-Reactive: HBsAg not detected; does not exclude the possibility of exposure to HBV Performed By: #### L 3890.6006, L509.8002, L100.0100, L3890.6301, BTS, L509.4006, L3890.6102 #### [facility] [address] [facility]. [place], [place], [id number] L509.4006on 10-22-2024 Rubella IgG REAC Normal Nonreactive [facility] Comment on above: Result Comment: Anti body Result: Interpretation Non-Reactive: Non-Immune Reactive: Immune The following results were obtained with the Elecsys Rubella IgG assay. Results from assays of other manufacturers cannot be used interchangeably. Performed By: #### L 3890.6006, L509.8002, L100.0100, L3890.6301, BTS, L509.4006, L3890.6102 #### [facility] [address] [place], [address] Laboratory - CytologyOrdered By: Mandy Perez on 10-22-2024 Bus Transportation Manager Cyto stain Nom (Cvx/Vag) [ID] Comment . [facility] Comment on above: Horacio Mack Bus Transportation Manager (ASCP) Laboratory - Microbiology an d Antimicrobial susceptibilityOrdered By: Mandy Perez on 10-22-2024 HBV surface Ag Ql (S) Non-Reactive Nonreactive [facility] Comment on above: Reactive: Presumptiv e evidence of HBV. Repeatedly reactive samples must be confirmed using a neutralization test (Elecsys HBsAg Confirmatory Test)Non-Reactive: HBsAg not detected; does not exclude the possibility of exposure to HBV Laboratory - Miscellaneous t estsOrdered By: Mandy Perez on 10-22-2024 Service comment (Unsp spec) [Interp] . . [facility] MCV (mean corpuscular volume ) determinationOrdered By: Mandy Perez on 10-22-2024 MCV (RBC) [Entitic vol] 89.5 fL 81-99 [facility] Mean corpuscular hemoglobin (MCH) determinationOrdered By: Mandy Perez on 10-22-2024 MCH (RBC) [Entitic mass] 30.7 pg 27.0-32.0 [facility] Mean corpuscular hemoglobin concentration (MCHC) determinationOrdered By: Mandy Perez on 10-22-2024 MCHC (RBC) [Mass/Vol] 34.3 g/dL 32-36 [facility] Mean platelet volume determi nationOrdered By: Mandy Perez on 10-22-2024 Platelet mean volume (Bld) [Entitic vol] 12.0 fL 6.2-12.0 [facility] Monocyte percentageOrdered B y: Mandy Perez on 10-22-2024 Monocytes/100 WBC (Bld) 5.1 % 0-10 [facility] Neisseria gonorrhoeae nuclei c acid detection by amplified probe techniqueOrdered By: Mandy Perez on 10-22-2024 N. gonorrhoeae DNA BARB+probe Ql (Unsp spec) Negative Negative [facility] Comment on above: Performed at: =[address] [place] [id number] Director: Jaquelin Celis MD, Phone: [phone] Neutrophil percentageOrdered By: Mandy Perez on 10-22-2024 Neutrophils/100 WBC (Bld) 55.3 % 47-70 [facility] No Panel InformationOrdered By: Mandy Perez on 10-22-2024 Pap Smear Specimen Adequacy Comment . [facility] Comment on above: Satisfactory for ken luation. No endocervical component is identified.An endocervical component is not commonly seen in the patient. HIV (1&2) Antibody Non-Reactive Nonreactive [facility] Comment on above: Non-ReactiveReactive Repeatedly reactive samples must be confirmed according to CDC recommended confirmatory algorithms. The subresults for either HIVAG or AHIV can be used as an aid in the selection of the confirmation algorithm for reactive samples.Send out specimens with Reactive results to [facility] for confirmation.Order the HIV antibody detection and differentiation: #[id number] Nucleated red blood cell per centageOrdered By: Mandy Perez on 10-22-2024 Nucleated RBC/100 WBC (Bld) [Ratio] 0 % 0-5 [facility] Dental Practitioner Office Visit Reporton 10-22-2024 Dental Practitioner Office Visit Report [facility] [address], [address] [place] [address] OFFICE VISIT Date of Service: 10/22/24 MR#: [id number] Acct: [id number] Name: KRUNAL KERN Radha Rep #: [id number] 2 : 1990 Provider: JOHN Woo ams Age/Sex: 34/F Location: [facility] Status: Signed Intake Vital Signs 10/29/23 11:39 09/27/24 08:12 10/22/24 10:45 Height 5 ft 6 in 5 ft 6 in 5 ft 6 in Weight: 125 lb 4 oz BMI 20.2 BP 116/74 Intake Visit Reasons: 8WK NOB LMP 08/23 KATH 05/30 Chief Complaint: New OB Rotary Peel Oven Tender Required: No Is patient in pain?: No Allergies No Known Allergies Allergy (Verified 10/22/24 10:44) Medications ???Medication ???Instructions ???Recorded ???Confirmed ???Type docosahexaenoic acid 200 mg mg PO 10/07/24 10/22/24 History capsule (Algal [place]-3 DHA) magnesium 200 mg tablet 400 mg [...] weight training frequency: 3-4 times per week george/gnosticism: Restoration seatbelt use: always do you feel safe at home: Yes additional social history: Spouse- Bc, [employer] History 4 Elective abortions Hx Para 3 Spontaneous abortions Hx # Term Pregnancies 3 Ectopic pregnancies Hx # Pregnancies Multiple births # of living children 3 Past Pregnancies Del. Date Name GA/Weeks Outcome Route Bth Weight Gen Labor Lgth Anesthesia Del Locatn Provider FOB 04/22/17 Nir 40 live - full term 8pounds 7oz Female 14 hours none [facility] Celina Key/Dr. Timmy Yancey 05/05/19 Amaris 39 live - full term 7lbs 15oz Male spinal [facility] NORMA 09/27/21 Maribel 39 live - full term Male [facility] M arcanthony Delivery Date: 10/19/16 Last [...] Last Menstrual (more content not included)... Normal [facility] Platelet countOrdered By: Mitchel Perez on 10-22-2024 Platelets (Bld) [#/Vol] 237 10*3/uL 150-450 [facility] RBC Auto (Bld) [#/Vol]Ordere d By: Mandy Perez on 10-22-2024 RBC (Bld) [#/Vol] 4.01 10*6/uL Low 4.2-5.4 [facility] Syphilis Antibodieson 2024 Syphilis Abs Non-Reactive Normal Nonreactive [facility] Comment on above: Performed By: #### L 3890.6006, L509.8002, L100.0100, L3890.6301, BTS, L509.4006, L3890.6102 #### [facility] [address] [place], [place], [id number] Type AND Screenon 10-22-2024 ABO and Rh group Nom (Bld) Blood group A Rh(D) positive Normal [facility] Comment on above: Order Comment: PN Performed By: #### L 3890.6006, L509.8002, L100.0100, L3890.6301, BTS, L509.4006, L3890.6102 #### [facility] [address] [place], [address] Urine cultureOrdered By: Dilan Perez on 10-22-2024 Bacteria identified Cx Nom (U) Culture exhibits no growth. [facility] White blood cell (WBC) count Ordered By: Mandy Perez on 10-22-2024 WBC (Bld) [#/Vol] 6.7 10*3/uL 4.4-11.0 [facility] Absolute lymphocyte countOrd ered By: Ruthannchloe You on 10-29-2023 Lymphocytes Auto (Unsp spec) [#/Vol] 2.41 10*3/uL 0.83-4.51 [facility] Automated lymphocyte count a s percentage of total leukocytesOrdered By: Ruthann You on 10-29-2023 Lymphocytes/100 WBC Auto (Unsp spec) 41.3 % 19-41 [facility] Basophil percentageOrdered B y: Ruthann You on 10-29-2023 Basophils/100 WBC (Bld) 0.9 % 0-1 [facility] Eosinophils/100 WBC (Bld) 2.7 % 0-5 [facility] Hemoglobin (Bld) [Mass/Vol] 12.0 g/dL 12.0-15.0 [facility] Monocytes/100 WBC (Bld) 6.7 % 0-10 [facility] Neutrophils (Bld) [#/Vol] 2.8 10*3/uL 2.0-7.7 [facility] Neutrophils/100 WBC (Bld) 48.2 % 47-70 [facility] WBC (Bld) [#/Vol] 5.8 10*3/uL 4.4-11.0 [facility] Determination of erythrocyte mean corpuscular volume (MCV)Ordered By: Ruhtann You on 10-29-2023 MCV (RBC) [Entitic vol] 87.9 fL 81-99 [facility] Erythrocyte distribution wid th ratioOrdered By: Ruthann You on 10-29-2023 Erythrocyte distribution width (RBC) [Ratio] 14.0 % 11.6-14.6 [facility] Erythrocyte distribution wid th standard deviationOrdered By: Ruthann You on 10-29-2023 Erythrocyte distribution width (RBC) [Entitic vol] 44.8 fL 35.1-43.9 [facility] Hematocrit Auto (Bld) [Volum e fraction]Ordered By: Ruthann You on 10-29-2023 Hematocrit (Bld) [Volume fraction] 36.9 % 37-47 [facility] Immature granulocytes/100 WB C Auto (Bld)Ordered By: Ruthann You on 10-29-2023 Immature granulocytes/100 WBC (Bld) 0.200 % 0.0-0.9 [facility] Comment on above: IG% - Immature Granu locytes (promyelocytes, myelocytes and metamyelocytes) > 1% indicates that a LEFT SHIFT is Present. Laboratory - Chemistry and C hemistry - challengeon 10-29-2023 HCG ( test) Ql (U) Negative [facility] Laboratory - Hematology and Cell countsOrdered By: Ruthann You on 10-29-2023 MCH (RBC) [Entitic mass] 28.6 pg 27.0-32.0 [facility] MCHC (RBC) [Mass/Vol] 32.5 g/dL 32-36 [facility] Nucleated RBC/100 WBC (Bld) [Ratio] 0 % 0-5 [facility] Platelet mean volume (Bld) [Entitic vol] 11.9 fL 6.2-12.0 [facility] Platelets (Bld) [#/Vol] 277 10*3/uL 150-450 [facility] RBC Auto (Bld) [#/Vol]Ordere d By: Ruthann You on 10-29-2023 RBC (Bld) [#/Vol] 4.20 10*6/uL 4.2-5.4 [facility] Serum or plasma thyroid stim ulating hormone (TSH) measurement (units/volume)Ordered By: Ruthann You on 10-29-2023 TSH Qn 1.11 uIU/mL 0.358-3.74 [facility] Serum or plasma thyroperoxid ase antibody assay (units/volume)Ordered By: Ruthann You on 10-29-2023 TPO Ab Qn 11 [IU]/mL 0-34 [facility] Comment on above: Performed at: [facility] [employer] [id number] Director: Manuel Mcintyre PhD, Phone: [phone] Thin prep Papanicolaou smear with manual screeningOrdered By: Ruthann You on 10-29-2023 Thin prep Papanicolaou smear with manual screening 1.03 ng/dL 0.76-1.46 [facility] Laboratory - Chemistry and C hemistry - challengeon 09-25-2021 Glucose Ql (U) Negative [facility] Work Phone: Laboratory - Urinalysison Protein Ql (U) Negative [facility] Work Phone: Laboratory - Chemistry and C hemistry - challengeon 09-17-2021 Glucose Ql (U) Negative [facility] Work Phone: Laboratory - Urinalysison Protein Ql (U) Negative [facility] Work Phone: Laboratory - Chemistry and C hemistry - challengeon 09-12-2021 Glucose Ql (U) Negative [facility] Work Phone: Laboratory - Urinalysison Protein Ql (U) Negative [facility] Work Phone: Laboratory - Chemistry and C hemistry - challengeon 09-07-2021 Glucose Ql (U) Negative [facility] Work Phone: Laboratory - Urinalysison Protein Ql (U) Negative [facility] Work Phone: No Panel Informationon 09-07 Group B Streptococcus Culture Group B Beta Streptococcus is not isolated. [facility] Work Phone: Laboratory - Chemistry and C hemistry - challengeon 08-22-2021 Glucose Ql (U) Negative [facility] Work Phone: Laboratory - Urinalysison Protein Ql (U) Negative [facility] Work Phone: Laboratory - Chemistry and C hemistry - challengeon 08-08-2021 Glucose Ql (U) Negative [facility] Work Phone: Laboratory - Urinalysison Protein Ql (U) Negative [facility] Work Phone: Absolute lymphocyte counton 07-04-2021 Lymphocytes Auto (Unsp spec) [#/Vol] 1.88 10*3/uL 0.83-4.51 [facility] Work Phone: Basophil percentageon 2021 Basophils/100 WBC (Bld) 0.3 % 0-1 [facility] Work Phone: Eosinophils/100 WBC (Bld) 3.1 % 0-5 [facility] Work Phone: Neutrophils (Bld) [#/Vol] 5.8 10*3/uL 2.0-7.7 [facility] Work Phone: Neutrophils/100 WBC (Bld) 66.5 % 47-70 [facility] Work Phone: WBC (Bld) [#/Vol] 8.7 10*3/uL 4.4-11.0 [facility] Work Phone: Blood erythrocytes count (nu mber/volume)on 07-04-2021 RBC (Bld) [#/Vol] 3.52 10*6/uL 4.2-5.4 [facility] Work Phone: Blood hemoglobin measurement (mass/volume)on 07-04-2021 Hemoglobin (Bld) [Mass/Vol] 11.6 g/dL 12.0-15.0 [facility] Work Phone: Blood lymphocytes/100 leukoc yteson 07-04-2021 Lymphocytes/100 WBC (Bld) 21.7 % 19-41 [facility] Work Phone: Blood monocytes/100 leukocyt eson 07-04-2021 Monocytes/100 WBC (Bld) 7.0 % 0-10 [facility] Work Phone: Blood platelet mean volumeon 07-04-2021 Platelet mean volume (Bld) [Entitic vol] 11.9 fL 6.2-12.0 [facility] Work Phone: Determination of erythrocyte mean corpuscular volume (MCV)on 07-04-2021 MCV (RBC) [Entitic vol] 95.5 fL 81-99 [facility] Work Phone: Gestational diabetes screen 1-hour screen with 50g oral glucose loadon 07-04-2021 Glucose 1 Hr post 50 g glucose PO [Mass/Vol] 57 mg/dL 70-140 [facility] Work Phone: Hematocrit Auto (Bld) [Volum e fraction]on 07-04-2021 Hematocrit (Bld) [Volume fraction] 33.6 % 37-47 [facility] Work Phone: Laboratory - Chemistry and C hemistry - challengeon 07-04-2021 Glucose Ql (U) Negative [facility] Work Phone: Laboratory - Hematology and Cell countson 07-04-2021 Erythrocyte distribution width (RBC) [Entitic vol] 44.5 fL 35.1-43.9 [facility] Work Phone: Erythrocyte distribution width (RBC) [Ratio] 12.9 % 11.6-14.6 [facility] Work Phone: Immature granulocytes/100 WBC (Bld) 1.400 % 0.0-0.9 [facility] Work Phone: Comment on above: IG% - Immature Granu locytes (promyelocytes, myelocytes and metamyelocytes) > 1% indicates that a LEFT SHIFT is Present. MCH (RBC) [Entitic mass] 33.0 pg 27.0-32.0 [facility] Work Phone: Nucleated RBC/100 WBC (Bld) [Ratio] 0 % 0-5 [facility] Work Phone: Laboratory - Urinalysison Protein Ql (U) Negative [facility] Work Phone: MCHC Auto (RBC) [Mass/Vol]on 07-04-2021 MCHC (RBC) [Mass/Vol] 34.5 g/dL 32-36 [facility] Work Phone: Platelets bldon 07-04-2021 Platelets (Bld) [#/Vol] 193 10*3/uL 150-450 [facility] Work Phone: Laboratory - Chemistry and C hemistry - challengeon 06-08-2021 Glucose Ql (U) Negative [facility] Work Phone: Laboratory - Urinalysison Protein Ql (U) Negative [facility] Work Phone: PROGRESSon 07-21-2017 PROGRESS HNO ID: [id number] Author: Kathleen Wolff Psr Service: (none) Author Type: (none) Type: Progress Notes Filed: 07/21/2017 9:10 AM Note Text: pap logged. letter sent. Kathleen Wolff Psr Normal [facility] CYTOLOGYon 07-09-2017 [facility]Y [facility]: [id number] Physician: ARMANDO CROCKERPECCLEOPATRA SUBMITTEDA: CERVICAL, DIAGNOSTIC, FLUID FINAL DIAGNOSISA. CERVICAL, DIAGNOSTIC, FLUIDSatisfactory for interpretation.Negative for intraepithelial lesion or malignancy.This specimen has been analyzed by the ThinPrep Imaging System, anaKeybroker imaging and review system, which assists the laboratory inevaluating cells on ThinPrep Pap tests. Following automated imaging,selected santos from every slide are reviewed by a hand sprayer.Suhail David M.D. (Electronic Signature) [facility]INI NADIRA DATA ABNORMAL PAP, HPV Testing: Yes, Reflex HPV for ASCUSDate of Last Menstrual Period:PostpartumClinica l History:H/O LGSIL: 02/2016Additional Testing:Reflex HPV testing for ASCUSSTAINSA: CERVICAL, DIAGNOSTIC, FLUID THIN PREP GYNPatient ID #: [id number] of Report: 07/18/2017Date of Procedure: 07/09/2017Date of Receipt: 07/11/2017Submitted by: SARAH CROCKERocation: WOREFDiagnostic interpretation performed at [facility], [address] [place] [address].The Pap Smear is a screening test for cervical cancer. False negativeresults occur with all screening tests, emphasizing the need forrescreening at recommended intervals, and clinical correlation. Normal [facility] HOSPon 07-09-2017 HOSP Office Vi sit (WOOB) KELI ALCANTAR ([id number]) 1990 FDate Time Provider Department07/09/17 3:15 PM [...] external genitalia normal, normal Bartholin's glands, urethra, [place]'sglands, no vulvar lesions, no cervical lesions, good [...] patient of results, RTC for annualexams and PRNJeTi Arroyo Psr 07/21/2017 9:10 AM Signedpap logged. letter sent. 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 #:[id number] List As Of Date 07/09/2017 Noted [...] Annual or PRN.Follow-up and Disposition History RecordedLetter [address] [address]Apjfz: Krunal [address] [address]/21/2017CCF: [id number] Hector,We are pleased to inform you that [...] the hours of 8:00 a.m. and 5:00p.m.Sincerely,Cynthia Key CNMEncounter Number: [id number] Status:Closed by CELINA KEY on 07/09/17 Normal [facility] PROGRESSon 07-09-2017 PROGRESS HNO ID: [id number]: Celina (John) ShahidService: (none)Author Type: MidwifeType: Progress NotesFiled: 07/09/2017 4:39 PMNote Text: VISITKrunal Alcantar is a 27 year old year old here for postpartumvisit.Delivery Summary: of female infant un medicated. Nitrous usedthroughout labor. Shoulder dystocia.05/21/2017Postp [...] masses.PELVIC: external genitalia normal, normal Bartholin's glands, urethra,[place]'s glands, no vulvar lesions, no cervical lesions, [...] patient of results, RTC for annualexams and PRDarleen Key CNM Normal [facility] HOSP 05-23-2017 HOSP Patient Update (WOOB) KELI ALCANTAR ([id number]) 1990 [facility] Time Provider Ilohncfiwo91/24/17 CELINA KEY (JOHN) WOOB During your visit today, we recorded the following information about you:Kathleen Benja OLSEN 05/23/2017 11:49 AM SignedPt delivered via at [facility] on 05/21/17 per Celina Key CNM. See OB Outcomenote. Kathleen Benja Berry As of Date: 05/23/2017(No Known Allergies)Date Reviewed: 05/19/2017Reviewed by: Mary Alice Geiger Ma - Fully AssessedPrescriptions as of 05/23/2017 Sig: DHA ORAL Take by mouth.Problem List As Of Date 05/23/2017 Noted Resolved Anorexia nervosa, binge eating/purging type [F5*INVALID FOR* Left breast mass [N63.20] INVALID FOR*12/05/2016 Encounter for supervision of normal first pregn*INVALID FOR* Status:Closed by KATHLEEN YOUSIF LPN on 05/23/17 Normal [facility] PROGRESSon 05-23-2017 PROGRESS HNO ID: [id number] Author: Kathleen Yousif LPN Service: (none) Author Type: (none) Type: Progress Notes Filed: 05/23/2017 11:49 AM Note Text: Pt delivered via at [facility] on 05/21/17 per Celina Key CNM. See OB Outcome note. Kathleen Yousif LPN Normal [facility] HOSPon 05-19-2017 [facility] Routine Off ice Visit (WOOB) KELI ALCANTAR ([id number]) 1990 FDate Time Provider Pxxyoxrnjj69/20/17 2:30 PM CELINA KEY (JOHN) WOOB During your visit today, we recorded the following information about you: Blood pressure Weight 110/[address] [facility] 05/19/2017 2:44 PM SignedSEQUENTIAL SCREENINGSThe [facility] offers sequential screenings for women who are [...] testing. It will require anappointment with our industrial machine system technician. This is not an ultrasound performedby [...] the above symptoms, contact our office at [phone] andask to speak with a nurse.After hours, you can call doctors registry at [phone] OR call [facility] at [phone] and ask to have the doctor communications intern paged.If you consider this an emergency, dial 5--6 or go to your nearest emergencydepartment.NEED HELP? Are you dealing with a violent or abusive relationship? Are you avictim of rape or sexual assult? Call [facility] ([place]) 24 hourCrisis Hotline: 848.394.4570 or 854-564-3743. MANUALYour Guide to a Healthy manual is [...] weeks of gestation [O48.0]Order(s):URINE OB DIP B/O [6231412] Order #: [id number] OBSTETRIC ULTRASOUND WHI [0410560] Order #: [id number]: 1 NON-STRESS TEST [2195531] Order #: [id number] as of 05/19/2017 Sig: DHA ORAL Take by mouth.Problem List As Of Date 05/19/2017 Noted Resolved Anorexia nervosa, binge eating/purging type [F5*INVALID FOR* Left breast mass [N63.20] INVALID FOR*12/05/2016 Encounter for supervision of normal first pregn*INVALID FOR* Other instructions from your clinician: SEQUENTIAL SCREENINGS [facility] offers sequential screenings for women who are [...] It will require an appointment with our industrial machine system technician. This is not an ultrasound performed [...] the above symptoms, contact our office at [phone] and ask to speak with a nurse. After hours, you can call doctors registry at [phone] OR call [facility] at [phone] and ask to have the doctor communications intern paged. If you consider this an emergency, dial 0-2-5 or go to your nearest emergency department. NEED HELP? Are you dealing with a violent or abusive relationship? Are you a victim of rape or sexual assult? Call [facility] [place] ([facility] 24 hour Crisis Hotline: 173.293.7291 or 890-693-4908. MANUAL Your Guide to a Healthy manual is now on-line. Visit [email or web address]/Heal thyPregnancyGuide to download your free copyDisposition: Return if symptoms worsen or fail to improve, for Appointment with CM.Follow-up and Disposition History RecordedEncounter Number: [id number] Status:Closed by CELINA KEY on 05/19/17 Normal [facility] HOSPon 05-16-2017 HOSP Routine Off ice Visit (WOOB) KELI ALCANTAR ([id number]) 1990 FDate Time Provider Aoalklbbnr00/17/17 1:00 PM CELINA KEY) ROSELINE During your visit today, we recorded the following information about you: Blood pressure Weight 110/64 77.7 kgHayley Piotr Velez 05/16/2017 1:01 PM SignedSEQUENTIAL SCREENINGSThe [facility] offers sequential screenings for women who are [...] testing. It will require anappointment with our industrial machine system technician. This is not an ultrasound performedby [...] the above symptoms, contact our office at [phone] andask to speak with a nurse.After hours, you can call doctors registry at [phone] OR call [facility] at [phone] and ask to have the doctor communications intern paged.If you consider this an emergency, dial 9-1-1 or go to your nearest emergencydepartment.NEED HELP? Are you dealing with a violent or abusive relationship? Are you avictim of rape or sexual assult? Call [facility] ([place]) 24 hourCrisis Hotline: 888.120.8779 or 211-755-2346. MANUALYour Guide to a Healthy manual is now on-line. [email or web address] /HealthyPregnancyGuide to download your free copyReferring Provider: SELF [200]Allergies As of Date: 05/16/2017(No Known Allergies)Date Reviewed: 05/16/2017Reviewed by: Anjelica Saldaña Ma - Fully AssessedReason for Visit: Care [86]Primary Visit Diagnosis:Encounter for supervision of normal first in third trimester [Z34.03] Other Visit Diagnosis:39 weeks gestation of [Z3A.39]Order(s):URINE OB DIP B/O [[id number]] Order #: [id number] as of 05/16/2017 Sig: DHA ORAL Take by mouth.Problem List As Of Date 05/16/2017 Noted Resolved Anorexia nervosa, binge eating/purging type [F5*INVALID FOR* Left breast mass [N63.20] INVALID FOR*12/05/2016 Encounter for supervision of normal first pregn*INVALID FOR* Other instructions from your clinician: SEQUENTIAL SCREENINGS [facility] offers sequential screenings for women who are [...] It will require an appointment with our industrial machine system technician. This is not an ultrasound performed [...] the above symptoms, contact our office at [phone] and ask to speak with a nurse. After hours, you can call doctors registry at [phone] OR call [facility] at [phone] and ask to have the doctor communications intern paged. If you consider this an emergency, dial 8-3-1 or go to your nearest emergency department. NEED HELP? Are you dealing with a violent or abusive relationship? Are you a victim of rape or sexual assult? Call [facility] ([place]) 24 hour Crisis Hotline: 743.479.9926 or 324-316-6639. MANUAL Your Guide to a Healthy manual is now on-line. Visit [email or web address]/Heal thyPregnancyGuide to download your free copyDisposition: Return in about 1 week (around 05/23/2017), or if symptoms worsen or fail to improve, for FRANCO.Follow-up and Disposition History RecordedEncounter Number: [id number] Status:Closed by CELINA KEY on 05/16/17 [facility] 05-07-2017 [facility] Routine Off ice Visit (WOOB) [facility][id number][facility] 1990 [facility] Kdzysaowgm47/8/17 8:15 AM CELINA KEY (CN) WOOB During your visit today, we recorded the following information about you: Blood pressure Weight 102/66 77.1 kgPoloy Juanjo Mi 05/07/2017 8:23 AM SignedSEQUENTIAL SCREENINGSThe [facility] offers sequential screenings for women who are [...] testing. It will require anappointment with our industrial machine system technician. This is not an ultrasound performedby [...] the above symptoms, contact our office at [phone] andask to speak with a nurse.After hours, you can call doctors registry at [phone] OR call [facility] at [phone] and ask to have the doctor communications intern paged.If you consider this an emergency, dial 8-4-8 or go to your nearest emergencydepartment.NEED HELP? Are you dealing with a violent or abusive relationship? Are you avictim of rape or sexual assult? Call [facility] ([place]) 24 hourCrisis Hotline: 168.485.4818 or 372-726-9654. MANUALYour Guide to a Healthy manual is now on-line. [email or web address] /HealthyPregnancyGuide to download your free copyReferring Provider: SELF [200]Allergies As of Date: 05/07/2017(No Known Allergies)Date Reviewed: 05/07/2017Reviewed by: Celina Key - Fully AssessedReason for Visit: Care [86]Primary Visit Diagnosis:Encounter for supervision of normal first in third trimester [Z34.03] Other Visit Diagnosis:38 weeks gestation of [Z3A.38]Order(s):URINE OB DIP B/O [[id number]] Order #: [id number] as of 05/07/2017 Sig: DHA ORAL Take by mouth.Problem List As Of Date 05/07/2017 Noted Resolved Anorexia nervosa, binge eating/purging type [F5*INVALID FOR* Left breast mass [N63.20] INVALID FOR*12/05/2016 Encounter for supervision of normal first pregn*INVALID FOR* Other instructions from your clinician: SEQUENTIAL SCREENINGS [facility] offers sequential screenings for women who are [...] It will require an appointment with our industrial machine system technician. This is not an ultrasound performed [...] the above symptoms, contact our office at [phone] and ask to speak with a nurse. After hours, you can call doctors registry at [phone] OR call [facility] at [phone] and ask to have the doctor communications intern paged. If you consider this an emergency, dial 8-3-6 or go to your nearest emergency department. NEED HELP? Are you dealing with a violent or abusive relationship? Are you a victim of rape or sexual assult? Call [facility] ([place]) 24 hour Crisis Hotline: 222.216.2734 or 306-839-9350. MANUAL Your Guide to a Healthy manual is now on-line. Visit [email or web address]/Heal thyPregnancyGuide to download your free copyDisposition: Return in about 1 week (around 05/14/2017), or if symptoms worsen or fail to improve, for FRANCO.Follow-up and Disposition History RecordedEncounter Number: [id number] Status:Closed by CELINA KEY on 05/07/17 Normal [facility] Jerel 05-02-2017 Alanine aminotransferase (ALT) 12 U/L Normal 7-38 [facility] Comment on above: Performed By: #### C BC, ALT, AST, BUN, CRET1, URIC ####[facility], [place] [phone] Nabeel 05-02-2017 Aspartate aminotransferase (AST) 23 U/L Normal 13-35 [facility] Comment on above: Performed By: #### C BC, ALT, AST, BUN, CRET1, URIC ####[place] [id number] [place] [phone] BUNon 05-02-2017 Urea nitrogen 14 mg/dL Normal 7-21 [facility] Comment on above: Performed By: #### C BC, ALT, AST, BUN, CRET1, URIC ####[place] [address] [address] [place] [phone] CBCon 05-02-2017 Erythrocyte distribution width Auto Ratio (RBC) 12.9 % Normal 11.5-15.0 [facility] Comment on above: Performed By: #### C BC, ALT, AST, BUN, CRET1, URIC ####[place] [address] [place] [phone] Erythrocytes (RBC) 10*6/uL Normal <0.01 [facility] Comment on above: Performed By: #### C BC, ALT, AST, BUN, CRET1, URIC ####[place] [address], [place] [phone] Erythrocytes (RBC) 3.76 10*6/uL Low 3.90-5.20 [facility] Comment on above: Performed By: #### C BC, ALT, AST, BUN, CRET1, URIC ####[place] [address] [address] [place] [phone] Hematocrit (HCT) 36.3 % Normal 36.0-46.0 [facility] Comment on above: Performed By: #### C BC, ALT, AST, BUN, CRET1, URIC ####[place] [address] [address] [place] [phone] Hemoglobin mass conc (Bld) 11.9 g/dL Normal 11.5-15.5 [facility] Comment on above: Performed By: #### C BC, ALT, AST, BUN, CRET1, URIC ####[address] [place], [place] [phone] MCH 31.6 pG Normal 26.0-34.0 [facility] Comment on above: Performed By: #### C BC, ALT, AST, BUN, CRET1, URIC ####[place] [phone] MCHC mass conc (RBC) 32.8 g/dL Normal 30.5-36.0 [facility] Comment on above: Performed By: #### C BC, ALT, AST, BUN, CRET1, URIC ####[place] [phone] MCV 96.5 fL Normal 80.0-100.0 [facility] Comment on above: Performed By: #### C BC, ALT, AST, BUN, CRET1, URIC ####[address] [phone] Platelet mean volume (PMV) 13.9 fL High 9.0-12.7 [facility] Comment on above: Performed By: #### C BC, ALT, AST, BUN, CRET1, URIC ####[address] [phone] Platelets 163 10*3/uL Normal 150-400 [facility] Comment on above: Result Comment: Resu lt checked and verifiedNo clot detected. Performed By: #### C BC, ALT, AST, BUN, CRET1, URIC ####[address] [phone] WBC (Leukocytes) 8.65 10*3/uL Normal 3.70-11.00 [facility] Comment on above: Performed By: #### C BC, ALT, AST, BUN, CRET1, URIC ####[facility] [place], [place] [phone] Creatinineon 05-02-2017 Creatinine 0.74 mg/dL Normal 0.58-0.96 [facility] Comment on above: Performed By: #### C BC, ALT, AST, BUN, CRET1, URIC ####[facility] [place], [place] [phone] eGFR (non-black) mL/min/{1.73_m2} Normal Cl [facility] Comment on above: Result Comment: eGFR [...] C BC, ALT, AST, BUN, CRET1, URIC ####[facility] [place], [place] [phone] HOSPon 05-02-2017 HOSP Routine Off ice Visit (WOOB) KELI ALCANTAR ([id number]) 1990 [facility] Time Provider Csfekugmfo87/3/17 11:00 AM CELINA KEY (JOHN) WOOB During your visit today, we recorded the following information about you: Blood pressure Weight 100/62 76.2 kgZena Collinsloisbelle MATTRESS SPECIALIST 05/02/2017 11:00 AM SignedSEQUENTIAL SCREENINGSThe [facility] offers sequential screenings for women who are [...] testing. It will require anappointment with our industrial machine system technician. This is not an ultrasound performedby [...] the above symptoms, contact our office at [phone] andask to speak with a nurse.After hours, you can call doctors registry at [phone] OR call [facility] at [phone] and ask to have the doctor communications intern paged.If you consider this an emergency, dial 1-9-7 or go to your nearest emergencydepartment.NEED HELP? Are you dealing with a violent or abusive relationship? Are you avictim of rape or sexual assult? Call [facility] ([place]) 24 hourCrisis Hotline: 554.774.3052 or [phone]. MANUALYour Guide to a Healthy manual is now on-line. [email or web address] /HealthyPregnancyGuide to download your free copyReferring Provider: SELF [200]Allergies As of Date: 05/02/2017(No Known Allergies)Date Reviewed: 05/02/2017Reviewed by: Zena Naik LPN - Fully AssessedReason for Visit: Care [86]Primary Visit Diagnosis:Encounter for supervision of normal first in third trimester [Z34.03]Order(s):URINE OB DIP B/O [[id number]] Order #: [id number] ALT/SGPT [SQALT] Order #: [id number] FUTURE AST/SGOT BLD [SQAST] Order #: [id number] FUTURE BUN BLOOD [SQBUN] Order #: [id number] FUTURE URIC ACID BLOOD [SQURIC] Order #: [id number] FUTURE CREATININE BLD [SQCRET] Order #: [id number] FUTURE CBC [SQCBC] Order #: [id number] FUTURE PROTEIN CREATININE RATIO [SQPRATIO] Order #: [id number] FUTUREPrescriptions as of 05/02/2017 Sig: DHA ORAL Take by mouth.Problem List As Of Date 05/02/2017 Noted Resolved Anorexia nervosa, binge eating/purging type [F5*INVALID FOR* Left breast mass [N63.20] INVALID FOR*12/05/2016 Encounter for supervision of normal first pregn*INVALID FOR* Other instructions from your clinician: SEQUENTIAL SCREENINGS [facility] offers sequential screenings for women who are [...] It will require an appointment with our industrial machine system technician. This is not an ultrasound performed [...] the above symptoms, contact our office at [phone] and ask to speak with a nurse. After hours, you can call doctors registry at [phone] OR call [facility] at [phone] and ask to have the doctor communications intern paged. If you consider this an emergency, dial 9-1- or go to your nearest emergency department. NEED HELP? Are you dealing with a violent or abusive relationship? Are you a victim of rape or sexual assult? Call [facility] ([place]) 24 hour Crisis Hotline: 880.826.5294 or 484-494-7815. MANUAL Your Guide to a Healthy manual is now on-line. Visit [email or web address]/Heal thyPregnancyGuide to download your free copyDisposition: Return in about 1 week (around 05/09/2017), or if symptoms worsen or fail to improve.Follow-up and Disposition History RecordedEncounter Number: [id number] Status:Closed by CELINA KEY on 05/02/17 Normal [facility] Protein/Creatinine Ratioon 1 07-02-2016 Creatinine,Urine,Ran 79.9 mg/dL Normal 20-300 [facility] Comment on above: Performed By: #### P RATIO ####[address] [phone] Protein Urine Random 21 mg/dL High 0-20 [facility] Comment on above: Performed By: #### P RATIO ####[address] [phone] Protein/Creatinine Ratio 0.3 High <0.2 [facility] Comment on above: Performed By: #### P RATIO ####[address] [phone] Uric Acidon 05-02-2017 Urate 3.7 mg/dL Normal 2.5-6.6 [facility] Comment on above: Performed By: #### C BC, ALT, AST, BUN, CRET1, URIC ####[address] [phone] HIV 12 Combo (Ag/Ab)on 04-24 HIV 12 Ag/Ab Non Reactive Normal Non Reactive [facility] Comment on above: Result Comment: (NOT E)HIV Information: [place] Rev. Code 3701.243(E):This information has been disclosed [...] By: #### S YPHGX, RUBIGG, HBSAG, HIV12C ####[place] [phone] Hepatitis B Surf. Agon 04-24 Hepatitis B Surf. Ag Negative Normal Negative [facility] Comment on above: Performed By: #### S YPHGX, RUBIGG, HBSAG, HIV12C ####[place] [phone] Rubella IgG Antibodyon 04-24 Rubella IgG Ab 1.54 Index Value Normal [facility] Comment on above: Result Comment: Inde x values are interpreted as follows:Negative specimens <0.90Equivocol specimens 0.90 to 0.99Positive specimens >0.99The magnitude of the measured result is not indicative of the amount of antibody present. Performed By: #### S YPHGX, RUBIGG, HBSAG, HIV12C ####[place] [phone] Rubella IgG Ab, Qual Positive Critically abnormal Negative [facility] Comment on above: Result Comment: Samp le is considered positive for IgG antibodies to rubella virus.A positive result indicates previous exposure to Rubella virus or vaccination. Performed By: #### S YPHGX, RUBIGG, HBSAG, HIV12C ####[place] [phone] Syphilis IgG with Confon Syphilis IgG <0.2 Normal [facility] Comment on above: Result Comment: Anti body index is interpreted as follows:Non reactive SPECIMENS <=0.8Weak reactive SPECIMENS 0.9 to 5.9Reactive SPECIMENS >=6.0 Performed By: #### S YPHGX, RUBIGG, HBSAG, HIV12C ####[facility] [address] [place], [place] [phone] Syphilis IgG, Qual Nonreactive Normal Nonreactive [facility] Comment on above: Result Comment: In c onjunction with this result, the immune status of the patient should be evaluated based on their clinical status, related risk factors, and other diagnostic test results. Performed By: #### S YPHGX, RUBIGG, HBSAG, HIV12C ####[facility] [address] [place], [place] [phone] HOSPon 04-23-2017 [facility] Routine Off ice Visit (WOOB) KELI ALCANTAR ([id number]) 1990 [facility] Time Provider Nfcgryjerw31/25/17 9:45 AM CELINA KEY (JOHN) WOOB During your visit today, we recorded the following information about you: Blood pressure Weight 102/[address] [facility] 04/23/2017 9:14 AM SignedSEQUENTIAL SCREENINGSThe [facility] offers sequential screenings for women who are [...] testing. It will require anappointment with our industrial machine system technician. This is not an ultrasound performedby [...] the above symptoms, contact our office at [phone] andask to speak with a nurse.After hours, you can call doctors registry at [phone] OR [facility] at [phone] and ask to have the doctor communications intern paged.If you consider this an emergency, dial 02-28-0 or go to your nearest emergencydepartment.NEED HELP? Are you dealing with a violent or abusive relationship? Are you avictim of rape or sexual assult? Call [facility] ([place]) 24 hourCrisis Hotline: 343.169.2632 or 245-104-8183. MANUALYour Guide to a Healthy manual is now on-line. [email or web address] /HealthyPregnancyGuide to download your free copyReferring Provider: SELF [200]Allergies As of Date: 04/23/2017(No Known Allergies)Date Reviewed: 04/23/2017Reviewed by: Celina Kye - Fully AssessedReason for Visit: Care [86]Primary Visit Diagnosis:Encounter for supervision of normal first in third trimester [Z34.03] Other Visit Diagnosis:36 weeks gestation of [Z3A.36]Order(s):SYPHILI S IGG WITH CONF [SQSYPHGX] Order #: [id number] FUTURE RUBELLA IGG AB [SQRUBQNT] Order #: [id number] FUTURE HEP B SURF AG SCRN [SQHBSAG] Order #: [id number] FUTURE HIV 1,2 COMBO (AG/AB) [SQHIV12] Order #: [id number] FUTURE URINE OB DIP B/O [5010150] Order #: [id number] as of 04/23/2017 Sig: DHA ORAL Take by mouth.Problem List As Of Date 04/23/2017 Noted Resolved Anorexia nervosa, binge eating/purging type [F5*INVALID FOR* Left breast mass [N63.20] INVALID FOR*12/05/2016 Encounter for supervision of normal first pregn*INVALID FOR* Other instructions from your clinician: SEQUENTIAL SCREENINGS [facility] offers sequential screenings for women who are [...] It will require an appointment with our industrial machine system technician. This is not an ultrasound performed [...] the above symptoms, contact our office at [phone] and ask to speak with a nurse. After hours, you can call doctors registry at [phone] OR call [facility] at [phone] and ask to have the doctor communications intern paged. If you consider this an emergency, dial 9-1-1 or go to your nearest emergency department. NEED HELP? Are you dealing with a violent or abusive relationship? Are you a victim of rape or sexual assult? Call [facility] ([place]) 24 hour Crisis Hotline: 475.582.4618 or 802-749-4808. MANUAL Your Guide to a Healthy manual is now on-line. Visit [email or web address]/Heal thyPregnancyGuide to download your free copyDisposition: Return in about 1 week (around 04/30/2017), or if symptoms worsen or fail to improve, for FRANCO.Follow-up and Disposition History RecordedEncounter Number: [id number] Status:Closed by CELINA KEY on 04/23/17 Normal [facility] GROUP B STREP PCRon 04-18-20 GROUP B STREP PCR Negative Normal [facility] Comment on above: Performed By: #### [facility] ####[facility] [address] [place], [place] [phone] HOSPon 04-18-2017 HOSP Routine Off ice Visit (WOOB) [facility][id number][facility] 1990 [facility] Wzcnxzvnjx90/20/17 8:15 AM CELINA KEY (JOHN) WOOB During your visit today, we recorded the following information about you: Blood pressure Weight 94/58 75.3 kgMary Alice Geiger Mi 04/18/2017 8:04 AM SignedSEQUENTIAL SCREENINGSThe [facility] offers sequential screenings for women who are [...] testing. It will require anappointment with our industrial machine system technician. This is not an ultrasound performedby [...] the above symptoms, contact our office at [phone] andask to speak with a nurse.After hours, you can call doctors registry at [phone] OR call [facility] at [phone] and ask to have the doctor communications intern paged.If you consider this an emergency, dial 6-4-3 or go to your nearest emergencydepartment.NEED HELP? Are you dealing with a violent or abusive relationship? Are you avictim of rape or sexual assult? Call [facility] ([place]) 24 hourCrisis Hotline: 227.692.7332 or 392-381-2477. MANUALYour Guide to a Healthy manual is now on-line. [email or web address] /HealthyPregnancyGuide to download your free copyReferring Provider: SELF [200]Allergies As of Date: 04/18/2017(No Known Allergies)Date Reviewed: 04/18/2017Reviewed by: Mary Alice Geiger Ma - Fully AssessedReason for Visit: Care [86]Primary Visit Diagnosis:Encounter for supervision of normal first in third trimester [Z34.03] Other Visit Diagnosis:35 weeks gestation of [Z3A.35]Order(s):URINE OB DIP B/O [6372082] Order #: [id number] STREPTOCOCCUS B PCR [SQGBSPCR] Order #: [id number]. #:[id number] as of 04/18/2017 Sig: DHA ORAL Take by mouth.Problem List As Of Date 04/18/2017 Noted Resolved Anorexia nervosa, binge eating/purging type [F5*INVALID FOR* Left breast mass [N63.20] INVALID FOR*12/05/2016 Encounter for supervision of normal first pregn*INVALID FOR* Other instructions from your clinician: SEQUENTIAL SCREENINGS The [facility] offers sequential screenings for women who are [...] It will require an appointment with our industrial machine system technician. This is not an ultrasound performed [...] the above symptoms, contact our office at [phone] and ask to speak with a nurse. After hours, you can call doctors registry at [phone] OR call [facility] at [phone] and ask to have the doctor communications intern paged. If you consider this an emergency, dial -0 or go to your nearest emergency department. NEED HELP? Are you dealing with a violent or abusive relationship? Are you a victim of rape or sexual assult? Call [facility] ([place]) 24 hour Crisis Hotline: 724.911.1138 or 448-418-1507. MANUAL Your Guide to a Healthy manual is now on-line. Visit [email or web address]/Heal thyPregnancyGuide to download your free copyDisposition: Return in about 1 week (around 04/25/2017), or if symptoms worsen or fail to improve, for FRANCO.Follow-up and Disposition History RecordedEncounter Number: [id number] Status:Closed by CELINA KEY on 04/18/17 [facility] 04-03-2017 [facility] Routine Off ice Visit (WOOB) KELI ACLANTAR ([id number]) 1990 [facility] Time Provider Kjjvxorjzb44/5/17 11:10 AM RAMY SONG During your visit today, we recorded the following information about you: Blood pressure Weight 90/64 73.4 kgMarisela Benson Ma 04/03/2017 11:15 AM SignedSEQUENTIAL SCREENINGSThe [facility] offers [facility] screenings for women who are [...] testing. It will require anappointment with our industrial machine system technician. This is not an ultrasound performedby [...] the above symptoms, contact our office at [phone] andask to speak with a nurse.After hours, you can call doctors registry at [phone] OR call [facility] at [phone] and ask to have the doctor communications intern paged.If you consider this an emergency, dial 9-1-1 or go to your nearest emergencydepartment.NEED HELP? Are you dealing with a violent or abusive relationship? Are you avictim of rape or sexual assult? Call [facility] ([place]) 24 hourCrisis Hotline: 849.384.4222 or 943-628-8091. MANUALYour Guide to a Healthy manual is now on-line. [email or web address] /HealthyPregnancyGuide to download your free copyReferring Provider: SELF [200]Allergies As of Date: 04/03/2017(No Known Allergies)Date Reviewed: 04/03/2017Reviewed by: Marisela Benson Ma - Fully AssessedReason for Visit: Care [86]Primary Visit Diagnosis:Encounter for supervision of normal first in third trimester [Z34.03] Other Visit Diagnosis:33 weeks gestation of [Z3A.33]Order(s):URINE OB DIP B/O [[id number]] Order #: [id number] as of 04/03/2017 Sig: DHA ORAL Take by mouth.Problem List As Of Date 04/03/2017 Noted Resolved Anorexia nervosa, binge eating/purging type [F5*INVALID FOR* Left breast mass [N63.20] INVALID FOR*12/05/2016 Encounter for supervision of normal first pregn*INVALID FOR* Other instructions from your clinician: SEQUENTIAL SCREENINGS [facility] offers sequential screenings for women who are [...] It will require an appointment with our industrial machine system technician. This is not an ultrasound performed [...] the above symptoms, contact our office at [phone] and ask to speak with a nurse. After hours, you can call doctors registry at [phone] OR call [facility] at [phone] and ask to have the doctor communications intern paged. If you consider this an emergency, dial 2--7 or go to your nearest emergency department. NEED HELP? Are you dealing with a violent or abusive relationship? Are you a victim of rape or sexual assult? Call [facility] ([place]) 24 hour Crisis Hotline: 375.760.7682 or 184-508-7873. MANUAL Your Guide to a Healthy manual is now on-line. Visit [facility].[email or web address]/Heal thyPregnancyGuide to download your free copyEncounter Number: [id number] Status:Closed by RAMY SONG MD on 04/03/17 [facility] 03-20-2017 [facility] Routine Off ice Visit (WOOB) KELI ALCANTAR ([id number]) 1990 [facility] Time Provider Department03/20/17 2:50 PM RAMY SONG During your visit today, we recorded the following information about you: Blood pressure Weight 100/60 71.2 kgBeshanthi Andrew Ma 03/20/2017 2:58 PM SignedSEQUENTIAL SCREENINGSThe [facility] offers sequential screenings for women who are [...] testing. It will require anappointment with our industrial machine system technician. This is not an ultrasound performedby [...] the above symptoms, contact our office at [phone] andask to speak with a nurse.After hours, you can call doctors registry at [phone] OR call [facility] at [phone] and ask to have the doctor communications intern paged.If you consider this an emergency, dial 0-3-3 or go to your nearest emergencydepartment.NEED HELP? Are you dealing with a violent or abusive relationship? Are you avictim of rape or sexual assult? Call [facility] ([place]) 24 hourCrisis Hotline: 338.458.8248 or 985-176-4284. MANUALYour Guide to a Healthy manual is now on-line. [email or web address] /HealthyPregnancyGuide to download your free copyReferring Provider: SELF [200]Allergies As of Date: 03/20/2017(No Known Allergies)Date Reviewed: 03/20/2017Reviewed by: Belkis Gray Fire Operations Forester - Fully AssessedReason for Visit: Care [86]Primary Visit Diagnosis:Encounter for supervision of normal first in third trimester [Z34.03] Other Visit Diagnosis:31 weeks gestation of [Z3A.31]Order(s):URINE OB DIP B/O [[id number]] Order #: [id number] as of 03/20/2017 Sig: DHA ORAL Take by mouth.Problem List As Of Date 03/20/2017 Noted Resolved Anorexia nervosa, binge eating/purging type [F5*INVALID FOR* Left breast mass [N63] INVALID FOR*12/05/2016 Encounter for supervision of normal first pregn*INVALID FOR* Other instructions from your clinician: SEQUENTIAL SCREENINGS [facility] offers sequential screenings for women who are [...] It will require an appointment with our industrial machine system technician. This is not an ultrasound performed [...] the above symptoms, contact our office at [phone] and ask to speak with a nurse. After hours, you can call doctors registry at [phone] OR call [facility] at [phone] and ask to have the doctor communications intern paged. If you consider this an emergency, dial 9-1-0 or go to your nearest emergency department. NEED HELP? Are you dealing with a violent or abusive relationship? Are you a victim of rape or sexual assult? Call [facility] ([place]) 24 hour Crisis Hotline: 581.682.3442 or 438-768-0672. MANUAL Your Guide to a Healthy manual is now on-line. Visit [email or web address]/Heal thyPregnancyGuide to download your free copyEncounter Number: [id number] Status:Closed by RAMY SONG MD on 03/20/17 Normal [facility] CNCNPATEDon 03-11-2017 CNCNPATED Education (WOOB) KELI ALCANTAR ([id number]) 1990 FDate Time Provider Department03/11/17 NURSE PNOB [facility] WSTR WOOBReason for Visit: Class [4072]Visit Notes:>> [...] 2. Forceps 3. Vacuum extractorPhysician presentations 1. OB-contract modeler 2. PediatricianPostpartum 1. Mom's first hour 2. baby's first hour 3. baby's discharge protocolCompleted childbirth education class. Aldo Hahn RN During your visit today, we recorded the following information about you:Allergies As of Date: 03/11/2017(No Known Allergies)Date Reviewed: 03/06/2017Reviewed by: Marisela Benson Ma - Fully AssessedPrescriptions as of 03/11/2017 Sig: DHA ORAL Take by mouth. Status:Closed by ALDO HAHN RN on 03/11/17 [facility] 03-06-2017 [facility] Routine Off ice Visit (WOOB) KELI ALCANTAR ([id number]) 1990 [facility] Time Provider Department03/06/17 11:00 AM RAMY SONG During your visit today, we recorded the following information about you: Blood pressure Weight 88/56 71.2 kgMarisela Benson Ma 03/06/2017 11:05 AM SignedSEQUENTIAL SCREENINGSThe [facility] offers sequential screenings for women who are [...] testing. It will require anappointment with our industrial machine system technician. This is not an ultrasound performedby [...] the above symptoms, contact our office at [phone] andask to speak with a nurse.After hours, you can call doctors registry at [phone] OR [facility] at [phone] and ask to have the doctor communications intern paged.If you consider this an emergency, dial 7-6-0 or go to your nearest emergencydepartment.NEED HELP? Are you dealing with a violent or abusive relationship? Are you avictim of rape or sexual assult? Call [facility] ([place]) 24 hourCrisis Hotline: 457.238.9019 or 276-278-5329. MANUALYour Guide to a Healthy manual is now on-line. [email or web address] /HealthyPregnancyGuide to download your free copyReferring Provider: SELF [200]Allergies As of Date: 03/06/2017(No Known Allergies)Date Reviewed: 03/06/2017Reviewed by: Marisela Benson Ma - Fully AssessedReason for Visit: Care [86]Primary Visit Diagnosis:Encounter for supervision of other normal , third trimester [Z34.83] Other Visit Diagnosis:29 weeks gestation of [Z3A.29]Order(s):URINE OB DIP B/O [[id number]] Order #: [id number] as of 03/06/2017 Sig: DHA ORAL Take by mouth.Problem List As Of Date 03/06/2017 Noted Resolved Anorexia nervosa, binge eating/purging type [F5*INVALID FOR* Left breast mass [N63] INVALID FOR*12/05/2016 Encounter for supervision of normal first pregn*INVALID FOR* Other instructions from your clinician: SEQUENTIAL SCREENINGS [facility] offers sequential screenings for women who are [...] It will require an appointment with our industrial machine system technician. This is not an ultrasound performed [...] the above symptoms, contact our office at [phone] and ask to speak with a nurse. After hours, you can call doctors registry at [phone] OR call [facility] at [phone] and ask to have the doctor communications intern paged. If you consider this an emergency, dial 4--0 or go to your nearest emergency department. NEED HELP? Are you dealing with a violent or abusive relationship? Are you a victim of rape or sexual assult? Call [facility] ([place]) 24 hour Crisis Hotline: 423.741.3157 or 454-252-0316. MANUAL Your Guide to a Healthy manual is now on-line. Visit [email or web address]/Heal thyPregnancyGuide to download your free copyEncounter Number: [id number] Status:Closed by RAMY SONG MD on 03/06/17 Normal [facility] 50g, 1hr gest. GSCRYuni 02-20 Glucose mass conc 118 mg/dL Normal <135 [facility] Comment on above: Performed By: #### G LTGST ####[facility] [address] [place], [place] [phone] CBC and Differentialon 02-20 Abs Baso 0.02 k/uL Normal 0.00-0.10 [facility] Comment on above: Performed By: #### C BCDIF ####[place] [address] [address] [place] [phone] Abs [place] 0.61 k/uL Normal 0.00-0.86 [facility] Comment on above: Performed By: #### C BCDIF ####[place] [address] [address] [place] [phone] Abs Neut 5.35 k/uL Normal 1.45-7.50 [facility] Comment on above: Performed By: #### C BCDIF ####[place] [address] [address] [place] [phone] Basophils/100 WBC Auto (Bld) 0.2 % Normal [facility] Comment on above: Performed By: #### C BCDIF ####[place] [address] [address] [place] [phone] DTYPE Auto Diff Normal [facility] Comment on above: Performed By: #### C BCDIF ####[place] [address] [address] [place] [phone] Eosinophils 0.06 10*3/uL Normal 0.00-0.45 [facility] Comment on above: Performed By: #### C BCDIF ####[place] [address] [address] [place] [phone] Eosinophils/100 leukocytes 0.7 % Normal [facility] Comment on above: Performed By: #### C BCDIF ####[place] [address] [address] [place] [phone] Erythrocyte distribution width Auto Ratio (RBC) 13.2 % Normal 11.5-15.0 [facility] Comment on above: Performed By: #### C BCDIF ####[place] [address] [address] [place] [phone] Erythrocytes (RBC) 0.00 10*6/uL Normal [facility] Comment on above: Performed By: #### C BCDIF ####[place] [address] [address], [place] [phone] Erythrocytes (RBC) 3.56 10*6/uL Low 3.90-5.20 [facility] Comment on above: Performed By: #### C BCDIF ####[place] [address] [address], [place] [phone] Erythrocytes (RBC) 0.0 /100 WBC Normal 0 [facility] Comment on above: Performed By: #### C BCDIF ####[address], [place] [phone] Hematocrit (HCT) 36.4 % Normal 36.0-46.0 [facility] Comment on above: Performed By: #### C BCDIF ####[place] [address] [address], [place] [phone] Hemoglobin mass conc (Bld) 11.8 g/dL Normal 11.5-15.5 [facility] Comment on above: Performed By: #### C BCDIF ####[place] [address] [address], [place] [phone] Lymphocytes 2.08 10*3/uL Normal 1.00-4.00 [facility] Comment on above: Performed By: #### C BCDIF ####[place] [address] [address], [place] [phone] Lymphocytes/100 leukocytes 25.6 % Normal [facility] Comment on above: Performed By: #### C BCDIF ####[place] [address] [address], [place] [phone] MCH 33.1 pG Normal 26.0-34.0 [facility] Comment on above: Performed By: #### C BCDIF ####[place] [address] [address], [place] [phone] MCHC mass conc (RBC) 32.4 g/dL Normal 30.5-36.0 [facility] Comment on above: Performed By: #### C BCDIF ####[place] [address], [place] [phone] MCV 102.2 fL High 80.0-100.0 [facility] Comment on above: Performed By: #### C BCDIF ####[place] [address] [address], [place] [phone] Monocytes/100 leukocytes 7.5 % Normal [facility] Comment on above: Performed By: #### C BCDIF ####[address], [place] [phone] Neutrophils/100 WBC Auto (Bld) 66.0 % Normal [facility] Comment on above: Performed By: #### C BCDIF ####[address], [place] [phone] Platelet mean volume (PMV) 13.3 fL High 9.0-12.7 [facility] Comment on above: Performed By: #### C BCDIF ####[address] [place], [place] [phone] Platelets 178 10*3/uL Normal 150-400 [facility] Comment on above: Result Comment: Resu lt checked and verifiedNo clot detected. Performed By: #### C BCDIF ####[place] [address] [address], [place] [phone] WBC (Leukocytes) 8.12 10*3/uL Normal 3.70-11.00 [facility] Comment on above: Performed By: #### C BCDIF ####[facility], [place] [phone] HOSPon 02-20-2017 HOSP Routine Off ice Visit (WOOB) KELI ALCANTAR ([id number]) 1990 [facility] Time Provider Department02/20/17 3:00 PM RAMY SONG During your visit today, we recorded the following information about you: Blood pressure Weight 98/62 69 kgHayley Piotr Ma 02/20/2017 3:07 PM SignedSEQUENTIAL SCREENINGSThe [facility] offers sequential screenings for women who are [...] testing. It will require anappointment with our industrial machine system technician. This is not an ultrasound performedby [...] the above symptoms, contact our office at [phone] andask to speak with a nurse.After hours, you can call doctors registry at [phone] OR call [facility] at [phone] and ask to have the doctor communications intern paged.If you consider this an emergency, dial 9-1-1 or go to your nearest emergencydepartment.NEED HELP? Are you dealing with a violent or abusive relationship? Are you avictim of rape or sexual assult? Call [facility] ([place]) 24 hourCrisis Hotline: 646.382.6927 or 497-603-7024. MANUALYour Guide to a Healthy manual is now on-line. [email or web address] /HealthyPregnancyGuide to download your free copyAnjelica Piotr Velez 02/20/2017 3:42 PM SignedPatient identified by name and date of .Krunal Alcantar presents today for a vaccination of Tdap.Patient denies an allergy to latex: yesPatient denies a severe (life-threatening) allergy to a previous dose of Tdap,DTP, DTaP, DT or Td vaccine. YesPatient denies history of epilepsy or neurological problems: YesPatient is afebrile and denies being moderately or severely ill: YesPatient denies history of Guillain-Sea Girt Syndrome (a severe paralytic illness): YesTdap Adacel injection was given without incident.See immunizations for details of immunizations administered today.VIS sheet provided: YesProvider Dr. Ramy Song was present in office at time of injection.Anjelica Ferguson Provider: SELF [200]Allergies As of Date: 02/20/2017(No Known Allergies)Date Reviewed: 02/20/2017Reviewed by: Anjelica Saldaña Ma - Fully AssessedReason for Visit: Care [86]Primary Visit Diagnosis:Encounter for supervision of normal first in second trimester [Z34.02] Other Visit Diagnoses:27 weeks gestation of [Z3A.27] Need for vaccination [Z23]Order(s):URINE OB DIP B/O [[id number]] Order #: [id number] GEST GLUC SCREEN, 1-HR, 50 GM, NON-FASTING [SQGLTGST] Order #: [id number] FUTURE CBC + DIFF [SQCBCDIF] Order #: [id number] FUTURE TDAP VACCINE AGE 7+ IM [[id number]] Order #: [id number] as of 02/20/2017 Sig: DHA ORAL Take by mouth.Problem List As Of Date 02/20/2017 Noted Resolved Anorexia nervosa, binge eating/purging type [F5*INVALID FOR* Left breast mass [N63] INVALID FOR*12/05/2016 Encounter for supervision of normal first pregn*INVALID FOR* Other instructions from your clinician: SEQUENTIAL SCREENINGS [facility] offers sequential screenings for women who are [...] It will require an appointment with our industrial machine system technician. This is not an ultrasound performed [...] the above symptoms, contact our office at [phone] and ask to speak with a nurse. After hours, you can call doctors registry at [phone] OR call [facility] at [phone] and ask to have the doctor communications intern paged. If you consider this an emergency, dial 1-1-3 or go to your nearest emergency department. NEED HELP? Are you dealing with a violent or abusive relationship? Are you a victim of rape or sexual assult? Call [facility] ([facility] 24 hour Crisis Hotline: 407.412.2870 or 041-499-2807. MANUAL Your Guide to a Healthy manual is now on-line. Visit [facility].[email or web address]/Heal thyPregnancyGuide to download your free copyEncounter Number: [id number] Status:Closed by HANNAH SÁNCHEZ MA on 02/20/17 Normal [facility] PROGRESSon 02-20-2017 PROGRESS HNO ID: [id number]: Anjelica Saldaña MaService: (none)Author Type: (none)Type: Progress [...] or severely ill: YesPatient denies history of Guillain-Sea Girt Syndrome (a severe paralyticillness): YesTdap Adacel injection was given without incident.See immunizations for details of immunizations administered today.VIS sheet provided: YesProviGary was present in office at time of injection.Anjelica Saldaña Ma [facility] 01-27-2017 [facility] Routine Off ice Visit (WOOB) [facility][id number][facility] 1990 [facility] Department01/27/17 8:15 AM FELICIA CRUZ ([facility]) WOOB During your visit today, we recorded the following information about you: Blood pressure Weight 96/60 67.6 kgMary Alice Geiger Agustin 01/27/2017 8:15 AM SignedSEQUENTIAL SCREENINGSThe [facility] offers sequential screenings for women who are [...] testing. It will require anappointment with our industrial machine system technician. This is not an ultrasound performedby [...] the above symptoms, contact our office at [phone] andask to speak with a nurse.After hours, you can call doctors registry at [phone] OR [facility] at [phone] and ask to have the doctor communications intern paged.If you consider this an emergency, dial 91-3 or go to your nearest emergencydepartment.NEED HELP? Are you dealing with a violent or abusive relationship? Are you avictim of rape or sexual assult? Call [facility] ([place]) 24 hourCrisis Hotline: 363.656.3235 or 954-862-8471. MANUALYour Guide to a Healthy manual is [...] trimester- URINE OB DIP B/O(aka UA CHEMSTRIP) [0670926]2. 24 weeks gestation of - URINE OB DIP B/O(aka UA CHEMSTRIP) [[id number]]BETHEL Resendizeferring Provider: SELF [200]Allergies As of Date: 01/27/2017(No Known Allergies)Date Reviewed: 01/27/2017Reviewed by: Mary Alice Geiger Ma - Fully AssessedReason for Visit: Care [86]Primary Visit Diagnosis:Encounter for supervision of normal first in second trimester [Z34.02] Other Visit Diagnosis:24 weeks gestation of [Z3A.24]Order(s):URINE OB DIP B/O [[id number]] Order #: [id number] as of 01/27/2017 Sig: DHA ORAL Take by mouth.Problem List As Of Date 01/27/2017 Noted Resolved Anorexia nervosa, binge eating/purging type [F5*INVALID FOR* Left breast mass [N63] INVALID FOR*12/05/2016 Encounter for supervision of normal first pregn*INVALID FOR* Other instructions from your clinician: SEQUENTIAL SCREENINGS [facility] offers sequential screenings for women who are [...] It will require an appointment with our industrial machine system technician. This is not an ultrasound performed [...] the above symptoms, contact our office at [phone] and ask to speak with a nurse. After hours, you can call doctors registry at [phone] OR call [facility] at [phone] and ask to have the doctor communications intern paged. If you consider this an emergency, dial 9-1-8 or go to your nearest emergency department. NEED HELP? Are you dealing with a violent or abusive relationship? Are you a victim of rape or sexual assult? Call [facility] ([facility] 24 hour Crisis Hotline: 183.264.1872 or 115-447-7503. MANUAL Your Guide to a Healthy manual is now on-line. Visit [email or web address]/Heal thyPregnancyGuide to download your free copyDisposition: Return in about 4 weeks (around 02/24/2017), or if symptoms worsen or fail to improve, for OB visit.Follow-up and Disposition History RecordedEncounter Number: [id number] Status:Closed by FELICIA CRUZ CNM on 01/27/17 [facility] PROGRESSon 01-27-2017 PROGRESS HNO ID: [id number]: Felicia Baird (John) AnthonySermarce: (none)Author Type: MidwifeType: Progress NotesFiled: 01/27/2017 5:50 PMNote Text:S: Mitchelnataliyagilberto Alcantar presents for a routine OB visit at 24w2d. She deniesLOF, VB, DFM or cramping/contractions. U/S done and normalO: See flow sheetA/P: 24w2d IUP. RTO 4 Weeks for follow up. Call with LOF, VB, DFM orcramping/contractions. 1. Encounter for supervision of normal first in second trimester- URINE OB DIP B/O(aka UA CHEMSTRIP) [[id number]]2. 24 weeks gestation of - URINE OB DIP B/O(aka UA CHEMSTRIP) [[id number]]Felicia Cruz CNM Normal [facility] HOSPon 01-02-2017 HOSP Routine Off ice Visit (WOOB) KELI ALCANTAR ([id number]) 1990 FDate Time Provider Department01/02/17 2:40 PM JOSE ESPARZA WOOB During your visit today, we recorded the following information about you: Blood pressure Weight 92/60 66.7 kgUyen Andrew Ma 01/02/2017 2:43 PM SignedSEQUENTIAL SCREENINGSTCinc[facility] offers [facility] for women who are [...] testing. It will require anappointment with our industrial machine system technician. This is not an ultrasound performedby [...] the above symptoms, contact our office at [phone] andask to speak with a nurse.After hours, you can call doctors registry at [phone] OR call [facility] at [phone] and ask to have the doctor communications intern paged.If you consider this an emergency, dial 91-2 or go to your nearest emergencydepartment.NEED HELP? Are you dealing with a violent or abusive relationship? Are you avictim of rape or sexual assult? Call [facility] ([place]) 24 hourCrisis Hotline: 410.129.6797 or 849-018-2552. MANUALYour Guide to a Healthy manual is now on-line. [email or web address] /HealthyPregnancyGuide to download your free copyReferring Provider: IRA YEE [[id number]]Allergies As of Date: 01/02/2017(No Known Allergies)Date Reviewed: 01/02/2017Reviewed by: Uyen Andrew Ma - Fully AssessedReason for Visit: Care [86]Primary Visit Diagnosis:Encounter for supervision of normal first in second trimester [Z34.02] Other Visit Diagnosis:20 weeks gestation of [Z3A.20]Order(s):URINE OB DIP B/O [[id number]] Order #: [id number] as of 01/02/2017 Sig: DHA ORAL Take by mouth.Problem List As Of Date 01/02/2017 Noted Resolved Anorexia nervosa, binge eating/purging type [F5*INVALID FOR* Left breast mass [N63] INVALID FOR*12/05/2016 Encounter for supervision of normal first pregn*INVALID FOR* Other instructions from your clinician: SEQUENTIAL SCREENINGS [facility] offers sequential screenings for women who are [...] It will require an appointment with our industrial machine system technician. This is not an ultrasound performed [...] the above symptoms, contact our office at [phone] and ask to speak with a nurse. After hours, you can call doctors registry at [phone] OR call [facility] at [phone] and ask to have the doctor communications intern paged. If you consider this an emergency, dial 6-1-9 or go to your nearest emergency department. NEED HELP? Are you dealing with a violent or abusive relationship? Are you a victim of rape or sexual assult? Call [facility] ([place]) 24 hour Crisis Hotline: 112.776.9536 or 200-910-9742. MANUAL Your Guide to a Healthy manual is now on-line. Visit [email or web address] to download your free copyDisposition: Return in about 4 weeks (around 01/30/2017).Follow-up and Disposition History RecordedEncounter Number: [id number] Status:Closed by JOSE CHIU MD on 01/02/17 [facility] PROGRESSon 12-30-2016 PROGRESS HNO ID: [id number] Author: Vineet Hsu Service: (none) Author Type: Physician Type: Progress Notes Filed: 12/30/2016 7:23 AM Note Text: Please see ultrasound report for details of this visit. Vineet Hsu M.D. [facility] HOSP 12-27-2016 [facility] Routine Off ice Visit (WOOB) KELI ALCANTAR ([id number]) 1990 FDate Time Provider Department12/27/16 2:30 PM VINEET HSU WOOB During your visit today, we recorded the following information about you:Vineet Hsu MD 12/30/2016 7:23 AM SignedPlease see ultrasound report for details of this visit.Vineet Hsu M.D.Referring Provider: JOSE ESPARZA [[id number]]Allergies As of Date: 12/27/2016(No Known Allergies)Date Reviewed: [...] Status:Closed by VINEET HSU MD on 12/30/16 [facility] Vital Signs Date Time Vital Sign Value Performing Clinician Faci samina 04-05-2025 09:24-0400 Body height 167.[address] Brooke Brown DO Work Phone: [facility] 04-05-2025 09:24-0400 Body mass index (BMI) [Ratio] 25.3 kg/m2 Dr. Brooke Brown DO Work Phone: [facility] 04-05-2025 09:24-0400 Body weight 71.[address] Brooke Brown DO Work Phone: [facility] 04-05-2025 09:24-0400 Diastolic blood pressure 68 mm[Hg] Dr. Brooke Brown DO Work Phone: [facility] 04-05-2025 09:24-0400 Systolic blood pressure 116 mm[Hg] Dr. Brooke Brown DO Work Phone: [facility] 03-25-2025 11:25-0400 Body height 167.[address] Brooke Brown DO Work Phone: [facility] 03-25-2025 11:25-0400 Body mass index (BMI) [Ratio] 24.5 kg/m2 Dr. Brooke Brown DO Work Phone: [facility] 03-25-2025 11:25-0400 Body weight 69.[address] Brooke Brown DO Work Phone: [facility] 03-25-2025 11:25-0400 Diastolic blood pressure 66 mm[Hg] Dr. Brooke Brown DO Work Phone: [facility] 03-25-2025 11:25-0400 Systolic blood pressure 103 mm[Hg] Dr. Brooke Brown DO Work Phone: [facility] 03-10-2025 10:11-0400 Body height 167.[address] Brooke Brown DO Work Phone: [facility] 03-10-2025 10:02-0400 Body mass index (BMI) [Ratio] 24.5 kg/m2 Dr. Brooke Brown DO Work Phone: [facility] 03-10-2025 10:02-0400 Body weight 69.[address] Brooke Brown DO Work Phone: [facility] 03-10-2025 10:02-0400 Diastolic blood pressure 62 mm[Hg] Dr. Brooke Brown DO Work Phone: [facility] 03-10-2025 10:02-0400 Systolic blood pressure 94 mm[Hg] Dr. Brooke Brown DO Work Phone: [facility] 02-11-2025 10:34-0400 Body height 167.[address] Brooke Brown DO Work Phone: [facility] 02-11-2025 10:34-0400 Body mass index (BMI) [Ratio] 23.4 kg/m2 Dr. Brooke Brown DO Work Phone: [facility] 02-11-2025 10:34-0400 Body weight 65.[address] Brooke Brown DO Work Phone: [facility] 02-11-2025 10:34-0400 Diastolic blood pressure 67 mm[Hg] Dr. Brooke Brown DO Work Phone: [facility] 02-11-2025 10:34-0400 Systolic blood pressure 101 mm[Hg] Dr. Brooke Brown DO Work Phone: [facility] 01-14-2025 08:51-0400 Body height 167.[address] Brooke Brown DO Work Phone: [facility] 01-14-2025 08:51-0400 Body mass index (BMI) [Ratio] 22.3 kg/m2 Dr. Brooke Brown DO Work Phone: [facility] 01-14-2025 08:51-0400 Body weight 62.[address] Brooke Brown DO Work Phone: [facility] 01-14-2025 08:51-0400 Diastolic blood pressure 67 mm[Hg] Dr. Brooke Brown DO Work Phone: [facility] 01-14-2025 08:51-0400 Systolic blood pressure 103 mm[Hg] Dr. Brooke Brown DO Work Phone: [facility] 12-15-2024 10:19-0400 Body mass index (BMI) [Ratio] 21.9 kg/m2 Dr. Brooke Brown DO Work Phone: [facility] 12-15-2024 10:19-0400 Body weight 61.[address] Brooke Brown DO Work Phone: [facility] 12-15-2024 10:19-0400 Diastolic blood pressure 71 mm[Hg] Dr. Brooke Brown DO Work Phone: [facility] 12-15-2024 10:19-0400 Systolic blood pressure 112 mm[Hg] Dr. Brooke Brown DO Work Phone: [facility] 11-19-2024 10:24-0400 Body mass index (BMI) [Ratio] 20.6 kg/m2 Dr. Brooke Brown DO Work Phone: [facility] 11-19-2024 10:24-0400 Body weight 58.[address] Brooke Brown DO Work Phone: [facility] 11-19-2024 10:24-0400 Diastolic blood pressure 63 mm[Hg] Dr. Brooke Brown DO Work Phone: [facility] 11-19-2024 10:24-0400 Systolic blood pressure 99 mm[Hg] Dr. Brooke Brown DO Work Phone: [facility] 10-22-2024 10:45-0400 Body mass index (BMI) [Ratio] 20.2 kg/m2 Dr. Brooke Brown DO Work Phone: [facility] 10-22-2024 10:45-0400 Body weight 56.[address] Brooke Brown DO Work Phone: [facility] 10-22-2024 10:45-0400 Diastolic blood pressure 74 mm[Hg] Dr. Brooke Brown DO Work Phone: [facility] 10-22-2024 10:45-0400 Systolic blood pressure 116 mm[Hg] Dr. Brooke Brown DO Work Phone: [facility] 10-29-2023 11:39-0400 Body height 167.[address] Brooke Brown Work Phone: [facility] 10-29-2023 11:31-0400 Body mass index (BMI) [Ratio] 18.6 kg/m2 Dr. Brooke Brown Work Phone: [facility] 10-29-2023 11:31-0400 Body weight 52.[address] Brooke Brwon Work Phone: [facility] 10-29-2023 11:31-0400 Diastolic blood pressure 66 mm[Hg] Dr. Brooke Brown Work Phone: [facility] 10-29-2023 11:31-0400 Systolic blood pressure 100 mm[Hg] Dr. Brooke Brown Work Phone: [facility] 08-29-2023 09:18-0500 Body mass index (BMI) [Ratio] 18.7 kg/m2 Dr. Brooke Brown Work Phone: [facility] 08-29-2023 09:18-0500 Body weight 52.[address] Brooke Brown Work Phone: [facility] 08-29-2023 09:18-0500 Diastolic blood pressure 78 mm[Hg] Dr. Brooke Brown Work Phone: [facility] 08-29-2023 09:18-0500 Systolic blood pressure 115 mm[Hg] Dr. Brooke Brown Work Phone: [facility] 09-25-2021 13:23-0400 Body height 168.[address] Brooke Brown Work Phone: [facility] Work Phone: 09-25-2021 13:23-0400 Body mass index (BMI) [Ratio] 26.4 kg/m2 Dr. Brooke Brown Work Phone: [facility] Work Phone: 09-25-2021 13:23-0400 Body weight 75.[address] Brooke Brown Work Phone: [facility] Work Phone: 09-25-2021 13:23-0400 Diastolic blood pressure 70 mm[Hg] Dr. Brooke Brown Work Phone: [facility] Work Phone: 09-25-2021 13:23-0400 Systolic blood pressure 108 mm[Hg] Dr. Brooke Brown Work Phone: [facility] Work Phone: 09-17-2021 14:08-0400 Body mass index (BMI) [Ratio] 26.4 kg/m2 Dr. Brooke Brown Work Phone: [facility] Work Phone: 09-17-2021 14:08-0400 Body weight 75.[address] Brooke Brown Work Phone: [facility] Work Phone: 09-17-2021 14:08-0400 Diastolic blood pressure 70 mm[Hg] Dr. Brooke Brown Work Phone: [facility] Work Phone: 09-17-2021 14:08-0400 Systolic blood pressure 102 mm[Hg] Dr. Brooke Brown Work Phone: [facility] Work Phone: 09-12-2021 11:45-0400 Body mass index (BMI) [Ratio] 26.1 kg/m2 Dr. Brooke Brown Work Phone: [facility] Work Phone: 09-12-2021 11:45-0400 Body weight 74.[address] Brooke Brown Work Phone: [facility] Work Phone: 09-12-2021 11:45-0400 Diastolic blood pressure 86 mm[Hg] Dr. Brooke Brown Work Phone: [facility] Work Phone: 09-12-2021 11:45-0400 Systolic blood pressure 128 mm[Hg] Dr. Brooke Brown Work Phone: [facility] Work Phone: 09-07-2021 08:45-0500 Body mass index (BMI) [Ratio] 25.9 kg/m2 Dr. Brooke Brown Work Phone: [facility] Work Phone: 09-07-2021 08:45-0500 Body weight 73.[address] Brooke Brown Work Phone: [facility] Work Phone: 09-07-2021 08:45-0500 Diastolic blood pressure 72 mm[Hg] Dr. Brooke Brown Work Phone: [facility] Work Phone: 09-07-2021 08:45-0500 Systolic blood pressure 114 mm[Hg] Dr. Brooke Brown Work Phone: [facility] Work Phone: 08-22-2021 07:59-0500 Body mass index (BMI) [Ratio] 25.6 kg/m2 Dr. Brooke Brown Work Phone: [facility] Work Phone: 08-22-2021 07:59-0500 Body weight 73.[address] Brooke Brown Work Phone: [facility] Work Phone: 08-22-2021 07:59-0500 Diastolic blood pressure 72 mm[Hg] Dr. Brooke Brown Work Phone: [facility] Work Phone: 08-22-2021 07:59-0500 Systolic blood pressure 118 mm[Hg] Dr. Brooke Brown Work Phone: [facility] Work Phone: 08-08-2021 07:08-0500 Body mass index (BMI) [Ratio] 25.1 kg/m2 Dr. Brooke Brown Work Phone: [facility] Work Phone: 08-08-2021 07:08-0500 Body weight 71.[address] Brooke Brown Work Phone: [facility] Work Phone: 08-08-2021 07:08-0500 Diastolic blood pressure 68 mm[Hg] Dr. Brooke Brown Work Phone: [facility] Work Phone: 08-08-2021 07:08-0500 Systolic blood pressure 100 mm[Hg] Dr. Brooke Brown Work Phone: [facility] Work Phone: 07-25-2021 09:30-0500 Body mass index (BMI) [Ratio] 25.1 kg/m2 Dr. Brooke Brown Work Phone: [facility] Work Phone: 07-25-2021 09:30-0500 Body weight 71.[address] Brooke Brown Work Phone: [facility] Work Phone: 07-25-2021 09:30-0500 Diastolic blood pressure 2 mm[Hg] Dr. Brooke Brown Work Phone: [facility] Work Phone: 07-25-2021 09:30-0500 Systolic blood pressure 120 mm[Hg] Dr. Brooke Brown Work Phone: [facility] Work Phone: 07-04-2021 07:23-0500 Body mass index (BMI) [Ratio] 24.3 kg/m2 Dr. Brooke Brown Work Phone: [facility] Work Phone: 07-04-2021 07:23-0500 Body weight 69.[address] Brooke Brown Work Phone: [facility] Work Phone: 07-04-2021 07:23-0500 Diastolic blood pressure 70 mm[Hg] Dr. Brooke Brown Work Phone: [facility] Work Phone: 07-04-2021 07:23-0500 Systolic blood pressure 110 mm[Hg] Dr. Brooke Brown Work Phone: [facility] Work Phone: 06-08-2021 09:11-0500 Diastolic blood pressure 64 mm[Hg] Dr. Brooke Brown Work Phone: [facility] Work Phone: 06-08-2021 09:11-0500 Systolic blood pressure 102 mm[Hg] Dr. Brooke Brown Work Phone: [facility] Work Phone: Encounters Encounter Date Encounter Type Care Provider Facility Start: 05-23-2025 ambulatory Brookeigor Gibbonson Facilit y:[facility] Start: 05-12-2025 End: 05-12-2025 ambulatory Brookeigor Brown Facility:[facility] Start: 05-10-2025 ambulatory Brooke Dai Facilit y:[facility] Start: 05-06-2025 ambulatory Mandy Perez Facility :[facility] Start: 05-06-2025 End: 05-06-2025 ambulatory Brooke Brown Facility:[facility] Start: 04-22-2025 End: 04-22-2025 ambulatory Brooke Brown Facility:[facility] Start: 04-05-2025 End: 04-05-[address] Effie Petit DO -[facility] Work Phone: Start: 04-05-2025 End: 04-05-[address] Brooke Brown DO Work Phone: [facility] Start: 03-25-2025 End: 03-25-2025 Patient encounter procedure Mandy Perez CNM -[facility] Work Phone: Start: 03-25-2025 End: 03-25-[address] Brooke Brown DO Work Phone: [facility] Start: 03-10-2025 End: 03-10-2025 Patient encounter procedure Ruthann CARR -[facility] Work Phone: Start: 03-10-2025 End: 03-10-[address] Brooke Brown DO Work Phone: [facility] Start: 03-10-2025 End: 03-10-2025 ambulatory Brooke Brown Facility:[facility] Start: 02-11-2025 End: 02-11-2025 Patient encounter procedure Mandy SUTTON -[facility] Work Phone: Start: 02-11-2025 End: 02-11-[address] Brooke Brown DO Work Phone: [facility] Start: 01-14-2025 End: 01-14-[address] Ira Yee MD -[facility] Work Phone: Start: 01-14-2025 End: 01-14-[address] Brooke Brown DO Work Phone: [facility] Start: 01-04-2025 End: 01-04-2025 ambulatory JOSE LUIS PENNINGTON [facility] Start: 12-15-2024 End: 12-15-[address] Ira Yee MD -[facility] Work Phone: Start: 12-15-2024 End: 12-15-2024 ambulatory Brooke Gibbonson Facility:[facility] Start: 11-19-2024 End: 11-19-[address] Effie Petit DO -[facility] Work Phone: Start: 11-19-2024 End: 11-19-2024 ambulatory Brooke Dai Facility:[facility] Start: 10-22-2024 End: 10-22-2024 Patient encounter procedure Mandy Perez CNM -[facility] Work Phone: Start: 10-22-2024 End: 10-22-2024 ambulatory Brooke Brown Facility:[facility] Start: 10-22-2024 End: 10-22-2024 ambulatory Brooke Gibbonson Facility:[facility] Start: 10-29-2023 End: 10-29-[address] Brooke Brown Work Phone: [facility] Work Phone: Start: 10-29-2023 End: 10-29-[address] Brooke Brown Work Phone: [facility] Work Phone: Start: 08-29-2023 End: 08-29-[address] Brooke Brown Work Phone: [facility] Work Phone: Start: 09-25-2021 End: 09-25-[address] Brooke Brown Work Phone: [facility] Start: 09-17-2021 End: 09-17-[address] Brooke Brown Work Phone: [facility] Start: 09-12-2021 End: 09-12-[address] Brooke Brown Work Phone: [facility] Start: 09-07-2021 End: 09-07-[address] [facility] Start: 09-07-2021 End: 09-07-[address] Brooke Brown Work Phone: [facility] Start: 08-22-2021 End: 08-22-[address] Brooke Brown Work Phone: [facility] Start: 08-08-2021 End: 08-08-[address] Brooke Brown Work Phone: [facility] Start: 07-25-2021 End: 07-25-[address] Brokoe Brown Work Phone: [facility] Start: 07-04-2021 End: 07-04-[address] Brooke [facility] Start: 06-08-2021 End: 06-08-[address] Brooke Brown Work Phone: [facility] Start: 07-09-2017 End: 07-10-2017 Ambulatory CELINA (CNM) [facility] Start: 05-19-2017 End: 05-20-2017 Ambulatory CELINA (CNM) [facility] Start: 05-16-2017 End: 05-19-2017 Ambulatory CELINA (CNM) [facility] Start: 05-07-2017 End: 05-08-2017 Ambulatory CELINA (CNM) [facility] Start: 05-02-2017 End: 05-05-2017 Ambulatory CELINA (CNM) [facility] Start: 04-24-2017 End: 04-24-2017 Ambulatory CELINA (CNM) [facility] Start: 04-23-2017 End: 04-24-2017 Ambulatory CELINA (CNM) [facility] Start: 04-18-2017 End: 04-18-2017 Ambulatory CELINA (CNM) [facility] Start: 04-03-2017 End: 04-04-2017 Ambulatory RAMY SONG [facility] Start: 03-20-2017 End: 03-21-2017 Ambulatory JOSE CHIU [facility] Start: 03-10-2017 End: 03-11-2017 Ambulatory VINEET HSU [facility] Start: 03-06-2017 End: 03-10-2017 Ambulatory RAMY SONG [facility] Start: 02-20-2017 End: 02-21-2017 Ambulatory RAMY SONG [facility] Start: 01-27-2017 End: 01-29-2017 Ambulatory FELICIA Baird (CNM) [facility] Start: 01-02-2017 End: 01-03-2017 Ambulatory JOSE CHIU [facility] Start: 12-27-2016 End: 01-06-2017 Ambulatory VINEET Weinstein HSU [facility] Procedures Date Procedure Procedure Detail Performing Clinician [...] HCV Quant by PCR testing - HCVPCR #[id number] Non Reactive: < 0.8 Equivocal: >/= 0.8 to < 1.0 Reactive: >/= 1.0The CDC requires that a reactive/equivocal HCV antibody result be sent out for confirmation. HCV Quant by PCR testing. Start: 10-22-[address] Brooke Brown DO Work Phone: Comment on above: Antibody Result: Int erpretationNon-Reactive: Non- ImmuneReactive: ImmuneThe following results were obtained with the [employer] Rubella IgG assay. Results from assays of [...] H/O: section H/O sectio n Ruthann You RETAIL SALES CLERK-C H/O: section H/O sectio n Mandy Perez CNM H/O: section H/O sectio n Dr. Effie Petit DO Plan of Treatment Date Care Activity Detail Author Start: 03-10-2025 CBC W Auto Different ial panel - Blood [facility] Start: 03-10-2025 Measurement of gluco se 2 hours after glucose challenge for glucose tolerance test [facility] Start: 03-10-2025 Serologic test for syphilis [facility] Start: 03-10-2025 [facility] CBC W Auto Different ial panel - Blood [facility] Erythrocyte mean cor puscular volume determination [facility] Hematocrit [Volume F raction] of Blood [facility] Hemoglobin [Mass/volume] in Blood [facility] Leukocytes [#/volume] in Blood [facility] Mean corpuscular hem oglobin concentration determination [facility] Mean corpuscular hem oglobin determination [facility] Measurement of gluco se 2 hours after glucose challenge for glucose tolerance test [facility] Neutrophil count [facility] Neutrophil percent d ifferential count [facility] Platelets [#/volume] in Blood [facility] Red blood cell count [facility] Red cell distributio n width determination [facility] Serologic test for syphilis [facility] Ultrasound scan for growth [facility] Immunizations Immunization Date Immunization Notes Care Provider Fa cility 02-05-2019 diphtheria, tetanus toxoids and acellular pertussis vaccine, unspecified formulation Dr. Brooke Brown Work Phone: [facility] Work Phone: 02-20-2017 tetanus toxoid, redu ranjan diphtheria toxoid, and acellular pertussis vaccine, adsorbed Dr. Brooke Brown Work Phone: [facility] Payers Date Payer Category Payer Unknown [id number] 2024 Unknown [id number] 2024 Self-pay [id number] 2016 Unknown [id number] 1990 Unknown [id number] 2.16. [id number] Private Health Insurance [facility] [id number] Unknown [id number] Unknown [id number] 2.16.8 [id number] Unknown [id number] 2.16.8 [id number] Unknown [id number] 2.16.8 [id number] Unknown [id number] 2.16.8 [id number] Unknown [id number] 2.16.8 [id number] Unknown [id number] 2.16.8 [id number] Unknown [id number] 2.16.8 [id number] Unknown [id number] 2.16.8 [id number] Unknown [id number] 2.16.8 [id number] Unknown [id number] 2.16.8 [id number] Unknown [id number] 2.16.8 [id number] Unknown [id number] 2.16.8 [id number] Unknown [id number] 2.16.8 [id number] Unknown [id number] 2.16.8 [id number] Unknown [id number] 2.16.8 [id number] Unknown [id number] 2.16.8 [id number] Social History Date Type Detail Facility Start: 09-25-2021 End: 08-29-2023 Tobacco smoking status NHIS Unknown if ever smoked [facility] Start: 05-21-2017 None [facility] Start: 1990 Sex Assigned At Female W [facility] Start: 10-07-2024 Tobacco smoking stat us MAIS Ex-smoker (finding) [facility] Sex Female [facility] Clinical Notes 10-22-2024 to 03-25-2025 Note Date & Type Note Facility 03-25-2025 Progress note [facility] 02-11-2025 Progress note [facility] 01-14-2025 Progress note [facility] 12-15-2024 Evaluation note Diagnosis Onset Date Resolution AMA (advanced maternal age) multigravida 35+ acute December 15, 2024 10:16am H/O section acute December 15, 2024 10:16am acute December 15 10:16am Supervision of high-risk acute December 15, 025 10:16am AMA (advanced maternal age) multigravida 35+ acute January 14, 2025 8:44am H/O section acute January 14, 2025 8:44am acute January 14 8:44am Supervision of high-risk acute January 14, 025 8:44am AMA (advanced maternal age) multigravida 35+ acute January 10:31am H/O section acute 2024 10:31am acute February 11, 025 10:31am Supervision of high-risk acute February 11, 2025 10:31am AMA (advanced maternal age) multigravida 35+ acute March 10, 2025 9:55am H/O section acute Feb 9:55am acute February 9:55am Supervision of high-risk acute March 102024 9:55am AMA (advanced maternal age) multigravida 35+ acute March 25, 2025 11:15am H/O section acute Feb 11:15am acute February 11:15am Supervision of high-risk acute March 252024 11:15am [facility] Work Phone: 1(174) 831-166506-18-2025 Evaluation note* Diagnosis Onset Date Resolution Status [...] section acute 2024 9:23am acute April 05, 025 9:23am Supervision of high-risk acute April 05 9:23am [facility] Work Phone: 1(365) 664-418505-23-2025 Evaluation note* Diagnosis Onset Date Resolution Status [...] acute February 11 10:31am H/O section acute Aug2024 10:31am acute February 11, 025 10:31am Supervision of high-risk acute February 11 10:31am AMA (advanced maternal age) multigravida 35+ acute March 10, 2025 9:55am H/O section acute Feb 9:55am acute February 9:55am Supervision of high-risk acute March 10, 2025 9:55am [facility] Work Phone: 1(220) 300-616104-25-2025 Evaluation note* Diagnosis Onset Date Resolution Status [...] of high-risk acute January 14, 2025 8:44am [facility] Work Phone: 1(497) 377-417904-25-2025 Evaluation note* Diagnosis Onset Date Resolution Status Admit Date AMA (advanced maternal age) multigravida 35+ acute October 22 10:34am H/O section acute 2024 10:34am acute October 22 10:34am Supervision [...] acute February 11 10:31am H/O section acute Aug2024 10:31am acute February 11, 2 025 10:31am Supervision of high-risk acute February 11 10:31am [facility] Work Phone: Evaluation note* Diagnosis Onset Date [...] normal acute Periurethral trauma during delivery chronic [facility] Work Phone: Evaluation note* Diagnosis Onset Date Resolution Status Encounter for routine gynecological examination noneactive Abnormal uterine bleeding (AUB) acute [facility] Work Phone: Progress note Author Ira Yee [facility] Note Date/Time January 14, 2025 9:06 am [facility] [address], [address] [place] [address] OFFICE VISIT Date of Service: 01/14/25 MR#: [id number] Acct: [id number] Name: KRUNAL KERN Rep #: [id number] : 1990 Provider: Dr. Munir Yee MD Age/Sex: 34/F Location: [facility] [place] Status: Signed Intake Vital Signs 11/19/24 10:24 12/15/24 10:19 01/14/25 08:51 Height 5 ft 6 in 5 ft 6 in 5 ft 6 in Weight: 136 lb 138 lb 6 oz BMI 21.9 22.3 BP 112/71 103/67 Intake Visit Reasons: 20wk ob Rotary Peel Oven Tender Required: No Is patient in pain?: No Feel stressed/tense/nervous/anxious/difficulty sleeping: not at all Allergies No Known Allergies Allergy (Verified 01/14/25 08:55) Medications ?Medication ?Instructions ?Recorded ?Confirmed ?Type docosahexaenoic acid 200 mg mg PO 10/07/24 01/14/25 Hi story capsule (Algal [place]-3 DHA) magnesium 200 mg tablet 400 mg [...] weight training frequency: 3-4 times per week george/gnosticism: Restoration seatbelt use: always do you feel safe [...] 8pounds 7oz Female 1 4 hours none [facility] [place]/Dr. Timmy Yancey 05/05/19 [place] 39 live - full term 7lbs 15oz Male spinal [facility] 09/27/21 [facility] 39 live - full term Male [facility] Marcanthony Delivery Date: 10/19/16 Last Updated [...] will check with insurance about coverage with [employer] [facility] for anatomy scN 12/15/24 -?-?-?-?-?-?-?-?-?-?-?-?- 16w [...] PRR , KATH 05/30/25, girl PC Sylvia López [facility] Bc (4) : Status: Acute Qualifiers: Weeks of gestation: 20 weeks Qualified Code(s): Z3A.20 - 20 weeks gestation of Comment: NIPT w gender/carrier-declines afp declines. nl anatomy Orders: Orders POC Urinalysis 2 Dip (Clinic) Today 01/14/25 0906 <Electronically signed by Ira goodwin MD> Date _ Ira Yee MD Cosigner Signature: Date (if applicable) CC: ~ [facility] Work Phone: Progress note Author Mandy Perez [facility] Note Date/Time February 11, 2025 10 :57am [facility] [address] [place] [address], [address] [place] [address] OFFICE VISIT Date of Service: 02/11/25 MR#: [id number] Acct: [id number] Name: KERNMITCHELCLEO Garcia Rep #: [id number] : 1990 Provider: JOHN Perez Age/Sex: 34/F Location: [facility] [place] Status: Signed Intake Vital Signs 12/15/24 10:19 01/14/25 08:51 02/11/25 10:34 Height 5 ft 6 in 5 ft 6 in 5 ft 6 in Weight: 145 lb 5 oz BMI 23.4 BP 101/67 Intake Visit Reasons: 24wk ob Chief Complaint: 24wk OB Rotary Peel Oven Tender Required: No Is patient in pain?: No Allergies No Known Allergies Allergy (Verified 02/11/25 10:32) Medications ?Medication ?Instructions ?Recorded ?Confirmed ?Type docosahexaenoic acid 200 mg mg PO 10/07/24 02/11/25 Hi story capsule (Algal [place]-3 DHA) magnesium 200 mg tablet 400 mg PO QDAY 10/07/2401/28 History vit no.164-ferrous tab PO 10/07/24 02/11/25 H istory gluconate 6 mg-folate 833.5 mcg DFE tablet ( PNV) Last Menstrual Period: 08/23/24 : No [...] weight training frequency: 3-4 times per week george/gnosticism: Restoration seatbelt use: always do you feel safe [...] 8pounds 7oz Female 1 4 hours none [facility] [place]/Dr. Timmy Yancye 05/05/19 [place] 39 live - full term 7lbs 15oz Male spinal [facility] [place] 09/27/21 [place] 39 live - full term Male [facility] Marcanthony Delivery Date: 10/19/16 Last Updated [...] will check with insurance about coverage with [employer] [facility] for anatomy scN 12/15/24 -?-?-?-?-?-?-?-?-?-?-?-?- 16w [...] Negative 160 25 -?-?-?-?-?-?-?-?-?-?-?-?- KW- no vb/crampi ngAmy mo fm. glucose discussed ACOG First Trimester First [...] PRR , KATH 05/30/25, girl PC Sylvia López [place] Bc (4) : Status: Acute Qualifiers: Weeks [...] this visit. GA appropriate handout given. 02/11/25 2691 <Electronically signed by Mandy gabriel CNM> Date _ Mandy Perez CNM Cosigner Signature: Date (if applicable) CC: ~ [facility] Work Phone: Progress note Author Mandy Perez [facility] Note Date/Time March 25, 2025 11:56am [facility] [address], [address] [place] [address] OFFICE VISIT Date of Service: 03/25/25 MR#: [id number] Acct: [id number] Name: KRUNAL KERN Rep #: [id number] : 1990 Provider: JOHN Perez Age/Sex: 34/F Location: [facility] [place] Status: Signed Intake Vital Signs 02/11/25 10:34 03/10/25 10:11 03/25/25 11:25 Height 5 ft 6 in 5 ft 6 in 5 ft 6 in Weight: 152 lb 6 oz BMI 24.5 BP 103/66 Intake Visit Reasons: 30 wk ob Chief Complaint: 30wk OB Rotary Peel Oven Tender Required: No Is patient in pain?: No Allergies No Known Allergies Allergy (Verified 03/25/25 11:23) Medications ?Medication ?Instructions ?Recorded ?Confirmed ?Type docosahexaenoic acid 200 mg mg PO 10/07/24 03/25/25 Hi story capsule (Algal [place]-3 DHA) magnesium 200 mg tablet 400 mg PO QDAY 10/07/2403/01 History vit no.164-ferrous tab PO 10/07/24 03/25/25 H istory gluconate 6 mg-folate 833.5 mcg DFE tablet (Maria Esther PNV) Last Menstrual Period: 08/23/24 PFSH PFSH [...] weight training frequency: 3-4 times per week george/gnosticism: Restoration seatbelt use: always do you feel safe [...] 8pounds 7oz Female 1 4 hours none [facility] [place]/Dr. Timmy Yancey 05/05/19 [place] 39 live - full term 7lbs 15oz Male spinal [facility] 09/27/21 [place] 39 live - full term Male [facility] Marcanthony Delivery Date: 10/19/16 Last Updated by: Debbie Olmstead Shoulder dystocia, 3rd or 4th degree tear vaginal- tore up Delivery Date: 05/05/19 Last Updated by: Holly Weaevr c/s d/t h/o shoulder dystocia Delivery Date: [...] will check with insurance about coverage with [employer] [facility] for anatomy scN 12/15/24 -?-?-?-?-?-?-?-?-?-?-?-?- 16w [...] Labor support person(s), Immediate Larc, Movement Monitoring, Feeding and Family Medical Leave or Disability [...] Cosigner Signature: Date (if applicable) CC: ~ [facility] Work Phone: Reason for referral (narrative)No reason for referral information [facility] Work Phone: Summary Purpose Family History No Family History Records Found Relationship Condition Age at Onset Recorded Date/T boo grandfather Malignant neoplasm of colon Unknown Advance Directives No Advanced Directives Records Found Advance Directive Response Recorded Date/ Time Living Will No July 04 9:42am Power of Materials Management Manager No July 04 9:42am Advance Directive Response Recorded Date/ Time Living Will No September 27, 2021 5:20am Power of Materials Management Manager No September 27 5:20am Chief Complaint and [...] Periurethral trauma during delivery Chief Complaint Annual (WAITER/WAITRESS TAKE OUT) AUB Reason for Visit Encounter for routin [...] 10, 2025 9:55am Supervision of high-risk Septe [facility] 2024 9:55am Chief Complaint Admit Date 16 [...] 10, 2025 9:55am Supervision of high-risk Septe [facility] 2024 9:55am AMA (advanced maternal age) multigravida 35+ March 25, 2025 11:15am H/O section March 25 11:15am March 25, 2025 11:15am Supervision of high-risk Septe [facility] 2024 11:15am Chief Complaint Admit Date 16 [...] 10, 2025 9:55am Supervision of high-risk Septe [facility] 2024 9:55am AMA (advanced maternal age) multigravida 35+ March 25, 2025 11:15am H/O section March 25 11:15am March 25, 2025 11:15am Supervision of high-risk Septe [facility] 2024 11:15am AMA (advanced maternal age) multigravida 35+ April 05, 2025 9:23am H/O section April 05, 2025 9 :23am April 05, 2025 9: 23am Supervision of high-risk Octob 2024 9:23am Additional Source Comments INFORMATION SOURCE (unrecogn ized section and content) DATE CREATED AUTHOR 12/22/2017 [facility] DATE CREATED AUTHOR AUTHOR'S ORGANIZ ATION 01/08/2025 [facility] DATE CREATED AUTHOR AUTHOR'S ORGANIZ ATION 05/13/2025 [facility] Goals (unrecognized section and content) Type Care [...] Role Status Dates Dr. Brooke Brown DO Family Provider Active Dr. Brooke Brown DO Primary Care Provider Active Team Status: Inactive Member Role Status Dates Dr. Brooke Brown DO Primary Care Provider, Referr ing Provider Active Mandy Perez CNM Attending Provider Active Team Status: Inactive Member Role Status Dates Dr. Brooke Brown DO Primary Care Provider, Referr ing Provider Active Ruthann You RETAIL SALES CLERK, RETAIL SALES CLERK-C Attending Provider Active Team Status: Inactive Member Role Status Dates Dr. Brooke Brown DO Primary Care Provider Active Ruthann You RETAIL SALES CLERK, RETAIL SALES CLERK-C Attending Provider, Referring Provider Active Team Status: Active Member Role/Relationship Status Dates Dr. Brooke Brown DO Primary Care Provider Active Team Status: [...] 2025 End: March 10, 2025 Ruthann You NP, RETAIL SALES CLERK-C Attending Provider Active Start: March 10, 2025 [...] 2025 End: March 10, 2025 Ruthann You NP, RETAIL SALES CLERK-C Attending physician Active Start: March 10, 2025 [...] 2025 Dr. Effie Petit DO Attending physician Kwadwo[place] ve Start: April 05, 2025 End: April [...] BE BASED ON THE PRIMARY CLINICAL RECORDS. [employer] provides no warranty or guarantee of the accuracy or completeness of information in this document.
--- OUTSIDE RECORDS SUMMARY | 2025-05-23 05:41 | XMS RPT_ITS | CCD ---
Author Organization [facility] Care Team Providers Care Assistant Professor Of Business Name Role Phone VINEET HSU Unavailable Unavailable [...] Unavailable KEY, CELINA (CNM) Unavailable Unavailable KEY, CELNIA (CNM) Unavailable Unavailable KEY, CELINA (CNM) Unavailable Unavailable Dr. Brooke Brown Primary Care Provider [phone] Dr. Brooke Brown Referring Provider [phone] Ira Yee Attending Provider [phone] Kenyatta TILE DESIGNER, TILE DESIGNER-C Ruthann Attending Provider [phone] Dr. Effie Petit Attending Provider [phone] Dr. Brooke Brown Primary Care Provider [phone] Dr. Brooke Brown Referring Provider [phone] JOHN Perez Attending Provider [phone] Kenyatta TILE DESIGNER, JANNETTE-C Ruthann Attending Provider [phone] [...] ) Chris FLORES, Mandy Attending Provider [phone] TILE DESIGNER-C, Ruthann Attending Provider [phone] Afua ALVAREZ, Dr. Roth Referring Provider Dai DOWELL, Dr. Cox Primary Care Physician Dai DOWELL, Dr. Cox Referring Provider [phone] Aufa ALVAREZ, Dr. Roth Attending Physician Chris FLORES, Mandy Attending Physician [phone] [place] TILE DESIGNER-CRuthann Attending Physician [phone] Nataliya Michael DO, Dr. [...] Care Unavailable Dai, Brooke Referring Unavailable Kenyatta TILE DESIGNER, Ruthann Attending Unavailable Dai, Brooke Primary Care [...] (6 sources) Start: 10-07-2024 Docosahexaenoic Acid (Algal Manawa-3 Dha) 200 mg capsule Active mg PO [...] PO daily October 07, 2024 12:00am Vit 286-Fpqd-Jjiidz 6 (Maria Esther Pnv) 6 mg iron- 833.5 mcg DFE tablet (6 sources) Start: 10-07-2024 Vit 1 01-Nbzd-Qfqzio 6 ( Pnv) 6 mg iron- 833.5 mcg DFE tablet Active {tbl} PO October 07, 2024 12:00am Complies with drug therapy Start: 10-07-2024 Vit 1 82-Wpdt-Fkzbvk 6 ( Pnv) 6 mg iron- 833.5 mcg DFE tablet Active {tbl} PO October 07, 2024 12:00am Vit,Ajol65-Jqtd-Gxeqb (2 sources) Start: 05-21-2017 take 1 tablet by mouth once daily Vit,Hoya10-Fere-Iqgyj Active 1 TABLET PO DAILY May 21, 2017 6:44am Start: 05-21-2017 End: 08-29-2023 take 1 tablet by mouth once daily Vit,Gosv49-Edvq-Inkzv Discontinued 1 TABLET PO DAILY May 21, [...] hr then bid to finish Rx Vit,Nadira 19-Xxtf-Vbyyj 1 TABLET tablet (4 sources) Start: 05-21-2017 End: 08-29-2023 Vit,Nadira 47-Hpqj-Pkxsz 1 TABLET tablet Discontinued 1 {tbl} PO DAILY May 21, 2017 1:00am August 29, 2023 10:22am Vit,Pzgo69-Druq-Gwhux 1 TABLET tablet (2 sources) Start: 05-21-2017 End: 08-29-2023 take 1 tablet by mouth once daily Vit,Gfdu24-Bkrs-Dqtbf 1 TABLET tablet Discontinued 1 {tbl} PO [...] Test Name Value Interpretation Reference Range Facility Clinic Receptionist Office Visit Reporton 05-12-2025 Clinic Receptionist Office Visit Report [facility] [address], [address] [place] [address] OFFICE VISIT Date of Service: 05/12/25 MR#: [id number] Acct: [id number] Name: KRUNAL KERN Rep #: [id number] : 1990 Provider: Dr. Ira ruelas MD Age/Sex: 35/F Location: [facility] [place] Status: Signed Intake Vital Signs 03/25/25 11:25 04/22/25 09:41 05/06/25 11:43 05/12/25 10:58 Height 5 ft 6 in 5 ft 6 in 5 ft 6 in 5 ft 6 in Weight: 163 lb 7 oz 161 lb 2 oz BMI 26.4 25.9 BP 114/76 116/70 Intake Visit Reasons: 37w 3d ob *csection Revenue Cycle Manager Required: No Is patient in pain?: No Allergies No Known Allergies Allergy (Verified 05/12/25 10:57) Medications ???Medication ???Instructions ???Recorded ???Confirmed ???Type docosahexaenoic acid 200 mg mg PO 10/07/24 05/12/25 History capsule (Algal Manawa-3 DHA) magnesium 200 mg tablet 400 mg [...] weight training frequency: 3-4 times per week george/episcopalian: Worship seatbelt use: always do you feel safe [...] term 8pounds 7oz Female 14 hours none [facility] [place]/Dr. Timmy Yancey 05/05/19 Amaris 39 live - full term 7lbs 15oz Male spinal [facility] [place] 09/27/21 Maribel 39 live - full term Male [facility] M arcanthony Delivery Date: 10/19/16 Last [...] -???-???-???-???-???-??? - (more content not included)... Normal [facility] OB Limited With Biometricson 05-10-2025 OB Limited With Biometrics [facility] [address] [place] [address] OB Limited With Biometrics MR#: [id number] Acct: [id number] Name: ERLINMITCHELCLEO Garcia Rep #: [id number] : 1990 F 35 From: Kavon Romero DO PCP: Dr. Brooke Brown, DO Status: REG CLI Study: OB Limited With Biometrics Date of Exam: 05/10 Exam# [id number] Ordering Dr: Mandy Perez CNM PROCEDURE: OB [...] Estimated weight 3423 g. (82%) Reading Location: [id number] CC: JOHN Perez; Dr. Brooke Brown DO Steam Table Worker: Signed Normal [facility] Rule out Beta Strep (Grp. B) on 05-08-2025 FRANCO Group B Beta Streptococcus is not isolated. Normal [facility] Comment on above: Performed By: #### L 3890.6006, L509.8002, L100.0100, L3890.6301, BTS, L509.4006, L3890.6102 #### [facility] [place], [address] Clinic Receptionist Office Visit Reporton 05-06-2025 Clinic Receptionist Office Visit Report [facility] [address], [address] [place] [address] OFFICE VISIT Date of Service: 05/06/25 MR#: [id number] Acct: [id number] Name: KRUNAL KERN Rep #: [id number] : 1990 Provider: JOHN Woo ams Age/Sex: 35/F Location: [facility] [place] Status: Signed Intake Vital Signs 03/25/25 11:25 04/22/25 09:41 05/06/25 11:43 Height 5 ft 6 in 5 ft 6 in 5 ft 6 in Weight: 158 lb 8 oz 163 lb 7 oz BMI 25.5 26.4 BP 99/64 114/76 Intake Visit Reasons: 36w 4d ob *csection Revenue Cycle Manager Required: No Is patient in pain?: No Allergies No Known Allergies Allergy (Verified 05/06/25 11:46) Medications ???Medication ???Instructions ???Recorded ???Confirmed ???Type docosahexaenoic acid 200 mg mg PO 10/07/24 05/06/25 History capsule (Algal Manawa-3 DHA) magnesium 200 mg tablet 400 mg [...] weight training frequency: 3-4 times per week george/episcopalian: Worship seatbelt use: always do you feel safe [...] term 8pounds 7oz Female 14 hours none [facility] [place]/Dr. Timmy Yancey 05/05/19 [place] 39 live - full term 7lbs 15oz Male spinal [facility] [place] 09/27/21 [facility] 39 live - full term Male [facility] M arcanthony Delivery Date: 10/19/16 Last [...] (+3 lb) (more content not included)... Normal [facility] Clinic Receptionist Office Visit Reporton 04-22-2025 Clinic Receptionist Office Visit Report [facility] [address], [address] [place] [address] OFFICE VISIT Date of Service: 04/22/25 MR#: [id number] Acct: [id number] Name: KRUNAL KERN Rep #: [id number] : 1990 Provider: Dr. Effie Steven DO Age/Sex: 35/F Location: [facility] [place] Status: Signed Intake Vital Signs 02/11/25 10:34 04/05/25 09:24 04/22/25 09:41 Height 5 ft 6 in 5 ft 6 in 5 ft 6 in Weight: 158 lb 8 oz BMI 25.5 BP 99/64 Intake Visit Reasons: 34 wk ob *csection Revenue Cycle Manager Required: No Is patient in pain?: No Allergies No Known Allergies Allergy (Verified 04/22/25 09:43) Medications ???Medication ???Instructions ???Recorded ???Confirmed ???Type docosahexaenoic acid 200 mg mg PO 10/07/24 04/22/25 History capsule (Algal Manawa-3 DHA) magnesium 200 mg tablet 400 mg [...] weight training frequency: 3-4 times per week george/episcopalian: Worship seatbelt use: always do you feel safe [...] term 8pounds 7oz Female 14 hours none [facility] [place]/Dr. Timmy Yancey 05/05/19 [place] 39 live - full term 7lbs 15oz Male spinal [facility] [place] 09/27/21 [facility] 39 live - full term Male [facility] M arcanthony Delivery Date: 10/19/16 Last [...] lb (+3 (more content not included)... Normal [facility] Clinic Receptionist Office Visit Reporton 04-05-2025 Clinic Receptionist Office Visit Report [facility] [address], [address] [place] [address] OFFICE VISIT Date of Service: 04/05/25 MR#: [id number] Acct: [id number] Name: KRUNAL KERN Rep #: [id number] : 1990 Provider: Dr. Effie Steven DO Age/Sex: 35/F Location: [facility] [place] Status: Signed Intake Vital Signs 02/11/25 10:34 03/25/25 11:25 04/05/25 09:24 04/05/25 09:24 Height 5 ft 6 in 5 ft 6 in 5 ft 6 in 5 ft 6 in Weight: 152 lb 6 oz 157 lb 3 oz BMI 24.5 25.3 BP 103/66 116/68 Intake Visit Reasons: 32 wk ob *csection Revenue Cycle Manager Required: No Is patient in pain?: No Allergies No Known Allergies Allergy (Verified 04/05/25 09:24) Medications ???Medication ???Instructions ???Recorded ???Confirmed ???Type docosahexaenoic acid 200 mg mg PO 10/07/24 04/05/25 History capsule (Algal Manawa-3 DHA) magnesium 200 mg tablet 400 mg [...] weight training frequency: 3-4 times per week george/episcopalian: Worship seatbelt use: always do you feel safe [...] term 8pounds 7oz Female 14 hours none [facility] [place]/Dr. Timmy Yancey 05/05/19 [place] 39 live - full term 7lbs 15oz Male spinal [facility] [place] 09/27/21 [facility] 39 live - full term Male [facility] M arcanthony Delivery Date: 10/19/16 Last [...] -???-???-???-???-???-??? -???-???-???-???-??? (more content not included)... Normal [facility] - Chemistry and C hemistry - challengeOrdered By: Mandy Perez on 03-25-2025 Glucose Ql (U) Negative [facility] - UrinalysisOrder ed By: Mandy Perez on 03-25-2025 Protein Ql (U) Negative [facility] Clinic Receptionist Office Visit Reporton 03-25-2025 Clinic Receptionist Office Visit Report [facility], [address] [place] [address] OFFICE VISIT Date of Service: 03/25/25 MR#: [id number] Acct: [id number] Name: KRUNAL KERN Rep #: [id number] : 1990 Provider: JOHN Woo ams Age/Sex: 34/F Location: [facility] [place] Status: Signed Intake Vital Signs 02/11/25 10:34 03/10/25 10:11 03/25/25 11:25 Height 5 ft 6 in 5 ft 6 in 5 ft 6 in Weight: 152 lb 6 oz BMI 24.5 BP 103/66 Intake Visit Reasons: 30 wk ob Chief Complaint: 30wk OB Revenue Cycle Manager Required: No Is patient in pain?: No Allergies No Known Allergies Allergy (Verified 03/25/25 11:23) Medications ???Medication ???Instructions ???Recorded ???Confirmed ???Type docosahexaenoic acid 200 mg mg PO 10/07/24 03/25/25 History capsule (Algal Manawa-3 DHA) magnesium 200 mg tablet 400 mg [...] weight training frequency: 3-4 times per week george/episcopalian: Worship seatbelt use: always do you feel safe [...] term 8pounds 7oz Female 14 hours none [facility] [place]/Dr. Timmy Yancey 05/05/19 [place] 39 live - full term 7lbs 15oz Male spinal [facility] [place] 09/27/21 [facility] 39 live - full term Male [facility] M arcanthony Delivery Date: 10/19/16 Last [...] 13 w (more content not included)... Normal [facility] Absolute lymphocyte countOrd ered By: Mandy Perez on 03-10-2025 Lymphocytes Auto (Unsp spec) [#/Vol] 1.42 10*3/uL 0.83-4.51 [facility] Absolute neutrophil countOrd ered By: Mandy Perez on 03-10-2025 Neutrophils (Bld) [#/Vol] 5.1 10*3/uL 2.0-7.7 [facility] Automated lymphocyte count a s percentage of total leukocytesOrdered By: Mandy Perez on 03-10-2025 Lymphocytes/100 WBC Auto (Unsp spec) 19.8 % 19-41 [facility] Basophil percentageOrdered B y: Mandy Perez on 03-10-2025 Basophils/100 WBC (Bld) 0.4 % 0-1 [facility] CBC W/Diff, Automatedon 02-28 Absolute Lymph 1.42 X10 3/uL Normal 0.83-4.51 [facility] Comment on above: Performed By: #### L 501.0250, L509.8002, L3890.6006, L100.0100 #### [facility] [address] [place], [address] Absolute Neut 5.1 X10 3/uL Normal 2.0-7.7 [facility] Comment on above: Performed By: #### L 501.0250, L509.8002, L3890.6006, L100.0100 #### [facility] [address] [place], [address] Basophils/100 WBC (Bld) 0.4 % Normal 0-1 [facility] Comment on above: Performed By: #### L 501.0250, L509.8002, L3890.6006, L100.0100 #### [facility] [address] [place], [address] Eosinophils/100 WBC (Bld) 1.7 % Normal 0-5 [facility] Comment on above: Performed By: #### L 501.0250, L509.8002, L3890.6006, L100.0100 #### [facility] [address] [place], [address] Erythrocyte distribution width (RBC) [Ratio] 13.6 % Normal 11.6-14.6 [facility] Comment on above: Performed By: #### L 501.0250, L509.8002, L3890.6006, L100.0100 #### [facility] [address] [place], [address] Hematocrit (Bld) [Volume fraction] 32.7 % Low 37-47 [facility] Comment on above: Performed By: #### L 501.0250, L509.8002, L3890.6006, L100.0100 #### [facility] [address] [place], [address] Hemoglobin (Bld) [Mass/Vol] 11.4 g/dL Low 12.0-15.0 [facility] Comment on above: Performed By: #### L 501.0250, L509.8002, L3890.6006, L100.0100 #### [facility] [address] [place], [address] IG% 1.300 High 0.0-0.9 [facility] Comment on above: Result Comment: IG% - Immature Granulocytes (promyelocytes, myelocytes and metamyelocytes) > 1% indicates that a LEFT SHIFT is Present. Performed By: #### L 501.0250, L509.8002, L3890.6006, L100.0100 #### [facility] [address] [place], [address] Lymphocytes/100 WBC (Bld) 19.8 % Normal 19-41 [facility] Comment on above: Performed By: #### L 501.0250, L509.8002, L3890.6006, L100.0100 #### [facility] [address] [place], [address] MCH (RBC) [Entitic mass] 32.9 pg High 27.0-32.0 [facility] Comment on above: Performed By: #### L 501.0250, L509.8002, L3890.6006, L100.0100 #### [facility] [address] [place], [address] MCHC (RBC) [Mass/Vol] 34.9 g/dL Normal 32-36 [facility] Comment on above: Performed By: #### L 501.0250, L509.8002, L3890.6006, L100.0100 #### [facility] [address] [place], [address] MCV (RBC) [Entitic vol] 94.2 fL Normal 81-99 [facility] Comment on above: Performed By: #### L 501.0250, L509.8002, L3890.6006, L100.0100 #### [facility] [address] [place], [address] Monocytes/100 WBC (Bld) 5.6 % Normal 0-10 [facility] Comment on above: Performed By: #### L 501.0250, L509.8002, L3890.6006, L100.0100 #### [facility] [address] [place], [address] Neutrophils/100 WBC (Bld) 71.2 % High 47-70 [facility] Comment on above: Performed By: #### L 501.0250, L509.8002, L3890.6006, L100.0100 #### [facility] [address] [place], [address] Nucleated RBC (Bld) [#/Vol] 0 10*3/uL Normal 0-5 [facility] Comment on above: Performed By: #### L 501.0250, L509.8002, L3890.6006, L100.0100 #### [facility] [address] [place], [address] Platelet mean volume (Bld) [Entitic vol] 12.3 fL High 6.2-12.0 [facility] Comment on above: Performed By: #### L 501.0250, L509.8002, L3890.6006, L100.0100 #### [facility] [address] [place], [address] Platelets (Bld) [#/Vol] 167 10*3/uL Normal 150-450 [facility] Comment on above: Performed By: #### L 501.0250, L509.8002, L3890.6006, L100.0100 #### [facility] [address] [place], [address] RBC (Bld) [#/Vol] 3.47 10*6/uL Low 4.2-5.4 [facility] Comment on above: Performed By: #### L 501.0250, L509.8002, L3890.6006, L100.0100 #### [facility] [address] [place], [address] RDW SD 46.6 fl High 35.1-43.9 [facility] Comment on above: Performed By: #### L 501.0250, L509.8002, L3890.6006, L100.0100 #### [facility] [address] [place], [address] WBC (Bld) [#/Vol] 7.2 10*3/uL Normal 4.4-11.[address] [facility] Comment on above: Performed By: #### L 501.0250, L509.8002, L3890.6006, L100.0100 #### [facility] [address] [place], [address] Eosinophil percentageOrdered By: Mandy Perez on 03-10-2025 Eosinophils/100 WBC (Bld) 1.7 % 0-5 [facility] Erythrocyte distribution wid th ratioOrdered By: Mandy Perez on 03-10-2025 Erythrocyte distribution width (RBC) [Ratio] 13.6 % 11.6-14.6 [facility] Erythrocyte distribution wid th standard deviationOrdered By: Mandy Perez on 03-10-2025 Erythrocyte distribution width (RBC) [Ratio] 46.6 fl High 35.1-43.9 [facility] Glucose Challenge Gest 1H 50 gallito 03-10-2025 GLU GEST 50g 1H 117 mg/dL Normal 70-140 [facility] Comment on above: Performed By: #### L 501.0250, L509.8002, L3890.6006, L100.0100 #### [facility] [address] [place], [address] Glucose measurement at 2 sabrina rs post-dose gestational glucose tolerance testOrdered By: Mandy Perez on 03-10-2025 Glucose [Mass/Vol] 117 mg/dL 70-[address] [facility] HIVon 03-10-2025 HIV Non-Reactive Normal Nonreactive [facility] Comment on above: Result Comment: Non- Reactive Reactive Repeatedly reactive samples must be confirmed according to CDC recommended confirmatory algorithms. The subresults for either HIVAG or AHIV can be used as an aid in the selection of the confirmation algorithm for reactive samples. Send out specimens with Reactive results to [facility] for confirmation. Order the HIV antibody detection and differentiation: lc#[id number] Performed By: #### L 3890.6006, L509.8002, L100.0100, L3890.6301, BTS, L509.4006, L3890.6102 #### [facility] [address] [place], [address] Hematocrit Auto (Bld) [Volum e fraction]Ordered By: Mandy Perez on 03-10-2025 Hematocrit (Bld) [Volume fraction] 32.7 % Low 37-47 [facility] Hemoglobin measurementOrdere d By: Mandy Perez on 03-10-2025 Hemoglobin (Bld) [Mass/Vol] 11.4 g/dL Low 12.0-15.0 [facility] Immature granulocytes/100 WB C Auto (Bld)Ordered By: Mandy Perez on 03-10-2025 Immature granulocytes/100 WBC (Bld) 1.300 % High 0.0-0.9 [facility] Comment on above: IG% - Immature Granu locytes (promyelocytes, myelocytes and metamyelocytes) > 1% indicates that a LEFT SHIFT is Present. Laboratory - Chemistry and C hemistry - challengeOrdered By: Ruthann You on 03-10-2025 Glucose Ql (U) Negative [facility] - UrinalysisOrder ed By: Ruthann You on 03-10-2025 Protein Ql (U) Negative [facility] MCV (mean corpuscular volume ) determinationOrdered By: Mandy Perez on 03-10-2025 MCV (RBC) [Entitic vol] 94.2 fL 81-99 [facility] Mean corpuscular hemoglobin (MCH) determinationOrdered By: Mandy Perez on 03-10-2025 MCH (RBC) [Entitic mass] 32.9 pg High 27.0-32.0 [facility] Mean corpuscular hemoglobin concentration (MCHC) determinationOrdered By: Mandy Perez on 03-10-2025 MCHC (RBC) [Mass/Vol] 34.9 g/dL 32-36 [facility] Mean platelet volume determi nationOrdered By: Mandy Perez on 03-10-2025 Platelet mean volume (Bld) [Entitic vol] 12.3 fL High 6.2-12.0 [facility] Monocyte percentageOrdered B y: Mandy Perez on 03-10-2025 Monocytes/100 WBC (Bld) 5.6 % 0-10 [facility] Neutrophil percentageOrdered By: Mandy Perez on 03-10-2025 Neutrophils/100 WBC (Bld) 71.2 % High 47-70 [facility] No Panel InformationOrdered By: Mandy Perez on 03-10-2025 HIV (1&2) Antibody Non-Reactive Nonreactive [facility] Comment on above: Non-ReactiveReactive Repeatedly reactive samples must be confirmed according to CDC recommended confirmatory algorithms. The subresults for either HIVAG or AHIV can be used as an aid in the selection of the confirmation algorithm for reactive samples.Send out specimens with Reactive results to [facility] for confirmation.Order the HIV antibody detection and differentiation: #[id number] Nucleated red blood cell per centageOrdered By: Mandy Perez on 03-10-2025 Nucleated RBC/100 WBC (Bld) [Ratio] 0 % 0-5 [facility] Clinic Receptionist Office Visit Reporton 03-10-2025 Clinic Receptionist Office Visit Report [facility] [address], [address] [place] [address] OFFICE VISIT Date of Service: 03/10/25 MR#: [id number] Acct: [id number] Name: KRUNAL KERN Rep #: [id number] : 1990 Provider: LILLY coello Age/Sex: 34/F Location: [facility] [place] Status: Signed Intake Vital Signs 12/15/24 10:19 02/11/25 10:34 03/10/25 10:02 03/10/25 10:11 Height 5 ft 6 in 5 ft 6 in 5 ft 6 in 5 ft 6 in Weight: 152 lb 5 oz BMI 24.5 BP 94/62 Intake Visit Reasons: 28wk ob/glucose Chief Complaint: 28 Week OB/Glucose Revenue Cycle Manager Required: No Is patient in pain?: No Allergies No Known Allergies Allergy (Verified 03/10/25 10:01) Medications ???Medication ???Instructions ???Recorded ???Confirmed ???Type docosahexaenoic acid 200 mg mg PO 10/07/24 03/10/25 History capsule (Algal Manawa-3 DHA) magnesium 200 mg tablet 400 mg [...] weight training frequency: 3-4 times per week george/episcopalian: Worship seatbelt use: always do you feel safe [...] term 8pounds 7oz Female 14 hours none [facility] [place]/Dr. Timmy Yancey 05/05/19 [place] 39 live - full term 7lbs 15oz Male spinal [facility] [place] 09/27/21 [facility] 39 live - full term Male [facility] M arcanthony Delivery Date: 10/19/16 Last [...] Negative -???-??? (more content not included)... Normal [facility] Platelet countOrdered By: Mitchel Perez on 03-10-2025 Platelets (Bld) [#/Vol] 167 10*3/uL 150-450 [facility] RBC Auto (Bld) [#/Vol]Ordere d By: Mandy Perez on 03-10-2025 RBC (Bld) [#/Vol] 3.47 10*6/uL Low 4.2-5.4 [facility] Syphilis Antibodieson 2024 Syphilis Abs Non-Reactive Normal Nonreactive [facility] Comment on above: Performed By: #### L 3890.6006, L509.8002, L100.0100, L3890.6301, BTS, L509.4006, L3890.6102 #### [facility] [address] [place], [address] White blood cell (WBC) count Ordered By: Mandy Perez on 03-10-2025 WBC (Bld) [#/Vol] 7.2 10*3/uL 4.4-11.[address] [facility] - Chemistry and C hemistry - challengeOrdered By: Mandy Perez on 02-11-2025 Glucose Ql (U) Negative [facility] - UrinalysisOrder ed By: Mandy Perez on 02-11-2025 Protein Ql (U) Negative [facility] Clinic Receptionist Office Visit Reporton 02-11-2025 Clinic Receptionist Office Visit Report [facility] [address], [address] [place] [address] OFFICE VISIT Date of Service: 02/11/25 MR#: [id number] Acct: [id number] Name: KERN,KECLEO Garcia Rep #: [id number] : 1990 Provider: JOHN Woo ams Age/Sex: 34/F Location: [facility] [place] Status: Signed Intake Vital Signs 06/18/25 10:19 01/14/25 08:51 02/11/25 10:34 Height 5 ft 6 in 5 ft 6 in 5 ft 6 in Weight: 145 lb 5 oz BMI 23.4 BP 101/67 Intake Visit Reasons: 24wk ob Chief Complaint: 24wk OB Revenue Cycle Manager Required: No Is patient in pain?: No Allergies No Known Allergies Allergy (Verified 02/11/25 10:32) Medications ???Medication ???Instructions ???Recorded ???Confirmed ???Type docosahexaenoic acid 200 mg mg PO 10/07/24 02/11/25 History capsule (Algal Manawa-3 DHA) magnesium 200 mg tablet 400 mg [...] weight training frequency: 3-4 times per week george/episcopalian: Worship seatbelt use: always do you feel safe [...] term 8pounds 7oz Female 14 hours none [facility] [place]/Dr. Timmy Yancey 05/05/19 [place] 39 live - full term 7lbs 15oz Male spinal [facility] [place] 09/27/21 [place] 39 live - full term Male [facility] M arcanthony Delivery Date: 10/19/16 Last [...] CRL denisse (more content not included)... Normal [facility] - Chemistry and C hemistry - challengeOrdered By: Ira Yee on 01-14-2025 Glucose Ql (U) Negative [facility] - UrinalysisOrder ed By: Ira Yee on 01-14-2025 Protein Ql (U) Negative [facility] Receptionist Office Visit Reporton 01-14-2025 Clinic Receptionist Office Visit Report [facility] [address], [address] [place] [address] OFFICE VISIT Date of Service: 01/14/25 MR#: [id number] Acct: [id number] Name: KRUNAL KERN Rep #: [id number] : 1990 Provider: Dr. Ira ruelas MD Age/Sex: 34/F Location: [facility] [place] Status: Signed Intake Vital Signs 11/19/24 10:24 12/15/24 10:19 01/14/25 08:51 Height 5 ft 6 in 5 ft 6 in 5 ft 6 in Weight: 136 lb 138 lb 6 oz BMI 21.9 22.3 BP 112/71 103/67 Intake Visit Reasons: 20wk ob Revenue Cycle Manager Required: No Is patient in pain?: No Feel stressed/tense/nervous/a nxious/difficulty sleeping: not at all Allergies No Known Allergies Allergy (Verified 01/14/25 08:55) Medications ???Medication ???Instructions ???Recorded ???Confirmed ???Type docosahexaenoic acid 200 mg mg PO 10/07/24 01/14/25 History capsule (Algal [place]-3 DHA) magnesium 200 mg tablet 400 mg [...] weight training frequency: 3-4 times per week george/episcopalian: Worship seatbelt use: always do you feel safe [...] term 8pounds 7oz Female 14 hours none [facility] [place]/Dr. Timmy Yancey 05/05/19 [place] 39 live - full term 7lbs 15oz Male spinal [facility] NORMA 09/27/21 [facility] 39 live - full term Male [facility] M arcanthony Delivery Date: 10/19/16 Last [...] Negative -???-???-??? (more content not included)... Normal [facility] - Chemistry and C hemistry - challengeOrdered By: Ira Yee on 12-15-2024 Glucose Ql (U) Negative [facility] - UrinalysisOrder ed By: Ira Yee on 12-15-2024 Protein Ql (U) Negative [facility] Receptionist Office Visit Reporton 12-15-2024 Clinic Receptionist Office Visit Report [facility] [address] [place] [address], [address] [place] [address] OFFICE VISIT Date of Service: 12/15/24 MR#: [id number] Acct: [id number] Name: KRUNAL KERN Rep #: [id number] : 1990 Provider: Dr. Ira ruelas MD Age/Sex: 34/F Location: [facility] [place] Status: Signed Intake Vital Signs 10/22/24 10:45 11/19/24 10:24 12/15/24 10:19 Height 5 ft 6 in 5 ft 6 in 5 ft 6 in Weight: 136 lb BMI 21.9 BP 112/71 Intake Visit Reasons: 16 wk ob Revenue Cycle Manager Required: No Is patient in pain?: No Allergies No Known Allergies Allergy (Verified 12/15/24 10:22) Medications ???Medication ???Instructions ???Recorded ???Confirmed ???Type docosahexaenoic acid 200 mg mg PO 10/07/24 12/15/24 History capsule (Algal [place]-3 DHA) magnesium 200 mg tablet 400 mg [...] weight training frequency: 3-4 times per week george/episcopalian: Worship seatbelt use: always do you feel safe [...] term 8pounds 7oz Female 14 hours none [facility] [place]/Dr. Timmy Yancey 05/05/19 [place] 39 live - full term 7lbs 15oz Male spinal [facility] 09/27/21 [facility] live - full term Male [facility] M arcanthony Delivery Date: 10/19/16 Last [...] -???-???-???-???-???-??? -???-???-???- (more content not included)... Normal [facility] - Chemistry and C hemistry - challengeOrdered By: Effie Michael on 11-19-2024 Glucose Ql (U) Negative [facility] - UrinalysisOrder ed By: Effie Michael on 11-19-2024 Protein Ql (U) Negative [facility] Receptionist Office Visit Reporton 11-19-2024 Clinic Receptionist Office Visit Report [facility] [address], [address] [place] [address] OFFICE VISIT Date of Service: 11/19/24 MR#: [id number] Acct: [id number] Name: KRUNAL KERN Radha Rep #: [id number] : 1990 Provider: Dr. Effie Steven DO Age/Sex: 34/F Location: [facility] [place] Status: Signed Intake Vital Signs 09/27/24 08:12 10/22/24 10:45 11/19/24 10:24 11/19/24 10:24 Height 5 ft 6 in 5 ft 6 in 5 ft 6 in 5 ft 6 in Weight: 128 lb BMI 20.6 BP 99/63 Intake Visit Reasons: 12WK OB Revenue Cycle Manager Required: No Is patient in pain?: No Allergies No Known Allergies Allergy (Verified 11/19/24 10:23) Medications ???Medication ???Instructions ???Recorded ???Confirmed ???Type docosahexaenoic acid 200 mg mg PO 10/07/24 11/19/24 History capsule (Algal [place]-3 DHA) magnesium 200 mg tablet 400 mg PO QDAY 10/07/24 11/19/24 H istory vit no.164-ferrous tab PO 10/07/24 11/19/24 History gluconate 6 mg-folate 833.5 mcg DFE tablet ( PNV) Last Menstrual Period: 08/23/24 Zika: Zika virus screening: Negative : No [facility] Medical History Abnormal uterine bleeding (AUB) delivery [...] weight training frequency: 3-4 times per week george/episcopalian: Worship seatbelt use: always do you feel safe [...] term 8pounds 7oz Female 14 hours none [facility] [place]/Dr. Timmy Yancey 05/05/19 [place] 39 live - full term 7lbs 15oz Male spinal [facility] [place] 09/27/21 [place] 39 live - full term Male [facility] M arcanthony Delivery Date: 10/19/16 Last [...] -???-???-???-???-???-??? -???- (more content not included)... Normal [facility] PAP IG HPV APTIMA 16/18,45on 10-27-2024 ADEQ Comment Normal . [facility] Comment on above: Order Comment: Tonya charlton Comment: [id number] Comment: Source.............Cervix;EndocervixSpecimen Comment: Other..............Specimen Comment: No. of containers..01 ThinPrep Vial Result Comment: Sati sfactory for evaluation. No endocervical component is identified. An endocervical component is not commonly seen in the patient. Performed By: #### L 3890.6006, L509.8002, L100.0100, L3890.6301, BTS, L509.4006, L3890.6102 #### [facility] [address] [place], [address] COMM . Normal . [facility] Comment on above: Order Comment: Tonya charlton Comment: [id number] Comment: Source.............Cervix;EndocervixSpecimen Comment: Other..............Specimen Comment: No. of containers..01 ThinPrep Vial Performed By: #### L 3890.6006, L509.8002, L100.0100, L3890.6301, BTS, L509.4006, L3890.6102 #### [facility] [address] [place], [address] COMMENT Comment Normal . [facility] Comment on above: Order Comment: Speci men Comment: [id number] Comment: Source.............Cervix;EndocervixSpecimen Comment: Other..............Specimen Comment: No. of containers..01 ThinPrep Vial Result Comment: This liquid based ThinPrep(R) pap test was screened with the use of an image guided system. Performed By: #### L 3890.6006, L509.8002, L100.0100, L3890.6301, BTS, L509.4006, L3890.6102 #### [facility] [address] [place], [place], [id number] DIAG Comment Normal . [facility] Comment on above: Order Comment: Speci men Comment: [id number] Comment: Source.............Cervix;EndocervixSpecimen Comment: Other..............Specimen Comment: No. of containers..01 ThinPrep Vial Result Comment: NEGA TIVE FOR INTRAEPITHELIAL LESION OR MALIGNANCY. Performed By: #### L 3890.6006, L509.8002, L100.0100, L3890.6301, BTS, L509.4006, L3890.6102 #### [facility] [address] [place], [place], [address] HPV APTIMA, HR Negative Normal Negative [facility] Comment on above: Order Comment: Speci men Comment: [id number] Comment: Source.............Cervix;EndocervixSpecimen Comment: Other..............Specimen Comment: No. of containers..01 ThinPrep Vial Result Comment: This nucleic acid amplification test detects fourteen high- risk HPV types (16,18,31,33,35,39,45,51,52,56,58,59,66,68) without differentiation. Performed By: #### L 3890.6006, L509.8002, L100.0100, L3890.6301, BTS, L509.4006, L3890.6102 #### [facility] [address] [place], [address] HPV Asya Rfx Comment Normal . [facility] Comment on above: Order Comment: Speci men Comment: [id number] Comment: Source.............Cervix;EndocervixSpecimen Comment: Other..............Specimen Comment: No. of containers..01 ThinPrep Vial Result Comment: Crit eria not met, HPV Genotype not performed. Performed at: [address] [id number] Fraud Manager: Abbi Vee MD, Phone: [phone] Performed at: [address] [id number] Fraud Manager: Jaquelin Celis MD, Phone: [phone] Performed at: =[address] [id number] Fraud Manager: Jaquelin Celis MD, Phone: [phone] Performed By: #### L 3890.6006, L509.8002, L100.0100, L3890.6301, BTS, L509.4006, L3890.6102 #### [facility] [address] [place], [address] PAPSMR Comment Normal . [facility] Comment on above: Order Comment: Speci men Comment: [id number] Comment: Source.............Cervix;EndocervixSpecimen Comment: Other..............Specimen Comment: No. of [...] L509.8002, L100.0100, L3890.6301, BTS, L509.4006, L3890.6102 #### [facility] [address] [place], [place], [id number] PERFORM Comment Normal . [facility] Comment on above: Order Comment: Speci men Comment: [id number] Comment: Source.............Cervix;EndocervixSpecimen Comment: Other..............Specimen Comment: No. of containers..01 ThinPrep Vial Result Comment: Radu Campbell, Supervisory Water Resources Technical Officer (ASCP) Performed By: #### L 3890.6006, L509.8002, L100.0100, L3890.6301, BTS, L509.4006, L3890.6102 #### [facility] [address] [place], [place], [id number] Chlamydia/GC BARB aptimaon CHLAMY,NUC ACID Negative Normal Negative [facility] Comment on above: Performed By: #### L 3890.6006, L509.8002, L100.0100, L3890.6301, BTS, L509.4006, L3890.6102 #### [facility] [address] [place], [place], [id number] GC BY NUC ACID Negative Normal Negative [facility] Comment on above: Result Comment: Perf ormed at: =G - [facility] [address] [place] [id number] Fraud Manager: Jaquelin Celis MD, Phone: [phone] Performed By: #### L 3890.6006, L509.8002, L100.0100, L3890.6301, BTS, L509.4006, L3890.6102 #### [facility] [address] [place], [place], [id number] Urine Cultureon 10-23-2024 URC Culture exhibits no growth. Normal [facility] Comment on above: Performed By: #### L 3890.6006, L509.8002, L100.0100, L3890.6301, BTS, L509.4006, L3890.6102 #### [facility] [address] [place], [address] Absolute lymphocyte countOrd ered By: Mandy Perze on 10-22-2024 Lymphocytes Auto (Unsp spec) [#/Vol] 2.44 10*3/uL 0.83-4.51 [facility] Absolute neutrophil countOrd ered By: Mandy Perez on 10-22-2024 Neutrophils (Bld) [#/Vol] 3.7 10*3/uL 2.0-7.7 [facility] Automated lymphocyte count a s percentage of total leukocytesOrdered By: Mandy Perez on 10-22-2024 Lymphocytes/100 WBC Auto (Unsp spec) 36.4 % 19-41 [facility] Basophil percentageOrdered B y: Mandy Perez on 10-22-2024 Basophils/100 WBC (Bld) 0.7 % 0-1 [facility] CBC W/Diff, Automatedon 09-29 Absolute Lymph 2.44 X10 3/uL Normal 0.83-4.51 [facility] Comment on above: Performed By: #### L 3890.6006, L509.8002, L100.0100, L3890.6301, BTS, L509.4006, L3890.6102 #### [facility] [address] [place], [address] Absolute Neut 3.7 X10 3/uL Normal 2.0-7.7 [facility] Comment on above: Performed By: #### L 3890.6006, L509.8002, L100.0100, L3890.6301, BTS, L509.4006, L3890.6102 #### [facility] [address] [place], [address] Basophils/100 WBC (Bld) 0.7 % Normal 0-1 [facility] Comment on above: Performed By: #### L 3890.6006, L509.8002, L100.0100, L3890.6301, BTS, L509.4006, L3890.6102 #### [facility] [address] [place], [address] Eosinophils/100 WBC (Bld) 2.2 % Normal 0-5 [facility] Comment on above: Performed By: #### L 3890.6006, L509.8002, L100.0100, L3890.6301, BTS, L509.4006, L3890.6102 #### [facility] [address] [place], [address] Erythrocyte distribution width (RBC) [Ratio] 14.0 % Normal 11.6-14.6 [facility] Comment on above: Performed By: #### L 3890.6006, L509.8002, L100.0100, L3890.6301, BTS, L509.4006, L3890.6102 #### [facility] [address] [place], [address] Hematocrit (Bld) [Volume fraction] 35.9 % Low 37-47 [facility] Comment on above: Performed By: #### L 3890.6006, L509.8002, L100.0100, L3890.6301, BTS, L509.4006, L3890.6102 #### [facility] [address] [place], [address] Hemoglobin (Bld) [Mass/Vol] 12.3 g/dL Normal 12.0-15.0 [facility] Comment on above: Performed By: #### L 3890.6006, L509.8002, L100.0100, L3890.6301, BTS, L509.4006, L3890.6102 #### [facility] [address] [place], [address] IG% 0.300 Normal 0.0-0.9 [facility] Comment on above: Result Comment: IG% - Immature Granulocytes (promyelocytes, myelocytes and metamyelocytes) > 1% indicates that a LEFT SHIFT is Present. Performed By: #### L 3890.6006, L509.8002, L100.0100, L3890.6301, BTS, L509.4006, L3890.6102 #### [facility] [address] [place], [address] Lymphocytes/100 WBC (Bld) 36.4 % Normal 19-41 [facility] Comment on above: Performed By: #### L 3890.6006, L509.8002, L100.0100, L3890.6301, BTS, L509.4006, L3890.6102 #### [facility] [address] [place], [address] MCH (RBC) [Entitic mass] 30.7 pg Normal 27.0-32.0 [facility] Comment on above: Performed By: #### L 3890.6006, L509.8002, L100.0100, L3890.6301, BTS, L509.4006, L3890.6102 #### [facility] [address] [place], [address] MCHC (RBC) [Mass/Vol] 34.3 g/dL Normal 32-36 [facility] Comment on above: Performed By: #### L 3890.6006, L509.8002, L100.0100, L3890.6301, BTS, L509.4006, L3890.6102 #### [facility] [address] [place], [address] MCV (RBC) [Entitic vol] 89.5 fL Normal 81-99 [facility] Comment on above: Performed By: #### L 3890.6006, L509.8002, L100.0100, L3890.6301, BTS, L509.4006, L3890.6102 #### [facility] [address] [place], [address] Monocytes/100 WBC (Bld) 5.1 % Normal 0-10 [facility] Comment on above: Performed By: #### L 3890.6006, L509.8002, L100.0100, L3890.6301, BTS, L509.4006, L3890.6102 #### [facility] [address] [place], [address] Neutrophils/100 WBC (Bld) 55.3 % Normal 47-70 [facility] Comment on above: Performed By: #### L 3890.6006, L509.8002, L100.0100, L3890.6301, BTS, L509.4006, L3890.6102 #### [facility] [address] [place], [address] Nucleated RBC (Bld) [#/Vol] 0 10*3/uL Normal 0-5 [facility] Comment on above: Performed By: #### L 3890.6006, L509.8002, L100.0100, L3890.6301, BTS, L509.4006, L3890.6102 #### [facility] [address] [place], [address] Platelet mean volume (Bld) [Entitic vol] 12.0 fL Normal 6.2-12.0 [facility] Comment on above: Performed By: #### L 3890.6006, L509.8002, L100.0100, L3890.6301, BTS, L509.4006, L3890.6102 #### [facility] [address] [place], [address] Platelets (Bld) [#/Vol] 237 10*3/uL Normal 150-450 [facility] Comment on above: Performed By: #### L 3890.6006, L509.8002, L100.0100, L3890.6301, BTS, L509.4006, L3890.6102 #### [facility] [address] [place], [address] RBC (Bld) [#/Vol] 4.01 10*6/uL Low 4.2-5.4 [facility] Comment on above: Performed By: #### L 3890.6006, L509.8002, L100.0100, L3890.6301, BTS, L509.4006, L3890.6102 #### [facility] [address] [place], [address] RDW SD 45.6 fl High 35.1-43.9 [facility] Comment on above: Performed By: #### L 3890.6006, L509.8002, L100.0100, L3890.6301, BTS, L509.4006, L3890.6102 #### [facility] [address] [place], [address] WBC (Bld) [#/Vol] 6.7 10*3/uL Normal 4.4-11.[address] [facility] Comment on above: Performed By: #### L 3890.6006, L509.8002, L100.0100, L3890.6301, BTS, L509.4006, L3890.6102 #### [facility] [address] [place], [place], [address] Cervical or vaginal specimen microscopic examination by liquid based cytology (reportOrdered By: Mandy Perez on 10-22-2024 Cytology report Cyto stain.thin prep Doc (Cvx/Vag) Comment . [facility] Comment on above: Criteria not met, HP V Genotype not performed.Performed at: [facility] [employer] [id number] Director: Abbi Vee MD, Phone: [phone] at: [facility] [employer] [id number] Director: Jaquelin Celis MD, Phone: [phone] at: =[address] [id number] Director: Jaquelin Celis MD, Phone: [phone] Cervical or vagninal specime n microscopic examination by cytology stain (reported asOrdered By: Mandy Perez on 10-22-2024 Cytology report Cyto stain Doc (Cvx/Vag) Comment . [facility] Comment on above: The Pap smear [...] rRNA BARB+probe Ql (Unsp spec) Negative Negative [facility] Detection in cervical specim en of any of human papilloma virus (HPV) 16, 18, 31, 33,Ordered By: Mandy Perez on 10-22-2024 HPV 16+18+31+33+35+39+45+51 +52+56+58+59+66+68 DNA Probe+sig amp Ql (Cvx) Negative Negative [facility] Comment on above: This nucleic acid am plification test detects fourteen high-risk HPV types (16,18,31,33,35,39,45,51,52,56,58,59,66,68)without differentiation. Eosinophil percentageOrdered By: Mandy Perez on 10-22-2024 Eosinophils/100 WBC (Bld) 2.2 % 0-5 [facility] Erythrocyte distribution wid th ratioOrdered By: Mandy Perez on 10-22-2024 Erythrocyte distribution width (RBC) [Ratio] 14.0 % 11.6-14.6 [facility] Erythrocyte distribution wid th standard deviationOrdered By: Mandy Perez on 10-22-2024 Erythrocyte distribution width (RBC) [Ratio] 45.6 fl High 35.1-43.9 [facility] HIVon 10-22-2024 HIV Non-Reactive Normal Nonreactive [facility] Comment on above: Result Comment: Non- Reactive Reactive Repeatedly reactive samples must be confirmed according to CDC recommended confirmatory algorithms. The subresults for either HIVAG or AHIV can be used as an aid in the selection of the confirmation algorithm for reactive samples. Send out specimens with Reactive results to [facility] for confirmation. Order the HIV antibody detection and differentiation: [id number] Performed By: #### L 3890.6006, L509.8002, L100.0100, L3890.6301, BTS, L509.4006, L3890.6102 #### [facility] [address] [place], [address] Hematocrit Auto (Bld) [Volum e fraction]Ordered By: Mandy Perez on 10-22-2024 Hematocrit (Bld) [Volume fraction] 35.9 % Low 37-47 [facility] Hemoglobin measurementOrdere d By: Mandy Perez on 10-22-2024 Hemoglobin (Bld) [Mass/Vol] 12.3 g/dL 12.0-15.0 [facility] Hepatitis C Antibodyon 10-22 Hepatitis C Ab Non-Reactive Normal Nonreactive [facility] Comment on above: Result Comment: Reac tive: Presumptive evidence of antibodies to HCV. Follow CDC recommendations for supplemental testing. Non-Reactive: Antibodies to HCV were not detected; does not exclude the possibility of exposure to HCV Reactive Results are presumptive evidence of antibodies to HCV. Follow CDC recommendations for supplemental testing. Order confirmation testing: HCV Quant by PCR testing - HCVPCR #[id number] Non Reactive: < 0.8 Equivocal: >/= 0.8 to < 1.0 Reactive: >/= 1.0 The [facility] requires that a reactive/equivocal HCV antibody result be sent out for confirmation. HCV Quant by PCR testing. Performed By: #### L 3890.6006, L509.8002, L100.0100, L3890.6301, BTS, L509.4006, L3890.6102 #### [facility] [address] [facility] [place], [address] Immature granulocytes/100 WB C Auto (Bld)Ordered By: Mandy Perez on 10-22-2024 Immature granulocytes/100 WBC (Bld) 0.300 % 0.0-0.9 [facility] Comment on above: IG% - Immature Granu locytes (promyelocytes, myelocytes and metamyelocytes) > 1% indicates that a LEFT SHIFT is Present. L3890.6102on 10-22-2024 HEP B Surf Ag Non-Reactive Normal Nonreactive [facility] Comment on above: Result Comment: Reac tive: Presumptive evidence of HBV. Repeatedly reactive samples must be confirmed using a neutralization test ([employer] HBsAg Confirmatory Test) Non-Reactive: HBsAg not detected; does not exclude the possibility of exposure to HBV Performed By: #### L 3890.6006, L509.8002, L100.0100, L3890.6301, BTS, L509.4006, L3890.6102 #### [facility] [address] [facility] [place], [place], [id number] L509.4006on 10-22-2024 Rubella IgG REAC Normal Nonreactive [facility] Comment on above: Result Comment: Anti body Result: Interpretation Non-Reactive: Non-Immune Reactive: Immune The following results were obtained with the [employer] Rubella IgG assay. Results from assays of other manufacturers cannot be used interchangeably. Performed By: #### L 3890.6006, L509.8002, L100.0100, L3890.6301, BTS, L509.4006, L3890.6102 #### [facility] [address] [place], [address] Laboratory - CytologyOrdered By: Mandy Perez on 10-22-2024 Water Resources Technical Officer Cyto stain Nom (Cvx/Vag) [ID] Comment . [facility] Comment on above: Horacio Mack Water Resources Technical Officer (ASCP) Laboratory - Microbiology an d Antimicrobial susceptibilityOrdered By: Mandy Perez on 10-22-2024 HBV surface Ag Ql (S) Non-Reactive Nonreactive [facility] Comment on above: Reactive: Presumptiv e evidence of HBV. Repeatedly reactive samples must be confirmed using a neutralization test ([employer] HBsAg Confirmatory Test)Non-Reactive: HBsAg not detected; does not exclude the possibility of exposure to HBV Laboratory - Miscellaneous t estsOrdered By: Mandy Perez on 10-22-2024 Service comment (Unsp spec) [Interp] . . [facility] MCV (mean corpuscular volume ) determinationOrdered By: Mandy Perez on 10-22-2024 MCV (RBC) [Entitic vol] 89.5 fL 81-99 [facility] Mean corpuscular hemoglobin (MCH) determinationOrdered By: Mandy Perez on 10-22-2024 MCH (RBC) [Entitic mass] 30.7 pg 27.0-32.0 [facility] Mean corpuscular hemoglobin concentration (MCHC) determinationOrdered By: Mandy Perez on 10-22-2024 MCHC (RBC) [Mass/Vol] 34.3 g/dL 32-36 [facility] Mean platelet volume determi nationOrdered By: Mandy Perez on 10-22-2024 Platelet mean volume (Bld) [Entitic vol] 12.0 fL 6.2-12.0 [facility] Monocyte percentageOrdered B y: Mandy Perez on 10-22-2024 Monocytes/100 WBC (Bld) 5.1 % 0-10 [facility] Neisseria gonorrhoeae nuclei c acid detection by amplified probe techniqueOrdered By: Mandy Perez on 10-22-2024 N. gonorrhoeae DNA BARB+probe Ql (Unsp spec) Negative Negative [facility] Comment on above: Performed at: =[address] [id number] Director: Jaquelin Celis MD, Phone: [phone] Neutrophil percentageOrdered By: Mandy Perez on 10-22-2024 Neutrophils/100 WBC (Bld) 55.3 % 47-70 [facility] No Panel InformationOrdered By: Mandy Perez on 10-22-2024 Pap Smear Specimen Adequacy Comment . [facility] Comment on above: Satisfactory for ken luation. No endocervical component is identified.An endocervical component is not commonly seen in the patient. HIV (1&2) Antibody Non-Reactive Nonreactive [facility] Comment on above: Non-ReactiveReactive Repeatedly reactive samples must be confirmed according to CDC recommended confirmatory algorithms. The subresults for either HIVAG or AHIV can be used as an aid in the selection of the confirmation algorithm for reactive samples.Send out specimens with Reactive results to [facility] for confirmation.Order the HIV antibody detection and differentiation: #[id number] Nucleated red blood cell per centageOrdered By: Mandy Perez on 10-22-2024 Nucleated RBC/100 WBC (Bld) [Ratio] 0 % 0-5 [facility] Receptionist Office Visit Reporton 10-22-2024 Clinic Receptionist Office Visit Report [facility]'s [address], [address] [place] [address] OFFICE VISIT Date of Service: 10/22/24 MR#: [id number] Acct: [id number] Name: KRUNAL KERN Radha Rep #: [id number] 2 : 1990 Provider: JOHN Woo ams Age/Sex: 34/F Location: [facility] [place] Status: Signed Intake Vital Signs 10/29/23 11:39 09/27/24 08:12 10/22/24 10:45 Height 5 ft 6 in 5 ft 6 in 5 ft 6 in Weight: 125 lb 4 oz BMI 20.2 BP 116/74 Intake Visit Reasons: 8WK NOB LMP 08/23 KATH 05/30 Chief Complaint: New OB Revenue Cycle Manager Required: No Is patient in pain?: No Allergies No Known Allergies Allergy (Verified 10/22/24 10:44) Medications ???Medication ???Instructions ???Recorded ???Confirmed ???Type docosahexaenoic acid 200 mg mg PO 10/07/24 10/22/24 History capsule (Algal [place]-3 DHA) magnesium 200 mg tablet 400 mg [...] weight training frequency: 3-4 times per week george/episcopalian: Worship seatbelt use: always do you feel safe [...] term 8pounds 7oz Female 14 hours none [facility] Celina Key/Dr. Timmy Yancey 05/05/19 Amaris 39 live - full term 7lbs 15oz Male spinal [facility] NORMA 09/27/21 Maribel 39 live - full term Male [facility] M arcanthony Delivery Date: 10/19/16 Last [...] Last Menstrual (more content not included)... Normal [facility] Platelet countOrdered By: Mitchel Perez on 10-22-2024 Platelets (Bld) [#/Vol] 237 10*3/uL 150-450 [facility] RBC Auto (Bld) [#/Vol]Ordere d By: Mandy Perez on 10-22-2024 RBC (Bld) [#/Vol] 4.01 10*6/uL Low 4.2-5.4 [facility] Syphilis Antibodieson 2024 Syphilis Abs Non-Reactive Normal Nonreactive [facility] Comment on above: Performed By: #### L 3890.6006, L509.8002, L100.0100, L3890.6301, BTS, L509.4006, L3890.6102 #### [facility] [address] [place], [place], [id number] Type AND Screenon 10-22-2024 ABO and Rh group Nom (Bld) Blood group A Rh(D) positive Normal [facility] Comment on above: Order Comment: PN Performed By: #### L 3890.6006, L509.8002, L100.0100, L3890.6301, BTS, L509.4006, L3890.6102 #### [facility] [address] [place], [address] Urine cultureOrdered By: Dilan Perez on 10-22-2024 Bacteria identified Cx Nom (U) Culture exhibits no growth. [facility] White blood cell (WBC) count Ordered By: Mandy Perez on 10-22-2024 WBC (Bld) [#/Vol] 6.7 10*3/uL 4.4-11.[address] [facility] Absolute lymphocyte countOrd ered By: Ruthannchloe You on 10-29-2023 Lymphocytes Auto (Unsp spec) [#/Vol] 2.41 10*3/uL 0.83-4.51 [facility] Automated lymphocyte count a s percentage of total leukocytesOrdered By: Ruthann You on 10-29-2023 Lymphocytes/100 WBC Auto (Unsp spec) 41.3 % 19-41 [facility] Basophil percentageOrdered B y: Ruthann You on 10-29-2023 Basophils/100 WBC (Bld) 0.9 % 0-1 [facility] Eosinophils/100 WBC (Bld) 2.7 % 0-5 [facility] Hemoglobin (Bld) [Mass/Vol] 12.0 g/dL 12.0-15.0 [facility] Monocytes/100 WBC (Bld) 6.7 % 0-10 [facility] Neutrophils (Bld) [#/Vol] 2.8 10*3/uL 2.0-7.7 [facility] Neutrophils/100 WBC (Bld) 48.2 % 47-70 [facility] WBC (Bld) [#/Vol] 5.8 10*3/uL 4.4-11.[address] [facility] Determination of erythrocyte mean corpuscular volume (MCV)Ordered By: Ruthann You on 10-29-2023 MCV (RBC) [Entitic vol] 87.9 fL 81-99 [facility] Erythrocyte distribution wid th ratioOrdered By: Ruthann You on 10-29-2023 Erythrocyte distribution width (RBC) [Ratio] 14.0 % 11.6-14.6 [facility] Erythrocyte distribution wid th standard deviationOrdered By: Ruthann You on 10-29-2023 Erythrocyte distribution width (RBC) [Entitic vol] 44.8 fL 35.1-43.9 [facility] Hematocrit Auto (Bld) [Volum e fraction]Ordered By: Ruthann You on 10-29-2023 Hematocrit (Bld) [Volume fraction] 36.9 % 37-47 [facility] Immature granulocytes/100 WB C Auto (Bld)Ordered By: Ruthann You on 10-29-2023 Immature granulocytes/100 WBC (Bld) 0.200 % 0.0-0.9 [facility] Comment on above: IG% - Immature Granu locytes (promyelocytes, myelocytes and metamyelocytes) > 1% indicates that a LEFT SHIFT is Present. Laboratory - Chemistry and C hemistry - challengeon 10-29-2023 HCG ( test) Ql (U) Negative [facility] - Hematology and Cell countsOrdered By: Ruthann You on 10-29-2023 MCH (RBC) [Entitic mass] 28.6 pg 27.0-32.0 [facility] MCHC (RBC) [Mass/Vol] 32.5 g/dL 32-36 [facility] Nucleated RBC/100 WBC (Bld) [Ratio] 0 % 0-5 [facility] Platelet mean volume (Bld) [Entitic vol] 11.9 fL 6.2-12.0 [facility] Platelets (Bld) [#/Vol] 277 10*3/uL 150-450 [facility] RBC Auto (Bld) [#/Vol]Ordere d By: Ruthann You on 10-29-2023 RBC (Bld) [#/Vol] 4.20 10*6/uL 4.2-5.4 [facility] Serum or plasma thyroid stim ulating hormone (TSH) measurement (units/volume)Ordered By: Ruthann You on 10-29-2023 TSH Qn 1.11 uIU/mL 0.358-3.74 [facility] Serum or plasma thyroperoxid ase antibody assay (units/volume)Ordered By: Ruthann You on 10-29-2023 TPO Ab Qn 11 [IU]/mL 0-34 [facility] Comment on above: Performed at: [facility] [employer] [id number] Director: Manuel Mcintyre PhD, Phone: [phone] Thin prep Papanicolaou smear with manual screeningOrdered By: Ruthann You on 10-29-2023 Thin prep Papanicolaou smear with manual screening 1.03 ng/dL 0.76-1.46 [facility] - Chemistry and C hemistry - challengeon 09-25-2021 Glucose Ql (U) Negative [facility] Work Phone: Laboratory - Urinalysison Protein Ql (U) Negative [facility] Work Phone: Laboratory - Chemistry and C hemistry - challengeon 09-17-2021 Glucose Ql (U) Negative [facility] Work Phone: Laboratory - Urinalysison Protein Ql (U) Negative [facility] Work Phone: Laboratory - Chemistry and C hemistry - challengeon 09-12-2021 Glucose Ql (U) Negative [facility] Work Phone: Laboratory - Urinalysison Protein Ql (U) Negative [facility] Work Phone: Laboratory - Chemistry and C hemistry - challengeon 09-07-2021 Glucose Ql (U) Negative [facility] Work Phone: Laboratory - Urinalysison Protein Ql (U) Negative [facility] Work Phone: No Panel Informationon 09-07 Group B Streptococcus Culture Group B Beta Streptococcus is not isolated. [facility] Work Phone: Laboratory - Chemistry and C hemistry - challengeon 08-22-2021 Glucose Ql (U) Negative [facility] Work Phone: Laboratory - Urinalysison Protein Ql (U) Negative [facility] Work Phone: Laboratory - Chemistry and C hemistry - challengeon 08-08-2021 Glucose Ql (U) Negative [facility] Work Phone: Laboratory - Urinalysison Protein Ql (U) Negative [facility] Work Phone: Absolute lymphocyte counton 07-04-2021 Lymphocytes Auto (Unsp spec) [#/Vol] 1.88 10*3/uL 0.83-4.51 [facility] Work Phone: Basophil percentageon 2021 Basophils/100 WBC (Bld) 0.3 % 0-1 [facility] Work Phone: Eosinophils/100 WBC (Bld) 3.1 % 0-5 [facility] Work Phone: Neutrophils (Bld) [#/Vol] 5.8 10*3/uL 2.0-7.7 [facility] Work Phone: Neutrophils/100 WBC (Bld) 66.5 % 47-70 [facility] Work Phone: WBC (Bld) [#/Vol] 8.7 10*3/uL 4.4-11.[address] [facility] Work Phone: Blood erythrocytes count (nu mber/volume)on 07-04-2021 RBC (Bld) [#/Vol] 3.52 10*6/uL 4.2-5.4 [facility] Work Phone: Blood hemoglobin measurement (mass/volume)on 07-04-2021 Hemoglobin (Bld) [Mass/Vol] 11.6 g/dL 12.0-15.0 [facility] Work Phone: Blood lymphocytes/100 leukoc yteson 07-04-2021 Lymphocytes/100 WBC (Bld) 21.7 % 19-41 [facility] Work Phone: Blood monocytes/100 leukocyt eson 07-04-2021 Monocytes/100 WBC (Bld) 7.0 % 0-10 [facility] Work Phone: Blood platelet mean volumeon 07-04-2021 Platelet mean volume (Bld) [Entitic vol] 11.9 fL 6.2-12.0 [facility] Work Phone: Determination of erythrocyte mean corpuscular volume (MCV)on 07-04-2021 MCV (RBC) [Entitic vol] 95.5 fL 81-99 [facility] Work Phone: Gestational diabetes screen 1-hour screen with 50g oral glucose loadon 07-04-2021 Glucose 1 Hr post 50 g glucose PO [Mass/Vol] 57 mg/dL 70-140 [facility] Work Phone: Hematocrit Auto (Bld) [Volum e fraction]on 07-04-2021 Hematocrit (Bld) [Volume fraction] 33.6 % 37-47 [facility] Work Phone: Laboratory - Chemistry and C hemistry - challengeon 07-04-2021 Glucose Ql (U) Negative [facility] Work Phone: Laboratory - Hematology and Cell countson 07-04-2021 Erythrocyte distribution width (RBC) [Entitic vol] 44.5 fL 35.1-43.9 [facility] Work Phone: Erythrocyte distribution width (RBC) [Ratio] 12.9 % 11.6-14.6 [facility] Work Phone: Immature granulocytes/100 WBC (Bld) 1.400 % 0.0-0.9 [facility] Work Phone: Comment on above: IG% - Immature Granu locytes (promyelocytes, myelocytes and metamyelocytes) > 1% indicates that a LEFT SHIFT is Present. MCH (RBC) [Entitic mass] 33.0 pg 27.0-32.0 [facility] Work Phone: Nucleated RBC/100 WBC (Bld) [Ratio] 0 % 0-5 [facility] Work Phone: Laboratory - Urinalysison Protein Ql (U) Negative [facility] Work Phone: MCHC Auto (RBC) [Mass/Vol]on 07-04-2021 MCHC (RBC) [Mass/Vol] 34.5 g/dL 32-36 [facility] Work Phone: Platelets bldon 07-04-2021 Platelets (Bld) [#/Vol] 193 10*3/uL 150-450 [facility] Work Phone: Laboratory - Chemistry and C hemistry - challengeon 06-08-2021 Glucose Ql (U) Negative [facility] Work Phone: Laboratory - Urinalysison Protein Ql (U) Negative [facility] Work Phone: PROGRESSon 07-21-2017 PROGRESS HNO ID: [id number] Author: Kathleen Wolff Psr Service: (none) Author Type: (none) Type: Progress Notes Filed: 07/21/2017 9:10 AM Note Text: pap logged. letter sent. Kathleen Wolff Psr Normal [facility] CYTOLOGYon 07-09-2017 [facility]: [id number] Physician: ARMANDO CROCKERPECCLEOPATRA SUBMITTEDA: CERVICAL, DIAGNOSTIC, FLUID FINAL DIAGNOSISA. CERVICAL, DIAGNOSTIC, FLUIDSatisfactory for interpretation.Negative for intraepithelial lesion or malignancy.This specimen has been analyzed by the ThinPrep Imaging System, [employer] imaging and review system, which assists the laboratory inevaluating cells on ThinPrep Pap tests. Following automated imaging,selected santos from every slide are reviewed by a security operations engineer.Suhail David M.D. (Electronic Signature) CLINI NADIRA DATA ABNORMAL PAP, HPV Testing: Yes, Reflex HPV for ASCUSDate of Last Menstrual Period:PostpartumClinica l History:H/O LGSIL: 02/2016Additional Testing:Reflex HPV testing for ASCUSSTAINSA: CERVICAL, DIAGNOSTIC, FLUID THIN PREP GYNPatient ID #: [id number] of Report: 07/18/2017Date of Procedure: 07/09/2017Date of Receipt: 07/11/2017Submitted by: SARAH CROCKERocation: WOREFDiagnostic interpretation performed at [facility], [address] [place] [address].The Pap Smear is a screening test for cervical cancer. False negativeresults occur with all screening tests, emphasizing the need forrescreening at recommended intervals, and clinical correlation. Normal [facility] HOSPon 07-09-2017 HOSP Office Vi sit (WOOB) KELI ALCANTAR ([id number]) 1990 FDate Time Provider Department07/09/17 3:15 PM [...] external genitalia normal, normal Bartholin's glands, urethra, [place]'sglands, no vulvar lesions, no cervical lesions, good [...] with abnormal finding [Z01.411]Order(s):PAP FLUID CERVICAL DIAGNOSTIC [[id number]] Order #: [id number]. #:[id number] List As Of Date 07/09/2017 Noted [...] Annual or PRN.Follow-up and Disposition History RecordedLetter [address] [address]Vmndy: Krunal [address] [address]/21/2017CCF: [id number] Hector,We are pleased to inform you that [...] 8:00 a.m. and 5:00p.m.Sincerely,Cynthia Key CNMEncounter Number: [id number] Status:Closed by CELINA KEY on 07/09/17 Normal [facility] PROGRESSon 07-09-2017 PROGRESS HNO ID: [id number]: Celina (John) ShahidService: (none)Author Type: MidwifeType: Progress [...] masses.PELVIC: external genitalia normal, normal Bartholin's glands, urethra,[place]'s glands, no vulvar lesions, no cervical lesions, [...] for annualexams and PRDarleen Key CNM Normal [facility] HOSP 05-23-2017 HOSP Patient Update (WOOB) KELI ALCANTAR ([id number]) 1990 [facility] Time Provider Pifnpzympc82/24/17 CELINA KEY (JOHN) WOOB During your visit today, we recorded the following information about you:Kathleen Benja OLSEN 05/23/2017 11:49 AM SignedPt delivered via at [facility] on 05/21/17 per Celina Key CNM. [...] by KATHLEEN YOUSIF LPN on 05/23/17 Normal [facility] PROGRESSon 05-23-2017 PROGRESS HNO ID: [id number] Author: Kathleen Yousif LPN Service: (none) Author Type: (none) Type: Progress Notes Filed: 05/23/2017 11:49 AM Note Text: Pt delivered via at [facility] on 05/21/17 per Celina Key CNM. See OB Outcome note. Kathleen Yousif LPN Normal [facility] HOSPon 05-19-2017 [facility] Routine Off ice Visit (WOOB) KELI ALCANTAR ([id number]) 1990 FDate Time Provider Sasubxrnco14/20/17 2:30 PM CELINA KEY (JOHN) WOOB During your visit today, we recorded the following information about you: Blood pressure Weight 110/64 78 kgPolochloe [facility] 05/19/2017 2:44 PM SignedSEQUENTIAL SCREENINGSThe [facility] offers sequential screenings for women who [...] testing. It will require anappointment with our surface lay out technician. This is not an ultrasound performedby [...] the above symptoms, contact our office at [phone] andask to speak with a nurse.After hours, you can call doctors registry at [phone] OR call [facility] at [phone] and ask to have the doctor contact center agent paged.If you consider this an emergency, dial 1--5 or go to your nearest emergencydepartment.NEED HELP? Are you dealing with a violent or abusive relationship? Are you avictim of rape or sexual assult? Call [facility] ([place]) 24 hourCrisis Hotline: 250.117.3714 or 592-889-3797. MANUALYour Guide to a Healthy manual is [...] weeks of gestation [O48.0]Order(s):URINE OB DIP B/O [[id number]] Order #: [id number] OBSTETRIC ULTRASOUND WHI [[id number]] Order #: [id number]: 1 NON-STRESS TEST [[id number]] Order #: [id number] as of 05/19/2017 Sig: DHA ORAL Take by mouth.Problem List As Of Date 05/19/2017 Noted Resolved Anorexia nervosa, binge eating/purging type [F5*INVALID FOR* Left breast mass [N63.20] INVALID FOR*12/05/2016 Encounter for supervision of normal first pregn*INVALID FOR* Other instructions from your clinician: SEQUENTIAL SCREENINGS The [facility] offers sequential screenings for women who [...] It will require an appointment with our surface lay out technician. This is not an ultrasound performed [...] the above symptoms, contact our office at [phone] and ask to speak with a nurse. After hours, you can call doctors registry at [phone] OR call [facility] at [phone] and ask to have the doctor contact center agent paged. If you consider this an emergency, dial 0-3-6 or go to your nearest emergency department. NEED HELP? Are you dealing with a violent or abusive relationship? Are you a victim of rape or sexual assult? Call [facility] ([facility] 24 hour Crisis Hotline: 370.578.6011 or 749-494-2169. MANUAL Your Guide to a Healthy manual is now on-line. Visit [email or web address] thyPregnancyGuide to download your free copyDisposition: Return if symptoms worsen or fail to improve, for Appointment with CM.Follow-up and Disposition History RecordedEncounter Number: [id number] Status:Closed by CELINA KEY on 05/19/17 Normal [facility] HOSPon 05-16-2017 HOSP Routine Off ice Visit (WOOB) KELI ALCANTAR ([id number]) 1990 FDate Time Provider Zsyppjhfef32/17/17 1:00 PM CELINA KEY) ROSELINE During your visit today, we recorded the following information about you: Blood pressure Weight 110/64 77.7 kgHayley Piotr Velez 05/16/2017 1:01 PM SignedSEQUENTIAL SCREENINGSThe [facility] offers sequential screenings for women who [...] testing. It will require anappointment with our surface lay out technician. This is not an ultrasound performedby [...] the above symptoms, contact our office at [phone] andask to speak with a nurse.After hours, you can call doctors registry at [phone] OR call [facility] at [phone] and ask to have the doctor contact center agent paged.If you consider this an emergency, dial 9-1-1 or go to your nearest emergencydepartment.NEED HELP? Are you dealing with a violent or abusive relationship? Are you avictim of rape or sexual assult? Call [facility] ([place]) 24 hourCrisis Hotline: 106.182.3804 or 014-423-6361. MANUALYour Guide to a Healthy manual is now on-line. [email or web address] to download your free copyReferring Provider: SELF [200]Allergies As of Date: 05/16/2017(No Known Allergies)Date Reviewed: 05/16/2017Reviewed by: Anjelica Saldaña Ma - Fully AssessedReason for Visit: Care [86]Primary Visit Diagnosis:Encounter for supervision of normal first in third trimester [Z34.03] Other Visit Diagnosis:39 weeks gestation of [Z3A.39]Order(s):URINE OB DIP B/O [[id number]] Order #: [id number] as of 05/16/2017 Sig: DHA ORAL Take by mouth.Problem List As Of Date 05/16/2017 Noted Resolved Anorexia nervosa, binge eating/purging type [F5*INVALID FOR* Left breast mass [N63.20] INVALID FOR*12/05/2016 Encounter for supervision of normal first pregn*INVALID FOR* Other instructions from your clinician: SEQUENTIAL SCREENINGS The [facility] offers sequential screenings for women who [...] It will require an appointment with our surface lay out technician. This is not an ultrasound performed [...] the above symptoms, contact our office at [phone] and ask to speak with a nurse. After hours, you can call doctors registry at [phone] OR call [facility] at [phone] and ask to have the doctor contact center agent paged. If you consider this an emergency, dial 0-4-5 or go to your nearest emergency department. NEED HELP? Are you dealing with a violent or abusive relationship? Are you a victim of rape or sexual assult? Call [facility] ([place]) 24 hour Crisis Hotline: 875.657.6110 or 777-806-3061. MANUAL Your Guide to a Healthy manual is now on-line. Visit [email or web address]/Heal thyPregnancyGuide to download your free copyDisposition: Return in about 1 week (around 05/23/2017), or if symptoms worsen or fail to improve, for FRANCO.Follow-up and Disposition History RecordedEncounter Number: [id number] Status:Closed by CELINA KEY on 05/16/17 [facility] 05-07-2017 [facility] Routine Off ice Visit (WOOB) KELI ALCANTAR ([id number]) 1990 [facility] Time Provider Ramgrfddvb18/8/17 8:15 AM CELINA KEY (CN) WOOB During your visit today, we recorded the following information about you: Blood pressure Weight 102/66 77.1 kgPoloy Juanjo Ri 05/07/2017 8:23 AM SignedSEQUENTIAL SCREENINGSThe [facility] offers sequential screenings for women who [...] testing. It will require anappointment with our surface lay out technician. This is not an ultrasound performedby [...] the above symptoms, contact our office at [phone] andask to speak with a nurse.After hours, you can call doctors registry at [phone] OR call [facility] at [phone] and ask to have the doctor contact center agent paged.If you consider this an emergency, dial 5-1-6 or go to your nearest emergencydepartment.NEED HELP? Are you dealing with a violent or abusive relationship? Are you avictim of rape or sexual assult? Call [facility] ([place]) 24 hourCrisis Hotline: 632.424.2204 or 874-441-8582. MANUALYour Guide to a Healthy manual is now on-line. [email or web address] /HealthyPregnancyGuide to download your free copyReferring Provider: SELF [200]Allergies As of Date: 05/07/2017(No Known Allergies)Date Reviewed: 05/07/2017Reviewed by: Celina Key - Fully AssessedReason for Visit: Care [86]Primary Visit Diagnosis:Encounter for supervision of normal first in third trimester [Z34.03] Other Visit Diagnosis:38 weeks gestation of [Z3A.38]Order(s):URINE OB DIP B/O [[id number]] Order #: [id number] as of 05/07/2017 Sig: DHA ORAL Take [...] It will require an appointment with our surface lay out technician. This is not an ultrasound performed [...] the above symptoms, contact our office at [phone] and ask to speak with a nurse. After hours, you can call doctors registry at [phone] OR call [facility] at [phone] and ask to have the doctor contact center agent paged. If you consider this an emergency, dial 3-4-2 or go to your nearest emergency department. NEED HELP? Are you dealing with a violent or abusive relationship? Are you a victim of rape or sexual assult? Call [facility] ([place]) 24 hour Crisis Hotline: 424.752.6913 or 407-120-2916. MANUAL Your Guide to a Healthy manual is now on-line. Visit [email or web address] thyPregnancyGuide to download your free copyDisposition: Return in about 1 week (around 05/14/2017), or if symptoms worsen or fail to improve, for FRANCO.Follow-up and Disposition History RecordedEncounter Number: [id number] Status:Closed by CELINA KEY on 05/07/17 Normal [facility] Jerel 05-02-2017 Alanine aminotransferase (ALT) 12 U/L Normal 7-38 [facility] Comment on above: Performed By: #### C BC, ALT, AST, BUN, CRET1, URIC ####[facility] [place], [place] [phone] Nabeel 05-02-2017 Aspartate aminotransferase (AST) 23 U/L Normal 13-35 [facility] Comment on above: Performed By: #### C BC, ALT, AST, BUN, CRET1, URIC ####[place] [address] [phone] BUNon 05-02-2017 Urea nitrogen 14 mg/dL Normal 7-21 [facility] Comment on above: Performed By: #### C BC, ALT, AST, BUN, CRET1, URIC ####[place] [address] [address] [place] [phone] CBCon 05-02-2017 Erythrocyte distribution width Auto Ratio (RBC) 12.9 % Normal 11.5-15.0 [facility] Comment on above: Performed By: #### C BC, ALT, AST, BUN, CRET1, URIC ####[place] [address] [address] [place] [phone] Erythrocytes (RBC) 10*6/uL Normal <0.01 [facility] Comment on above: Performed By: #### C BC, ALT, AST, BUN, CRET1, URIC ####[place] [address] [address] [place], [place] [phone] Erythrocytes (RBC) 3.76 10*6/uL Low 3.90-5.20 [facility] Comment on above: Performed By: #### C BC, ALT, AST, BUN, CRET1, URIC ####[place] [address] [address] [place] [phone] Hematocrit (HCT) 36.3 % Normal 36.0-46.0 [facility] Comment on above: Performed By: #### C BC, ALT, AST, BUN, CRET1, URIC ####[place] [address] [address] [place] [phone] Hemoglobin mass conc (Bld) 11.9 g/dL Normal 11.5-15.5 [facility] Comment on above: Performed By: #### C BC, ALT, AST, BUN, CRET1, URIC ####[address] [place], [place] [phone] MCH 31.6 pG Normal 26.0-34.0 [facility] Comment on above: Performed By: #### C BC, ALT, AST, BUN, CRET1, URIC ####[place] [phone] MCHC mass conc (RBC) 32.8 g/dL Normal 30.5-36.0 [facility] Comment on above: Performed By: #### C BC, ALT, AST, BUN, CRET1, URIC ####[place] [phone] MCV 96.5 fL Normal 80.0-100.0 [facility] Comment on above: Performed By: #### C BC, ALT, AST, BUN, CRET1, URIC ####[address] [phone] Platelet mean volume (PMV) 13.9 fL High 9.0-12.7 [facility] Comment on above: Performed By: #### C BC, ALT, AST, BUN, CRET1, URIC ####[address] [phone] Platelets 163 10*3/uL Normal 150-400 [facility] Comment on above: Result Comment: Resu lt checked and verifiedNo clot detected. Performed By: #### C BC, ALT, AST, BUN, CRET1, URIC ####[address] [phone] WBC (Leukocytes) 8.65 10*3/uL Normal 3.70-11.00 [facility] Comment on above: Performed By: #### C BC, ALT, AST, BUN, CRET1, URIC ####[facility] [place], [place] [phone] Creatinineon 05-02-2017 Creatinine 0.74 mg/dL Normal 0.58-0.96 [facility] Comment on above: Performed By: #### C BC, ALT, AST, BUN, CRET1, URIC ####[facility] [place], [place] [phone] eGFR (non-black) mL/min/{1.73_m2} Normal Cl [facility] Comment on above: Result Comment: eGFR (Estimated [...] C BC, ALT, AST, BUN, CRET1, URIC ####[facility] [place], [place] [phone] HOSPon 05-02-2017 HOSP Routine Off ice Visit (WOOB) KELI ALCANTAR ([id number]) 1990 [facility] Time Provider Ulhbmhwaqp05/3/17 11:00 AM CELINA KEY (JOHN) WOOB During your visit today, we recorded the following information about you: Blood pressure Weight 100/62 76.2 kgZena Collinsloisbelle DEVELOPMENTAL SERVICES WORKER 05/02/2017 11:00 AM SignedSEQUENTIAL SCREENINGSThe [facility] offers sequential screenings for women who [...] testing. It will require anappointment with our surface lay out technician. This is not an ultrasound performedby [...] the above symptoms, contact our office at [phone] andask to speak with a nurse.After hours, you can call doctors registry at [phone] OR call [facility] at [phone] and ask to have the doctor contact center agent paged.If you consider this an emergency, dial 5-1-1 or go to your nearest emergencydepartment.NEED HELP? Are you dealing with a violent or abusive relationship? Are you avictim of rape or sexual assult? Call [facility] ([place]) 24 hourCrisis Hotline: 620.464.2695 or 056-916-1719. MANUALYour Guide to a Healthy manual is now on-line. [email or web address] /HealthyPregnancyGuide to download your free copyReferring Provider: SELF [200]Allergies As of Date: 05/02/2017(No Known Allergies)Date Reviewed: 05/02/2017Reviewed by: Zena Naik LPN - Fully AssessedReason for Visit: Care [86]Primary Visit Diagnosis:Encounter for supervision of normal first in third trimester [Z34.03]Order(s):URINE OB DIP B/O [3019811] Order #: [id number] ALT/SGPT [SQALT] Order #: [id number] FUTURE AST/SGOT BLD [SQAST] Order #: [id number] FUTURE BUN BLOOD [SQBUN] Order #: [id number] FUTURE URIC ACID BLOOD [SQURIC] Order #: [id number] FUTURE CREATININE BLD [SQCRET] Order #: [id number] FUTURE CBC [SQCBC] Order #: [id number] FUTURE PROTEIN CREATININE RATIO [SQPRATIO] Order #: [id number] FUTUREPrescriptions as of 05/02/2017 Sig: DHA ORAL Take by mouth.Problem List As Of Date 05/02/2017 Noted Resolved Anorexia nervosa, binge eating/purging type [F5*INVALID FOR* Left breast mass [N63.20] INVALID FOR*12/05/2016 Encounter for supervision of normal first pregn*INVALID FOR* Other instructions from your clinician: SEQUENTIAL SCREENINGS The [facility] offers sequential screenings for women who [...] It will require an appointment with our surface lay out technician. This is not an ultrasound performed [...] the above symptoms, contact our office at [phone] and ask to speak with a nurse. After hours, you can call doctors registry at [phone] OR call [facility] at [phone] and ask to have the doctor contact center agent paged. If you consider this an emergency, dial 9-1- or go to your nearest emergency department. NEED HELP? Are you dealing with a violent or abusive relationship? Are you a victim of rape or sexual assult? Call [facility] ([place]) 24 hour Crisis Hotline: 526.910.4482 or 553-291-5661. MANUAL Your Guide to a Healthy manual is now on-line. Visit [email or web address]/Heal thyPregnancyGuide to download your free copyDisposition: Return in about 1 week (around 05/09/2017), or if symptoms worsen or fail to improve.Follow-up and Disposition History RecordedEncounter Number: [id number] Status:Closed by CELINA KEY on 05/02/17 Normal [facility] Protein/Creatinine Ratioon 1 07-02-2016 Creatinine,Urine,Ran 79.9 mg/dL Normal 20-300 [facility] Comment on above: Performed By: #### P RATIO ####[address] [phone] Protein Urine Random 21 mg/dL High 0-20 [facility] Comment on above: Performed By: #### P RATIO ####[address] [phone] Protein/Creatinine Ratio 0.3 High <0.2 [facility] Comment on above: Performed By: #### P RATIO ####[address] [phone] Uric Acidon 05-02-2017 Urate 3.7 mg/dL Normal 2.5-6.6 [facility] Comment on above: Performed By: #### C BC, ALT, AST, BUN, CRET1, URIC ####[address] [phone] HIV 12 Combo (Ag/Ab)on 04-24 HIV 12 Ag/Ab Non Reactive Normal Non Reactive [facility] Comment on above: Result Comment: (NOT E)HIV Information: [place] Rev. Code 3701.243(E):This information has been disclosed [...] By: #### S YPHGX, RUBIGG, HBSAG, HIV12C ####[place] [phone] Hepatitis B Surf. Agon 04-24 Hepatitis B Surf. Ag Negative Normal Negative [facility] Comment on above: Performed By: #### S YPHGX, RUBIGG, HBSAG, HIV12C ####[place] [phone] Rubella IgG Antibodyon 04-24 Rubella IgG Ab 1.54 Index Value Normal [facility] Comment on above: Result Comment: Inde x values are interpreted as follows:Negative specimens <0.90Equivocol specimens 0.90 to 0.99Positive specimens >0.99The magnitude of the measured result is not indicative of the amount of antibody present. Performed By: #### S YPHGX, RUBIGG, HBSAG, HIV12C ####[place] [phone] Rubella IgG Ab, Qual Positive Critically abnormal Negative [facility] Comment on above: Result Comment: Samp le is considered positive for IgG antibodies to rubella virus.A positive result indicates previous exposure to Rubella virus or vaccination. Performed By: #### S YPHGX, RUBIGG, HBSAG, HIV12C ####[place] [phone] Syphilis IgG with Confon Syphilis IgG <0.2 Normal [facility] Comment on above: Result Comment: Anti body index is interpreted as follows:Non reactive SPECIMENS <=0.8Weak reactive SPECIMENS 0.9 to 5.9Reactive SPECIMENS >=6.0 Performed By: #### S YPHGX, RUBIGG, HBSAG, HIV12C ####[facility] [address] [place], [place] [phone] Syphilis IgG, Qual Nonreactive Normal Nonreactive [facility] Comment on above: Result Comment: In c onjunction with this result, the immune status of the patient should be evaluated based on their clinical status, related risk factors, and other diagnostic test results. Performed By: #### S YPHGX, RUBIGG, HBSAG, HIV12C ####[facility] [address] [place], [place] [phone] HOSPon 04-23-2017 [facility] Routine Off ice Visit (WOOB) KELI ALCANTAR ([id number]) 1990 [facility] Time Provider Uhqtmnczvg17/25/17 9:45 AM CELINA KEY (JOHN) WOOB During your visit today, we recorded the following information about you: Blood pressure Weight 102/60 76.8 kgMary Alice [facility] 04/23/2017 9:14 AM SignedSEQUENTIAL SCREENINGSThe [facility] offers sequential screenings for women who [...] testing. It will require anappointment with our surface lay out technician. This is not an ultrasound performedby [...] the above symptoms, contact our office at [phone] andask to speak with a nurse.After hours, you can call doctors registry at [phone] OR [facility] at [phone] and ask to have the doctor contact center agent paged.If you consider this an emergency, dial 02-28- or go to your nearest emergencydepartment.NEED HELP? Are you dealing with a violent or abusive relationship? Are you avictim of rape or sexual assult? Call [facility] ([place]) 24 hourCrisis Hotline: 451.427.1397 or 509-602-5597. MANUALYour Guide to a Healthy manual is now on-line. [email or web address] /HealthyPregnancyGuide to download your free copyReferring Provider: SELF [200]Allergies As of Date: 04/23/2017(No Known Allergies)Date Reviewed: 04/23/2017Reviewed by: Celina Key - Fully AssessedReason for Visit: Care [86]Primary Visit Diagnosis:Encounter for supervision of normal first in third trimester [Z34.03] Other Visit Diagnosis:36 weeks gestation of [Z3A.36]Order(s):SYPHILI S IGG WITH CONF [SQSYPHGX] Order #: [id number] FUTURE RUBELLA IGG AB [SQRUBQNT] Order #: [id number] FUTURE HEP B SURF AG SCRN [SQHBSAG] Order #: [id number] FUTURE HIV 1,2 COMBO (AG/AB) [SQHIV12] Order #: [id number] FUTURE URINE OB DIP B/O [9543000] Order #: [id number] as of 04/23/2017 Sig: DHA ORAL Take by mouth.Problem List As Of Date 04/23/2017 Noted Resolved Anorexia nervosa, binge eating/purging type [F5*INVALID FOR* Left breast mass [N63.20] INVALID FOR*12/05/2016 Encounter for supervision of normal first pregn*INVALID FOR* Other instructions from your clinician: SEQUENTIAL SCREENINGS The [facility] offers sequential screenings for women who [...] It will require an appointment with our surface lay out technician. This is not an ultrasound performed [...] the above symptoms, contact our office at [phone] and ask to speak with a nurse. After hours, you can call doctors registry at [phone] OR call [facility] at [phone] and ask to have the doctor contact center agent paged. If you consider this an emergency, dial 9-1-1 or go to your nearest emergency department. NEED HELP? Are you dealing with a violent or abusive relationship? Are you a victim of rape or sexual assult? Call [facility] ([place]) 24 hour Crisis Hotline: 685.251.8734 or 469-636-1965. MANUAL Your Guide to a Healthy manual is now on-line. Visit [email or web address] thyPregnancyGuide to download your free copyDisposition: Return in about 1 week (around 04/30/2017), or if symptoms worsen or fail to improve, for FRANCO.Follow-up and Disposition History RecordedEncounter Number: [id number] Status:Closed by CELINA KEY on 04/23/17 Normal [facility] GROUP B STREP PCRon 04-18-20 GROUP B STREP PCR Negative Normal [facility] Comment on above: Performed By: #### G [facility] ####[facility] [address] [place], [place] [phone] HOSPon 04-18-2017 HOSP Routine Off ice Visit (WOOB) KELI ALCANTAR ([id number]) 1990 [facility] Time Provider Hfrcfbhice81/20/17 8:15 AM CELINA KEY (JOHN) WOOB During your visit today, we recorded the following information about you: Blood pressure Weight 94/58 75.3 kgMary Alice Geiger Ri 04/18/2017 8:04 AM SignedSEQUENTIAL SCREENINGSThe [facility] offers sequential screenings for women who [...] testing. It will require anappointment with our surface lay out technician. This is not an ultrasound performedby [...] the above symptoms, contact our office at [phone] andask to speak with a nurse.After hours, you can call doctors registry at [phone] OR call [facility] at [phone] and ask to have the doctor contact center agent paged.If you consider this an emergency, dial 9-4-9 or go to your nearest emergencydepartment.NEED HELP? Are you dealing with a violent or abusive relationship? Are you avictim of rape or sexual assult? Call [facility] ([place]) 24 hourCrisis Hotline: 894.287.7568 or 154-591-1923. MANUALYour Guide to a Healthy manual is now on-line. [email or web address] /HealthyPregnancyGuide to download your free copyReferring Provider: SELF [200]Allergies As of Date: 04/18/2017(No Known Allergies)Date Reviewed: 04/18/2017Reviewed by: Mary Alice Geiger Ma - Fully AssessedReason for Visit: Care [86]Primary Visit Diagnosis:Encounter for supervision of normal first in third trimester [Z34.03] Other Visit Diagnosis:35 weeks gestation of [Z3A.35]Order(s):URINE OB DIP B/O [[id number]] Order #: [id number] STREPTOCOCCUS B PCR [SQGBSPCR] Order #: [id number]. #:[id number] as of 04/18/2017 Sig: DHA ORAL Take by mouth.Problem List As Of Date 04/18/2017 Noted Resolved Anorexia nervosa, binge eating/purging type [F5*INVALID FOR* Left breast mass [N63.20] INVALID FOR*12/05/2016 Encounter for supervision of normal first pregn*INVALID FOR* Other instructions from your clinician: SEQUENTIAL SCREENINGS The [facility] offers sequential screenings for women who [...] It will require an appointment with our surface lay out technician. This is not an ultrasound performed [...] the above symptoms, contact our office at [phone] and ask to speak with a nurse. After hours, you can call doctors registry at [phone] OR call [facility] at [phone] and ask to have the doctor contact center agent paged. If you consider this an emergency, dial 7--2 or go to your nearest emergency department. NEED HELP? Are you dealing with a violent or abusive relationship? Are you a victim of rape or sexual assult? Call [facility] ([place]) 24 hour Crisis Hotline: 199.938.5033 or 632-954-5431. MANUAL Your Guide to a Healthy manual is now on-line. Visit [email or web address]/Heal thyPregnancyGuide to download your free copyDisposition: Return in about 1 week (around 04/25/2017), or if symptoms worsen or fail to improve, for FRANCO.Follow-up and Disposition History RecordedEncounter Number: [id number] Status:Closed by CELINA KEY on 04/18/17 [facility] 04-03-2017 [facility] Routine Off ice Visit (WOOB) KELI ALCANTAR ([id number]) 1990 [facility] Time Provider Ciiexusgsy83/5/17 11:10 AM RAMY SONG During your visit today, we recorded the following information about you: Blood pressure Weight 90/64 73.4 kgMarisela Benson Ma 04/03/2017 11:15 AM SignedSEQUENTIAL SCREENINGSThe [facility] offers sequential screenings for women who [...] testing. It will require anappointment with our surface lay out technician. This is not an ultrasound performedby [...] the above symptoms, contact our office at [phone] andask to speak with a nurse.After hours, you can call doctors registry at [phone] OR [facility] at [phone] and ask to have the doctor contact center agent paged.If you consider this an emergency, dial 9-1-1 or go to your nearest emergencydepartment.NEED HELP? Are you dealing with a violent or abusive relationship? Are you avictim of rape or sexual assult? Call [facility] ([place]) 24 hourCrisis Hotline: 870.145.8865 or 040-088-1109. MANUALYour Guide to a Healthy manual is now on-line. [email or web address] /HealthyPregnancyGuide to download your free copyReferring Provider: SELF [200]Allergies As of Date: 04/03/2017(No Known Allergies)Date Reviewed: 04/03/2017Reviewed by: Marisela Benson Ma - Fully AssessedReason for Visit: Care [86]Primary Visit Diagnosis:Encounter for supervision of normal first in third trimester [Z34.03] Other Visit Diagnosis:33 weeks gestation of [Z3A.33]Order(s):URINE OB DIP B/O [[id number]] Order #: [id number] as of 04/03/2017 Sig: DHA ORAL Take by mouth.Problem List As Of Date 04/03/2017 Noted Resolved Anorexia nervosa, binge eating/purging type [F5*INVALID FOR* Left breast mass [N63.20] INVALID FOR*12/05/2016 Encounter for supervision of normal first pregn*INVALID FOR* Other instructions from your clinician: SEQUENTIAL SCREENINGS The [facility] offers sequential screenings for women who [...] It will require an appointment with our surface lay out technician. This is not an ultrasound performed [...] the above symptoms, contact our office at [phone] and ask to speak with a nurse. After hours, you can call doctors registry at [phone] OR call [facility] at [phone] and ask to have the doctor contact center agent paged. If you consider this an emergency, dial 3--7 or go to your nearest emergency department. NEED HELP? Are you dealing with a violent or abusive relationship? Are you a victim of rape or sexual assult? Call [facility] ([place]) 24 hour Crisis Hotline: 517.790.6603 or 265-881-4007. MANUAL Your Guide to a Healthy manual is now on-line. Visit [email or web address]/Heal thyPregnancyGuide to download your free copyEncounter Number: [id number] Status:Closed by RAMY SONG MD on 04/03/17 [facility] 03-20-2017 [facility] Routine Off ice Visit (WOOB) KELI ALCANTAR ([id number]) 1990 [facility] Time Provider Department03/20/17 2:50 PM RAMY SONG During your visit today, we recorded the following information about you: Blood pressure Weight 100/60 71.2 kgBeshanthi Andrew Ma 03/20/2017 2:58 PM SignedSEQUENTIAL SCREENINGSThe [facility] offers sequential screenings for women who [...] testing. It will require anappointment with our surface lay out technician. This is not an ultrasound performedby [...] the above symptoms, contact our office at [phone] andask to speak with a nurse.After hours, you can call doctors registry at [phone] OR call [facility] at [phone] and ask to have the doctor contact center agent paged.If you consider this an emergency, dial 9-3-9 or go to your nearest emergencydepartment.NEED HELP? Are you dealing with a violent or abusive relationship? Are you avictim of rape or sexual assult? Call [facility] ([place]) 24 hourCrisis Hotline: 545.415.1689 or 451-757-6596. MANUALYour Guide to a Healthy manual is now on-line. [email or web address] /HealthyPregnancyGuide to download your free copyReferring Provider: SELF [200]Allergies As of Date: 03/20/2017(No Known Allergies)Date Reviewed: 03/20/2017Reviewed by: Belkis Gray Social Work Job Titles - Fully AssessedReason for Visit: Care [86]Primary Visit Diagnosis:Encounter for supervision of normal first in third trimester [Z34.03] Other Visit Diagnosis:31 weeks gestation of [Z3A.31]Order(s):URINE OB DIP B/O [[id number]] Order #: [id number] as of 03/20/2017 Sig: DHA ORAL Take by mouth.Problem List As Of Date 03/20/2017 Noted Resolved Anorexia nervosa, binge eating/purging type [F5*INVALID FOR* Left breast mass [N63] INVALID FOR*12/05/2016 Encounter for supervision of normal first pregn*INVALID FOR* Other instructions from your clinician: SEQUENTIAL SCREENINGS The [facility] offers sequential screenings for women who [...] It will require an appointment with our surface lay out technician. This is not an ultrasound performed [...] the above symptoms, contact our office at [phone] and ask to speak with a nurse. After hours, you can call doctors registry at [phone] OR call [facility] at [phone] and ask to have the doctor contact center agent paged. If you consider this an emergency, dial 9-4-0 or go to your nearest emergency department. NEED HELP? Are you dealing with a violent or abusive relationship? Are you a victim of rape or sexual assult? Call [facility] ([place]) 24 hour Crisis Hotline: 352.394.3953 or 566-837-9005. MANUAL Your Guide to a Healthy manual is now on-line. Visit [email or web address]/Heal thyPregnancyGuide to download your free copyEncounter Number: [id number] Status:Closed by RAMY SONG MD on 03/20/17 Normal [facility] CNCNPATEDon 03-11-2017 CNCNPATED Education (WOOB) KELI ALCANTAR ([id number]) 1990 F[address] Time Provider Department03/11/17 NURSE PNOB [facility] WSTR WOOBReason for Visit: Class [4072]Visit Notes:>> [...] 2. Forceps 3. Vacuum extractorPhysician presentations 1. OB-diesel engine operator 2. PediatricianPostpartum 1. Mom's first hour 2. baby's first hour 3. baby's discharge protocolCompleted childbirth education class. Aldo Hahn RN During your visit today, we recorded the following information about you:Allergies As of Date: 03/11/2017(No Known Allergies)Date Reviewed: 03/06/2017Reviewed by: Marisela Benson Ma - Fully AssessedPrescriptions as of 03/11/2017 Sig: DHA ORAL Take by mouth. Status:Closed by ALDO HAHN RN on 03/11/17 [facility] 03-06-2017 [facility] Routine Off ice Visit (WOOB) KELI ALCANTAR ([id number]) 1990 [facility] Time Provider Department03/06/17 11:00 AM RAMY SONG During your visit today, we recorded the following information about you: Blood pressure Weight 88/56 71.2 kgMarisela Benson Ma 03/06/2017 11:05 AM SignedSEQUENTIAL SCREENINGSThe [facility] offers sequential screenings for women who [...] testing. It will require anappointment with our surface lay out technician. This is not an ultrasound performedby [...] the above symptoms, contact our office at [phone] andask to speak with a nurse.After hours, you can call doctors registry at [phone] OR call [facility] at [phone] and ask to have the doctor contact center agent paged.If you consider this an emergency, dial 2-2-5 or go to your nearest emergencydepartment.NEED HELP? Are you dealing with a violent or abusive relationship? Are you avictim of rape or sexual assult? Call [facility] ([place]) 24 hourCrisis Hotline: 179.863.1428 or 939-473-7851. MANUALYour Guide to a Healthy manual is now on-line. [email or web address] /HealthyPregnancyGuide to download your free copyReferring Provider: SELF [200]Allergies As of Date: 03/06/2017(No Known Allergies)Date Reviewed: 03/06/2017Reviewed by: Marisela Benson Ma - Fully AssessedReason for Visit: Care [86]Primary Visit Diagnosis:Encounter for supervision of other normal , third trimester [Z34.83] Other Visit Diagnosis:29 weeks gestation of [Z3A.29]Order(s):URINE OB DIP B/O [[id number]] Order #: [id number] as of 03/06/2017 Sig: DHA ORAL Take by mouth.Problem List As Of Date 03/06/2017 Noted Resolved Anorexia nervosa, binge eating/purging type [F5*INVALID FOR* Left breast mass [N63] INVALID FOR*12/05/2016 Encounter for supervision of normal first pregn*INVALID FOR* Other instructions from your clinician: SEQUENTIAL SCREENINGS The [facility] offers sequential screenings for women who [...] It will require an appointment with our surface lay out technician. This is not an ultrasound performed [...] the above symptoms, contact our office at [phone] and ask to speak with a nurse. After hours, you can call doctors registry at [phone] OR call [facility] at [phone] and ask to have the doctor contact center agent paged. If you consider this an emergency, dial 2--2 or go to your nearest emergency department. NEED HELP? Are you dealing with a violent or abusive relationship? Are you a victim of rape or sexual assult? Call [facility] ([place]) 24 hour Crisis Hotline: 274.265.6913 or 091-078-4831. MANUAL Your Guide to a Healthy manual is now on-line. Visit [email or web address]/Heal thyPregnancyGuide to download your free copyEncounter Number: [id number] Status:Closed by RAMY SONG MD on 03/06/17 Normal [facility] 50g, 1hr gest. GSCRYuni 02-20 Glucose mass conc 118 mg/dL Normal <135 [facility] Comment on above: Performed By: #### G [facility] ####[facility] [id number] [place], [place] [phone] CBC and Differentialon 02-20 Abs Baso 0.02 k/uL Normal 0.00-0.10 [facility] Comment on above: Performed By: #### C BCDIF ####[place] [address] [address] [place] [phone] Abs Bee 0.61 k/uL Normal 0.00-0.86 [facility] Comment on above: Performed By: #### C BCDIF ####[place] [address] [address] [place] [phone] Abs Neut 5.35 k/uL Normal 1.45-7.50 [facility] Comment on above: Performed By: #### C BCDIF ####[place] [address] [address] [place] [phone] Basophils/100 WBC Auto (Bld) 0.2 % Normal [facility] Comment on above: Performed By: #### C BCDIF ####[place] [address] [address] [place] [phone] DTYPE Auto Diff Normal [facility] Comment on above: Performed By: #### C BCDIF ####[place] [address] [address] [place] [phone] Eosinophils 0.06 10*3/uL Normal 0.00-0.45 [facility] Comment on above: Performed By: #### C BCDIF ####[place] [address] [address] [phone] Eosinophils/100 leukocytes 0.7 % Normal [facility] Comment on above: Performed By: #### C BCDIF ####[place] [address] [address] [place] [phone] Erythrocyte distribution width Auto Ratio (RBC) 13.2 % Normal 11.5-15.0 [facility] Comment on above: Performed By: #### C BCDIF ####[place] [address] [address] [place] [phone] Erythrocytes (RBC) 0.00 10*6/uL Normal [facility] Comment on above: Performed By: #### C BCDIF ####[place] [address] [address], [place] [phone] Erythrocytes (RBC) 3.56 10*6/uL Low 3.90-5.20 [facility] Comment on above: Performed By: #### C BCDIF ####[place] [address] [address], [place] [phone] Erythrocytes (RBC) 0.0 /100 WBC Normal 0 [facility] Comment on above: Performed By: #### C BCDIF ####[address] [place], [place] [phone] Hematocrit (HCT) 36.4 % Normal 36.0-46.0 [facility] Comment on above: Performed By: #### C BCDIF ####[place] [address] [address], [place] [phone] Hemoglobin mass conc (Bld) 11.8 g/dL Normal 11.5-15.5 [facility] Comment on above: Performed By: #### C BCDIF ####[place] [address] [address], [place] [phone] Lymphocytes 2.08 10*3/uL Normal 1.00-4.00 [facility] Comment on above: Performed By: #### C BCDIF ####[place] [address] [address], [place] [phone] Lymphocytes/100 leukocytes 25.6 % Normal [facility] Comment on above: Performed By: #### C BCDIF ####[place] [address] [address], [place] [phone] MCH 33.1 pG Normal 26.0-34.0 [facility] Comment on above: Performed By: #### C BCDIF ####[place] [address] [address], [place] [phone] MCHC mass conc (RBC) 32.4 g/dL Normal 30.5-36.0 [facility] Comment on above: Performed By: #### C BCDIF ####[place] [address], [place] [phone] MCV 102.2 fL High 80.0-100.0 [facility] Comment on above: Performed By: #### C BCDIF ####[place] [address] [address], [place] [phone] Monocytes/100 leukocytes 7.5 % Normal [facility] Comment on above: Performed By: #### C BCDIF ####[address] MirelesH[place], [place] [phone] Neutrophils/100 WBC Auto (Bld) 66.0 % Normal [facility] Comment on above: Performed By: #### C BCDIF ####[address], [place] [phone] Platelet mean volume (PMV) 13.3 fL High 9.0-12.7 [facility] Comment on above: Performed By: #### C BCDIF ####[address] [place], [place] [phone] Platelets 178 10*3/uL Normal 150-400 [facility] Comment on above: Result Comment: Resu lt checked and verifiedNo clot detected. Performed By: #### C BCDIF ####[place] [address] [address], [place] [phone] WBC (Leukocytes) 8.12 10*3/uL Normal 3.70-11.00 [facility] Comment on above: Performed By: #### C BCDIF ####[facility], [place] [phone] HOSPon 02-20-2017 HOSP Routine Off ice Visit (WOOB) KELI ALCANTAR ([id number]) 1990 [facility] Time Provider Department02/20/17 3:00 PM RAMY SONG During your visit today, we recorded the following information about you: Blood pressure Weight 98/62 69 kgHayley Piotr Ma 02/20/2017 3:07 PM SignedSEQUENTIAL SCREENINGSThe [facility] offers sequential screenings for women who [...] testing. It will require anappointment with our surface lay out technician. This is not an ultrasound performedby [...] the above symptoms, contact our office at [phone] andask to speak with a nurse.After hours, you can call doctors registry at [phone] OR call [facility] at [phone] and ask to have the doctor contact center agent paged.If you consider this an emergency, dial 9-1-1 or go to your nearest emergencydepartment.NEED HELP? Are you dealing with a violent or abusive relationship? Are you avictim of rape or sexual assult? Call [facility] ([place]) 24 hourCrisis Hotline: 652.187.8778 or 137-137-4876. MANUALYour Guide to a Healthy manual is now on-line. Visit[email or web address] /HealthyPregnancyGuide to download your free [...] or severely ill: YesPatient denies history of Guillain-Gary Syndrome (a severe paralytic illness): YesTdap Adacel [...] Need for vaccination [Z23]Order(s):URINE OB DIP B/O [4681451] Order #: [id number] GEST GLUC SCREEN, 1-HR, 50 GM, NON-FASTING [SQGLTGST] Order #: [id number] FUTURE CBC + DIFF [SQCBCDIF] Order #: [id number] FUTURE TDAP VACCINE AGE 7+ IM [[id number]] Order #: [id number] as of 02/20/2017 Sig: DHA ORAL Take by mouth.Problem List As Of Date 02/20/2017 Noted Resolved Anorexia nervosa, binge eating/purging type [F5*INVALID FOR* Left breast mass [N63] INVALID FOR*12/05/2016 Encounter for supervision of normal first pregn*INVALID FOR* Other instructions from your clinician: SEQUENTIAL SCREENINGS The [facility] offers sequential screenings for women who [...] It will require an appointment with our surface lay out technician. This is not an ultrasound performed [...] the above symptoms, contact our office at [phone] and ask to speak with a nurse. After hours, you can call doctors registry at [phone] OR call [facility] at [phone] and ask to have the doctor contact center agent paged. If you consider this an emergency, dial 0-5-8 or go to your nearest emergency department. NEED HELP? Are you dealing with a violent or abusive relationship? Are you a victim of rape or sexual assult? Call [facility] ([facility] 24 hour Crisis Hotline: 860.825.5945 or 005-550-7952. MANUAL Your Guide to a Healthy manual is now on-line. Visit [email or web address]/Heal thyPregnancyGuide to download your free copyEncounter Number: [id number] Status:Closed by HANNAH SÁNCHEZ MA on 02/20/17 Normal [facility] PROGRESSon 02-20-2017 PROGRESS HNO ID: [id number]: Anjelica Saldaña MaService: (none)Author Type: (none)Type: Progress [...] or severely ill: YesPatient denies history of Guillain-Gary Syndrome (a severe paralyticillness): YesTdap Adacel injection was given without incident.See immunizations for details of immunizations administered today.VIS sheet provided: YesProviGary was present in office at time of injection.Anjelica Saldaña Ma [facility] 01-27-2017 [facility] Routine Off ice Visit (WOOB) KELI ALCANTAR ([id number]) 1990 [facility] Provider Department01/27/17 8:15 AM FELICIA CRUZ ([facility]) WOOB During your visit today, we recorded the following information about you: Blood pressure Weight 96/60 67.6 kgMary Alice Geiger Agustin 01/27/2017 8:15 AM SignedSEQUENTIAL SCREENINGSThe [facility] offers sequential screenings for women who [...] testing. It will require anappointment with our surface lay out technician. This is not an ultrasound performedby [...] the above symptoms, contact our office at [phone] andask to speak with a nurse.After hours, you can call doctors registry at [phone] OR [facility] at [phone] and ask to have the doctor contact center agent paged.If you consider this an emergency, dial 91-5 or go to your nearest emergencydepartment.NEED HELP? Are you dealing with a violent or abusive relationship? Are you avictim of rape or sexual assult? Call [facility] ([place]) 24 hourCrisis Hotline: 354.899.5139 or 195-187-1975. MANUALYour Guide to a Healthy manual is [...] trimester- URINE OB DIP B/O(aka UA CHEMSTRIP) [7942122]2. 24 weeks gestation of - URINE OB DIP B/O(aka UA CHEMSTRIP) [1695081]BETHEL Resendizeferring Provider: SELF [200]Allergies As of Date: 01/27/2017(No Known Allergies)Date Reviewed: 01/27/2017Reviewed by: Mary Alice Geiger Ma - Fully AssessedReason for Visit: Care [86]Primary Visit Diagnosis:Encounter for supervision of normal first in second trimester [Z34.02] Other Visit Diagnosis:24 weeks gestation of [Z3A.24]Order(s):URINE OB DIP B/O [5025120] Order #: [id number] as of 01/27/2017 Sig: DHA ORAL Take by mouth.Problem List As Of Date 01/27/2017 Noted Resolved Anorexia nervosa, binge eating/purging type [F5*INVALID FOR* Left breast mass [N63] INVALID FOR*12/05/2016 Encounter for supervision of normal first pregn*INVALID FOR* Other instructions from your clinician: SEQUENTIAL SCREENINGS The [facility] offers sequential screenings for women who [...] It will require an appointment with our surface lay out technician. This is not an ultrasound performed [...] the above symptoms, contact our office at [phone] and ask to speak with a nurse. After hours, you can call doctors registry at [phone] OR call [facility] at [phone] and ask to have the doctor contact center agent paged. If you consider this an emergency, dial 9-1- or go to your nearest emergency department. NEED HELP? Are you dealing with a violent or abusive relationship? Are you a victim of rape or sexual assult? Call [facility] ([facility] 24 hour Crisis Hotline: 523.154.4224 or 292-153-7213. MANUAL Your Guide to a Healthy manual is now on-line. Visit [email or web address]/Heal thyPregnancyGuide to download your free copyDisposition: Return in about 4 weeks (around 02/24/2017), or if symptoms worsen or fail to improve, for OB visit.Follow-up and Disposition History RecordedEncounter Number: [id number] Status:Closed by FELICIA CRUZ CNM on 01/27/17 [facility] PROGRESSon 01-27-2017 PROGRESS HNO ID: [id number]: Felicia Baird (John) AnthonySermarce: (none)Author Type: MidwifeType: [...] trimester- URINE OB DIP B/O(aka UA CHEMSTRIP) [3243661]2. 24 weeks gestation of - URINE OB DIP B/O(aka UA CHEMSTRIP) [[id number]]Felicia Cruz CNM Normal [facility] HOSPon 01-02-2017 HOSP Routine Off ice Visit (WOOB) KELI ALCANTAR ([id number]) 1990 F[address] Time Provider Department01/02/17 2:40 PM JOSE ESPARZA WOOB During your visit today, we recorded the following information about you: Blood pressure Weight 92/60 66.7 kgUyen Andrew Ma 01/02/2017 2:43 PM SignedSEQUENTIAL SCREENINGSTMer[facility] offers [facility] screenings for women [...] testing. It will require anappointment with our surface lay out technician. This is not an ultrasound performedby [...] the above symptoms, contact our office at [phone] andask to speak with a nurse.After hours, you can call doctors registry at [phone] OR call [facility] at [phone] and ask to have the doctor contact center agent paged.If you consider this an emergency, dial 91-9 or go to your nearest emergencydepartment.NEED HELP? Are you dealing with a violent or abusive relationship? Are you avictim of rape or sexual assult? Call [facility] ([place]) 24 hourCrisis Hotline: 267.696.8759 or 160-481-1658. MANUALYour Guide to a Healthy manual is now on-line. [email or web address] /HealthyPregnancyGuide to download your free copyReferring Provider: IRA YEE [[id number]]Allergies As of Date: 01/02/2017(No Known Allergies)Date Reviewed: 01/02/2017Reviewed by: Uyen Andrew Ma - Fully AssessedReason for Visit: Care [86]Primary Visit Diagnosis:Encounter for supervision of normal first in second trimester [Z34.02] Other Visit Diagnosis:20 weeks gestation of [Z3A.20]Order(s):URINE OB DIP B/O [[id number]] Order #: [id number] as of 01/02/2017 Sig: DHA ORAL Take by mouth.Problem List As Of Date 01/02/2017 Noted Resolved Anorexia nervosa, binge eating/purging type [F5*INVALID FOR* Left breast mass [N63] INVALID FOR*12/05/2016 Encounter for supervision of normal first pregn*INVALID FOR* Other instructions from your clinician: SEQUENTIAL SCREENINGS The [facility] offers sequential screenings for women who [...] It will require an appointment with our surface lay out technician. This is not an ultrasound performed [...] the above symptoms, contact our office at [phone] and ask to speak with a nurse. After hours, you can call doctors registry at [phone] OR call [facility] at [phone] and ask to have the doctor contact center agent paged. If you consider this an emergency, dial 3-1-5 or go to your nearest emergency department. NEED HELP? Are you dealing with a violent or abusive relationship? Are you a victim of rape or sexual assult? Call [facility] ([place]) 24 hour Crisis Hotline: 949.561.2443 or 817-411-9344. MANUAL Your Guide to a Healthy manual is now on-line. Visit [email or web address]/Heal thyPregnancyGuide to download your free copyDisposition: Return in about 4 weeks (around 01/30/2017).Follow-up and Disposition History RecordedEncounter Number: [id number] Status:Closed by JOSE CHIU MD on 01/02/17 [facility] PROGRESSon 12-30-2016 PROGRESS HNO ID: [id number] Author: Vineet Hsu Service: (none) Author Type: Physician Type: Progress Notes Filed: 12/30/2016 7:23 AM Note Text: Please see ultrasound report for details of this visit. Vineet Hsu M.D. [facility] HOSP 12-27-2016 [facility] Routine Off ice Visit (WOOB) KELI ALCANTAR ([id number]) 1990 FDate Time Provider Department12/27/16 2:30 PM VINEET HSU WOOB During your visit today, we recorded the following information about you:Vineet Hsu MD 12/30/2016 7:23 AM SignedPlease see ultrasound report for details of this visit.Vineet Hsu M.D.Referring Provider: JOSE ESPARZA [[id number]]Allergies As of Date: 12/27/2016(No Known Allergies)Date Reviewed: [...] Status:Closed by VINEET HSU MD on 12/30/16 [facility] Vital Signs Date Time Vital Sign Value Performing Clinician Faci samina 04-05-2025 09:24-0400 Body height 167.[address] Brooke Brown DO Work Phone: [facility] 04-05-2025 09:24-0400 Body mass index (BMI) [Ratio] 25.3 kg/m2 Dr. Brooke Brown DO Work Phone: [facility] 04-05-2025 09:24-0400 Body weight 71.[address] Brooke Brown DO Work Phone: [facility] 04-05-2025 09:24-0400 Diastolic blood pressure 68 mm[Hg] Dr. Brooke Brown DO Work Phone: [facility] 04-05-2025 09:24-0400 Systolic blood pressure 116 mm[Hg] Dr. Brooke Brown DO Work Phone: [facility] 03-25-2025 11:25-0400 Body height 167.[address] Brooke Brown DO Work Phone: [facility] 03-25-2025 11:25-0400 Body mass index (BMI) [Ratio] 24.5 kg/m2 Dr. Brooke Brown DO Work Phone: [facility] 03-25-2025 11:25-0400 Body weight 69.[address] Brooke Brown DO Work Phone: [facility] 03-25-2025 11:25-0400 Diastolic blood pressure 66 mm[Hg] Dr. Brooke Brown DO Work Phone: [facility] 03-25-2025 11:25-0400 Systolic blood pressure 103 mm[Hg] Dr. Brooke Brown DO Work Phone: [facility] 03-10-2025 10:11-0400 Body height 167.[address] Brooke Brown DO Work Phone: [facility] 03-10-2025 10:02-0400 Body mass index (BMI) [Ratio] 24.5 kg/m2 Dr. Brooke Brown DO Work Phone: [facility] 03-10-2025 10:02-0400 Body weight 69.[address] Brooke Brown DO Work Phone: [facility] 03-10-2025 10:02-0400 Diastolic blood pressure 62 mm[Hg] Dr. Brooke Brown DO Work Phone: [facility] 03-10-2025 10:02-0400 Systolic blood pressure 94 mm[Hg] Dr. Brooke Brown DO Work Phone: [facility] 02-11-2025 10:34-0400 Body height 167.[address] Brooke Brown DO Work Phone: [facility] 02-11-2025 10:34-0400 Body mass index (BMI) [Ratio] 23.4 kg/m2 Dr. Brooke Brown DO Work Phone: [facility] 02-11-2025 10:34-0400 Body weight 65.[address] Brooke Brown DO Work Phone: [facility] 02-11-2025 10:34-0400 Diastolic blood pressure 67 mm[Hg] Dr. Brooke Brown DO Work Phone: [facility] 02-11-2025 10:34-0400 Systolic blood pressure 101 mm[Hg] Dr. Brooke Brown DO Work Phone: [facility] 01-14-2025 08:51-0400 Body height 167.[address] Brooke Brown DO Work Phone: [facility] 01-14-2025 08:51-0400 Body mass index (BMI) [Ratio] 22.3 kg/m2 Dr. Brooke Brown DO Work Phone: [facility] 01-14-2025 08:51-0400 Body weight 62.[address] Brooke Brown DO Work Phone: [facility] 01-14-2025 08:51-0400 Diastolic blood pressure 67 mm[Hg] Dr. Brooke Brown DO Work Phone: [facility] 01-14-2025 08:51-0400 Systolic blood pressure 103 mm[Hg] Dr. Brooke Brown DO Work Phone: [facility] 12-15-2024 10:19-0400 Body mass index (BMI) [Ratio] 21.9 kg/m2 Dr. Brooke Brown DO Work Phone: [facility] 12-15-2024 10:19-0400 Body weight 61.[address] Brooke Brown DO Work Phone: [facility] 12-15-2024 10:19-0400 Diastolic blood pressure 71 mm[Hg] Dr. Brooke Brown DO Work Phone: [facility] 12-15-2024 10:19-0400 Systolic blood pressure 112 mm[Hg] Dr. Brooke Brown DO Work Phone: [facility] 11-19-2024 10:24-0400 Body mass index (BMI) [Ratio] 20.6 kg/m2 Dr. Brooke Brown DO Work Phone: [facility] 11-19-2024 10:24-0400 Body weight 58.[address] Brooke Brown DO Work Phone: [facility] 11-19-2024 10:24-0400 Diastolic blood pressure 63 mm[Hg] Dr. Brooke Brown DO Work Phone: [facility] 11-19-2024 10:24-0400 Systolic blood pressure 99 mm[Hg] Dr. Brooke Brown DO Work Phone: [facility] 10-22-2024 10:45-0400 Body mass index (BMI) [Ratio] 20.2 kg/m2 Dr. Brooke Brown DO Work Phone: [facility] 10-22-2024 10:45-0400 Body weight 56.[address] Brooke Brown DO Work Phone: [facility] 10-22-2024 10:45-0400 Diastolic blood pressure 74 mm[Hg] Dr. Brooke Brown DO Work Phone: [facility] 10-22-2024 10:45-0400 Systolic blood pressure 116 mm[Hg] Dr. Brooke Brown DO Work Phone: [facility] 10-29-2023 11:39-0400 Body height 167.[address] Brooke Brown Work Phone: [facility] 10-29-2023 11:31-0400 Body mass index (BMI) [Ratio] 18.6 kg/m2 Dr. Brooke Brown Work Phone: [facility] 10-29-2023 11:31-0400 Body weight 52.[address] Brooke Brown Work Phone: [facility] 10-29-2023 11:31-0400 Diastolic blood pressure 66 mm[Hg] Dr. Brooke Brown Work Phone: [facility] 10-29-2023 11:31-0400 Systolic blood pressure 100 mm[Hg] Dr. Brooke Brown Work Phone: [facility] 08-29-2023 09:18-0500 Body mass index (BMI) [Ratio] 18.7 kg/m2 Dr. Brooke Brown Work Phone: [facility] 08-29-2023 09:18-0500 Body weight 52.[address] Brooke Brown Work Phone: [facility] 08-29-2023 09:18-0500 Diastolic blood pressure 78 mm[Hg] Dr. Brooke Brown Work Phone: [facility] 08-29-2023 09:18-0500 Systolic blood pressure 115 mm[Hg] Dr. Brooke Brown Work Phone: [facility] 09-25-2021 13:23-0400 Body height 168.[address] Brooke Brown Work Phone: [facility] Work Phone: 09-25-2021 13:23-0400 Body mass index (BMI) [Ratio] 26.4 kg/m2 Dr. Brooke Brown Work Phone: [facility] Work Phone: 09-25-2021 13:23-0400 Body weight 75.[address] Brooke Brown Work Phone: [facility] Work Phone: 09-25-2021 13:23-0400 Diastolic blood pressure 70 mm[Hg] Dr. Brooke Brown Work Phone: [facility] Work Phone: 09-25-2021 13:23-0400 Systolic blood pressure 108 mm[Hg] Dr. Brooke Brown Work Phone: [facility] Work Phone: 09-17-2021 14:08-0400 Body mass index (BMI) [Ratio] 26.4 kg/m2 Dr. Brooke Brown Work Phone: [facility] Work Phone: 09-17-2021 14:08-0400 Body weight 75.[address] Brooke Brown Work Phone: [facility] Work Phone: 09-17-2021 14:08-0400 Diastolic blood pressure 70 mm[Hg] Dr. Brooke Brown Work Phone: [facility] Work Phone: 09-17-2021 14:08-0400 Systolic blood pressure 102 mm[Hg] Dr. Brooke Brown Work Phone: [facility] Work Phone: 09-12-2021 11:45-0400 Body mass index (BMI) [Ratio] 26.1 kg/m2 Dr. Brooke Brown Work Phone: [facility] Work Phone: 09-12-2021 11:45-0400 Body weight 74.[address] Brooke Brown Work Phone: [facility] Work Phone: 09-12-2021 11:45-0400 Diastolic blood pressure 86 mm[Hg] Dr. Brooke Brown Work Phone: [facility] Work Phone: 09-12-2021 11:45-0400 Systolic blood pressure 128 mm[Hg] Dr. Brooke Brown Work Phone: [facility] Work Phone: 09-07-2021 08:45-0500 Body mass index (BMI) [Ratio] 25.9 kg/m2 Dr. Brooke Brown Work Phone: [facility] Work Phone: 09-07-2021 08:45-0500 Body weight 73.[address] Brooke Brown Work Phone: [facility] Work Phone: 09-07-2021 08:45-0500 Diastolic blood pressure 72 mm[Hg] Dr. Brooke Brown Work Phone: [facility] Work Phone: 09-07-2021 08:45-0500 Systolic blood pressure 114 mm[Hg] Dr. Brooke Brown Work Phone: [facility] Work Phone: 08-22-2021 07:59-0500 Body mass index (BMI) [Ratio] 25.6 kg/m2 Dr. Brooke Brown Work Phone: [facility] Work Phone: 08-22-2021 07:59-0500 Body weight 73.[address] Brooke Brown Work Phone: [facility] Work Phone: 08-22-2021 07:59-0500 Diastolic blood pressure 72 mm[Hg] Dr. Brooke Brown Work Phone: [facility] Work Phone: 08-22-2021 07:59-0500 Systolic blood pressure 118 mm[Hg] Dr. Brooke Brown Work Phone: [facility] Work Phone: 08-08-2021 07:08-0500 Body mass index (BMI) [Ratio] 25.1 kg/m2 Dr. Brooke Brown Work Phone: [facility] Work Phone: 08-08-2021 07:08-0500 Body weight 71.[address] Brooke Brown Work Phone: [facility] Work Phone: 08-08-2021 07:08-0500 Diastolic blood pressure 68 mm[Hg] Dr. Brooke Brown Work Phone: [facility] Work Phone: 08-08-2021 07:08-0500 Systolic blood pressure 100 mm[Hg] Dr. Brooke Brown Work Phone: [facility] Work Phone: 07-25-2021 09:30-0500 Body mass index (BMI) [Ratio] 25.1 kg/m2 Dr. Brooke Brown Work Phone: [facility] Work Phone: 07-25-2021 09:30-0500 Body weight 71.[address] Brooke Brown Work Phone: [facility] Work Phone: 07-25-2021 09:30-0500 Diastolic blood pressure 2 mm[Hg] Dr. Brooke Brown Work Phone: [facility] Work Phone: 07-25-2021 09:30-0500 Systolic blood pressure 120 mm[Hg] Dr. Brooke Brown Work Phone: [facility] Work Phone: 07-04-2021 07:23-0500 Body mass index (BMI) [Ratio] 24.3 kg/m2 Dr. Brooke Brown Work Phone: [facility] Work Phone: 07-04-2021 07:23-0500 Body weight 69.[address] Brooke Brown Work Phone: [facility] Work Phone: 07-04-2021 07:23-0500 Diastolic blood pressure 70 mm[Hg] Dr. Brooke Brown Work Phone: [facility] Work Phone: 07-04-2021 07:23-0500 Systolic blood pressure 110 mm[Hg] Dr. Brooke Brown Work Phone: [facility] Work Phone: 06-08-2021 09:11-0500 Diastolic blood pressure 64 mm[Hg] Dr. Brooke Brown Work Phone: [facility] Work Phone: 06-08-2021 09:11-0500 Systolic blood pressure 102 mm[Hg] Dr. Brooke Brown Work Phone: [facility] Work Phone: Encounters Encounter Date Encounter Type Care Provider Facility Start: 05-23-2025 ambulatory Brookeigor Gibbonson [facility] [facility] Start: 05-12-2025 End: 05-12-2025 ambulatory Brookeigor Brown Facility:[facility] Start: 05-10-2025 ambulatory Brooke Dai Facilit y:[facility] Start: 05-06-2025 ambulatory Mandy Perez Facility :[facility] Start: 05-06-2025 End: 05-06-2025 ambulatory Brooke Brown Facility:[facility] Start: 04-22-2025 End: 04-22-2025 ambulatory Brooke Brown Facility:[facility] Start: 04-05-2025 End: 04-05-[address] Effie Petit DO -[facility] Work Phone: Start: 04-05-2025 End: 04-05-[address] Brooke Brown DO Work Phone: [facility] Start: 03-25-2025 End: 03-25-2025 Patient encounter procedure Mandy Perez CNM -[facility] Work Phone: Start: 03-25-2025 End: 03-25-[address] Brooke Brown DO Work Phone: [facility] Start: 03-10-2025 End: 03-10-2025 Patient encounter procedure Ruthann CARR -[facility] Work Phone: Start: 03-10-2025 End: 03-10-[address] Brooke Brown DO Work Phone: [facility] Start: 03-10-2025 End: 03-10-2025 ambulatory Brooke Brown Facility:[facility] Start: 02-11-2025 End: 02-11-2025 Patient encounter procedure Mandy SUTTON -[facility] Work Phone: Start: 02-11-2025 End: 02-11-[address] Brooke Brown DO Work Phone: [facility] Start: 01-14-2025 End: 01-14-[address] Ira Yee MD -[facility] Work Phone: Start: 01-14-2025 End: 01-14-[address] Brooke Brown DO Work Phone: [facility] Start: 01-04-2025 End: 01-04-2025 ambulatory JOSE LUIS PENNINGTON [facility] Start: 12-15-2024 End: 12-15-[address] Ira Yee MD -[facility] Work Phone: Start: 12-15-2024 End: 12-15-2024 ambulatory Brooke Gibbonson Facility:[facility] Start: 11-19-2024 End: 11-19-[address] Effie Petit DO -[facility] Work Phone: Start: 11-19-2024 End: 11-19-2024 ambulatory Brooke Dai Facility:[facility] Start: 10-22-2024 End: 10-22-2024 Patient encounter procedure Mandy Perez CNM -[facility] Work Phone: Start: 10-22-2024 End: 10-22-2024 ambulatory Brooke Brown Facility:[facility] Start: 10-22-2024 End: 10-22-2024 ambulatory Brooke Gibbonson Facility:[facility] Start: 10-29-2023 End: 10-29-[address] Brooke Brown Work Phone: [facility] Work Phone: Start: 10-29-2023 End: 10-29-[address] Brooke Brown Work Phone: [facility] Work Phone: Start: 08-29-2023 End: 08-29-[address] Brooke Brown Work Phone: [facility] Work Phone: Start: 09-25-2021 End: 09-25-[address] Brooke Brown Work Phone: [facility] Start: 09-17-2021 End: 09-17-[address] Brooke Brown Work Phone: [facility] Start: 09-12-2021 End: 09-12-[address] Brooke Brown Work Phone: [facility] Start: 09-07-2021 End: 09-07-[address] [facility] Start: 09-07-2021 End: 09-07-[address] Brooke Brown Work Phone: [facility] Start: 08-22-2021 End: 08-22-[address] Brooke Brown Work Phone: [facility] Start: 08-08-2021 End: 08-08-[address] Brooke Brown Work Phone: [facility] Start: 07-25-2021 End: 07-25-[address] Brooke Brown Work Phone: [facility] Start: 07-04-2021 End: 07-04-[address] [facility] Start: 06-08-2021 End: 06-08-[address] Brooke Brown Work Phone: [facility] Start: 07-09-2017 End: 07-10-2017 Ambulatory CELINA (CNM) [facility] Start: 05-19-2017 End: 05-20-2017 Ambulatory CELINA (CNM) [facility] Start: 05-16-2017 End: 05-19-2017 Ambulatory CELINA (CNM) [facility] Start: 05-07-2017 End: 05-08-2017 Ambulatory CELINA (CNM) [facility] Start: 05-02-2017 End: 05-05-2017 Ambulatory CELINA (CNM) [facility] Start: 04-24-2017 End: 04-24-2017 Ambulatory CELINA (CNM) [facility] Start: 04-23-2017 End: 04-24-2017 Ambulatory CELINA (CNM) [facility] Start: 04-18-2017 End: 04-18-2017 Ambulatory CELINA (CNM) [facility] Start: 04-03-2017 End: 04-04-2017 Ambulatory RAMY SONG [facility] Start: 03-20-2017 End: 03-21-2017 Ambulatory JOSE CHIU [facility] Start: 03-10-2017 End: 03-11-2017 Ambulatory VINEET HSU [facility] Start: 03-06-2017 End: 03-10-2017 Ambulatory RAMY SONG [facility] Start: 02-20-2017 End: 02-21-2017 Ambulatory RAMY SONG [facility] Start: 01-27-2017 End: 01-29-2017 Ambulatory FELICIA Baird (CNM) ANTHONY [facility] Start: 01-02-2017 End: 01-03-2017 Ambulatory JOSE CHIU [facility] Start: 12-27-2016 End: 01-06-2017 Ambulatory VINEET Weinstein HSU [facility] Procedures Date Procedure Procedure Detail Performing Clinician [...] HCV Quant by PCR testing - HCVPCR #[id number] Non Reactive: < 0.8 Equivocal: >/= 0.8 to < 1.0 Reactive: >/= 1.0The CDC requires that a reactive/equivocal HCV antibody result be sent out for confirmation. HCV Quant by PCR testing. Start: 10-22-[address] Brooke Brown DO Work Phone: Comment on above: Antibody Result: Int erpretationNon-Reactive: Non- ImmuneReactive: ImmuneThe following results were obtained with the [employer] Rubella IgG assay. 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 Effie Petit DO Plan of Treatment Date Care Activity Detail Author Start: 03-10-2025 CBC W Auto Different ial panel - Blood [facility] Start: 03-10-2025 Measurement of gluco se 2 hours after glucose challenge for glucose tolerance test [facility] Start: 03-10-2025 Serologic test for syphilis [facility] Start: 03-10-2025 [facility] CBC W Auto Different ial panel - Blood [facility] Erythrocyte mean cor puscular volume determination [facility] Hematocrit [Volume F raction] of Blood [facility] Hemoglobin [Mass/volume] in Blood [facility] Leukocytes [#/volume] in Blood [facility] Mean corpuscular hem oglobin concentration determination [facility] Mean corpuscular hem oglobin determination [facility] Measurement of gluco se 2 hours after glucose challenge for glucose tolerance test [facility] Neutrophil count [facility] Neutrophil percent d ifferential count [facility] Platelets [#/volume] in Blood [facility] Red blood cell count [facility] Red cell distributio n width determination [facility] Serologic test for syphilis [facility] Ultrasound scan for growth [facility] Immunizations Immunization Date Immunization Notes Care Provider Fa cility 02-05-2019 diphtheria, tetanus toxoids and acellular pertussis vaccine, unspecified formulation Dr. Brooke Brown Work Phone: [facility] Work Phone: 02-20-2017 tetanus toxoid, redu ranjan diphtheria toxoid, and acellular pertussis vaccine, adsorbed Dr. Brooke Brown Work Phone: [facility] Payers Date Payer Category Payer Unknown [id number] 2024 Unknown [id number] 2024 Self-pay [id number] 2016 Unknown [id number] 1990 Unknown [id number] 2.16. [id number] Private Health Insurance [facility] [id number] Unknown [id number] Unknown [id number] 2.16.8 [id number] Unknown [id number] 2.16.8 [id number] Unknown [id number] 2.16.8 [id number] Unknown [id number] 2.16.8 [id number] Unknown [id number] 2.16.8 [id number] Unknown [id number] 2.16.8 [id number] Unknown [id number] 2.16.8 40.1.699316.3.579.2.462 Unknown [id number] 2.16.8 40.1.402423.3.579.2.462 Unknown [id number] 2.16.8 40.1.528492.3.579.2.462 Unknown [id number] 2.16.8 40.1.663208.3.579.2.462 Unknown [id number] 2.16.8 40.1.004191.3.579.2.462 Unknown [id number] 2.16.8 40.1.456369.3.579.2.462 Unknown [id number] 2.16.8 40.1.511325.3.579.2.462 Unknown [id number] 2.16.8 40.1.163075.3.579.2.462 Unknown [id number] 2.16.8 [id number] Unknown [id number] 2.16.8 [id number] Social History Date Type Detail Facility Start: 09-25-2021 End: 08-29-2023 Tobacco smoking status NHIS Unknown if ever smoked [facility] Start: 05-21-2017 None [facility] Start: 1990 Sex Assigned At Female [facility] Start: 10-07-2024 Tobacco smoking stat us HIIS Ex-smoker (finding) [facility] Sex Female [facility] Clinical Notes 10-22-2024 to 03-25-2025 Note Date & Type Note Facility 03-25-2025 Progress note [facility] 02-11-2025 Progress note [facility] 01-14-2025 Progress note [facility] 12-15-2024 Evaluation note Diagnosis Onset Date [...] Supervision of high-risk acute March 252024 11:15am [facility] Work Phone: 1(316) 443-527706-18-2025 Evaluation note* Diagnosis Onset Date Resolution Status [...] Supervision of high-risk acute April 05 9:23am [facility] Work Phone: 1(844) 391-951605-23-2025 Evaluation note* Diagnosis Onset Date Resolution Status [...] of high-risk acute March 10, 2025 9:55am [facility] Work Phone: 1(925) 391-564504-25-2025 Evaluation note* Diagnosis Onset Date Resolution Status [...] of high-risk acute January 14, 2025 8:44am [facility] Work Phone: 1([phone]) 941-117904-25-2025 Evaluation note* Diagnosis Onset Date Resolution Status [...] Supervision of high-risk acute February 11 10:31am [facility] Work Phone: Evaluation note* Diagnosis Onset [...] normal acute Periurethral trauma during delivery chronic [facility] Work Phone: Evaluation note* Diagnosis Onset Date Resolution Status Encounter for routine gynecological examination noneactive Abnormal uterine bleeding (AUB) acute [facility] Work Phone: Progress note Author Ira Yee [facility] Note Date/Time January 14, 2025 9:06 am [facility] [address], [address] [place] [address] OFFICE VISIT Date of Service: 01/14/25 MR#: [id number] Acct: [id number] Name: KRUNAL KERN Rep #: [id number] : 1990 Provider: Dr. 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 Timmy Yancey 05/05/19 [place] 39 live - full term 7lbs 15oz Male spinal [facility] NORMA 09/27/21 [facility] 39 live - full term Male [facility] Marcanthony Delivery Date: 10/19/16 Last Updated [...] will check with insurance about coverage with [employer] [facility] for anatomy scN 12/15/24 [...] Cosigner Signature: Date (if applicable) CC: ~ [facility] Work Phone: Progress note Author Mandy Perez [facility] Note Date/Time February 11, 2025 10 :57am [facility] [address] [place] [address], [address] [place] [address] OFFICE VISIT Date of Service: 02/11/25 MR#: [id number] Acct: [id number] Name: KERNMITCHELCLEO Garcia Rep #: [id number] : 1990 Provider: JOHN Perez Age/Sex: 34/F Location: [facility] Status: Signed Intake Vital Signs 12/15/24 10:19 01/14/25 08:51 02/11/25 10:34 Height 5 ft 6 in 5 ft 6 in 5 ft 6 in Weight: 145 lb 5 oz BMI 23.4 BP 101/67 Intake Visit Reasons: 24wk ob Chief Complaint: 24wk OB Revenue Cycle Manager Required: No Is patient in pain?: No Allergies No Known Allergies Allergy (Verified 02/11/25 10:32) Medications ?Medication ?Instructions ?Recorded ?Confirmed ?Type docosahexaenoic acid 200 mg mg PO 10/07/24 02/11/25 Hi story capsule (Algal Manawa-3 DHA) magnesium 200 mg tablet 400 mg [...] weight training frequency: 3-4 times per week george/episcopalian: Worship seatbelt use: always do you feel safe [...] 8pounds 7oz Female 1 4 hours none [facility] [place] Key/Dr. Timmy Yancey 05/05/19 [place] 39 live - full term 7lbs 15oz Male spinal [facility] NORMA 09/27/21 [place] 39 live - full term Male [facility] Marcanthony Delivery Date: 10/19/16 Last Updated [...] will check with insurance about coverage with [employer] [facility] for anatomy scN 12/15/24 [...] this visit. [place] appropriate handout given. 02/11/25 0049 <Electronically signed by Mandy gabriel CNM> Date _ Mandy Perez CNM Cosigner Signature: Date (if applicable) CC: ~ [facility] Work Phone: Progress note Author Mandy Perez [facility] Note Date/Time March 25, 2025 11:56am [facility] [address], [address] [place] [address] OFFICE VISIT Date of Service: 03/25/25 MR#: [id number] Acct: [id number] Name: KRUNAL KERN Rep #: [id number] : 1990 Provider: JOHN Perez Age/Sex: 34/F Location: [facility] Status: Signed Intake Vital Signs 02/11/25 10:34 03/10/25 10:11 03/25/25 11:25 Height 5 ft 6 in 5 ft 6 in 5 ft 6 in Weight: 152 lb 6 oz BMI 24.5 BP 103/66 Intake Visit Reasons: 30 wk ob Chief Complaint: 30wk OB Revenue Cycle Manager Required: No Is patient in pain?: No Allergies No Known Allergies Allergy (Verified 03/25/25 11:23) Medications ?Medication ?Instructions ?Recorded ?Confirmed ?Type docosahexaenoic acid 200 mg mg PO 10/07/24 03/25/25 Hi story capsule (Algal Manawa-3 DHA) magnesium 200 mg tablet 400 mg [...] weight training frequency: 3-4 times per week george/episcopalian: Worship seatbelt use: always do you feel safe [...] 8pounds 7oz Female 1 4 hours none [facility] Cel[place] Key/Dr. Timmy Yancey 05/05/19 [place] 39 live - full term 7lbs 15oz Male spinal [facility] [place] 09/27/21 Mar[place] 39 live - full term Male [facility] Marcanthony Delivery Date: 10/19/16 Last Updated [...] will check with insurance about coverage with [employer] [facility] for anatomy scN 12/15/24 [...] Cosigner Signature: Date (if applicable) CC: ~ [facility] Work Phone: Reason for referral (narrative)No [facility] for [facility] Work Phone: Summary Purpose Family History No Family History Records Found Relationship Condition Age at Onset Recorded Date/T boo grandfather Malignant neoplasm of colon Unknown Advance Directives No Advanced Directives Records Found Advance Directive Response Recorded Date/ Time Living Will No July 04 9:42am Power of Tempering Kiln Tender No July 04 9:42am Advance Directive Response Recorded Date/ Time Living Will No September 27, 2021 5:20am Power of Tempering Kiln Tender No September 27 5:20am Chief Complaint and [...] Periurethral trauma during delivery Chief Complaint 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 Reason for Visit Encounter for routin [...] 10, 2025 9:55am Supervision of high-risk Septe [facility] 2024 9:55am Chief Complaint Admit [...] 10, 2025 9:55am Supervision of high-risk Septe [facility] 2024 9:55am AMA (advanced maternal age) multigravida 35+ March 25, 2025 11:15am H/O section March 25 11:15am March 25, 2025 11:15am Supervision of high-risk Septe [facility] 2024 11:15am Chief Complaint Admit [...] 10, 2025 9:55am Supervision of high-risk Septe [facility] 2024 9:55am AMA (advanced maternal age) multigravida 35+ March 25, 2025 11:15am H/O section March 25 11:15am March 25, 2025 11:15am Supervision of high-risk Septe [facility] 2024 11:15am AMA (advanced maternal age) multigravida 35+ April 05, 2025 9:23am H/O section April 05, 2025 9 :23am April 05, 2025 9: 23am Supervision of high-risk Octob 2024 9:23am Additional Source Comments INFORMATION SOURCE (unrecogn ized section and content) DATE CREATED AUTHOR 12/22/2017 [facility] DATE CREATED AUTHOR AUTHOR'S ORGANIZ ATION 01/08/2025 [facility] DATE CREATED AUTHOR AUTHOR'S ORGANIZ ATION 05/13/2025 [facility] Goals (unrecognized section and content) [...] Provider, Referr ing Provider Active Ruthann You TILE DESIGNER, TILE DESIGNER-C Attending Provider Active Team Status: Inactive Member Role Status Dates Dr. Brooke Brown DO Primary Care Provider Active Ruthann You TILE DESIGNER, TILE DESIGNER-C Attending Provider, Referring Provider Active Team Status: [...] End: March 10, 2025 Ruthann You NP, TILE DESIGNER-C Attending Provider Active Start: March 10, 2025 [...] End: March 10, 2025 Ruthann You NP, TILE DESIGNER-C Attending physician Active Start: March 10, 2025 End: March 10, 2025 Team Status: Inactive Member Role/Relationship Status Dates Dr. Brooek Brown DO Primary care physician Active Start: [...] BE BASED ON THE PRIMARY CLINICAL RECORDS. [facility] [employer] provides no warranty or guarantee of the accuracy or completeness of information in this document.
[2025-05-23] MEDS: Lactated Ringers 1,000 ML 999 ML IV (05:48)
[2025-05-23 06:10] LABS: Hematocrit 34.2 % (37-47); Hemoglobin 11.9 g/dL (12.0-15.0); Immature Granulocytes Count 0.050 X10^3/uL (0.0-0.0); Mean Corp Hgb Conc 34.8 g/dL (32-36); Mean Corpuscular Volume 94.5 fL (81-99); Mean Platelet Vol. 13.9 fl (6.2-12.0); NRBC Flagged by Analyzer 0 % (0-5); Platelet Count 144 K/mm3 (150-450); RBC Distribution Width CV 13.1 % (11.6-14.6); RBC Distribution Width SD 45.1 fl (35.1-43.9); Red Blood Count 3.62 M/mm3 (4.2-5.4); White Blood Count 7.3 K/mm3 (4.4-11.0)
[2025-05-23] MEDS: Lactated Ringers 1,000 ML 150 ML IV (06:54)
[2025-05-23 07:04] LABS: Syphilis Antibodies Nonreactive (Nonreactive)
[2025-05-23] MEDS: Lactated Ringers 1,000 ML 1000 ML IV (07:17)
[2025-05-23] MEDS: Cefazolin 1 GM/5 ML Vial 2 GM IV (07:18)
--- NOTE | 2025-05-23 07:18 | OP.PCM_ITS ---
Assessment & Plan (1) AMA (advanced maternal age) multigravida 35+: QUALIFIERS: Trimester: third trimester Qualified Code(s): O09.523 - Supervision of elderly multigravida, third trimester COMMENT: growth US at 36 weeks (2) Supervision of high-risk : QUALIFIERS: Trimester: third trimester Qualified Code(s): O09.93 - Supervision of high risk , unspecified, third trimester COMMENT: PRR , KATH 05/30/25, girl PC Sharron Lópezsunita, Nir Bc (3) : QUALIFIERS: Weeks of gestation: 38 weeks Qualified Code(s): Z3A.38 - 38 weeks gestation of COMMENT: GBS neg, NIPT w gender/carrier-declines afp declines. nl anatomy (4) H/O section: COMMENT: repeat c/s with 05/23. (5) delivery delivered: COMMENT: RLTCS girl Aidee 39 (6) Status post bilateral salpingectomy: Maternal Data Information KATH Calculator Estimated Delivery Date Method Current WG Current Estimate 05/30/25 LMP (Certain) 39w 0d Other Estimates 05/26/25 Ultrasound #1 39w 4d Final KATH Source: LMP Operative Report (OB) Procedure Details Date of Procedure: 05/23/25 Procedure Start Time: 07:39 Pre-Operative Diagnosis: Other Other Pre-Operative diagnosis: see a/p comments Post-Operative Diagnosis: Same as Pre-operative diagnosis Classification: Scheduled Type of Anesthesia: Spinal Special Medications: none Antibiotic Given: Ancef 2 grams IV x1 Drain: Lance to straight drain Estimated Blood Loss: 900 Fluids Replaced: crystalloid Findings Description of surgery: Spinal anesthesia was placed without difficulty. Lance catheter was placed. The patient was placed in the dorsal supine position with leftward tilt. Patient was prepped and draped in the normal sterile fashion. Pfannenstiel skin incision was made with the scalpel and carried through to the underlying layer of fascia with the scalpel. Fascia was nicked in the midline and the incision extended laterally. The rectus bellies were dissected off superiorly and inferiorly with out complication both sharply and bluntly. The peritoneum was entered digitally. The incision was stretched and a low transverse uterine incision was made with the scalpel. The infant's head was delivered atraumatically followed by the anterior and posterior shoulders without complication the rest of the infant delivered. The cord was clamped and cut and the was handed off to awaiting nurse. The placenta was delivered spontaneously immediately following and was noted to be intact and have a three- vessel cord. The uterus was exteriorized cleared of all clots and debris, and the incision was closed in a single layer closure using #1 Monocryl. hemoblast used for hemostasis. The ovaries and fallopian tubes were noted to be within normal limits. The uterus was returned to the maternal abdomen and gutters were cleared of all clots and debris. Patient had desired sterilization and was counseled preoperatively regarding irreversibility and permanency. Therefore bilateral fallopian tubes were elevated and transected across using a LigaSure device starting proximally to distally without complication the entire fallopian tubes were removed. some adhesions noted on the left side and were taken down with the bovie. The peritoneum was closed with 3-0 Monocryl in a running fashion. some bleeding note don the rectus bellies- terated with hemoblast. Gloves were changed prior to fascial closure. Fascia was closed with 0 PDS in a running fashion. Subcutaneous tissue was copiously irrigated and the skin was closed with 3-0 Monocryl in a subcuticular fashion, additional stitches for hemostasis placed. Mepilex dressing was applied without complication. Patient was taken to recovery in stable condition. Surgical findings: vertex infant Presentation: Vertex Amniotic Membrane Rupture Type: Artificial Amniotic Fluid Description: Clear Specimen collected: Yes Description of specimen(s) removed: placenta and baby Cord Vessel Description: 3 Vessels Delayed Cord Clamping: Yes Judicial Administrative Assistant petroleum refining firer: Yes Arc Welding Machine Operator: Mandy Sheridan Tasks completed by assistant pressman: Opening & closing, Retracting and Other (assisting in delivery of the infant) Additional real estate legal assistant?: No Complications Complications: No Admit VTE Documentation VTE Present on Admission: No VTE Mechan Device Prophylaxis: SCD's Procedures Urinary/Genital 52xxx-59xxx: 23692 [facility]
--- NOTE | 2025-05-23 07:18 | PCM.DC ---
Discharge Instructions DC O2, CPAP, BIPAP needs Home O2 Discharge instructions: No Dressing / Incision Discharge Activity: Return to Normal Activity, May Not Drive (while taking narcotic pain medications.) and May Shower May shower in (days): 0 May resume sexual activity in: 4-6 weeks Weight Bearing Status: Full weight bearing Lifting Restrictions: 20 pounds Dressing / Incision Call your doctor if your incision/area has: Continuous Slow Oozing, Sudden Increased Bleeding, Increased Pain/ Swelling, Increased Redness and Foul Smelling Discharge Call your doctor if you observe: Fever of 101 or Higher and Using more than 1 pad per hour (for 2 hours) Suture Line Care: Avoid Pulling/Pushing and Avoid Pinching/Bending Cleanse incision/area with: Soap & Water and Keep Dressing Clean & Dry Follow Up Care Please Follow Up With: Ira Caal MD When: Call [phone] to make an appointment with your doctor in 6 weeks. If you had elevated blood pressure or 4th degree laceration, you will need to be seen in 2 weeks. Test Results: Test results from this visit will be discussed in further detail at your follow-up appointment, if applicable. Discharge Plan Admission Admit Date/Time: 05/23/25 05:13 Attending Provider: Ira Caal Primary Care Provider: Brooke Brown Discharge Orders/Prescriptions Prescriptions: No Action Maria Esther PNV 6 mg iron- 833.5 mcg DFE tablet 1 tab PO QHS magnesium 200 mg tablet 400 mg PO QDAY Referrals / Follow Up: Brooke Brown DO [Primary Care Provider, Internal Medicine]
[2025-05-23] MEDS: morphine PF (epidural) 5 MG/10 ML Vial EPIDURAL (07:27)
[2025-05-23] MEDS: 0.9% Normal Saline (1000mL) 350 ML IV (07:52)
[2025-05-23] MEDS: Ketorolac 30 MG/ML Syringe IV ×3 (08:04→20:44)
[2025-05-23] MEDS: morphine PF (epidural) 5 MG/10 ML Vial 4.9 MG IV (08:11)
[2025-05-23] MEDS: BUPIVACAINE LIPOSOME/PF 20 ML VIAL OPERA.SITE (08:17)
--- NOTE | 2025-05-23 08:57 | PCM.POST.ANE ---
Anesthesia: Postop Eval I Current Vital Signs Temperature: 98 F Pulse Rate: 61 Blood Pressure: 105/67 Respiratory Rate: 16 Pulse Ox: 97 Oxygen Delivery Method: Room Air Assessment Airway patent: Yes Spontaneous unlabored respirations: Yes Mental status: Awake and Calm nausea: No Vomiting: No Anesthesia Complication: No Fluid Hydration Crystalloid volume administer (ml): 1,400 Total IV fluid infused: 1,400 Progress Note Anesthesia document: Postop Eval 1 completed: Yes
--- NOTE | 2025-05-23 09:09 | POSTOPAN2_ITS ---
Anesthesia Postop Eval I Sum Postop Eval Completion status Anesthesia document: Postop Eval 1 completed: Yes Anesthesia Postop Eval I Summary Anesthesia Postop Eval I Summary: Anesthesia Postop Eval I: Assessment Summary Airway patent Yes 05/23/25 08:58 MAJOR [email or web address] Spontaneous unlabored Yes 05/23/25 08:58 MAJOR GENERAL.MDOT respirations Mental status Awake,Calm 05/23/25 08:58 MAJOR GENERAL.MDOT nausea No 05/23/25 08:58 MAJOR GENERAL.MDOT Vomiting No 05/23/25 08:58 MAJOR GENERAL.MDOT Anesthesia Postop Eval I: Fluid Summary Crystalloid volume administer 1,400 05/23/25 08:58 MAJOR GENERAL.MDOT (ml) Colloids volume administered ( ml) Blood Product volume administered (ml) Total IV fluid infused 1,400 05/23/25 08:58 MAJOR GENERAL.MDOT Anesthesia Postop Eval I: Summary Notes Anesthesia Complication No 05/23/25 08:58 MAJOR GENERAL.MDOT Anesthesia Complication Comment: Post-operative progress note Anesthesia: Postop Eval II Evaluation Mental status: Awake and Calm Pain Level: 0 nausea: No Vomiting: No Complications Anesthesia Complication: No
--- NOTE | 2025-05-23 09:09 | PCM.POSTANE2 ---
Anesthesia Postop Eval I Sum Postop Eval Completion status Anesthesia document: Postop Eval 1 completed: Yes Anesthesia Postop Eval I Summary Anesthesia Postop Eval I Summary: Anesthesia Postop Eval I: Assessment Summary Airway patent Yes 05/23/25 08:58 INJECTION MOLDING MACHINE OPERATOR.MDOT Spontaneous unlabored Yes 05/23/25 08:58 INJECTION MOLDING MACHINE OPERATOR.MDOT respirations Mental status Awake,Calm 05/23/25 08:58 INJECTION MOLDING MACHINE OPERATOR.MDOT nausea No 05/23/25 08:58 INJECTION MOLDING MACHINE OPERATOR.MDOT Vomiting No 05/23/25 08:58 INJECTION MOLDING MACHINE OPERATOR.MDOT Anesthesia Postop Eval I: Fluid Summary Crystalloid volume administer 1,400 05/23/25 08:58 INJECTION MOLDING MACHINE OPERATOR.MDOT (ml) Colloids volume administered ( ml) Blood Product volume administered (ml) Total IV fluid infused 1,400 05/23/25 08:58 INJECTION MOLDING MACHINE OPERATOR.MDOT Anesthesia Postop Eval I: Summary Notes Anesthesia Complication No 05/23/25 08:58 INJECTION MOLDING MACHINE OPERATOR.MDOT Anesthesia Complication Comment: Post-operative progress note Anesthesia: Postop Eval II Evaluation Mental status: Awake and Calm Pain Level: 0 nausea: No Vomiting: No Complications Anesthesia Complication: No
[2025-05-23] MEDS: Lactated Ringers 1,000 ML 100 ML IV (09:23)
[2025-05-23] MEDS: Oxytocin 15 Units/NS 250ml 15 UNITS/250 ML IV.SOLN 83 UNITS IV (09:23)
--- NOTE | 2025-05-23 10:15 | FALS_PTH ---
PATIENT: MOHIT KERN LOC: [facility] U#:[id number] AGE/SX: 35/F ROOM: [facility] RE05/23/[address]: Dr. Ira Caal MD : 1990 BED: 1 DIS: 05/24/2025 SPEC #: [id number] RECD: 05/23/25 10:44 STATUS: COLETTE REShira #: [id number] MARY: 05/23/25 10:[address]: Ira Caal DEPT: SURGICAL PATHOLOGY RECD BY: Jama Venegas ENTERED: 05/24/25 08:55 SP TYPE: FALL TUBES OTHR DR: Dr. Brooke Brown DO Tissues: A - Fallopian tube Procedures: Surgery Specimen Level II HEADER OPERATION: Repeat section PRE-OP DIAGNOSIS: Tubal ligation TISSUE SUBMITTED: A- Bilateral fallopian tubes *stitch in right* MICROSCOPIC DIAGNOSIS A. Fallopian tubes, bilateral salpingectomies: * Benign fallopian tubes with complete cross sections obtained MICROSCOPIC DESCRIPTION Slides are reviewed. GROSS DESCRIPTION A. Received in formalin labeled with the patient's name and date of . Designated as R with stitch are 2 purple-red fimbriated fallopian tubes with few paratubal cysts, averaging <0.1 cm. There is a suture designated as right and they measure 7.6 x 0.6 cm (left) and 9.1 x 0.7 cm (right). Toe Pounder sections are submitted in 2 cassettes as follows: A1: Left fallopian tube A2: Right fallopian tube MN 05/24CPT:[id number]
[2025-05-23] MEDS: 0.9% Saline Lock 10 ML Syringe IV ×2 (17:39→20:44)
[2025-05-24 00:19] VITALS: BP 97/58; PULSE 82; RESP 16; TEMP 36.6; O2SAT 97
[2025-05-24] MEDS: Ketorolac 30 MG/ML Syringe IV (03:00)
[2025-05-24] MEDS: 0.9% Saline Lock 10 ML Syringe IV (03:00)
[2025-05-24 03:50] VITALS: BP 101/56; PULSE 70; RESP 16; TEMP 36.6; O2SAT 97
[2025-05-24 06:17] LABS: Hematocrit 27.9 % (37-47); Hemoglobin 9.7 g/dL (12.0-15.0); Mean Corp Hgb Conc 34.8 g/dL (32-36); Mean Corpuscular Volume 95.9 fL (81-99); Mean Platelet Vol. 12.6 fl (6.2-12.0); Platelet Count 103 K/mm3 (150-450); RBC Distribution Width CV 13.2 % (11.6-14.6); RBC Distribution Width SD 46.3 fl (35.1-43.9); Red Blood Count 2.91 M/mm3 (4.2-5.4); White Blood Count 8.1 K/mm3 (4.4-11.0)
[2025-05-24 08:25] VITALS: BP 100/68; PULSE 79; RESP 16; O2SAT 97
[2025-05-24] MEDS: Senna/Docusate Sodium 1 Tablet PO (10:13)
--- NOTE | 2025-05-24 13:49 | CASEMGMT ---
Social Work Assessment Labor and Delivery Unit Patient Address: [address] [place] [address] Phone number: [phone] Date of Referral: 05/23/25 Time of Referral:? 1229 Referred By: Dr. Caal Date of Intervention:05/24/25 ?? Time of Intervention:? 1120 Reason for Referral:? quit drinking in 2022 Sw completed chart review and acknowledges social work consult. Sw presented to bedside and introduced self to mother of baby, SURYA- Krunal and father of baby, ELEUTERIO- Cheko. Sw explained reason for sw involvement and completed psychosocial assessment. SURYA is 35 year old female who is 4, para 3- now 4 following labor and delivery of . SURYA presented to hospital for scheduled repeat on 05/23/25. Consult entered for social work due to concern that SURYA may have history of heavy alcohol use. Sw and parents discussed history of substance abuse. SURYA stated that when she was younger she would binge drink on the weekends, however prior to having children she decided she did not want to parent her children with hang overs on the weekends so she stopped drinking. SURYA stated that she and FOJs met on [address] [place] years ago, and then she and he got three months later, and delivered their first baby coincidentally [place] [address] the next year. SURYA stated that she stopped drinking since then. SURYA had a drink at her friends wedding in 2022, so when she was asked the question if she drinks or does drugs when she got admitted, she may have answered, that the last time she drank was in 2022. Sw expressed understanding. Sw and parents discussed mental health. SURYA stated that she does tend to have some baby blues after she has her babies, however it is only transitioning to life with a following a and not being able to physically do what she wants to do. SURYA states that she is a physically busy person, she is used to going and doing things all of the time, so when she has a baby it forces her to sit down, and relax. SURYA states that she enjoys the phase and is looking forward to the downtime that this period is going to force her into having. Parents report to having all necessary baby items and a lot of natural supports in place. Both parents are gainfully employed outside of the home and are able to financially be able to provide for their family of 5- now 6 (they have three older children at home: Nir (8), Amaris (6) and Maribel (3). Sw expressed importance of safe sleep inside and outside of the bedroom. Sw educated MOB on always placing baby in bedside bassinet and not sleeping with baby in bed with her. Sw explained that baby's bassinet should be free of any blankets, pillows or stuffed animals. And baby should be sleeping in a onsie and a sleep sack/ swaddle sack for sleep. MOB expressed understanding. Sw discouraged sleeping with baby on a couch or in a reclining chair explaining that sleep accidents also happen in those areas as well. Sw educated MOB on shaken baby prevention. MOB expressed understanding. ASSESSMENT:?MOB and baby admitted following labor and delivery of . MOB met with parents to discuss potential prior substance abuse, however this was a misunderstanding during admission questions. Although MOB did state that she does have history of binge drinking/ or sometimes drinking in access on the weekends prior to becoming a parent, she stopped this prior to having children. MOB stated that she did not want to parent her children while ever being under the influence of alcohol so she stopped drinking at all prior to becoming . Sw and parents discussed transitioning to life with another at home and how excited their family is to have another baby. MOB and FOB were receptive to meeting with sw. Both parents were open and talkative with sw, communication and conversation flowed very easily and naturally. Parents have all necessary baby items and natural supports in place. PLAN:? No other services requested or indicated. MOB and baby to be discharged when medically ready. Parents were provided literature regarding: signs and symptoms of baby blues and mood and anxiety disorders, Help Me Grow, shaken baby prevention, ABCs of safe sleep and a list of county resources that are available for them should any needs present themselves. Sumi De Souza, [employer] PERSON, ELECTRONICS INSPECTOR
[2025-05-24 14:00] VITALS: BP 100/68; PULSE 80; RESP 16; O2SAT 97
--- NOTE | 2025-05-24 14:30 | PN.OBGYN_ITS ---
Subjective Subjective Patient doing well without complaints. Tolerating PO. Ambulating and voiding without difficulty. feeding well. Denies chest pain, shortness of breath, calf pain/swelling, fevers, chills, lightheadedness. Objective Data Objective Data Vital Signs: Vital Signs Temp Pulse Resp BP Pulse Ox O2 Del Method 98 F 80 16 100/68 97 Room Air 05/24/25 03:50 05/24/25 14:00 05/24/25 14:00 05/24/25 14:00 05/24/25 14:00 05/24/25 14:00 Oxygen Delivery Method Room Air Weight: 164 lb 14.492 oz Body Mass Index (BMI) 25.8 Intake & Output: Intake and Output for Last 24 Hours 05/22/25 05/23/25 05/24/25 23:59 23:59 23:59 Intake Total 2443.33 / 2443.33 Output Total 1650 / 1650 200 / 200 Balance 793.33 / 793.33 -200 / -200 Lab / Micro Data 05/24/25 06:08 Labs: Laboratory Results - last 24 hr 05/24/25 06:08: WBC 8.1, RBC 2.91 L, Hgb 9.7 L, Hct 27.9 L, MCV 95.9, MCH 33.3 H , MCHC 34.8, RDW Std Deviation 46.3 H, RDW Coeff of Emilio 13.2, Plt Count 103 L, M PV 12.6 H ROS Constitutional Constitutional: Reports systems reviewed and no addt'l complaints, except as documented Cardiovascular Cardiovascular: Reports systems reviewed and no addt'l complaints, except as documented Respiratory/Chest Respiratory/Chest: Reports systems reviewed and no addt'l complaints, except as documented Gastrointestinal Gastrointestinal: Reports systems reviewed and no addt'l complaints, except as documented Physical Exam Const alert, oriented x3 and no apparent distress HEENT Head and Scalp: atraumatic Resp normal respiratory effort GI soft to palpation and non-tender Inspection: incision intact, healing well and drainage (none) Bimanual Exam - Vag & Uterus: uterus non-tender Uterus Palpation: uterus fundus firm (below Umbilicus) Assessment & Plan (1) Status post bilateral salpingectomy: (2) delivery delivered: COMMENT: LARRY RLTCS girl Aidee 39 PLAN: Plan s/p LTCS PPD # 1 1. routine post care 2. breast feeding- support given 3. rh positive 4. rubella immune
[2025-05-30 07:35] LABS: Pathology Specimen OB SEE PATHOLOGY REPORT
== END 2025-05-24 17:20 | disposition home or self-care (01) | DRG 785 ==
PROVIDERS: Admitting Provider Obstetrics & Gynecology; PCP Internal Medicine; Visit Provider Obstetrics & Gynecology
PROC: 10D00Z1 Extraction of Products of Conception, Low, Open Approach (ICD-10-PCS; CPT 59514; principal; 2025-05-23 07:00)
DX: O34.211 Maternal care for low transverse scar from previous cesarean delivery (principal); Z30.2 Encounter for sterilization; Z37.0 Single live birth; Z3A.38 38 weeks gestation of pregnancy; Z87.891 Personal history of nicotine dependence
CPT/HCPCS: 59025; 59050; 85025; 85027; 86780; 86850; 86900; 86901; 88302; 99221; A4216; G0378; J0666; J2405